=== PATIENT | female | born 1970 | race African-American/Black ===

== ENCOUNTER 2018-07-20 01:39 | Inpatient (IN) | payer MEDICARE, MEDICAID ==
[~2018-07-20] VITALS: Ht 162.6 cm; Wt 114.8 kg
[2018-07-20 01:45] VITALS: BP 114/83
[2018-07-20] MEDS ORDERED: Albuterol ud Inhalation HHN ONE (01:45)
--- NOTE | 2018-07-20 02:03 | Emergency Room Report ---
History of Present Illness General Chief Complaint: Chest Pain Source: Patient, Medical Record, EMS Present Illness HPI Patient is a 48-year-old female presented after increased chest discomfort. Patient had reportedly been recently released from [facility]. Patient recent the been noted to have increased pain to her chest.The patient reports being a smoker as well as having prior history of mental illness. Allergies: Coded Allergies: No Known Allergies (Unverified , 07/20/18) Patient History Past Medical History: see triage record Reviewed Nursing Documentation: PMH: Agreed; PSxH: Agreed Nursing Documentation-PMH Past Medical History: No History, Except For Hx Hypertension: Yes Hx COPD: Yes Hx Diabetes: Yes - DM2 Review of Systems All Other Systems: negative except mentioned in HPI Physical Exam Vital Signs Date Time Temp Pulse Resp B/P (MAP) Pulse Ox O2 Delivery O2 Flow Rate FiO2 07/20/18 01:33 97.8 64 18 118/81 92 Room Air 97.9 07/20/18 01:53 21 Sp02 EP Interpretation: reviewed, normal General Appearance: normal inspection, well appearing, no apparent distress, alert, GCS 15 Head: atraumatic ENT: normal ENT inspection, hearing grossly normal, normal voice Neck: normal inspection, full range of motion, supple, no bony tend Respiratory: normal inspection, lungs clear, normal breath sounds, no respiratory distress, no retraction, no wheezing Cardiovascular #1: regular rate, rhythm, no edema Gastrointestinal: normal inspection, normal bowel sounds, non tender, soft, no guarding, no hernia Genitourinary: no CVA tenderness Musculoskeletal: normal inspection, back normal, normal range of motion Neurologic: normal inspection, alert, responsive, speech normal Psychiatric: normal inspection, judgement/insight normal, mood/affect normal Skin: normal inspection, normal color, no rash Medical Decision Making Diagnostic Impression: Primary Impression: Chest pain ER Course Patient presented for chest pain. Differential diagnosis included but was not limited to acute coronary syndrome, pulmonary embolism, pneumonia, aortic dissection, shingles, pneumothorax, aortic dissection, esophageal rupture, pericarditis. Because of complexity of patient's case laboratory testing and imaging studies were ordered.Patient was noted to have EKG with normal sinus rhythm with a rate of [address] or T wave changes. Patient was given breathing treatment. The patient was noted to have some mild elevation of BNP. Dr. Malick Marie was contacted for inpatient management due to primary care physician. Labs Test 07/20/18 02:15 White Blood Count 8.0 K/UL (4.8-10.8) Red Blood Count 3.44 M/UL (4.20-5.40) Hemoglobin 9.7 G/DL (12.0-16.0) Hematocrit 29.8 % (37.0-47.0) Mean Corpuscular Volume 87 FL (80-99) Mean Corpuscular Hemoglobin 28.1 PG (27.0-31.0) Mean Corpuscular Hemoglobin Concent 32.4 G/DL (32.0-36.0) Red Cell Distribution Width 14.3 % (11.6-14.8) Platelet Count 307 K/UL (150-450) Mean Platelet Volume 6.9 FL (6.5-10.1) Neutrophils (%) (Auto) 45.1 % (45.0-75.0) Lymphocytes (%) (Auto) 45.5 % (20.0-45.0) Monocytes (%) (Auto) 5.1 % (1.0-10.0) Eosinophils (%) (Auto) 2.7 % (0.0-3.0) Basophils (%) (Auto) 1.6 % (0.0-2.0) D-Dimer 0.38 mg/L FEU (0.00-0.49) Sodium Level 143 MMOL/L (136-145) Potassium Level 4.3 MMOL/L (3.5-5.1) Chloride Level 106 MMOL/L (98-107) Carbon Dioxide Level 26 MMOL/L (21-32) Anion Gap 11 mmol/L (5-15) Blood Urea Nitrogen 25 mg/dL (7-18) Creatinine 2.0 MG/DL (0.55-1.30) Estimat Glomerular Filtration Rate 32.2 mL/min (>60) Glucose Level 143 MG/DL (74-106) Calcium Level 8.8 MG/DL (8.5-10.1) Total Bilirubin 0.2 MG/DL (0.2-1.0) Aspartate Amino Transf (AST/SGOT) 45 U/L (15-37) Alanine Aminotransferase (ALT/SGPT) 43 U/L (12-78) Alkaline Phosphatase 93 U/L (46-116) Total Creatine Kinase 98 U/L (26-308) Creatine Kinase MB < 0.5 NG/ML (0.0-3.6) Creatine Kinase MB Relative Index 0.5 Troponin I 0.000 ng/mL (0.000-0.056) Pro-B-Type Natriuretic Peptide 171 pg/mL (0-125) Total Protein 7.4 G/DL (6.4-8.2) Albumin 2.9 G/DL (3.4-5.0) Globulin 4.5 g/dL Albumin/Globulin Ratio 0.6 (1.0-2.7) Lipase 248 U/L (73-393) EKG Diagnostic Results Rate: normal Rhythm: NSR ST Segments: no acute changes Last Vital Signs Date Time Temp Pulse Resp B/P (MAP) Pulse Ox O2 Delivery O2 Flow Rate FiO2 07/20/18 01:53 89 26 Room Air 21 07/20/18 01:53 99 07/20/18 01:33 97.8 118/81 97.9 Status: unchanged Disposition: ADMITTED INPATIENT Condition: Stable Wang Xiao MD Jul 20, 2018 02:03
[2018-07-20 02:36] LABS: BASOPHILS % (AUTO) 1.6 % (0.0-2.0); EOSINOPHILS % (AUTO) 2.7 % (0.0-3.0); HEMATOCRIT 29.8 % (37.0-47.0); HEMOGLOBIN 9.7 G/DL (12.0-16.0); LYMPHOCYTES % (AUTO) 45.5 % (20.0-45.0); MEAN CORPUSCULAR VOLUME 87 FL (80-99); MONOCYTES % (AUTO) 5.1 % (1.0-10.0); NEUTROPHILS % (AUTO) 45.1 % (45.0-75.0); PLATELET COUNT 307 K/UL (150-450); RED BLOOD COUNT 3.44 M/UL (4.20-5.40); RED CELL DISTRIBUTION WIDTH 14.3 % (11.6-14.8)
[2018-07-20 02:43] LABS: ANION GAP 11 mmol/L (5-15); BLOOD UREA NITROGEN 25 mg/dL (7-18); CALCIUM 8.8 MG/DL (8.5-10.1); CARBON DIOXIDE 26 MMOL/L (21-32); CHLORIDE 106 MMOL/L (98-107); POTASSIUM 4.3 MMOL/L (3.5-5.1); SODIUM 143 MMOL/L (136-145)
[2018-07-20 02:57] LABS: ALANINE AMINOTRANSFERASE 43 U/L (12-78); ALBUMIN 2.9 G/DL (3.4-5.0); ALBUMIN/GLOBULIN RATIO 0.6 (1.0-2.7); ALKALINE PHOSPHATASE 93 U/L (46-116); ASPARTATE AMINO TRANSFERASE 45 U/L (15-37); BILIRUBIN,TOTAL 0.2 MG/DL (0.2-1.0); CKMB < 0.5 NG/ML (0.0-3.6); CREATINE KINASE 98 U/L (26-308)
[2018-07-20 05:00] VITALS: BP 107/70
[2018-07-20] MEDS ORDERED: KLONOPIN1 MG ORAL (05:51)
[2018-07-20] MEDS ORDERED: CLONIDINE HCL0.1 MG PO (05:51)
[2018-07-20] MEDS ORDERED: LORAZEPAM1 MG ORAL (05:51)
[2018-07-20] MEDS ORDERED: CALCIUM CARBON650 M3 GT (05:51)
[2018-07-20] MEDS ORDERED: DIVALPROEX SOD500 M2 PO (05:51)
[2018-07-20] MEDS ORDERED: DOCUSATE SODIU100 MG ORAL (05:51)
[2018-07-20] MEDS ORDERED: TYLENOL EXTRA500 MG ORAL ×2 (05:51)
[2018-07-20] MEDS ORDERED: TEMAZEPAM15 MG ORAL (05:51)
[2018-07-20] MEDS ORDERED: GABAPENTIN300 MG ORAL (05:51)
[2018-07-20] MEDS ORDERED: CLONIDINE0.1 MG PO (05:51)
[2018-07-20] MEDS ORDERED: TRAZODONE HCL100 MG ORAL (05:51)
[2018-07-20] MEDS ORDERED: NITROSTAT0.4 M1 SL (05:51)
[2018-07-20] MEDS ORDERED: CAL-CITRATE W/200 MG PO (05:51)
[2018-07-20] MEDS ORDERED: AMLODIPINE BESY10 MG ORAL (05:51)
[2018-07-20] MEDS ORDERED: METOPROLOL SUCC25 MG ORAL (05:51)
[2018-07-20] MEDS ORDERED: SEROQUEL400 MG ORAL (05:51)
[2018-07-20] MEDS ORDERED: Enalaprilat 2.5mg/2ml Inj IV PRN (07:45)
[2018-07-20] MEDS ORDERED: Ketorolac 30mg Inj IV PRN (07:45)
[2018-07-20] MEDS ORDERED: Albuterol/Ipratropium 3ml neb HHN PRN (07:45)
[2018-07-20] MEDS ORDERED: Nitroglycerin Subl 0.4mg tab SL PRN (07:45)
[2018-07-20] MEDS ORDERED: Miralax 17gm pkt ORAL PRN (07:45)
[2018-07-20] MEDS ORDERED: dilTIAZem HCl 25mg/5ml Inj IV PRN (07:45)
[2018-07-20 07:55] VITALS: BP 131/81
[2018-07-20] MEDS ORDERED: Calcium Carbonate 650mg Tab ORAL SCH (09:00)
[2018-07-20] MEDS ORDERED: Metoprolol Succinate XL 25mg tab ORAL SCH (09:00)
[2018-07-20] MEDS: Aspirin Baby 81mg ORAL SCH (09:21)
[2018-07-20] MEDS: Depakote ER 500mg tab ORAL SCH (09:21)
[2018-07-20] MEDS: Heparin 5000 units/ml inj SUBQ SCH ×2 (09:23→21:19)
[2018-07-20] MEDS: Morphine Sulfate 2mg/ml Inj IVP PRN ×3 (09:26→18:45)
--- NOTE | 2018-07-20 09:50 | Diagnostic Imaging Report ---
Indication: Altered mental status Technique: Contiguous 5 mm thick transaxial imaging of the head obtained in a Siemens Sensation [address] scanner. Soft tissue and bone windows generated. Automatic Exposure Control was utilized. Total Dose length Product (DLP): 1411.[address] Dose Index Volume (CTDIvol): 70.38 mGy Comparison: none Findings: There is moderate prominence of the ventricles, basal cisterns, and cerebral sulci consistent with atrophy. Moderate, nonspecific, white matter hypoattenuation is noted throughout the brain consistent with chronic small vessel disease. There is no midline shift, edema, acute hemorrhage, mass effect, or abnormal extra-axial fluid collections. Bones and extra osseous soft tissues are unremarkable. Impression: No acute intracranial bleed, mass effect or edema. Moderate atrophy of the brain. Evidence of chronic small vessel disease involving white matter tracts. [facility] has communicated the preliminary results to the Emergency Department. Their findings are largely concordant with this report. The CT scanner at [facility] is accredited by the [employer] and the scans are performed using dose optimization techniques as appropriate to a performed exam including Automatic Exposure control.
--- NOTE | 2018-07-20 10:02 | Consultation ---
History of Present Illness General Date patient seen: Jul 20, 2018 Chief Complaint: Chest Pain Present Illness HPI 48-year-old female with PMHx of Diabetes, COPD, chronic back pain, homeless, hypertension presented to ER with CC of increased chest discomfort. Patient had reportedly been recently released from [facility]. Patient recent the been noted to have increased pain to her chest. Pt is admitted to telemetry to work up ACS. Allergies: Coded Allergies: No Known Allergies (Unverified , 07/20/18) Medication History Scheduled Amlodipine Besylate* (Amlodipine Besylate*), 10 MG ORAL DAILY, (Reported) Calcium Carbonate (Calcium Carbonate), 500 MG PO DAILY, (Reported) Clonazepam* (Klonopin*), 1 MG ORAL BID, (Reported) Clonidine Hcl (Clonidine Hcl), 0.1 MG PO Q6HR, (Reported) Divalproex Sodium (Divalproex Sodium Er), 500 MG PO DAILY, (Reported) Docusate Sodium* (Docusate Sodium*), 100 MG ORAL TWICE A DAY, (Reported) Gabapentin* (Gabapentin*), 300 MG ORAL THREE TIMES A DAY, (Reported) Metoprolol Succinate* (Metoprolol Succinate*), 25 MG ORAL DAILY, (Reported) Quetiapine Fumarate (Seroquel), 400 MG ORAL QHS, (Reported) Temazepam (Temazepam*), 15 MG ORAL BEDTIME, (Reported) Trazodone Hcl* (Desyrel*), 100 MG ORAL BEDTIME, (Reported) Scheduled PRN Acetaminophen* (Tylenol Extra Strength*), 325 MG ORAL Q6H PRN for Mild Pain/ Temp > 100.5, (Reported) Acetaminophen* (Tylenol Extra Strength*), 650 MG ORAL Q6HR PRN for Prn Headache/ Temp > 101, (Reported) Clonidine HCl (Clonidine HCl), 0.1 MG PO Q6HR PRN for For High Blood Pressure, ( Reported) Lorazepam* (Lorazepam*), 1 MG ORAL Q6HR PRN for For Anxiety, (Reported) Nitroglycerin (Nitrostat), 0.4 MG SL Q5M X3 DOSES PRN for CHEST PAIN, (Reported) Temazepam (Temazepam*), 15 MG ORAL BEDTIME PRN for PRN, (Reported) Miscellaneous Medications Calcium Carbonate (Calcium Carbonate), 650 MG GT, (Reported) Patient History Healthcare decision maker Resuscitation status Full Code Advanced Directive on File No Past Medical/Surgical History Past Medical/Surgical History: (1) Diabetic nephropathy (2) Diabetes mellitus (3) COPD (chronic obstructive pulmonary disease) (4) Bipolar disorder Review of Systems All Other Systems: negative except mentioned in HPI Physical Exam General Appearance: WD/WN Lines, tubes and drains: peripheral HEENT: normocephalic, atraumatic Neck: non-tender, normal alignment Respiratory/Chest: chest wall non-tender, lungs clear Cardiovascular/Chest: normal peripheral pulses, normal rate Abdomen: normal bowel sounds, non tender Genitourinary/Rectal: normal genital exam Extremities: normal range of motion 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 Last 24 Hour Vital Signs Date Time Temp Pulse Resp B/P (MAP) Pulse Ox O2 Delivery O2 Flow Rate FiO2 07/20/18 09:22 87 131/81 07/20/18 09:21 87 131/81 07/20/18 07:55 96.6 87 18 131/81 (98) 98 96.6 07/20/18 05:37 Room Air 07/20/18 05:00 97.7 86 20 107/70 (82) 98 97.7 07/20/18 05:00 97.8 89 18 114/83 100 Room Air 2.0 21 97.8 07/20/18 02:04 86 16 100 Room Air 21 07/20/18 01:53 89 26 Room Air 21 07/20/18 01:53 89 26 99 Room Air 21 07/20/18 01:45 97.8 89 18 114/83 92 Room Air 2.0 97.8 07/20/18 01:40 91 18 Room Air 07/20/18 01:33 97.8 64 18 118/81 92 Room Air 97.9 Intake and Output 07/19/18 07/20/18 19:00 07:00 Output Total 500 ml Balance -500 ml Output Urine Total 500 ml # Voids 1 Laboratory Tests Test 07/20/18 02:15 White Blood Count 8.0 K/UL (4.8-10.8) Red Blood Count 3.44 M/UL (4.20-5.40) L Hemoglobin 9.7 G/DL (12.0-16.0) L Hematocrit 29.8 % (37.0-47.0) L Mean Corpuscular Volume 87 FL (80-99) Mean Corpuscular Hemoglobin 28.1 PG (27.0-31.0) Mean Corpuscular Hemoglobin Concent 32.4 G/DL (32.0-36.0) Red Cell Distribution Width 14.3 % (11.6-14.8) Platelet Count 307 K/UL (150-450) Mean Platelet Volume 6.9 FL (6.5-10.1) Neutrophils (%) (Auto) 45.1 % (45.0-75.0) Lymphocytes (%) (Auto) 45.5 % (20.0-45.0) H Monocytes (%) (Auto) 5.1 % (1.0-10.0) Eosinophils (%) (Auto) 2.7 % (0.0-3.0) Basophils (%) (Auto) 1.6 % (0.0-2.0) D-Dimer 0.38 mg/L FEU (0.00-0.49) Sodium Level 143 MMOL/L (136-145) Potassium Level 4.3 MMOL/L (3.5-5.1) Chloride Level 106 MMOL/L (98-107) Carbon Dioxide Level 26 MMOL/L (21-32) Anion Gap 11 mmol/L (5-15) Blood Urea Nitrogen 25 mg/dL (7-18) H Creatinine 2.0 MG/DL (0.55-1.30) H Estimat Glomerular Filtration Rate 32.2 mL/min (>60) Glucose Level 143 MG/DL (74-106) H Calcium Level 8.8 MG/DL (8.5-10.1) Total Bilirubin 0.2 MG/DL (0.2-1.0) Aspartate Amino Transf (AST/SGOT) 45 U/L (15-37) H Alanine Aminotransferase (ALT/SGPT) 43 U/L (12-78) Alkaline Phosphatase 93 U/L (46-116) Total Creatine Kinase 98 U/L (26-308) Creatine Kinase MB < 0.5 NG/ML (0.0-3.6) Creatine Kinase MB Relative Index 0.5 Troponin I 0.000 ng/mL (0.000-0.056) Pro-B-Type Natriuretic Peptide 171 pg/mL (0-125) H Total Protein 7.4 G/DL (6.4-8.2) Albumin 2.9 G/DL (3.4-5.0) L Globulin 4.5 g/dL Albumin/Globulin Ratio 0.6 (1.0-2.7) L Lipase 248 U/L (73-393) Height (Feet): 5 Height (Inches): 4.00 Weight (Pounds): 253 Medications Current Medications Medications (Trade) Dose Ordered Sig/Luciano Route PRN Reason Start Time Stop Time Status Last Admin Dose Admin Acetaminophen (Tylenol) 650 mg Q4H PRN ORAL FEVER 07/20/18 07:45 08/19/18 07:44 Albuterol/ Ipratropium (Albuterol/ Ipratropium) 3 ml Q4H PRN HHN Shortness of Breath 07/20/18 07:45 07/25/18 07:44 Amlodipine Besylate (Norvasc) 10 mg DAILY ORAL 07/20/18 09:00 08/19/18 08:59 07/20/18 09:22 Aspirin (ASA) 162 mg DAILY ORAL 07/20/18 09:00 08/19/18 08:59 07/20/18 09:21 Calcium Carbonate (Calcium Carbonate) 650 mg DAILY ORAL 07/20/18 09:00 08/19/18 08:59 Clonidine HCl (Catapres Tab) 0.1 mg Q6H PRN ORAL For High Blood Pressure > 160 07/20/18 07:45 08/19/18 07:44 Diltiazem HCl (Cardizem) 10 mg Q1H PRN IV heart rate more than 120 07/20/18 07:45 08/19/18 07:44 Divalproex Sodium (Depakote ER) 500 mg DAILY ORAL 07/20/18 09:00 08/19/18 08:59 07/20/18 09:21 Enalaprilat (Vasotec) 2.5 mg Q6H PRN IV sbp more than 160 07/20/18 07:45 08/19/18 07:44 Gabapentin (Neurontin) 300 mg THREE TIMES A DAY ORAL 07/20/18 09:00 08/19/18 08:59 07/20/18 09:21 Heparin Sodium (Porcine) (Heparin 5000 units/ml) 5,000 units EVERY 12 HOURS SUBQ 10/23/18 09:00 08/19/18 08:59 07/20/18 09:23 Ketorolac Tromethamine (Toradol 30mg) 30 mg Q6H PRN IV moderate pain ( 4-6) 07/20/18 07:45 07/25/18 07:44 Metoprolol Succinate (Toprol XL) 25 mg DAILY ORAL 07/20/18 09:00 08/19/18 08:59 07/20/18 09:21 Morphine Sulfate (Morphine Sulfate) 2 mg Q4H PRN IVP severe Pain (Pain Scale 7-10) 07/20/18 07:45 07/27/18 07:44 07/20/18 09:26 Nitroglycerin (Ntg) 0.4 mg Q5M PRN SL Prn Chest Pain 07/20/18 07:45 08/19/18 07:44 Ondansetron HCl (Zofran) 4 mg Q6H PRN IVP Nausea & Vomiting 07/20/18 07:45 08/19/18 07:44 Polyethylene Glycol (Miralax) 17 gm DAILYPRN PRN ORAL Constipation 07/20/18 07:45 08/19/18 07:44 Temazepam (Restoril) 15 mg HSPRN PRN ORAL Insomnia 07/20/18 07:45 07/27/18 07:44 Trazodone HCl (Desyrel) 100 mg BEDTIME ORAL 07/20/18 21:00 08/19/18 20:59 Assessment/Plan Problem List: (1) ACS (acute coronary syndrome) ICD Codes: I24.9 - Acute ischemic heart disease, unspecified SNOMED: 703014071 (2) Diabetic nephropathy ICD Codes: E11.21 - Type 2 diabetes mellitus with diabetic nephropathy SNOMED: 70902659, 691826965 (3) COPD (chronic obstructive pulmonary disease) ICD Codes: J44.9 - Chronic obstructive pulmonary disease, unspecified SNOMED: 51927301 (4) Bipolar disorder ICD Codes: F31.9 - Bipolar disorder, unspecified SNOMED: 41215452 (5) Diabetes mellitus ICD Codes: E11.9 - Type 2 diabetes mellitus without complications SNOMED: 69463570 (6) Homelessness ICD Codes: Z59.0 - Homelessness SNOMED: 78114738 Assessment/Plan serial ekg, troponin, echo sliding scale, diabetic diet psych evaluation dvt prophylaxis symptomatic treatment Shruti Gerber MD Jul 20, 2018 10:02
--- NOTE | 2018-07-20 10:56 | Diagnostic Imaging Report ---
Indication: Dyspnea Comparison: None A single view chest radiograph was obtained. Findings: Cardiomediastinal appearance is within normal limits for age. The lungs are clear. Pulmonary vascularity is appropriate. The diaphragmatic contour is smooth and costophrenic angles are sharp. No pleural effusions are identified. The bones are unremarkable. Impression: No acute findings
--- NOTE | 2018-07-20 10:57 | Diagnostic Imaging Report ---
Indication: left ankle pain Comparison: None Findings: 2 views of the left ankle were obtained. No acute fractures, malalignment, erosions or periostitis are identified. Soft tissue swelling is present especially in the lateral part of the ankle.. Impression: No acute findings
[2018-07-20] MEDS: NovoLOG Insulin Flexpen SUBQ SCH ×3 (11:52→21:19)
[2018-07-20 12:00] VITALS: BP 123/82
[2018-07-20 13:00] LABS: APPEARANCE,URINE CLEAR; BILIRUBIN, URINE NEGATIVE (NEGATIVE); COLOR,URINE PALE YELLOW; GLUCOSE, URINE (UA) NEGATIVE (NEGATIVE); KETONES,URINE NEGATIVE (NEGATIVE); LEUKOCYTE ESTERASE ,URINE NEGATIVE (NEGATIVE); NITRITE,URINE NEGATIVE (NEGATIVE); PH,URINE 6.5 (4.5-8.0); PROTEIN,URINE 2+ (NEGATIVE); UROBILINOGEN,URINE NORMAL MG/DL (0.0-1.0)
--- NOTE | 2018-07-20 13:28 | GI Initial Consult Note ---
History of Present Illness General Date patient seen: Jul 20, 2018 Time patient seen: 13:23 Reason for Hospitalization: Chest Pain Referring physician: JOSSY QUINTANA Reason for Consultation: ANEMIA Present Illness HPI Patient is a 48-year-old female presented after increased chest discomfort. Patient had reportedly been recently released from [facility]. Patient recent the been noted to have increased pain to her chest.The patient reports being a smoker as well as having prior history of mental illness. GI consulted for chest discomfort, possible GERD and anemia. Pt seen, awake A& Ox4 NAD with no active s/sx of N/V/D or constipation. Patient has generalized abdominal pain, history of lap band. She is unsure of her endoscopy / colonoscopy history. Labs reviewed; with anemia and renal insufficiency. Home Meds Reported Medications Acetaminophen* (TYLENOL EXTRA STRENGTH*) 500 Mg Tablet, 650 MG ORAL Q6HR PRN for Prn Headache/Temp > 101, #30 TAB 0 Refills 07/20/18 Acetaminophen* (TYLENOL EXTRA STRENGTH*) 500 Mg Tablet, 325 MG ORAL Q6H PRN for Mild Pain/Temp > 100.5, TAB 0 Refills 07/20/18 Temazepam (TEMAZEPAM*) 15 Mg Capsule, 15 MG ORAL BEDTIME PRN for PRN, #30 CAP 0 Refills 07/20/18 Temazepam (TEMAZEPAM*) 15 Mg Capsule, 15 MG ORAL BEDTIME, #30 CAP 0 Refills 07/20/18 Lorazepam* (LORAZEPAM*) 1 Mg Tablet, 1 MG ORAL Q6HR PRN for For Anxiety, TAB 07/20/18 Quetiapine Fumarate (SEROQUEL) 400 Mg Tablet, 400 MG ORAL QHS, #15 TAB 0 Refills 07/20/18 Divalproex Sodium (DIVALPROEX SODIUM ER) 500 Mg Tab.er.24h, 500 MG PO DAILY, TAB 07/20/18 Trazodone Hcl* (DESYREL*) 100 Mg Tablet, 100 MG ORAL BEDTIME, TAB 07/20/18 Clonidine HCl (Clonidine HCl) 0.1 Mg Tablet, 0.1 MG PO Q6HR PRN for For High Blood Pressure, TAB 07/20/18 Clonidine Hcl (CLONIDINE HCL) 0.1 Mg Tablet, 0.1 MG PO Q6HR, TAB 07/20/18 Nitroglycerin (NITROSTAT) 0.4 Mg Tab.subl, 0.4 MG SL Q5M X3 DOSES PRN for CHEST PAIN, #25 TAB 0 Refills 07/20/18 Docusate Sodium* (DOCUSATE SODIUM*) 100 Mg Capsule, 100 MG ORAL TWICE A DAY, CAP 07/20/18 Calcium Carbonate (Calcium Carbonate) 500 Mg Tablet, 500 MG PO DAILY, TAB 07/20/18 Calcium Carbonate (Calcium Carbonate) 260 Mg Tablet, 650 MG GT, TAB 07/20/18 Gabapentin* (GABAPENTIN*) 300 Mg Capsule, 300 MG ORAL THREE TIMES A DAY, CAP 0 Refills 07/20/18 Clonazepam* (KLONOPIN*) 1 Mg Tablet, 1 MG ORAL BID, #15 TAB 0 Refills 07/20/18 Metoprolol Succinate* (METOPROLOL SUCCINATE*) 25 Mg Tab.er.24h, 25 MG ORAL DAILY , TAB 07/20/18 Amlodipine Besylate* (AMLODIPINE BESYLATE*) 10 Mg Tablet, 10 MG ORAL DAILY, TAB 07/20/18 Med list reviewed/reconciled: Yes Allergies: Coded Allergies: No Known Allergies (Unverified , 07/20/18) Patient History Limited by: medical condition History Provided By: Patient, Medical Record PMH Narrative Past Medical History: see triage record Reviewed Nursing Documentation: PMH: Agreed; PSxH: Agreed Nursing Documentation-PMH Past Medical History: No History, Except For Hx Hypertension: Yes Hx COPD: Yes Hx Diabetes: Yes - DM2 Social History: Denies: smoking, alcohol use, drug use, other Review of Systems All Other Systems: negative except mentioned in HPI Physical Exam Vital Signs Date Time Temp Pulse Resp B/P (MAP) Pulse Ox O2 Delivery O2 Flow Rate FiO2 07/20/18 01:33 97.8 64 18 118/81 92 Room Air 97.9 07/20/18 01:45 2.0 07/20/18 01:53 21 Sp02 EP Interpretation: reviewed, normal Labs Laboratory Tests Test 07/20/18 02:15 07/20/18 12:30 White Blood Count 8.0 K/UL (4.8-10.8) Red Blood Count 3.44 M/UL (4.20-5.40) L Hemoglobin 9.7 G/DL (12.0-16.0) L Hematocrit 29.8 % (37.0-47.0) L Mean Corpuscular Volume 87 FL (80-99) Mean Corpuscular Hemoglobin 28.1 PG (27.0-31.0) Mean Corpuscular Hemoglobin Concent 32.4 G/DL (32.0-36.0) Red Cell Distribution Width 14.3 % (11.6-14.8) Platelet Count 307 K/UL (150-450) Mean Platelet Volume 6.9 FL (6.5-10.1) Neutrophils (%) (Auto) 45.1 % (45.0-75.0) Lymphocytes (%) (Auto) 45.5 % (20.0-45.0) H Monocytes (%) (Auto) 5.1 % (1.0-10.0) Eosinophils (%) (Auto) 2.7 % (0.0-3.0) Basophils (%) (Auto) 1.6 % (0.0-2.0) D-Dimer 0.38 mg/L FEU (0.00-0.49) Sodium Level 143 MMOL/L (136-145) Potassium Level 4.3 MMOL/L (3.5-5.1) Chloride Level 106 MMOL/L (98-107) Carbon Dioxide Level 26 MMOL/L (21-32) Anion Gap 11 mmol/L (5-15) Blood Urea Nitrogen 25 mg/dL (7-18) H Creatinine 2.0 MG/DL (0.55-1.30) H Estimat Glomerular Filtration Rate 32.2 mL/min (>60) Glucose Level 143 MG/DL (74-106) H Uric Acid 9.8 MG/DL (2.6-7.2) H Calcium Level 8.8 MG/DL (8.5-10.1) Total Bilirubin 0.2 MG/DL (0.2-1.0) Aspartate Amino Transf (AST/SGOT) 45 U/L (15-37) H Alanine Aminotransferase (ALT/SGPT) 43 U/L (12-78) Alkaline Phosphatase 93 U/L (46-116) Total Creatine Kinase 98 U/L (26-308) Creatine Kinase MB < 0.5 NG/ML (0.0-3.6) Creatine Kinase MB Relative Index 0.5 Troponin I 0.000 ng/mL (0.000-0.056) Pro-B-Type Natriuretic Peptide 171 pg/mL (0-125) H Total Protein 7.4 G/DL (6.4-8.2) Albumin 2.9 G/DL (3.4-5.0) L Globulin 4.5 g/dL Albumin/Globulin Ratio 0.6 (1.0-2.7) L Lipase 248 U/L (73-393) Urine Color Pale yellow Urine Appearance Clear Urine pH 6.5 (4.5-8.0) Urine Specific Buckner 1.005 (1.005-1.035) Urine Protein 2+ (NEGATIVE) H Urine Glucose (UA) Negative (NEGATIVE) Urine Ketones Negative (NEGATIVE) Urine Blood 1+ (NEGATIVE) H Urine Nitrite Negative (NEGATIVE) Urine Bilirubin Negative (NEGATIVE) Urine Urobilinogen Normal MG/DL (0.0-1.0) Urine Leukocyte Esterase Negative (NEGATIVE) Urine RBC 0-2 /HPF (0 - 2) Urine WBC 0-2 /HPF (0 - 2) Urine Squamous Epithelial Cells Few /LPF (NONE/OCC) Urine Bacteria Occasional /HPF (NONE) Urine Eosinophils None seen (NONE SEEN) Urine Random Sodium 26 mmol/L (20-110) Urine Potassium Timed 9 mmol/L (12-62) L General Appearance: well appearing, no apparent distress, alert Head: normocephalic EENT: PERRL/EOMI, normal ENT inspection Neck: supple Respiratory: normal breath sounds, no respiratory distress Cardiovascular: normal rate Gastrointestinal: normal inspection, non tender, soft, normal bowel sounds, non -distended Rectal: deferred Genitourinary: no CVA tenderness Musculoskeletal: normal inspection, back normal Neurologic: normal inspection, alert, oriented x3, responsive Psychiatric: normal inspection, judgement/insight normal, memory normal Skin: normal inspection, normal color, no rash, warm/dry, palpation normal, well hydrated Lymphatic: normal inspection, no adenopathy Current Medications Current Medications Medications (Trade) Dose Ordered Sig/Luciano Route PRN Reason Start Time Stop Time Status Last Admin Dose Admin Acetaminophen (Tylenol) 650 mg Q4H PRN ORAL FEVER 07/20/18 07:45 08/19/18 07:44 Albuterol/ Ipratropium (Albuterol/ Ipratropium) 3 ml Q4H PRN HHN Shortness of Breath 07/20/18 07:45 07/25/18 07:44 Amlodipine Besylate (Norvasc) 10 mg DAILY ORAL 07/20/18 09:00 08/19/18 08:59 07/20/18 09:22 Aspirin (ASA) 162 mg DAILY ORAL 07/20/18 09:00 08/19/18 08:59 07/20/18 09:21 Calcium Carbonate (Calcium Carbonate) 650 mg DAILY ORAL 07/20/18 09:00 08/19/18 08:59 07/20/18 11:26 Clonidine HCl (Catapres Tab) 0.1 mg Q6H PRN ORAL For High Blood Pressure > 160 07/20/18 07:45 08/19/18 07:44 Dextrose (Dextrose 50%) 25 ml Q30M PRN IV Hypoglycemia 07/20/18 10:30 08/19/18 10:29 Dextrose (Dextrose 50%) 50 ml Q30M PRN IV Hypoglycemia 07/20/18 10:30 08/19/18 10:29 Diltiazem HCl (Cardizem) 10 mg Q1H PRN IV heart rate more than 120 07/20/18 07:45 08/19/18 07:44 Divalproex Sodium (Depakote ER) 500 mg DAILY ORAL 07/20/18 09:00 08/19/18 08:59 07/20/18 09:21 Enalaprilat (Vasotec) 2.5 mg Q6H PRN IV sbp more than 160 07/20/18 07:45 08/19/18 07:44 Gabapentin (Neurontin) 300 mg THREE TIMES A DAY ORAL 07/20/18 09:00 08/19/18 08:59 07/20/18 09:21 Heparin Sodium (Porcine) (Heparin 5000 units/ml) 5,000 units EVERY 12 HOURS SUBQ 07/20/18 09:00 08/19/18 08:59 07/20/18 09:23 Insulin Aspart (NovoLOG) BEFORE MEALS AND HS SUBQ 07/20/18 11:30 08/19/18 11:29 07/20/18 11:52 Ketorolac Tromethamine (Toradol 30mg) 30 mg Q6H PRN IV moderate pain ( 4-6) 07/20/18 07:45 07/25/18 07:44 Metoprolol Succinate (Toprol XL) 25 mg DAILY ORAL 07/20/18 09:00 08/19/18 08:59 07/20/18 09:21 Morphine Sulfate (Morphine Sulfate) 2 mg Q4H PRN IVP severe Pain (Pain Scale 7-10) 07/20/18 07:45 07/27/18 07:44 07/20/18 09:26 Nitroglycerin (Ntg) 0.4 mg Q5M PRN SL Prn Chest Pain 07/20/18 07:45 08/19/18 07:44 Ondansetron HCl (Zofran) 4 mg Q6H PRN IVP Nausea & Vomiting 07/20/18 07:45 08/19/18 07:44 Polyethylene Glycol (Miralax) 17 gm DAILYPRN PRN ORAL Constipation 07/20/18 07:45 08/19/18 07:44 Temazepam (Restoril) 15 mg HSPRN PRN ORAL Insomnia 07/20/18 07:45 07/27/18 07:44 Trazodone HCl (Desyrel) 100 mg BEDTIME ORAL 07/20/18 21:00 08/19/18 20:59 GI: Plan Problems: (1) GERD (gastroesophageal reflux disease) (2) Hx of laparoscopic gastric banding (3) Anemia (4) Abdominal pain (5) Bipolar disorder (6) Diabetic nephropathy (7) Diabetes mellitus Plan will consider endoscopy pending cardiac work up to r/o GERD/gastritis fu cardiac recs anemia work up OB stool r/o GI bleed monitor H&H, prn transfusions bowel regime ppi fu labs Discussed with Dr. Winters. Thank you for this patient referral, we will follow. Rachael Shukla NP Jul 20, 2018 13:28
--- NOTE | 2018-07-20 15:03 | Consultation ---
Consult Note Consult Note asked to eval for high CR Patient is a 48-year-old female presented after increased chest discomfort. Patient had reportedly been recently released from [facility]. Patient recent the been noted to have increased pain to her chest.The patient reports being a smoker as well as having prior history of mental illness. No Known Allergies (Unverified , 07/20/18) Past Medical History: No History, Except For Hx Hypertension: Yes Hx COPD: Yes Hx Diabetes: Yes - DM2 . Assessment/Plan h/o CKD- presents with Cr 2 Was on Biggers in the past Has Proteinuria and HypoAlbuminemia Anemia HTN DM HyperUrecemia Obesity Stop NSAID ( Toradol) Parameters for BP meds Avoid Nephrotoxics Kidney MARIO ALBERTO Anemia rios monitor renal parameters 2D Echo Michael Cruz MD Jul 20, 2018 15:03
[2018-07-20 15:52] LABS: CHOLESTEROL 108 MG/DL (< 200); HDL CHOLESTEROL 40 MG/DL (40-60); TRIGLYCERIDES 184 MG/DL (30-150)
[2018-07-20 15:59] VITALS: BP 137/84
--- NOTE | 2018-07-20 16:00 | Cardiac Electrophysiology PN ---
Subjective Subjective [id number] Objective Last 24 Hour Vital Signs Date Time Temp Pulse Resp B/P (MAP) Pulse Ox O2 Delivery O2 Flow Rate FiO2 07/20/18 14:47 96.3 07/20/18 14:17 96.3 07/20/18 12:00 83 07/20/18 12:00 96.3 87 18 123/82 (96) 99 96.3 07/20/18 11:23 84 18 Room Air 21 07/20/18 09:22 87 131/81 07/20/18 09:21 87 131/81 07/20/18 09:00 Room Air 07/20/18 08:00 83 07/20/18 07:55 96.6 87 18 131/81 (98) 98 96.6 07/20/18 05:37 Room Air 07/20/18 05:00 97.7 86 20 107/70 (82) 98 97.7 07/20/18 05:00 97.8 89 18 114/83 100 Room Air 2.0 21 97.8 07/20/18 02:04 86 16 100 Room Air 21 07/20/18 01:53 89 26 Room Air 21 07/20/18 01:53 89 26 99 Room Air 21 07/20/18 01:45 97.8 89 18 114/83 92 Room Air 2.0 97.8 07/20/18 01:40 91 18 Room Air 07/20/18 01:33 97.8 64 18 118/81 92 Room Air 97.9 Intake and Output 07/19/18 07/20/18 19:00 07:00 Output Total 500 ml Balance -500 ml Output Urine Total 500 ml # Voids 1 Laboratory Tests Test 07/20/18 02:15 07/20/18 04:00 07/20/18 12:30 White Blood Count 8.0 K/UL (4.8-10.8) Red Blood Count 3.44 M/UL (4.20-5.40) L Hemoglobin 9.7 G/DL (12.0-16.0) L Hematocrit 29.8 % (37.0-47.0) L Mean Corpuscular Volume 87 FL (80-99) Mean Corpuscular Hemoglobin 28.1 PG (27.0-31.0) Mean Corpuscular Hemoglobin Concent 32.4 G/DL (32.0-36.0) Red Cell Distribution Width 14.3 % (11.6-14.8) Platelet Count 307 K/UL (150-450) Mean Platelet Volume 6.9 FL (6.5-10.1) Neutrophils (%) (Auto) 45.1 % (45.0-75.0) Lymphocytes (%) (Auto) 45.5 % (20.0-45.0) H Monocytes (%) (Auto) 5.1 % (1.0-10.0) Eosinophils (%) (Auto) 2.7 % (0.0-3.0) Basophils (%) (Auto) 1.6 % (0.0-2.0) D-Dimer 0.38 mg/L FEU (0.00-0.49) Sodium Level 143 MMOL/L (136-145) Potassium Level 4.3 MMOL/L (3.5-5.1) Chloride Level 106 MMOL/L (98-107) Carbon Dioxide Level 26 MMOL/L (21-32) Anion Gap 11 mmol/L (5-15) Blood Urea Nitrogen 25 mg/dL (7-18) H Creatinine 2.0 MG/DL (0.55-1.30) H Estimat Glomerular Filtration Rate 32.2 mL/min (>60) Glucose Level 143 MG/DL (74-106) H Uric Acid 9.8 MG/DL (2.6-7.2) H Calcium Level 8.8 MG/DL (8.5-10.1) Total Bilirubin 0.2 MG/DL (0.2-1.0) Aspartate Amino Transf (AST/SGOT) 45 U/L (15-37) H Alanine Aminotransferase (ALT/SGPT) 43 U/L (12-78) Alkaline Phosphatase 93 U/L (46-116) Total Creatine Kinase 98 U/L (26-308) Creatine Kinase MB < 0.5 NG/ML (0.0-3.6) Creatine Kinase MB Relative Index 0.5 Troponin I 0.000 ng/mL (0.000-0.056) Pro-B-Type Natriuretic Peptide 171 pg/mL (0-125) H Total Protein 7.4 G/DL (6.4-8.2) Albumin 2.9 G/DL (3.4-5.0) L Globulin 4.5 g/dL Albumin/Globulin Ratio 0.6 (1.0-2.7) L Lipase 248 U/L (73-393) Iron Level Pending Unsaturated Iron Binding Pending Ferritin Pending Triglycerides Level 184 MG/DL (30-150) H Cholesterol Level 108 MG/DL (< 200) LDL Cholesterol 48 mg/dL (<100) HDL Cholesterol 40 MG/DL (40-60) Cholesterol/HDL Ratio 2.7 (3.3-4.4) L Vitamin B12 Level Pending Folate Pending Urine Color Pale yellow Urine Appearance Clear Urine pH 6.5 (4.5-8.0) Urine Specific [place] 1.005 (1.005-1.035) Urine Protein 2+ (NEGATIVE) H Urine Glucose (UA) Negative (NEGATIVE) Urine Ketones Negative (NEGATIVE) Urine Blood 1+ (NEGATIVE) H Urine Nitrite Negative (NEGATIVE) Urine Bilirubin Negative (NEGATIVE) Urine Urobilinogen Normal MG/DL (0.0-1.0) Urine Leukocyte Esterase Negative (NEGATIVE) Urine RBC 0-2 /HPF (0 - 2) Urine WBC 0-2 /HPF (0 - 2) Urine Squamous Epithelial Cells Few /LPF (NONE/OCC) Urine Bacteria Occasional /HPF (NONE) Urine Eosinophils None seen (NONE SEEN) Urine Random Sodium 26 mmol/L (20-110) Urine Potassium Timed 9 mmol/L (12-62) L Raffaele Huber MD Jul 20, 2018 16:00
[2018-07-20] MEDS: Lexiscan 0.4mg/5ml syringe IV SCH (16:02)
[2018-07-20 16:30] LABS: FERRITIN 131 NG/ML (8-388)
[2018-07-20 17:01] LABS: % IRON SATURATION 13 % (15-50); IRON 39 ug/dL (50-175); TOTAL IRON BINDING CAPACITY 301 ug/dL (250-450)
[2018-07-20] MEDS: Docusate 100mg cap ORAL SCH (17:29)
--- NOTE | 2018-07-20 19:20 | Cardiology Report ---
APPROVED REPORT EXAM: Two-dimensional and M-mode echocardiogram with Doppler and color Doppler. INDICATION LV FUNCTION M-Mode DIMENSIONS IVSd1.1 (0.7-1.1cm)Left Atrium (MM)3.3 (1.6-4.0cm) LVDd5.2 (3.5-5.6cm)Aortic Root3.6 (2.0-3.7cm) PWd1.2 (0.7-1.1cm)Aortic Cusp Exc.1.6 (1.5-2.0cm) IVSs1.4 cm LVDs3.6 (2.5-4.0cm) PWs1.8 cm Normal left ventricular chamber size, systolic function and wall motion. Left ventricular ejection fraction estimated to be 55-60 %. Mild left ventricular hypertrophy by 2-D. No evidence of pericardial effusion . All other cardiac chamber sizes are within normal limits . Focal aortic valve sclerosis with normal cusp excursion. Thickened mitral valve leaflets with normal excursion. Mildly mitral annulus and aortic root calcification. Pulmonic valve not well visualized. Normal tricuspid valve structure. IVC at size 1.9 cm with physiological collapse . A color flow and spectral Doppler study was performed and revealed: No aortic insufficiency. Trace mitral regurgitation. Mitral diastolic velocities suggest reduced left ventricular relaxation c/w mild LV diastolic dysfunction (Grade I ). Mild tricuspid regurgitation. Tricuspid systolic velocities suggests peak right ventricular systolic pressure of 35 mmHg,consistent with mild pulmonary hypertension.
--- NOTE | 2018-07-20 19:37 | Cardiology Report ---
APPROVED REPORT EKG Measurement Heart [id number] Sinus tachycardia Right bundle branch block Abnormal ECG
[2018-07-20 20:00] VITALS: BP 117/74
--- NOTE | 2018-07-20 21:15 | History and Physical Report ---
DATE OF ADMISSION: 07/20/2018 TIME SEEN: At 1 p.m. CONSULTANTS: 1. Shruti Gerber M.D. 2. Raffaele Huber M.D. 3. Michael Cruz M.D. 4. Melo Winters M.D. 5. Avelino Sarah M.D. CHIEF COMPLAINT: Chest pain, shortness of breath, CHF, anemia, renal failure, bipolar. BRIEF HISTORY: This is a 48-year-old female from [facility], who presented with chest pain, substernal, both sharp and dull, intermittent, no radiation. The patient was slightly lightheaded, but no loss of consciousness, and slightly short of breath. The patient was sent to [place], diagnosed with the above, and admitted to telemetry for further care. Currently, slightly anxious in bed, slightly confused, no complaint. REVIEW OF SYSTEMS: Slight chest pain. Slight shortness of breath. No nausea, vomiting, or diarrhea. PAST MEDICAL HISTORY: Includes CHF, diabetes, anemia, renal failure, bipolar. PAST SURGICAL HISTORY: Bilateral tubal ligation, Lap-Band, and back surgery. ALLERGIES: Denies. MEDICATIONS: Include trazodone, insulin, amlodipine, divalproex, gabapentin, aspirin, heparin, clonidine, albuterol, nitroglycerin, ketorolac, morphine, temazepam, enalapril, diltiazem. SOCIAL HISTORY: Positive smoking. No alcohol. No intravenous drug abuse. FAMILY HISTORY: Noncontributory. PHYSICAL EXAMINATION: GENERAL: Calm in bed, oriented x3, in no acute distress. VITAL SIGNS: Show temperature 96, pulse 87, respirations 18, blood pressure 123/82. CARDIOVASCULAR: No murmur. LUNGS: Distant and clear. ABDOMEN: Soft. Bowel sounds positive. Nontender. Nondistended. EXTREMITIES: No cyanosis or edema. NEUROLOGIC: The patient moves all extremities, slightly weak. LABORATORY AND DIAGNOSTIC DATA: Labs at this time show hemoglobin 9.7, otherwise CBC is normal. BMP shows BUN and creatinine 24/2.0, glucose 143. Troponin 0.00. Albumin 2.9. D-dimer 0.38. Urinalysis, 1+ blood, 2+ protein, otherwise normal. ASSESSMENT: Chest pain, shortness of breath, CHF, diabetes, COPD, anemia, renal failure, and bipolar. PLAN: 1. Blood pressure and blood sugar control. 2. Troponin q.8 h. x3. 3. EKG in the morning. 4. O2 and pulmonary treatment as needed. 5. Pain control. 6. Dietary followup. 7. Resume home medications. 8. CBC and BMP in the morning. Malick Marie D.O. DR: Vance JOB#: [id number] CC:
[2018-07-20] MEDS: Metoprolol 25mg tab ORAL SCH (21:17)
[2018-07-20] MEDS: TraZODone 100mg tab ORAL SCH (21:17)
--- NOTE | 2018-07-20 23:15 | Consultation ---
DATE OF CONSULTATION: 07/20/2018 CARDIOLOGY CONSULTATION REFERRING PHYSICIAN: Malick Marie D.O. REASON FOR CONSULTATION: Congestive heart failure and hypertension. HISTORY OF PRESENT ILLNESS: The patient is a 48-year-old female with history of hypertension, diabetes, and COPD, has chronic back pain as well as homeless presented to the emergency room complaining of chest discomfort. The patient was recently discharged from [facility]. The patient was admitted to telemetry. Cardiology consultation was obtained for further evaluation and management. The patient denies any known prior myocardial infarction or known coronary artery disease. REVIEW OF SYSTEMS: Review of systems was negative other than what was mentioned in the history of present illness. PAST MEDICAL HISTORY: As mentioned above. FAMILY HISTORY: Noncontributory. MEDICATIONS: Norvasc 10 mg daily, Klonopin 1 mg b.i.d., metoprolol 25 mg daily, Seroquel, and temazepam. PHYSICAL EXAMINATION: VITAL SIGNS: Blood pressure of 122/82, pulse 87, respirations 18, and temperature 96.3. HEAD AND NECK: No JVD or carotid bruits. LUNGS: Clear. CARDIOVASCULAR: Regular S1 and S2 with no gallop or murmur. ABDOMEN: Soft. EXTREMITIES: 1+ pitting edema. LABORATORY DATA: Labs show white count of 8, hemoglobin 9.7, hematocrit of 29.8, and platelet count of 307,000. Sodium , potassium is 4.3, BUN of 25, creatinine , and glucose of 143. D-dimer is 0.38. CT of the head show no acute intracranial bleed, mass effect, or edema. ASSESSMENT AND PLAN: 1. Atypical chest pain. The patient's first troponin is negative to completely rule out myocardial infarction protocol. We will get an echocardiogram to evaluate for ejection fraction and wall motion abnormality. The preliminary report showed ejection fraction of 60% to 65%. 2. Hypertension, on Norvasc 10 mg daily, Lopressor 25 mg b.i.d., and clonidine. 3. Diabetes, on insulin. 4. Chronic obstructive pulmonary disease. 5. Chronic kidney disease, creatinine around 2. 6. Depression, on lithium in the past. Currently, on Neurontin. Thank you very much, Dr. Marie, for allowing me to participate in the care of this patient. Please do not hesitate to contact me for any questions regarding my evaluation. Raffaele Huber M.D. DR: ABIGAIL JOB#: [id number] CC:
[2018-07-21] VITALS: BP 102/67
--- NOTE | 2018-07-21 01:00 | Consultation ---
DATE OF CONSULTATION: 07/20/2018 HISTORY OF PRESENT ILLNESS: The patient is 48 years old. The patient came in to the hospital. She has extreme mood lability and confusion, that is why there was a daily psychiatric consultation, but she was recently at [facility] for diabetes, COPD, chronic back pain, and hypertension. She does have some mood lability and confusion, that is why daily psychiatric consultation requested, rule out schizoaffective, bipolar type. As far as her psychotropic medications on admission, Klonopin 1 mg twice a day, Depakote 500 mg daily, Neurontin 300 mg three times a day, trazodone 100 mg nightly, and Seroquel 400 mg nightly. The patient is very confused and disorganized. Her mood is labile. She has no logical plan for her own self-care. Feelings of helplessness, hopelessness, low energy, poor appetite, and loss of interest in activity. SUBSTANCE ABUSE HISTORY: The patient denies any known history of any drug and alcohol use at this time. FAMILY PSYCH HISTORY: Denies. PAIN ASSESSMENT: 12/05 pain. DEVELOPMENTAL PROBLEMS: Denies. SOCIAL HISTORY: She is homeless. She is financially supported by [employer] and Medicare. PSYCHIATRIC HISTORY: Schizoaffective, bipolar type. She has had multiple psychiatric admissions before. MENTAL STATUS EXAMINATION: The patient is a 48-year-old female. Appearance is disheveled. Attitude, irritable and agitated. Affect, guarded and restricted. Intellect poor. Mood, depressed and anxious. Motor activity, psychomotor agitation. Attention span is poor. Orientation x2. Speech is pressured. Thought process, disorganized and logical. Thought content, auditory hallucinations and paranoid delusions. Insight and judgment are poor. DIAGNOSIS: Schizoaffective, bipolar type. PLAN: Treat the patient with Depakote 500 mg daily, Neurontin 300 mg three times a day, and Seroquel 400 mg nightly. Provided with 20 minutes of cognitive behavior therapy. During her cognitive behavior therapy session, I am going to continue to help the patient identify automatic negative thoughts and help her convert those negative thoughts to more positive thinking to reduce depression, anxiety, and suicidality and encouraged her to interact appropriately with staff. Chart was reviewed and discussed with staff. The patient was seen and assessed in her room. She will continue to be followed by Psychiatry throughout the hospital course. Chart was reviewed and discussed with staff. Twenty minutes of cognitive behavior therapy was provided, identifying her automatic negative thoughts and help her to convert those negative thoughts to more positive thoughts to reduce depression and anxiety and suicidality. Chart was reviewed and discussed with staff. The patient is seen and assessed in the room. Avelino Sarah M.D. DR: SHYANNE JOB#: [id number] CC:
[2018-07-21 04:00] VITALS: BP 127/72
[2018-07-21] MEDS: Morphine Sulfate 2mg/ml Inj IVP PRN ×4 (06:07→21:19)
[2018-07-21] MEDS: NovoLOG Insulin Flexpen SUBQ SCH ×4 (06:09→20:45)
[2018-07-21 06:35] LABS: BASOPHILS % (AUTO) 0.8 % (0.0-2.0); EOSINOPHILS % (AUTO) 4.3 % (0.0-3.0); HEMATOCRIT 28.5 % (37.0-47.0); HEMOGLOBIN 9.2 G/DL (12.0-16.0); LYMPHOCYTES % (AUTO) 36.1 % (20.0-45.0); MEAN CORPUSCULAR VOLUME 88 FL (80-99); MONOCYTES % (AUTO) 10.8 % (1.0-10.0); PLATELET COUNT 291 K/UL (150-450); RED BLOOD COUNT 3.24 M/UL (4.20-5.40); RED CELL DISTRIBUTION WIDTH 14.3 % (11.6-14.8); WHITE BLOOD COUNT 6.6 K/UL (4.8-10.8)
[2018-07-21 06:48] LABS: INR 0.9 (0.9-1.1)
[2018-07-21 07:18] LABS: ALANINE AMINOTRANSFERASE 48 U/L (12-78); ALBUMIN 2.8 G/DL (3.4-5.0); ALBUMIN/GLOBULIN RATIO 0.6 (1.0-2.7); ALKALINE PHOSPHATASE 105 U/L (46-116); ANION GAP 13 mmol/L (5-15); ASPARTATE AMINO TRANSFERASE 41 U/L (15-37); BILIRUBIN,TOTAL 0.2 MG/DL (0.2-1.0); BLOOD UREA NITROGEN 27 mg/dL (7-18); CALCIUM 8.3 MG/DL (8.5-10.1); CARBON DIOXIDE 24 MMOL/L (21-32); CHLORIDE 107 MMOL/L (98-107); LACTATE DEHYDROGENASE 175 U/L (81-234); POTASSIUM 3.7 MMOL/L (3.5-5.1); SODIUM 144 MMOL/L (136-145)
[2018-07-21 08:00] VITALS: BP 114/90
--- NOTE | 2018-07-21 08:36 | Diagnostic Imaging Report ---
Indication: Reason For Exam: RENAL-A bilateral flank pain acute renal failure Technique: Grayscale and duplex images of the kidneys, retroperitoneum, and bladder were obtained. Comparison: none Findings: Right kidney measures 11.8 cm in length. Left kidney measures 10.3 cm in length. Both kidneys demonstrate slightly increased echogenicity. There is mild fullness of the left renal pelvis but no alexandra hydronephrosis on either side. Scanning of the bladder demonstrates presence of bilateral ureteral jets. Questionable calyceal calcifications are seen in the left renal sinus. Normal inferior vena cava. Bladder is normal, volume 184 mL at the time of scanning. Impression: Mild fullness the left renal collecting system without alexandra hydronephrosis, significance uncertain. Questionable left renal nonobstructive calyceal calcifications.
[2018-07-21] MEDS: Metoprolol 25mg tab ORAL SCH ×2 (09:00→20:35)
[2018-07-21] MEDS: Aspirin Baby 81mg ORAL SCH (09:57)
[2018-07-21] MEDS: Docusate 100mg cap ORAL SCH ×2 (09:57→17:06)
[2018-07-21] MEDS: Depakote ER 500mg tab ORAL SCH (09:58)
[2018-07-21] MEDS: Heparin 5000 units/ml inj SUBQ SCH ×2 (10:04→20:36)
--- NOTE | 2018-07-21 10:39 | GI Progress Note ---
Assessment/Plan Problems: (1) Homelessness ICD Codes: Z59.0 - Homelessness SNOMED: 25443330 (2) Hx of laparoscopic gastric banding ICD Codes: Z98.84 - Bariatric surgery status SNOMED: 732899663 (3) Bipolar disorder ICD Codes: F31.9 - Bipolar disorder, unspecified SNOMED: 99686535 (4) Diabetic nephropathy ICD Codes: E11.21 - Type 2 diabetes mellitus with diabetic nephropathy SNOMED: 97867136, 835137127 (5) GERD (gastroesophageal reflux disease) ICD Codes: K21.9 - Gastro-esophageal reflux disease without esophagitis SNOMED: 539436279 (6) Abdominal pain ICD Codes: R10.9 - Unspecified abdominal pain SNOMED: 69824254 (7) Anemia ICD Codes: D64.9 - Anemia, unspecified SNOMED: 301638831 Status: stable Status Narrative Seen with Dr. Winters. Assessment/Plan iron deficient stress test today will consider endoscopy pending cardiac work up to r/o GERD/gastritis fu cardiac recs OB stool r/o GI bleed monitor H&H, prn transfusions bowel regime ppi zofran prn DM management fu labs The patient was seen and examined at bedside and all new and available data was reviewed in the patients chart. I agree with the above findings, impression and plan. (Patient seen earlier today. Signature stamp does not reflect patient encounter time.). - Melo Winters MD Subjective Subjective c/o of ankle pain denies abdominal pain denies chest pain Objective Last 24 Hour Vital Signs Date Time Temp Pulse Resp B/P (MAP) Pulse Ox O2 Delivery O2 Flow Rate FiO2 07/21/18 09:56 97.3 07/21/18 09:00 90 114/90 07/21/18 07:40 96 17 Room Air 21 07/21/18 04:00 97.3 82 21 127/72 (90) 99 97.3 07/21/18 04:00 82 07/21/18 00:00 79 07/21/18 00:00 97.3 80 21 102/67 (79) 93 97.3 07/20/18 21:17 95 117/74 07/20/18 21:00 Room Air Room Air 07/20/18 20:10 95 18 Room Air 21 07/20/18 20:00 96 07/20/18 20:00 97.3 96 18 117/74 (88) 94 97.3 07/20/18 18:45 98.2 07/20/18 16:00 96 07/20/18 15:59 98.2 96 18 137/84 (101) 96 98.2 07/20/18 14:47 96.3 07/20/18 14:17 96.3 07/20/18 12:00 83 07/20/18 12:00 96.3 87 18 123/82 (96) 99 96.3 07/20/18 11:23 84 18 Room Air 21 Intake and Output 07/20/18 07/21/18 19:00 07:00 Intake Total 1420 ml Output Total 950 ml Balance 470 ml Intake Oral 1420 ml Output Urine Total 950 ml # Voids 2 Laboratory Tests Test 07/20/18 12:30 07/21/18 04:00 07/21/18 06:15 Urine Color Pale yellow Urine Appearance Clear Urine pH 6.5 (4.5-8.0) Urine Specific [place] 1.005 (1.005-1.035) Urine Protein 2+ (NEGATIVE) H Urine Glucose (UA) Negative (NEGATIVE) Urine Ketones Negative (NEGATIVE) Urine Blood 1+ (NEGATIVE) H Urine Nitrite Negative (NEGATIVE) Urine Bilirubin Negative (NEGATIVE) Urine Urobilinogen Normal MG/DL (0.0-1.0) Urine Leukocyte Esterase Negative (NEGATIVE) Urine RBC 0-2 /HPF (0 - 2) Urine WBC 0-2 /HPF (0 - 2) Urine Squamous Epithelial Cells Few /LPF (NONE/OCC) Urine Bacteria Occasional /HPF (NONE) Urine Eosinophils None seen (NONE SEEN) Urine Random Sodium 26 mmol/L (20-110) Urine Potassium Timed 9 mmol/L (12-62) L Free Thyroxine 1.25 NG/DL (0.76-1.46) White Blood Count 6.6 K/UL (4.8-10.8) Red Blood Count 3.24 M/UL (4.20-5.40) L Hemoglobin 9.2 G/DL (12.0-16.0) L Hematocrit 28.5 % (37.0-47.0) L Mean Corpuscular Volume 88 FL (80-99) Mean Corpuscular Hemoglobin 28.5 PG (27.0-31.0) Mean Corpuscular Hemoglobin Concent 32.3 G/DL (32.0-36.0) Red Cell Distribution Width 14.3 % (11.6-14.8) Platelet Count 291 K/UL (150-450) Mean Platelet Volume 6.5 FL (6.5-10.1) Neutrophils (%) (Auto) 48.0 % (45.0-75.0) Lymphocytes (%) (Auto) 36.1 % (20.0-45.0) Monocytes (%) (Auto) 10.8 % (1.0-10.0) H Eosinophils (%) (Auto) 4.3 % (0.0-3.0) H Basophils (%) (Auto) 0.8 % (0.0-2.0) Differential Total Cells Counted 100 Neutrophils % (Manual) 47 % (45-75) Lymphocytes % (Manual) 42 % (20-45) Monocytes % (Manual) 7 % (1-10) Eosinophils % (Manual) 3 % (0-3) Basophils % (Manual) 1 % (0-2) Band Neutrophils 0 % (0-8) Platelet Estimate Adequate Platelet Morphology Normal Hypochromasia 2+ Anisocytosis 1+ Erythrocyte Sedimentation Rate 48 MM/HR (0-20) H Reticulocyte Count 1.6 % (0.0-2.0) Prothrombin Time 9.6 SEC (9.30-11.50) Prothromb Time International Ratio 0.9 (0.9-1.1) Activated Partial Thromboplast Time 25 SEC (23-33) Sodium Level 144 MMOL/L (136-145) Potassium Level 3.7 MMOL/L (3.5-5.1) Chloride Level 107 MMOL/L (98-107) Carbon Dioxide Level 24 MMOL/L (21-32) Anion Gap 13 mmol/L (5-15) Blood Urea Nitrogen 27 mg/dL (7-18) H Creatinine 2.0 MG/DL (0.55-1.30) H Estimat Glomerular Filtration Rate 32.2 mL/min (>60) Glucose Level 152 MG/DL (74-106) H Hemoglobin A1c 7.6 % (4.3-6.0) H Calcium Level 8.3 MG/DL (8.5-10.1) L Phosphorus Level 5.0 MG/DL (2.5-4.9) H Magnesium Level 2.1 MG/DL (1.8-2.4) Total Bilirubin 0.2 MG/DL (0.2-1.0) Aspartate Amino Transf (AST/SGOT) 41 U/L (15-37) H Alanine Aminotransferase (ALT/SGPT) 48 U/L (12-78) Alkaline Phosphatase 105 U/L (46-116) Lactate Dehydrogenase 175 U/L (81-234) Troponin I 0.000 ng/mL (0.000-0.056) C-Reactive Protein, Quantitative 1.7 mg/dL (0.00-0.90) H Pro-B-Type Natriuretic Peptide 56 pg/mL (0-125) Total Protein 7.2 G/DL (6.4-8.2) Albumin 2.8 G/DL (3.4-5.0) L Globulin 4.4 g/dL Albumin/Globulin Ratio 0.6 (1.0-2.7) L Carcinoembryonic Antigen Pending Thyroid Stimulating Hormone (TSH) 2.812 uiU/mL (0.358-3.740) Height (Feet): 5 Height (Inches): 4.00 Weight (Pounds): 253 General Appearance: WD/WN, no apparent distress, alert Cardiovascular: normal rate Respiratory/Chest: normal breath sounds, no respiratory distress Abdominal Exam: normal bowel sounds, non tender, soft Extremities: normal range of motion, non-tender Rachael Shukla NP Jul 21, 2018 10:39
--- NOTE | 2018-07-21 11:09 | Nephrology Progress Note ---
Assessment/Plan Problem List: (1) Diabetic nephropathy (2) Bipolar disorder (3) Anemia (4) Obesity Assessment h/o CKD- presents with Cr 2 Was on Tira in the past Has Proteinuria and HypoAlbuminemia Anemia HTN DM and Nephropathy HyperUrecemia Obesity Plan Stop NSAID ( Toradol) Parameters for BP meds Avoid Nephrotoxics Kidney MARIO ALBERTO : Mild fullness the left renal collecting system without alexandra hydronephrosis, significance uncertain. Anemia rios monitor renal parameters 2D Echo Left ventricular ejection fraction estimated to be 55-60 %. Subjective ROS Limited/Unobtainable: No Constitutional: Reports: malaise Objective Objective Last 24 Hour Vital Signs Date Time Temp Pulse Resp B/P (MAP) Pulse Ox O2 Delivery O2 Flow Rate FiO2 07/21/18 10:26 97.3 07/21/18 09:56 97.3 07/21/18 09:00 90 114/90 07/21/18 07:40 96 17 Room Air 21 07/21/18 04:00 97.3 82 21 127/72 (90) 99 97.3 07/21/18 04:00 82 07/21/18 00:00 79 07/21/18 00:00 97.3 80 21 102/67 (79) 93 97.3 07/20/18 21:17 95 117/74 07/20/18 21:00 Room Air Room Air 07/20/18 20:10 95 18 Room Air 21 07/20/18 20:00 96 07/20/18 20:00 97.3 96 18 117/74 (88) 94 97.3 07/20/18 18:45 98.2 07/20/18 16:00 96 07/20/18 15:59 98.2 96 18 137/84 (101) 96 98.2 07/20/18 14:17 96.3 07/20/18 12:00 83 07/20/18 12:00 96.3 87 18 123/82 (96) 99 96.3 07/20/18 11:23 84 18 Room Air 21 Intake and Output 07/20/18 07/21/18 19:00 07:00 Intake Total 1420 ml Output Total 950 ml Balance 470 ml Intake Oral 1420 ml Output Urine Total 950 ml # Voids 2 Laboratory Tests 07/20/18 12:30: Urine Color Pale yellow, Urine Appearance Clear, Urine pH 6.5, Urine Specific [place] 1.005, Urine Protein 2+H, Urine Glucose (UA) Negative, Urine Ketones Negative, Urine Blood 1+H, Urine Nitrite Negative, Urine Bilirubin Negative, Urine Urobilinogen Normal, Urine Leukocyte Esterase Negative, Urine RBC 0-2, Urine WBC 0-2, Urine Squamous Epithelial Cells Few, Urine Bacteria Occasional, Urine Eosinophils None seen, Urine Random Sodium 26, Urine Potassium Timed 9L 07/21/18 04:00: Free Thyroxine 1.25 07/21/18 06:15: White Blood Count 6.6, Red Blood Count 3.24L, Hemoglobin 9.2L, Hematocrit 28.5L , Mean Corpuscular Volume 88, Mean Corpuscular Hemoglobin 28.5, Mean Corpuscular Hemoglobin Concent 32.3, Red Cell Distribution Width 14.3, Platelet Count 291, Mean Platelet Volume 6.5, Neutrophils (%) (Auto) 48.0, Lymphocytes (% ) (Auto) 36.1, Monocytes (%) (Auto) 10.8H, Eosinophils (%) (Auto) 4.3H, Basophils (%) (Auto) 0.8, Differential Total Cells Counted 100, Neutrophils % ( Manual) 47, Lymphocytes % (Manual) 42, Monocytes % (Manual) 7, Eosinophils % ( Manual) 3, Basophils % (Manual) 1, Band Neutrophils 0, Platelet Estimate Adequate, Platelet Morphology Normal, Hypochromasia 2+, Anisocytosis 1+, Erythrocyte Sedimentation Rate 48H, Reticulocyte Count 1.6, Prothrombin Time 9.6 , Prothromb Time International Ratio 0.9, Activated Partial Thromboplast Time 25 , Sodium Level 144, Potassium Level 3.7, Chloride Level 107, Carbon Dioxide Level 24, Anion Gap 13, Blood Urea Nitrogen 27H, Creatinine 2.0H, Estimat Glomerular Filtration Rate 32.2, Glucose Level 152H, Hemoglobin A1c 7.6H, Calcium Level 8.3L, Phosphorus Level 5.0H, Magnesium Level 2.1, Total Bilirubin 0.2, Aspartate Amino Transf (AST/SGOT) 41H, Alanine Aminotransferase (ALT/SGPT) 48, Alkaline Phosphatase 105, Lactate Dehydrogenase 175, Troponin I 0.000, C- Reactive Protein, Quantitative 1.7H, Pro-B-Type Natriuretic Peptide 56, Total Protein 7.2, Albumin 2.8L, Globulin 4.4, Albumin/Globulin Ratio 0.6L, Carcinoembryonic Antigen [Pending], Thyroid Stimulating Hormone (TSH) 2.812 Height (Feet): 5 Height (Inches): 4.00 Weight (Pounds): 253 General Appearance: no apparent distress Cardiovascular: tachycardia Respiratory/Chest: decreased breath sounds Abdomen: soft Michael Cruz MD Jul 21, 2018 11:09
--- NOTE | 2018-07-21 11:36 | Pulmonology Progress Note ---
Assessment/Plan Problems: (1) ACS (acute coronary syndrome) (2) Diabetic nephropathy (3) COPD (chronic obstructive pulmonary disease) (4) Bipolar disorder (5) Diabetes mellitus (6) Homelessness Assessment/Plan all noted stress test ordered echo reviewed, EF is 60% renal US reviewed, none obstructing calculi symptomatic treatment dc to residential if stress test is negative. Subjective ROS Limited/Unobtainable: No Constitutional: Reports: no symptoms HEENT: Repors: no symptoms Respiratory: Reports: no symptoms Cardiovascular: Reports: no symptoms Allergies: Coded Allergies: HALOPERIDOL (Verified Allergy, Unknown, 07/20/18) Objective Last 24 Hour Vital Signs Date Time Temp Pulse Resp B/P (MAP) Pulse Ox O2 Delivery O2 Flow Rate FiO2 07/21/18 10:26 97.3 07/21/18 09:56 97.3 07/21/18 09:00 90 114/90 07/21/18 09:00 Room Air Room Air 07/21/18 08:00 94 07/21/18 08:00 97.2 97 20 114/90 (98) 97 97.2 07/21/18 07:40 96 17 Room Air 21 07/21/18 04:00 97.3 82 21 127/72 (90) 99 97.3 07/21/18 04:00 82 07/21/18 00:00 79 07/21/18 00:00 97.3 80 21 102/67 (79) 93 97.3 07/20/18 21:17 95 117/74 07/20/18 21:00 Room Air Room Air 07/20/18 20:10 95 18 Room Air 21 07/20/18 20:00 96 07/20/18 20:00 97.3 96 18 117/74 (88) 94 97.3 07/20/18 18:45 98.2 07/20/18 16:00 96 07/20/18 15:59 98.2 96 18 137/84 (101) 96 98.2 07/20/18 14:17 96.3 07/20/18 12:00 83 07/20/18 12:00 96.3 87 18 123/82 (96) 99 96.3 Intake and Output 07/20/18 07/21/18 19:00 07:00 Intake Total 1420 ml Output Total 950 ml Balance 470 ml Intake Oral 1420 ml Output Urine Total 950 ml # Voids 2 General Appearance: WD/WN HEENT: normocephalic, atraumatic Respiratory/Chest: chest wall non-tender, lungs clear Breasts: no masses Cardiovascular: normal peripheral pulses, normal rate, no JVD Abdomen: normal bowel sounds, no scars Genitourinary: normal external genitalia Skin: no rash 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/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 normal Laboratory Tests 07/20/18 12:30: Urine Color Pale yellow, Urine Appearance Clear, Urine pH 6.5, Urine Specific [place] 1.005, Urine Protein 2+H, Urine Glucose (UA) Negative, Urine Ketones Negative, Urine Blood 1+H, Urine Nitrite Negative, Urine Bilirubin Negative, Urine Urobilinogen Normal, Urine Leukocyte Esterase Negative, Urine RBC 0-2, Urine WBC 0-2, Urine Squamous Epithelial Cells Few, Urine Bacteria Occasional, Urine Eosinophils None seen, Urine Random Sodium 26, Urine Potassium Timed 9L 07/21/18 04:00: Free Thyroxine 1.25 07/21/18 06:15: White Blood Count 6.6, Red Blood Count 3.24L, Hemoglobin 9.2L, Hematocrit 28.5L , Mean Corpuscular Volume 88, Mean Corpuscular Hemoglobin 28.5, Mean Corpuscular Hemoglobin Concent 32.3, Red Cell Distribution Width 14.3, Platelet Count 291, Mean Platelet Volume 6.5, Neutrophils (%) (Auto) 48.0, Lymphocytes (% ) (Auto) 36.1, Monocytes (%) (Auto) 10.8H, Eosinophils (%) (Auto) 4.3H, Basophils (%) (Auto) 0.8, Differential Total Cells Counted 100, Neutrophils % ( Manual) 47, Lymphocytes % (Manual) 42, Monocytes % (Manual) 7, Eosinophils % ( Manual) 3, Basophils % (Manual) 1, Band Neutrophils 0, Platelet Estimate Adequate, Platelet Morphology Normal, Hypochromasia 2+, Anisocytosis 1+, Erythrocyte Sedimentation Rate 48H, Reticulocyte Count 1.6, Prothrombin Time 9.6 , Prothromb Time International Ratio 0.9, Activated Partial Thromboplast Time 25 , Sodium Level 144, Potassium Level 3.7, Chloride Level 107, Carbon Dioxide Level 24, Anion Gap 13, Blood Urea Nitrogen 27H, Creatinine 2.0H, Estimat Glomerular Filtration Rate 32.2, Glucose Level 152H, Hemoglobin A1c 7.6H, Calcium Level 8.3L, Phosphorus Level 5.0H, Magnesium Level 2.1, Total Bilirubin 0.2, Aspartate Amino Transf (AST/SGOT) 41H, Alanine Aminotransferase (ALT/SGPT) 48, Alkaline Phosphatase 105, Lactate Dehydrogenase 175, Troponin I 0.000, C- Reactive Protein, Quantitative 1.7H, Pro-B-Type Natriuretic Peptide 56, Total Protein 7.2, Albumin 2.8L, Globulin 4.4, Albumin/Globulin Ratio 0.6L, Carcinoembryonic Antigen [Pending], Thyroid Stimulating Hormone (TSH) 2.812 Current Medications Medications (Trade) Dose Ordered Sig/Luciano Route PRN Reason Start Time Stop Time Status Last Admin Dose Admin Acetaminophen (Tylenol) 650 mg Q4H PRN ORAL FEVER 07/20/18 07:45 08/19/18 07:44 Albuterol/ Ipratropium (Albuterol/ Ipratropium) 3 ml Q4H PRN HHN Shortness of Breath 07/20/18 07:45 07/25/18 07:44 Allopurinol (Allopurinol) 300 mg DAILY ORAL 07/21/18 09:00 08/20/18 08:59 07/21/18 09:57 Amlodipine Besylate (Norvasc) 5 mg DAILY ORAL 07/22/18 09:00 08/19/18 08:59 Aspirin (ASA) 162 mg DAILY ORAL 07/20/18 09:00 08/19/18 08:59 07/21/18 09:57 Clonidine HCl (Catapres Tab) 0.1 mg Q4H PRN ORAL For High Blood Pressure > 160 07/20/18 15:15 08/19/18 07:44 Dextrose (Dextrose 50%) 25 ml Q30M PRN IV Hypoglycemia 07/20/18 10:30 08/19/18 10:29 Dextrose (Dextrose 50%) 50 ml Q30M PRN IV Hypoglycemia 07/20/18 10:30 08/19/18 10:29 Diltiazem HCl (Cardizem) 10 mg Q1H PRN IV heart rate more than 120 07/20/18 07:45 08/19/18 07:44 Divalproex Sodium (Depakote ER) 500 mg DAILY ORAL 07/20/18 09:00 08/19/18 08:59 07/21/18 09:58 Docusate Sodium (Colace) 100 mg TWICE A DAY ORAL 07/20/18 18:00 08/19/18 17:59 07/21/18 09:57 Gabapentin (Neurontin) 300 mg THREE TIMES A DAY ORAL 07/20/18 09:00 08/19/18 08:59 07/21/18 09:57 Heparin Sodium (Porcine) (Heparin 5000 units/ml) 5,000 units EVERY 12 HOURS SUBQ 07/20/18 09:00 08/19/18 08:59 07/21/18 10:04 Insulin Aspart (NovoLOG) BEFORE MEALS AND HS SUBQ 07/20/18 11:30 08/19/18 11:29 07/21/18 06:09 Iron Sucrose 100 mg/Sodium Chloride 60 ml @ 240 mls/hr ONCE ONCE IV 07/21/18 12:30 07/21/18 12:44 Metoprolol Tartrate (Lopressor) 25 mg Q12HR ORAL 07/20/18 21:00 08/19/18 20:59 07/20/18 21:17 Morphine Sulfate (Morphine Sulfate) 2 mg Q4H PRN IVP severe Pain (Pain Scale 7-10) 07/20/18 07:45 07/27/18 07:44 07/21/18 09:56 Nitroglycerin (Ntg) 0.4 mg Q5M PRN SL Prn Chest Pain 07/20/18 07:45 08/19/18 07:44 Ondansetron HCl (Zofran) 4 mg Q6H PRN IVP Nausea & Vomiting 07/20/18 07:45 08/19/18 07:44 07/21/18 09:57 Pantoprazole (Protonix) 40 mg DAILY ORAL 07/21/18 09:00 08/20/18 08:59 07/21/18 09:57 Polyethylene Glycol (Miralax) 17 gm DAILYPRN PRN ORAL Constipation 07/20/18 07:45 08/19/18 07:44 Quetiapine Fumarate (SEROquel) 300 mg QHS ORAL 07/20/18 21:00 08/19/18 20:59 07/20/18 21:17 Regadenoson (Lexiscan) 0.4 mg ONCE IV 07/20/18 16:02 07/22/18 23:59 Temazepam (Restoril) 15 mg HSPRN PRN ORAL Insomnia 07/20/18 07:45 07/27/18 07:44 Trazodone HCl (Desyrel) 100 mg BEDTIME ORAL 07/20/18 21:00 08/19/18 20:59 07/20/18 21:17 Shruti Gerber MD Jul 21, 2018 11:36
[2018-07-21 12:00] VITALS: BP 106/70
[2018-07-21] MEDS ORDERED: Iron Sucrose 100 MG in NS 55 ML IV ONE ×2 (12:30→21:00)
--- NOTE | 2018-07-21 13:45 | General Progress Note ---
Assessment/Plan Problem List: (1) Anemia ICD Codes: D64.9 - Anemia, unspecified SNOMED: 188275644 (2) Obesity ICD Codes: E66.9 - Obesity, unspecified SNOMED: 155453176, 832188662 (3) Chest pain ICD Codes: R07.9 - Chest pain, unspecified SNOMED: 82437239 (4) COPD (chronic obstructive pulmonary disease) ICD Codes: J44.9 - Chronic obstructive pulmonary disease, unspecified SNOMED: 30540312 (5) Diabetes mellitus ICD Codes: E11.9 - Type 2 diabetes mellitus without complications SNOMED: 38396363 (6) ACS (acute coronary syndrome) ICD Codes: I24.9 - Acute ischemic heart disease, unspecified SNOMED: 699192055 (7) Diabetic nephropathy ICD Codes: E11.21 - Type 2 diabetes mellitus with diabetic nephropathy SNOMED: 15006841, 903672041 (8) Bipolar disorder ICD Codes: F31.9 - Bipolar disorder, unspecified SNOMED: 36368374 Status: unchanged Assessment/Plan ot pt diet pain control bp bs control cbc bmp am Subjective Allergies: Coded Allergies: HALOPERIDOL (Verified Allergy, Unknown, 07/20/18) All Systems: reviewed and negative except above - sl anxious in bed no c Subjective sl anxious in bed no cp Objective Last 24 Hour Vital Signs Date Time Temp Pulse Resp B/P (MAP) Pulse Ox O2 Delivery O2 Flow Rate FiO2 07/21/18 12:00 98.2 89 20 106/70 (82) 98 98.2 07/21/18 10:26 97.3 07/21/18 09:56 97.3 07/21/18 09:00 90 114/90 07/21/18 09:00 Room Air Room Air 07/21/18 08:00 94 07/21/18 08:00 97.2 97 20 114/90 (98) 97 97.2 07/21/18 07:40 96 17 Room Air 21 07/21/18 04:00 97.3 82 21 127/72 (90) 99 97.3 07/21/18 04:00 82 07/21/18 00:00 79 07/21/18 00:00 97.3 80 21 102/67 (79) 93 97.3 07/20/18 21:17 95 117/74 07/20/18 21:00 Room Air Room Air 07/20/18 20:10 95 18 Room Air 21 07/20/18 20:00 96 07/20/18 20:00 97.3 96 18 117/74 (88) 94 97.3 07/20/18 18:45 98.2 07/20/18 16:00 96 07/20/18 15:59 98.2 96 18 137/84 (101) 96 98.2 07/20/18 14:17 96.3 Intake and Output 07/20/18 07/21/18 19:00 07:00 Intake Total 1420 ml Output Total 950 ml Balance 470 ml Intake Oral 1420 ml Output Urine Total 950 ml # Voids 2 Laboratory Tests 07/21/18 04:00: Free Thyroxine 1.25 07/21/18 06:15: White Blood Count 6.6, Red Blood Count 3.24L, Hemoglobin 9.2L, Hematocrit 28.5L , Mean Corpuscular Volume 88, Mean Corpuscular Hemoglobin 28.5, Mean Corpuscular Hemoglobin Concent 32.3, Red Cell Distribution Width 14.3, Platelet Count 291, Mean Platelet Volume 6.5, Neutrophils (%) (Auto) 48.0, Lymphocytes (% ) (Auto) 36.1, Monocytes (%) (Auto) 10.8H, Eosinophils (%) (Auto) 4.3H, Basophils (%) (Auto) 0.8, Differential Total Cells Counted 100, Neutrophils % ( Manual) 47, Lymphocytes % (Manual) 42, Monocytes % (Manual) 7, Eosinophils % ( Manual) 3, Basophils % (Manual) 1, Band Neutrophils 0, Platelet Estimate Adequate, Platelet Morphology Normal, Hypochromasia 2+, Anisocytosis 1+, Erythrocyte Sedimentation Rate 48H, Reticulocyte Count 1.6, Prothrombin Time 9.6 , Prothromb Time International Ratio 0.9, Activated Partial Thromboplast Time 25 , Sodium Level 144, Potassium Level 3.7, Chloride Level 107, Carbon Dioxide Level 24, Anion Gap 13, Blood Urea Nitrogen 27H, Creatinine 2.0H, Estimat Glomerular Filtration Rate 32.2, Glucose Level 152H, Hemoglobin A1c 7.6H, Calcium Level 8.3L, Phosphorus Level 5.0H, Magnesium Level 2.1, Total Bilirubin 0.2, Aspartate Amino Transf (AST/SGOT) 41H, Alanine Aminotransferase (ALT/SGPT) 48, Alkaline Phosphatase 105, Lactate Dehydrogenase 175, Troponin I 0.000, C- Reactive Protein, Quantitative 1.7H, Pro-B-Type Natriuretic Peptide 56, Total Protein 7.2, Albumin 2.8L, Globulin 4.4, Albumin/Globulin Ratio 0.6L, Carcinoembryonic Antigen [Pending], Thyroid Stimulating Hormone (TSH) 2.812 Height (Feet): 5 Height (Inches): 4.00 Weight (Pounds): 253 General Appearance: lethargic EENT: normal ENT inspection Neck: normal alignment Cardiovascular: normal peripheral pulses, normal rate, regular rhythm Respiratory/Chest: chest wall non-tender, lungs clear, normal breath sounds Abdomen: normal bowel sounds, non tender, soft Extremities: normal inspection Edema: 1+ Arm (L), 1+ Arm (R), 1+ Leg (L), 1+ Leg (R), 1+ Pedal (L), 1+ Pedal ( R), 1+ Generalized Edema: trace edema Neurologic: responsive, motor weakness Skin: normal pigmentation, warm/dry Malick Marie DO Jul 21, 2018 13:45
[2018-07-21 16:00] VITALS: BP 141/79
[2018-07-21] MEDS: Lexiscan 0.4mg/5ml syringe IV SCH (16:02)
--- NOTE | 2018-07-21 16:17 | Cardiac Electrophysiology PN ---
Assessment/Plan Assessment/Plan 1. Atypical chest pain. Ruled out myocardial infarction. Echo ejection fraction of 60% to 65%.Stress testresults pending 2. Hypertension, on Norvasc 10 mg daily, Lopressor 25 mg b.i.d., and clonidine. 3. Diabetes, on insulin. 4. Chronic obstructive pulmonary disease. 5. Chronic kidney disease, creatinine around 2. 6. Depression, on lithium in the past. Currently, on Neurontin. Subjective Subjective Had nuclear stress test today. Results pending. Objective Last 24 Hour Vital Signs Date Time Temp Pulse Resp B/P (MAP) Pulse Ox O2 Delivery O2 Flow Rate FiO2 07/21/18 12:00 89 07/21/18 12:00 98.2 89 20 106/70 (82) 98 98.2 07/21/18 10:26 97.3 07/21/18 09:56 97.3 07/21/18 09:00 90 114/90 07/21/18 09:00 Room Air Room Air 07/21/18 08:00 94 07/21/18 08:00 97.2 97 20 114/90 (98) 97 97.2 07/21/18 07:40 96 17 Room Air 21 07/21/18 04:00 97.3 82 21 127/72 (90) 99 97.3 07/21/18 04:00 82 07/21/18 00:00 79 07/21/18 00:00 97.3 80 21 102/67 (79) 93 97.3 07/20/18 21:17 95 117/74 07/20/18 21:00 Room Air Room Air 07/20/18 20:10 95 18 Room Air 21 07/20/18 20:00 96 07/20/18 20:00 97.3 96 18 117/74 (88) 94 97.3 07/20/18 18:45 98.2 Intake and Output 07/20/18 07/21/18 19:00 07:00 Intake Total 1420 ml Output Total 950 ml Balance 470 ml Intake Oral 1420 ml Output Urine Total 950 ml # Voids 2 Laboratory Tests Test 07/21/18 04:00 07/21/18 06:15 Free Thyroxine 1.25 NG/DL (0.76-1.46) White Blood Count 6.6 K/UL (4.8-10.8) Red Blood Count 3.24 M/UL (4.20-5.40) L Hemoglobin 9.2 G/DL (12.0-16.0) L Hematocrit 28.5 % (37.0-47.0) L Mean Corpuscular Volume 88 FL (80-99) Mean Corpuscular Hemoglobin 28.5 PG (27.0-31.0) Mean Corpuscular Hemoglobin Concent 32.3 G/DL (32.0-36.0) Red Cell Distribution Width 14.3 % (11.6-14.8) Platelet Count 291 K/UL (150-450) Mean Platelet Volume 6.5 FL (6.5-10.1) Neutrophils (%) (Auto) 48.0 % (45.0-75.0) Lymphocytes (%) (Auto) 36.1 % (20.0-45.0) Monocytes (%) (Auto) 10.8 % (1.0-10.0) H Eosinophils (%) (Auto) 4.3 % (0.0-3.0) H Basophils (%) (Auto) 0.8 % (0.0-2.0) Differential Total Cells Counted 100 Neutrophils % (Manual) 47 % (45-75) Lymphocytes % (Manual) 42 % (20-45) Monocytes % (Manual) 7 % (1-10) Eosinophils % (Manual) 3 % (0-3) Basophils % (Manual) 1 % (0-2) Band Neutrophils 0 % (0-8) Platelet Estimate Adequate Platelet Morphology Normal Hypochromasia 2+ Anisocytosis 1+ Erythrocyte Sedimentation Rate 48 MM/HR (0-20) H Reticulocyte Count 1.6 % (0.0-2.0) Prothrombin Time 9.6 SEC (9.30-11.50) Prothromb Time International Ratio 0.9 (0.9-1.1) Activated Partial Thromboplast Time 25 SEC (23-33) Sodium Level 144 MMOL/L (136-145) Potassium Level 3.7 MMOL/L (3.5-5.1) Chloride Level 107 MMOL/L (98-107) Carbon Dioxide Level 24 MMOL/L (21-32) Anion Gap 13 mmol/L (5-15) Blood Urea Nitrogen 27 mg/dL (7-18) H Creatinine 2.0 MG/DL (0.55-1.30) H Estimat Glomerular Filtration Rate 32.2 mL/min (>60) Glucose Level 152 MG/DL (74-106) H Hemoglobin A1c 7.6 % (4.3-6.0) H Calcium Level 8.3 MG/DL (8.5-10.1) L Phosphorus Level 5.0 MG/DL (2.5-4.9) H Magnesium Level 2.1 MG/DL (1.8-2.4) Total Bilirubin 0.2 MG/DL (0.2-1.0) Aspartate Amino Transf (AST/SGOT) 41 U/L (15-37) H Alanine Aminotransferase (ALT/SGPT) 48 U/L (12-78) Alkaline Phosphatase 105 U/L (46-116) Lactate Dehydrogenase 175 U/L (81-234) Troponin I 0.000 ng/mL (0.000-0.056) C-Reactive Protein, Quantitative 1.7 mg/dL (0.00-0.90) H Pro-B-Type Natriuretic Peptide 56 pg/mL (0-125) Total Protein 7.2 G/DL (6.4-8.2) Albumin 2.8 G/DL (3.4-5.0) L Globulin 4.4 g/dL Albumin/Globulin Ratio 0.6 (1.0-2.7) L Carcinoembryonic Antigen Pending Thyroid Stimulating Hormone (TSH) 2.812 uiU/mL (0.358-3.740) Objective HEAD AND NECK: No JVD or carotid bruits. LUNGS: Clear. CARDIOVASCULAR: Regular S1 and S2 with no gallop or murmur. ABDOMEN: Soft. EXTREMITIES: 1+ pitting edema. Raffaele Huber MD Jul 21, 2018 16:17
--- NOTE | 2018-07-21 16:35 | Diagnostic Imaging Report ---
Indications: Chest pain Technique: Single day single isotope protocol utilized. Initially, resting images obtained using IV administration 10 millicuries 99M technetium Myoview. Subsequently, patient underwent lexiscan stress testing. See cardiology report for details. During Lexiscan infusion, IV administration 32.5 mCi 99 M technetium Myoview. SPECT and planar images obtained. SPECT images gated to 8 phases of the cardiac cycle were also obtained, and reformatted into cine images for evaluation of ejection fraction. Comparison: none Findings: Presence or absence of symptoms during infusion is not described in the cardiology report. Per cardiology report, resting EKG demonstrates normal sinus rhythm with low voltage QRS. No significant ST-T wave changes noted during infusion. Imaging demonstrates equivocal slight decreased activity in the apex extending into the anteroseptal and inferolateral hudson, which appears similar on the post stress images. No reversible perfusion defects are demonstrated. Normal cardiac chamber size. Calculated post stress ejection fraction 80% Impression: Nonischemic clinical response to pharmacologic stress, per cardiology report Nonischemic electrocardiographic response to pharmacologic stress, per cardiology report Anteroseptal hudson. Suspect artifactual due to soft tissue attenuation but small infarct not completely excludable Calculated post stress ejection fraction greater than 70%
--- NOTE | 2018-07-21 18:15 | Progress Note ---
DATE: 07/21/2018 NOTE: "VERY POOR AUDIO QUALITY" SUBJECTIVE: The patient is a 48-year-old female patient with chest pain. She continues to have some mood lability, confusion, and disorganized thought process. She is still very hyperverbal, confused, disorganized, grandiose with delusional thoughts. That is why, her attending has requested daily psychiatric consultation because of her racing thoughts, pressured speech, mood lability. MENTAL STATUS EXAMINATION: This is a 48-year-old female. Appearance is disheveled. Attitude, irritable and agitated. Affect, guarded and restricted. Intellect poor. Mood, depressed and anxious. Motor activity, psychomotor agitation. Attention span is poor. Orientation x2. Speech is pressured. Thought process is disorganized and illogical. Thought content, auditory hallucinations and paranoid delusions. Insight and judgement is poor. DIAGNOSIS: Schizoaffective, bipolar type. PLAN: Treat her with Depakote 500 mg at bedtime, Seroquel 300 mg at bedtime, Neurontin 300 mg three times a day. Provided her with 20 minutes of cognitive behavioral therapy to help her identify automatic negative thoughts and help her to convert her automatic negative thoughts to more positive thinking to reduce depression, anxiety, and mood lability. Twenty minutes of cognitive behavioral therapy provided . Chart was reviewed. Discussed with staff. Seen and assessed in her room. Avelino Sarah M.D. DR: Katya JOB#: [id number] CC:
[2018-07-21 20:00] VITALS: BP 120/87
[2018-07-21] MEDS: TraZODone 100mg tab ORAL SCH (20:34)
[2018-07-22] VITALS: BP 120/86
[2018-07-22 03:51] VITALS: BP 120/87
[2018-07-22] MEDS: NovoLOG Insulin Flexpen SUBQ SCH ×4 (06:30→20:37)
[2018-07-22 08:00] VITALS: BP 132/82
[2018-07-22 08:28] LABS: BASOPHILS % (AUTO) 0.8 % (0.0-2.0); EOSINOPHILS % (AUTO) 3.2 % (0.0-3.0); HEMATOCRIT 29.3 % (37.0-47.0); HEMOGLOBIN 9.4 G/DL (12.0-16.0); LYMPHOCYTES % (AUTO) 35.1 % (20.0-45.0); MEAN CORPUSCULAR VOLUME 88 FL (80-99); MONOCYTES % (AUTO) 9.1 % (1.0-10.0); NEUTROPHILS % (AUTO) 51.9 % (45.0-75.0); PLATELET COUNT 302 K/UL (150-450); RED BLOOD COUNT 3.33 M/UL (4.20-5.40); RED CELL DISTRIBUTION WIDTH 14.1 % (11.6-14.8); WHITE BLOOD COUNT 7.7 K/UL (4.8-10.8)
[2018-07-22] MEDS: Aspirin Baby 81mg ORAL SCH (08:37)
[2018-07-22] MEDS: Docusate 100mg cap ORAL SCH ×2 (08:37→17:54)
[2018-07-22] MEDS: Depakote ER 500mg tab ORAL SCH (08:37)
[2018-07-22] MEDS: Morphine Sulfate 2mg/ml Inj IVP PRN ×3 (08:38→20:25)
[2018-07-22] MEDS: Metoprolol 25mg tab ORAL SCH ×2 (08:39→20:34)
[2018-07-22] MEDS: Heparin 5000 units/ml inj SUBQ SCH ×2 (08:40→20:37)
[2018-07-22 08:41] LABS: ANION GAP 10 mmol/L (5-15); BLOOD UREA NITROGEN 28 mg/dL (7-18); CALCIUM 8.7 MG/DL (8.5-10.1); CARBON DIOXIDE 28 MMOL/L (21-32); CHLORIDE 107 MMOL/L (98-107); CREATININE 2.1 MG/DL (0.55-1.30); POTASSIUM 4.3 MMOL/L (3.5-5.1); SODIUM 144 MMOL/L (136-145)
--- NOTE | 2018-07-22 10:59 | GI Progress Note ---
Assessment/Plan Problems: (1) Homelessness ICD Codes: Z59.0 - Homelessness SNOMED: 61490390 (2) Hx of laparoscopic gastric banding ICD Codes: Z98.84 - Bariatric surgery status SNOMED: 587295972 (3) Bipolar disorder ICD Codes: F31.9 - Bipolar disorder, unspecified SNOMED: 93874519 (4) Diabetic nephropathy ICD Codes: E11.21 - Type 2 diabetes mellitus with diabetic nephropathy SNOMED: 93394345, 835816301 (5) GERD (gastroesophageal reflux disease) ICD Codes: K21.9 - Gastro-esophageal reflux disease without esophagitis SNOMED: 559880821 (6) Abdominal pain ICD Codes: R10.9 - Unspecified abdominal pain SNOMED: 78158855 (7) Anemia ICD Codes: D64.9 - Anemia, unspecified SNOMED: 133447612 Status: stable Status Narrative Discussed with Dr. Winters. Assessment/Plan iron deficient stress test today >> EF 70% denies abdominal/chest pain today outpatient GI procedures adv diet OB stool r/o GI bleed monitor H&H, prn transfusions bowel regime ppi zofran prn DM management fu labs The patient was seen and examined at bedside and all new and available data was reviewed in the patients chart. I agree with the above findings, impression and plan. (Patient seen earlier today. Signature stamp does not reflect patient encounter time.). - Melo Winters MD Subjective Subjective c/o of ankle pain denies abdominal pain denies chest pain Objective Last 24 Hour Vital Signs Date Time Temp Pulse Resp B/P (MAP) Pulse Ox O2 Delivery O2 Flow Rate FiO2 07/22/18 09:08 98.2 07/22/18 09:00 Room Air Room Air 07/22/18 08:39 99 132/82 07/22/18 08:38 99 132/82 07/22/18 08:00 97.5 99 19 132/82 (99) 99 07/22/18 08:00 104 07/22/18 04:00 97 07/22/18 03:51 98.2 100 20 120/87 (98) 100 07/22/18 00:00 90 07/22/18 00:00 97.0 90 20 120/86 (97) 100 07/21/18 21:00 Room Air Room Air 07/21/18 20:35 99 120/87 07/21/18 20:00 98.6 100 22 120/87 (98) 92 07/21/18 20:00 102 07/21/18 19:58 94 18 Room Air 21 07/21/18 16:00 98.3 100 20 141/79 (99) 99 07/21/18 16:00 96 07/21/18 12:00 89 07/21/18 12:00 98.2 89 20 106/70 (82) 98 98.2 Intake and Output 07/21/18 07/22/18 19:00 07:00 Intake Total 700 ml 420 ml Balance 700 ml 420 ml Intake Oral 700 ml 360 ml IV Total 60 ml # Voids 2 3 Laboratory Tests Test 07/22/18 07:15 White Blood Count 7.7 K/UL (4.8-10.8) Red Blood Count 3.33 M/UL (4.20-5.40) L Hemoglobin 9.4 G/DL (12.0-16.0) L Hematocrit 29.3 % (37.0-47.0) L Mean Corpuscular Volume 88 FL (80-99) Mean Corpuscular Hemoglobin 28.4 PG (27.0-31.0) Mean Corpuscular Hemoglobin Concent 32.3 G/DL (32.0-36.0) Red Cell Distribution Width 14.1 % (11.6-14.8) Platelet Count 302 K/UL (150-450) Mean Platelet Volume 6.6 FL (6.5-10.1) Neutrophils (%) (Auto) 51.9 % (45.0-75.0) Lymphocytes (%) (Auto) 35.1 % (20.0-45.0) Monocytes (%) (Auto) 9.1 % (1.0-10.0) Eosinophils (%) (Auto) 3.2 % (0.0-3.0) H Basophils (%) (Auto) 0.8 % (0.0-2.0) Sodium Level 144 MMOL/L (136-145) Potassium Level 4.3 MMOL/L (3.5-5.1) Chloride Level 107 MMOL/L (98-107) Carbon Dioxide Level 28 MMOL/L (21-32) Anion Gap 10 mmol/L (5-15) Blood Urea Nitrogen 28 mg/dL (7-18) H Creatinine 2.1 MG/DL (0.55-1.30) H Estimat Glomerular Filtration Rate 30.5 mL/min (>60) Glucose Level 165 MG/DL (74-106) H Calcium Level 8.7 MG/DL (8.5-10.1) Troponin I 0.000 ng/mL (0.000-0.056) Height (Feet): 5 Height (Inches): 4.00 Weight (Pounds): 253 General Appearance: WD/WN, no apparent distress, alert, overweight, morbidly obese Cardiovascular: normal rate Respiratory/Chest: normal breath sounds, no respiratory distress Abdominal Exam: normal bowel sounds, non tender, soft Extremities: non-tender Rachael Shukla NP Jul 22, 2018 10:59
[2018-07-22 12:00] VITALS: BP 118/77
--- NOTE | 2018-07-22 12:00 | Pulmonology Progress Note ---
Assessment/Plan Problems: (1) ACS (acute coronary syndrome) (2) Diabetic nephropathy (3) COPD (chronic obstructive pulmonary disease) (4) Bipolar disorder (5) Diabetes mellitus (6) Homelessness Assessment/Plan no new complains all noted stress test ordered echo reviewed, EF is 60% renal US reviewed, none obstructing calculi symptomatic treatment dc planning Subjective ROS Limited/Unobtainable: No Constitutional: Reports: no symptoms HEENT: Repors: no symptoms Allergies: Coded Allergies: HALOPERIDOL (Verified Allergy, Unknown, 07/20/18) Objective Last 24 Hour Vital Signs Date Time Temp Pulse Resp B/P (MAP) Pulse Ox O2 Delivery O2 Flow Rate FiO2 07/22/18 09:08 98.2 07/22/18 09:00 Room Air Room Air 07/22/18 08:39 99 132/82 07/22/18 08:38 99 132/82 07/22/18 08:00 97.5 99 19 132/82 (99) 99 07/22/18 08:00 104 07/22/18 04:00 97 07/22/18 03:51 98.2 100 20 120/87 (98) 100 07/22/18 00:00 90 07/22/18 00:00 97.0 90 20 120/86 (97) 100 07/21/18 21:00 Room Air Room Air 07/21/18 20:35 99 120/87 07/21/18 20:00 98.6 100 22 120/87 (98) 92 07/21/18 20:00 102 07/21/18 19:58 94 18 Room Air 21 07/21/18 16:00 98.3 100 20 141/79 (99) 99 07/21/18 16:00 96 07/21/18 12:00 89 07/21/18 12:00 98.2 89 20 106/70 (82) 98 98.2 Intake and Output 07/21/18 07/22/18 19:00 07:00 Intake Total 700 ml 420 ml Balance 700 ml 420 ml Intake Oral 700 ml 360 ml IV Total 60 ml # Voids 2 3 General Appearance: WD/WN HEENT: normocephalic, atraumatic Respiratory/Chest: chest wall non-tender, lungs clear Breasts: no masses Cardiovascular: normal peripheral pulses Abdomen: normal bowel sounds, soft, non tender Genitourinary: normal external genitalia Extremities: no clubbing Skin: no lesions 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 Laboratory Tests 07/22/18 07:15: White Blood Count 7.7, Red Blood Count 3.33L, Hemoglobin 9.4L, Hematocrit 29.3L , Mean Corpuscular Volume 88, Mean Corpuscular Hemoglobin 28.4, Mean Corpuscular Hemoglobin Concent 32.3, Red Cell Distribution Width 14.1, Platelet Count 302, Mean Platelet Volume 6.6, Neutrophils (%) (Auto) 51.9, Lymphocytes (% ) (Auto) 35.1, Monocytes (%) (Auto) 9.1, Eosinophils (%) (Auto) 3.2H, Basophils (%) (Auto) 0.8, Sodium Level 144, Potassium Level 4.3, Chloride Level 107, Carbon Dioxide Level 28, Anion Gap 10, Blood Urea Nitrogen 28H, Creatinine 2.1H , Estimat Glomerular Filtration Rate 30.5, Glucose Level 165H, Calcium Level 8.7 , Troponin I 0.000 Current Medications Medications (Trade) Dose Ordered Sig/Luciano Route PRN Reason Start Time Stop Time Status Last Admin Dose Admin Acetaminophen (Tylenol) 650 mg Q4H PRN ORAL FEVER 07/20/18 07:45 08/19/18 07:44 Albuterol/ Ipratropium (Albuterol/ Ipratropium) 3 ml Q4H PRN HHN Shortness of Breath 07/20/18 07:45 07/25/18 07:44 Allopurinol (Allopurinol) 300 mg DAILY ORAL 07/21/18 09:00 08/20/18 08:59 07/22/18 08:37 Amlodipine Besylate (Norvasc) 5 mg DAILY ORAL 07/22/18 09:00 08/19/18 08:59 07/22/18 08:38 Aspirin (ASA) 162 mg DAILY ORAL 07/20/18 09:00 08/19/18 08:59 07/22/18 08:37 Clonidine HCl (Catapres Tab) 0.1 mg Q4H PRN ORAL For High Blood Pressure > 160 07/20/18 15:15 08/19/18 07:44 Dextrose (Dextrose 50%) 25 ml Q30M PRN IV Hypoglycemia 07/20/18 10:30 08/19/18 10:29 Dextrose (Dextrose 50%) 50 ml Q30M PRN IV Hypoglycemia 07/20/18 10:30 08/19/18 10:29 Diltiazem HCl (Cardizem) 10 mg Q1H PRN IV heart rate more than 120 07/20/18 07:45 08/19/18 07:44 Divalproex Sodium (Depakote ER) 500 mg DAILY ORAL 07/20/18 09:00 08/19/18 08:59 07/22/18 08:37 Docusate Sodium (Colace) 100 mg TWICE A DAY ORAL 07/20/18 18:00 08/19/18 17:59 07/22/18 08:37 Gabapentin (Neurontin) 300 mg THREE TIMES A DAY ORAL 07/20/18 09:00 08/19/18 08:59 07/22/18 08:37 Heparin Sodium (Porcine) (Heparin 5000 units/ml) 5,000 units EVERY 12 HOURS SUBQ 07/20/18 09:00 08/19/18 08:59 07/22/18 08:40 Insulin Aspart (NovoLOG) BEFORE MEALS AND HS SUBQ 07/20/18 11:30 08/19/18 11:29 07/22/18 11:37 Metoprolol Tartrate (Lopressor) 25 mg Q12HR ORAL 07/20/18 21:00 08/19/18 20:59 07/22/18 08:39 Morphine Sulfate (Morphine Sulfate) 2 mg Q4H PRN IVP severe Pain (Pain Scale 7-10) 07/20/18 07:45 07/27/18 07:44 07/22/18 08:38 Nitroglycerin (Ntg) 0.4 mg Q5M PRN SL Prn Chest Pain 07/20/18 07:45 08/19/18 07:44 Ondansetron HCl (Zofran) 4 mg Q6H PRN IVP Nausea & Vomiting 07/20/18 07:45 08/19/18 07:44 07/22/18 08:37 Pantoprazole (Protonix) 40 mg DAILY ORAL 07/21/18 09:00 08/20/18 08:59 07/22/18 08:37 Polyethylene Glycol (Miralax) 17 gm DAILYPRN PRN ORAL Constipation 07/20/18 07:45 08/19/18 07:44 Quetiapine Fumarate (SEROquel) 300 mg QHS ORAL 07/20/18 21:00 08/19/18 20:59 07/21/18 20:34 Temazepam (Restoril) 15 mg HSPRN PRN ORAL Insomnia 07/20/18 07:45 07/27/18 07:44 Trazodone HCl (Desyrel) 100 mg BEDTIME ORAL 07/20/18 21:00 08/19/18 20:59 07/21/18 20:34 Shruti Gerber MD Jul 22, 2018 12:00
--- NOTE | 2018-07-22 12:25 | Nephrology Progress Note ---
Assessment/Plan Problem List: (1) Diabetic nephropathy (2) Bipolar disorder (3) Anemia (4) Obesity Assessment h/o CKD- presents with Cr 2 Was on [place] in the past Has Proteinuria and HypoAlbuminemia Anemia HTN DM and Nephropathy HyperUrecemia Obesity Plan Stop NSAID ( Toradol) Parameters for BP meds Avoid Nephrotoxics Kidney MARIO ALBERTO : Mild fullness the left renal collecting system without alexandra hydronephrosis, significance uncertain. Anemia rios monitor renal parameters 2D Echo Left ventricular ejection fraction estimated to be 55-60 %. Subjective ROS Limited/Unobtainable: No Objective Objective Last 24 Hour Vital Signs Date Time Temp Pulse Resp B/P (MAP) Pulse Ox O2 Delivery O2 Flow Rate FiO2 07/22/18 09:08 98.2 07/22/18 09:00 Room Air Room Air 07/22/18 08:39 99 132/82 07/22/18 08:38 99 132/82 07/22/18 08:00 97.5 99 19 132/82 (99) 99 07/22/18 08:00 104 07/22/18 04:00 97 07/22/18 03:51 98.2 100 20 120/87 (98) 100 07/22/18 00:00 90 07/22/18 00:00 97.0 90 20 120/86 (97) 100 07/21/18 21:00 Room Air Room Air 07/21/18 20:35 99 120/87 07/21/18 20:00 98.6 100 22 120/87 (98) 92 07/21/18 20:00 102 07/21/18 19:58 94 18 Room Air 21 07/21/18 16:00 98.3 100 20 141/79 (99) 99 07/21/18 16:00 96 Intake and Output 07/21/18 07/22/18 19:00 07:00 Intake Total 700 ml 420 ml Balance 700 ml 420 ml Intake Oral 700 ml 360 ml IV Total 60 ml # Voids 2 3 Laboratory Tests 07/22/18 07:15: White Blood Count 7.7, Red Blood Count 3.33L, Hemoglobin 9.4L, Hematocrit 29.3L , Mean Corpuscular Volume 88, Mean Corpuscular Hemoglobin 28.4, Mean Corpuscular Hemoglobin Concent 32.3, Red Cell Distribution Width 14.1, Platelet Count 302, Mean Platelet Volume 6.6, Neutrophils (%) (Auto) 51.9, Lymphocytes (% ) (Auto) 35.1, Monocytes (%) (Auto) 9.1, Eosinophils (%) (Auto) 3.2H, Basophils (%) (Auto) 0.8, Sodium Level 144, Potassium Level 4.3, Chloride Level 107, Carbon Dioxide Level 28, Anion Gap 10, Blood Urea Nitrogen 28H, Creatinine 2.1H , Estimat Glomerular Filtration Rate 30.5, Glucose Level 165H, Calcium Level 8.7 , Troponin I 0.000 Height (Feet): 5 Height (Inches): 4.00 Weight (Pounds): 253 General Appearance: no apparent distress Cardiovascular: normal rate Respiratory/Chest: lungs clear Abdomen: soft Michael Cruz MD Jul 22, 2018 12:25
--- NOTE | 2018-07-22 13:07 | General Progress Note ---
Assessment/Plan Problem List: (1) Anemia ICD Codes: D64.9 - Anemia, unspecified SNOMED: 448100975 (2) Obesity ICD Codes: E66.9 - Obesity, unspecified SNOMED: 525709896, 464741832 (3) Chest pain ICD Codes: R07.9 - Chest pain, unspecified SNOMED: 92998494 (4) COPD (chronic obstructive pulmonary disease) ICD Codes: J44.9 - Chronic obstructive pulmonary disease, unspecified SNOMED: 66530455 (5) Diabetes mellitus ICD Codes: E11.9 - Type 2 diabetes mellitus without complications SNOMED: 20609745 (6) ACS (acute coronary syndrome) ICD Codes: I24.9 - Acute ischemic heart disease, unspecified SNOMED: 011767099 (7) Diabetic nephropathy ICD Codes: E11.21 - Type 2 diabetes mellitus with diabetic nephropathy SNOMED: 98254112, 750767440 (8) Bipolar disorder ICD Codes: F31.9 - Bipolar disorder, unspecified SNOMED: 84977705 Status: unchanged Assessment/Plan ot pt diet pain control bp bs control cbc bmp am dc plan if clear Subjective Constitutional: Reports: weakness Allergies: Coded Allergies: HALOPERIDOL (Verified Allergy, Unknown, 07/20/18) All Systems: reviewed and negative except above Subjective sl anxious in bed no cp Objective Last 24 Hour Vital Signs Date Time Temp Pulse Resp B/P (MAP) Pulse Ox O2 Delivery O2 Flow Rate FiO2 07/22/18 09:08 98.2 07/22/18 09:00 Room Air Room Air 07/22/18 08:39 99 132/82 07/22/18 08:38 99 132/82 07/22/18 08:00 97.5 99 19 132/82 (99) 99 07/22/18 08:00 104 07/22/18 04:00 97 07/22/18 03:51 98.2 100 20 120/87 (98) 100 07/22/18 00:00 90 07/22/18 00:00 97.0 90 20 120/86 (97) 100 07/21/18 21:00 Room Air Room Air 07/21/18 20:35 99 120/87 07/21/18 20:00 98.6 100 22 120/87 (98) 92 07/21/18 20:00 102 07/21/18 19:58 94 18 Room Air 21 07/21/18 16:00 98.3 100 20 141/79 (99) 99 07/21/18 16:00 96 Intake and Output 07/21/18 07/22/18 19:00 07:00 Intake Total 700 ml 420 ml Balance 700 ml 420 ml Intake Oral 700 ml 360 ml IV Total 60 ml # Voids 2 3 Laboratory Tests 07/22/18 07:15: White Blood Count 7.7, Red Blood Count 3.33L, Hemoglobin 9.4L, Hematocrit 29.3L , Mean Corpuscular Volume 88, Mean Corpuscular Hemoglobin 28.4, Mean Corpuscular Hemoglobin Concent 32.3, Red Cell Distribution Width 14.1, Platelet Count 302, Mean Platelet Volume 6.6, Neutrophils (%) (Auto) 51.9, Lymphocytes (% ) (Auto) 35.1, Monocytes (%) (Auto) 9.1, Eosinophils (%) (Auto) 3.2H, Basophils (%) (Auto) 0.8, Sodium Level 144, Potassium Level 4.3, Chloride Level 107, Carbon Dioxide Level 28, Anion Gap 10, Blood Urea Nitrogen 28H, Creatinine 2.1H , Estimat Glomerular Filtration Rate 30.5, Glucose Level 165H, Calcium Level 8.7 , Troponin I 0.000 Height (Feet): 5 Height (Inches): 4.00 Weight (Pounds): 253 General Appearance: alert EENT: normal ENT inspection Neck: normal alignment Cardiovascular: normal peripheral pulses, normal rate, regular rhythm Respiratory/Chest: chest wall non-tender, lungs clear, normal breath sounds Abdomen: normal bowel sounds, non tender, soft Extremities: normal inspection Edema: 1+ Arm (L), 1+ Arm (R), 1+ Leg (L), 1+ Leg (R), 1+ Pedal (L), 1+ Pedal ( R), 1+ Generalized Edema: trace edema Neurologic: responsive, motor weakness Skin: normal pigmentation, warm/dry Malick Marie DO Jul 22, 2018 13:06
--- NOTE | 2018-07-22 13:35 | Consultation ---
Consult Note Assessment/Plan A/ 1) Left ankle pain - h/o trauma 4 mths ago 2) DM 3) Obesity P/ 1) X-rays reviewed no significant findings. Will order MRI of ankle to better evaluate source of pain 2) Strict glycemic control 3) Will follow Thank you Patrick Titus DPM Jul 22, 2018 13:35
--- NOTE | 2018-07-22 15:26 | Cardiac Electrophysiology PN ---
Assessment/Plan Assessment/Plan 1. Atypical chest pain. Ruled out myocardial infarction. Echo ejection fraction of 60% to 65%.Stress test no ischemia 2. Hypertension, on Norvasc 10 mg daily, Lopressor 25 mg b.i.d., and clonidine. 3. Diabetes, on insulin. 4. Chronic obstructive pulmonary disease. 5. Chronic kidney disease, creatinine around 2. 6. Depression, on lithium in the past. Currently, on Neurontin. SHAISTA RN Subjective Subjective Nuclear stress test yesterday showed no ischemia. Objective Last 24 Hour Vital Signs Date Time Temp Pulse Resp B/P (MAP) Pulse Ox O2 Delivery O2 Flow Rate FiO2 07/22/18 09:39 94 20 Room Air 21 07/22/18 09:08 98.2 07/22/18 09:00 Room Air Room Air 07/22/18 08:39 99 132/82 07/22/18 08:38 99 132/82 07/22/18 08:00 97.5 99 19 132/82 (99) 99 07/22/18 08:00 104 07/22/18 04:00 97 07/22/18 03:51 98.2 100 20 120/87 (98) 100 07/22/18 00:00 90 07/22/18 00:00 97.0 90 20 120/86 (97) 100 07/21/18 21:00 Room Air Room Air 07/21/18 20:35 99 120/87 07/21/18 20:00 98.6 100 22 120/87 (98) 92 07/21/18 20:00 102 07/21/18 19:58 94 18 Room Air 21 07/21/18 16:00 98.3 100 20 141/79 (99) 99 07/21/18 16:00 96 Intake and Output 07/21/18 07/22/18 19:00 07:00 Intake Total 700 ml 420 ml Balance 700 ml 420 ml Intake Oral 700 ml 360 ml IV Total 60 ml # Voids 2 3 Laboratory Tests Test 07/22/18 07:15 White Blood Count 7.7 K/UL (4.8-10.8) Red Blood Count 3.33 M/UL (4.20-5.40) L Hemoglobin 9.4 G/DL (12.0-16.0) L Hematocrit 29.3 % (37.0-47.0) L Mean Corpuscular Volume 88 FL (80-99) Mean Corpuscular Hemoglobin 28.4 PG (27.0-31.0) Mean Corpuscular Hemoglobin Concent 32.3 G/DL (32.0-36.0) Red Cell Distribution Width 14.1 % (11.6-14.8) Platelet Count 302 K/UL (150-450) Mean Platelet Volume 6.6 FL (6.5-10.1) Neutrophils (%) (Auto) 51.9 % (45.0-75.0) Lymphocytes (%) (Auto) 35.1 % (20.0-45.0) Monocytes (%) (Auto) 9.1 % (1.0-10.0) Eosinophils (%) (Auto) 3.2 % (0.0-3.0) H Basophils (%) (Auto) 0.8 % (0.0-2.0) Sodium Level 144 MMOL/L (136-145) Potassium Level 4.3 MMOL/L (3.5-5.1) Chloride Level 107 MMOL/L (98-107) Carbon Dioxide Level 28 MMOL/L (21-32) Anion Gap 10 mmol/L (5-15) Blood Urea Nitrogen 28 mg/dL (7-18) H Creatinine 2.1 MG/DL (0.55-1.30) H Estimat Glomerular Filtration Rate 30.5 mL/min (>60) Glucose Level 165 MG/DL (74-106) H Calcium Level 8.7 MG/DL (8.5-10.1) Troponin I 0.000 ng/mL (0.000-0.056) Objective HEAD AND NECK: No JVD or carotid bruits. LUNGS: Clear. CARDIOVASCULAR: Regular S1 and S2 with no gallop or murmur. ABDOMEN: Soft. EXTREMITIES: 1+ pitting edema. Raffaele Huber MD Jul 22, 2018 15:26
[2018-07-22 16:00] VITALS: BP 110/69
--- NOTE | 2018-07-22 17:15 | Progress Note ---
DATE: 07/22/2018 SUBJECTIVE: The patient is a 48-year-old female patient with chest pain. This patient came into the hospital. She has a history of chest pain, but she still has some anxiety, depression, and mood lability worsened by stress of her medical illness. That is why her attending physician has requested daily psychiatric consultation for this patient. MENTAL STATUS EXAMINATION: This is a 48-year-old female. Appearance is disheveled. Attitude, irritable and agitated. Affect, guarded and restricted. Intellect poor. Mood, depressed and anxious. Motor activity, psychomotor agitation. Attention span is poor. Orientation x2. Speech is pressured. Thought process, disorganized and logical. Thought content, auditory hallucinations and paranoid delusions. Insight and judgment is poor. DIAGNOSIS: Schizoaffective, bipolar type. PLAN: She is on Seroquel 300 mg at bedtime and trazodone 100 mg at bedtime and also I am going to continue her on Depakote 500 mg daily and Neurontin 300 mg three times a day. Provided her with 20 minutes of cognitive behavioral therapy to help this patient identify automatic negative thoughts and help her to convert those automatic negative thoughts to more positive thoughts to reduce depression and anxiety and suicidality. Chart reviewed. Discussed with staff. Seen and assessed in the room. Avelino Sarah M.D. DR: RAFAEL JOB#: [id number] CC:
[2018-07-22] MEDS ORDERED: Albuterol/Ipratropium 3ml neb HHN PRN (18:48)
[2018-07-22] MEDS ORDERED: Miralax 17gm pkt ORAL PRN (18:48)
[2018-07-22] MEDS ORDERED: Nitroglycerin Subl 0.4mg tab SL PRN (18:50)
--- NOTE | 2018-07-22 19:00 | Consultation ---
DATE OF CONSULTATION: 07/21/2018 PSYCHOTHERAPY CONSULTATION PROGRESS NOTE CONSULTING PHYSICIAN: Martin Ross PsyD. TREATING ATTENDING PHYSICIAN: Malick Marie D.O. HISTORY OF PRESENT ILLNESS: The patient is a 48-year-old female patient from [place] who has been brought into the hospital for chest pain. The patient has long-term history of psychosis including schizoaffective disorder. The patient has been anxious, slightly confused, irritable. For these reasons, she was offered psychotherapeutic services. This clinician assessed this patient. The patient has thought processes. She states that she wants to live in where her fiance lives. The patient states that because she is not able to see her fiance. The patient is very perfect on her relationship, which has begun about a month ago. The patient . She has poor attention and concentration. She is not suicidal or homicidal. . PAST MEDICAL HISTORY: Includes history of diabetes, anemia . ALLERGIES: The patient has no known drug allergies. SUBSTANCE ABUSE HISTORY: There is no indication of alcohol use or illicit substance use. The patient does smoke cigarettes. PSYCHIATRIC HISTORY: The patient has history of schizoaffective disorder and has been treated with psychotropic medications in the past. SOCIAL HISTORY: The patient is a 48-year-old female patient. [facility]. MENTAL STATUS EXAMINATION: The patient is alert and oriented to person and place. . Thought process is disorganized. Thought content, confused. This patient has poor attention and concentration. Poor insight, judgment, and impulse control. DIAGNOSIS: Schizoaffective disorder, bipolar type. coping skills. Continue with . Reviewed the patient's chart. Discussed . Martin Ross PsyD. DR: Nicole JOB#: [id number] CC:
--- NOTE | 2018-07-22 19:30 | Consultation ---
DATE OF CONSULTATION: 07/22/2018 CONSULTING PHYSICIAN: Patrick Orr D.P.M. REFERRING PHYSICIAN: Malick Marie D.O. REASON FOR CONSULTATION: Chronic left ankle pain. HISTORY OF PRESENT ILLNESS: The patient is a 48-year-old female who was admitted to [facility] on July 20, 2018 for chest pain. The patient states that she ran into a wall approximately 4 to 5 months ago and developed chronic pain in the left ankle that is unresolved. She also has left knee pain associated with it. She states that she has difficulty walking on the and contributes to significant amount of pain especially at night when she is sleeping. Denies any rest pain or claudication symptoms. PAST MEDICAL HISTORY: Significant for congestive heart failure, diabetes mellitus, anemia, renal failure, and bipolar. PAST SURGICAL HISTORY: Includes bilateral tubal ligation, lap band, and back surgery. ALLERGIES: SHE IS ALLERGIC TO HALDOL. SOCIAL HISTORY: The patient resides in a [place] [facility] facility. FAMILY HISTORY: Noncontributory. REVIEW OF SYSTEMS: Unremarkable 10-point system. PHYSICAL EXAMINATION: VITAL SIGNS: Temperature is 98.2, pulse 99, blood pressure 132/82, saturating 99% on room air. GENERAL: Body habitus, the patient is morbidly obese. EXTREMITIES: Lower extremity physical examination, vascular weakly palpable pedal pulses noted bilaterally. Feet are equally warm. There is pitting edema noted on the left ankle. No edema noted on the right. DERMATOLOGICAL: There is no open sores or lesions noted. No wounds are noted. No signs of bacterial or fungal infection noted. Digital interspaces are clear in bilateral feet. Nails are well trimmed. NEUROLOGICAL: Protective threshold is diminished. Musculoskeletal pain noted upon range of motion of left ankle. Diffuse pain encompassing the medial and lateral ankle. The patient has 4/5 muscle strength noted anterior and lateral and posterior muscle groups of bilateral lower extremities. The patient has negative anterior drawer on the left. LABORATORY DATA: White blood cell count is 7.7, hemoglobin and hematocrit 9.4 and 29.3, and platelet count is 302. ESR is 48. Hemoglobin A1c is 7.6. Glucose is 155. Creatinine is 2.1, BUN 28, potassium 4.3. C-reactive protein on this admission is 1.7 and albumin 2.8. IMAGING: Left ankle x-rays performed on July 20, 2008 showed no acute findings. ASSESSMENT: 1. Left ankle pain. 2. History of trauma four months ago. 3. Diabetes mellitus. 4. Obesity. PLAN: 1. X-rays reviewed. No significant findings. We will order MRI of the left ankle to better evaluate source of pain. 2. Strict glycemic control. We will follow. Thank you for the courtesy of this consultation, Dr. Marie. Patrick Orr D.P.M. DR: Nery JOB#: [id number] CC:
[2018-07-22] MEDS ORDERED: dilTIAZem HCl 25mg/5ml Inj IV PRN (19:45)
[2018-07-22 20:00] VITALS: BP 122/80
[2018-07-22] MEDS ORDERED: TraZODone 100mg tab ORAL SCH (21:00)
[2018-07-23] MEDS: Morphine Sulfate 2mg/ml Inj IVP PRN ×3 (01:07→10:52)
[2018-07-23 04:00] VITALS: BP 104/59
[2018-07-23] MEDS: NovoLOG Insulin Flexpen SUBQ SCH ×3 (05:40→16:32)
[2018-07-23 06:26] LABS: EOSINOPHILS % (AUTO) 3.3 % (0.0-3.0); HEMATOCRIT 27.5 % (37.0-47.0); HEMOGLOBIN 9.1 G/DL (12.0-16.0); LYMPHOCYTES % (AUTO) 35.9 % (20.0-45.0); MEAN CORPUSCULAR VOLUME 88 FL (80-99); MONOCYTES % (AUTO) 10.4 % (1.0-10.0); NEUTROPHILS % (AUTO) 49.5 % (45.0-75.0); PLATELET COUNT 292 K/UL (150-450); RED BLOOD COUNT 3.11 M/UL (4.20-5.40); RED CELL DISTRIBUTION WIDTH 13.9 % (11.6-14.8); WHITE BLOOD COUNT 7.1 K/UL (4.8-10.8)
[2018-07-23 06:56] LABS: ANION GAP 6 mmol/L (5-15); BLOOD UREA NITROGEN 30 mg/dL (7-18); CALCIUM 8.9 MG/DL (8.5-10.1); CARBON DIOXIDE 30 MMOL/L (21-32); CHLORIDE 106 MMOL/L (98-107); CREATININE 2.1 MG/DL (0.55-1.30); POTASSIUM 4.7 MMOL/L (3.5-5.1); SODIUM 142 MMOL/L (136-145)
[2018-07-23 08:00] VITALS: BP 115/80
[2018-07-23] MEDS: Metoprolol 25mg tab ORAL SCH (08:54)
[2018-07-23] MEDS: Heparin 5000 units/ml inj SUBQ SCH (08:55)
[2018-07-23] MEDS ORDERED: Docusate 100mg cap ORAL SCH (09:00)
[2018-07-23] MEDS ORDERED: Aspirin Baby 81mg ORAL SCH (09:00)
[2018-07-23] MEDS ORDERED: Depakote ER 500mg tab ORAL SCH (09:00)
[2018-07-23 10:30] LABS: ALANINE AMINOTRANSFERASE 60 U/L (12-78); ALBUMIN 2.9 G/DL (3.4-5.0); ALKALINE PHOSPHATASE 105 U/L (46-116); ASPARTATE AMINO TRANSFERASE 66 U/L (15-37); BILIRUBIN,DIRECT < 0.1 MG/DL (0.0-0.3); BILIRUBIN,TOTAL 0.3 MG/DL (0.2-1.0)
--- NOTE | 2018-07-23 10:49 | Nephrology Progress Note ---
Assessment/Plan Problem List: (1) Diabetic nephropathy (2) Bipolar disorder (3) Anemia (4) Obesity Assessment h/o CKD- presents with Cr 2 now 2.1 Was on [place] in the past Has Proteinuria and HypoAlbuminemia Anemia HTN DM and Nephropathy HyperUrecemia Obesity Plan Stop NSAID ( Toradol) Parameters for BP meds, adjust bp meds Avoid Nephrotoxics Kidney MARIO ALBERTO : Mild fullness the left renal collecting system without alexandra hydronephrosis, significance uncertain. Anemia rios monitor renal parameters 2D Echo Left ventricular ejection fraction estimated to be 55-60 %. Subjective ROS Limited/Unobtainable: No Constitutional: Reports: malaise Objective Objective Last 24 Hour Vital Signs Date Time Temp Pulse Resp B/P (MAP) Pulse Ox O2 Delivery O2 Flow Rate FiO2 07/23/18 08:56 81 115/80 07/23/18 08:54 81 115/80 07/23/18 08:11 81 20 Room Air 21 07/23/18 08:00 98.5 95 20 115/80 (92) 94 07/23/18 04:00 99.0 104 20 104/59 (74) 97 07/22/18 21:00 Room Air Room Air 07/22/18 20:55 98.2 07/22/18 20:34 88 122/80 07/22/18 20:00 97.0 20 122/80 (94) 98 07/22/18 19:20 92 18 Room Air 21 07/22/18 16:22 98.2 07/22/18 16:00 97.8 90 20 110/69 (83) 98 07/22/18 16:00 90 07/22/18 12:00 97.6 86 19 118/77 (91) 98 07/22/18 12:00 89 Intake and Output 07/22/18 07/23/18 18:59 06:59 Intake Total 1160 ml 630 ml Output Total 850 ml Balance 1160 ml -220 ml Intake Oral 1160 ml 630 ml Output Urine Total 850 ml # Voids 6 2 Laboratory Tests 07/23/18 05:40: Uric Acid 7.6H, Phosphorus Level 5.0H, Magnesium Level 2.4, Total Bilirubin 0.3 , Direct Bilirubin < 0.1, Aspartate Amino Transf (AST/SGOT) 66H, Alanine Aminotransferase (ALT/SGPT) 60, Alkaline Phosphatase 105, Total Protein 6.9, Albumin 2.9L 07/23/18 05:45: White Blood Count 7.1, Red Blood Count 3.11L, Hemoglobin 9.1L, Hematocrit 27.5L , Mean Corpuscular Volume 88, Mean Corpuscular Hemoglobin 29.2, Mean Corpuscular Hemoglobin Concent 33.1, Red Cell Distribution Width 13.9, Platelet Count 292, Mean Platelet Volume 6.7, Neutrophils (%) (Auto) 49.5, Lymphocytes (% ) (Auto) 35.9, Monocytes (%) (Auto) 10.4H, Eosinophils (%) (Auto) 3.3H, Basophils (%) (Auto) 1.0, Sodium Level 142, Potassium Level 4.7, Chloride Level 106, Carbon Dioxide Level 30, Anion Gap 6, Blood Urea Nitrogen 30H, Creatinine 2.1H, Estimat Glomerular Filtration Rate 30.5, Glucose Level 127H, Calcium Level 8.9 Height (Feet): 5 Height (Inches): 4.00 Weight (Pounds): 253 General Appearance: no apparent distress Objective no change Michael Cruz MD Jul 23, 2018 10:49
--- NOTE | 2018-07-23 11:31 | GI Progress Note ---
Assessment/Plan Problems: (1) Homelessness ICD Codes: Z59.0 - Homelessness SNOMED: 51267949 (2) Hx of laparoscopic gastric banding ICD Codes: Z98.84 - Bariatric surgery status SNOMED: 612348846 (3) Bipolar disorder ICD Codes: F31.9 - Bipolar disorder, unspecified SNOMED: 60662728 (4) Diabetic nephropathy ICD Codes: E11.21 - Type 2 diabetes mellitus with diabetic nephropathy SNOMED: 92999342, 547852953 (5) GERD (gastroesophageal reflux disease) ICD Codes: K21.9 - Gastro-esophageal reflux disease without esophagitis SNOMED: 652408398 (6) Abdominal pain ICD Codes: R10.9 - Unspecified abdominal pain SNOMED: 68582406 (7) Anemia ICD Codes: D64.9 - Anemia, unspecified SNOMED: 724398285 Status: stable Status Narrative Discussed with Dr. Winters. Assessment/Plan iron deficient stress test today >> EF 70% denies abdominal/chest pain today okay for DC per GI standpoint outpatient GI procedures adv diet OB stool r/o GI bleed monitor H&H, prn transfusions bowel regime ppi zofran prn DM management fu labs The patient was seen and examined at bedside and all new and available data was reviewed in the patients chart. I agree with the above findings, impression and plan. (Patient seen earlier today. Signature stamp does not reflect patient encounter time.). - Melo Winters MD Subjective Subjective c/o of ankle pain denies abdominal pain denies chest pain ready for discharge Objective Last 24 Hour Vital Signs Date Time Temp Pulse Resp B/P (MAP) Pulse Ox O2 Delivery O2 Flow Rate FiO2 07/23/18 08:56 81 115/80 07/23/18 08:54 81 115/80 07/23/18 08:11 81 20 Room Air 21 07/23/18 08:00 98.5 95 20 115/80 (92) 94 07/23/18 04:00 99.0 104 20 104/59 (74) 97 07/22/18 21:00 Room Air Room Air 07/22/18 20:55 98.2 07/22/18 20:34 88 122/80 07/22/18 20:00 97.0 20 122/80 (94) 98 10/25/18 19:20 92 18 Room Air 21 10/25/18 16:22 98.2 07/22/18 16:00 97.8 90 20 110/69 (83) 98 07/22/18 16:00 90 07/22/18 12:00 97.6 86 19 118/77 (91) 98 07/22/18 12:00 89 Intake and Output 07/22/18 07/23/18 18:59 06:59 Intake Total 1160 ml 630 ml Output Total 850 ml Balance 1160 ml -220 ml Intake Oral 1160 ml 630 ml Output Urine Total 850 ml # Voids 6 2 Laboratory Tests Test 07/23/18 05:40 07/23/18 05:45 Uric Acid 7.6 MG/DL (2.6-7.2) H Phosphorus Level 5.0 MG/DL (2.5-4.9) H Magnesium Level 2.4 MG/DL (1.8-2.4) Total Bilirubin 0.3 MG/DL (0.2-1.0) Direct Bilirubin < 0.1 MG/DL (0.0-0.3) Aspartate Amino Transf (AST/SGOT) 66 U/L (15-37) H Alanine Aminotransferase (ALT/SGPT) 60 U/L (12-78) Alkaline Phosphatase 105 U/L (46-116) Total Protein 6.9 G/DL (6.4-8.2) Albumin 2.9 G/DL (3.4-5.0) L White Blood Count 7.1 K/UL (4.8-10.8) Red Blood Count 3.11 M/UL (4.20-5.40) L Hemoglobin 9.1 G/DL (12.0-16.0) L Hematocrit 27.5 % (37.0-47.0) L Mean Corpuscular Volume 88 FL (80-99) Mean Corpuscular Hemoglobin 29.2 PG (27.0-31.0) Mean Corpuscular Hemoglobin Concent 33.1 G/DL (32.0-36.0) Red Cell Distribution Width 13.9 % (11.6-14.8) Platelet Count 292 K/UL (150-450) Mean Platelet Volume 6.7 FL (6.5-10.1) Neutrophils (%) (Auto) 49.5 % (45.0-75.0) Lymphocytes (%) (Auto) 35.9 % (20.0-45.0) Monocytes (%) (Auto) 10.4 % (1.0-10.0) H Eosinophils (%) (Auto) 3.3 % (0.0-3.0) H Basophils (%) (Auto) 1.0 % (0.0-2.0) Sodium Level 142 MMOL/L (136-145) Potassium Level 4.7 MMOL/L (3.5-5.1) Chloride Level 106 MMOL/L (98-107) Carbon Dioxide Level 30 MMOL/L (21-32) Anion Gap 6 mmol/L (5-15) Blood Urea Nitrogen 30 mg/dL (7-18) H Creatinine 2.1 MG/DL (0.55-1.30) H Estimat Glomerular Filtration Rate 30.5 mL/min (>60) Glucose Level 127 MG/DL (74-106) H Calcium Level 8.9 MG/DL (8.5-10.1) Height (Feet): 5 Height (Inches): 4.00 Weight (Pounds): 253 General Appearance: WD/WN, no apparent distress, alert Cardiovascular: normal rate Respiratory/Chest: normal breath sounds, no respiratory distress Abdominal Exam: normal bowel sounds, non tender, soft Extremities: normal range of motion, non-tender Rachael Shukla NP Jul 23, 2018 11:31
--- NOTE | 2018-07-23 11:42 | General Progress Note ---
Assessment/Plan Problem List: (1) Anemia ICD Codes: D64.9 - Anemia, unspecified SNOMED: 448647279 (2) Obesity ICD Codes: E66.9 - Obesity, unspecified SNOMED: 739924288, 310831901 (3) Chest pain ICD Codes: R07.9 - Chest pain, unspecified SNOMED: 17792937 (4) COPD (chronic obstructive pulmonary disease) ICD Codes: J44.9 - Chronic obstructive pulmonary disease, unspecified SNOMED: 73303666 (5) Diabetes mellitus ICD Codes: E11.9 - Type 2 diabetes mellitus without complications SNOMED: 78699773 (6) ACS (acute coronary syndrome) ICD Codes: I24.9 - Acute ischemic heart disease, unspecified SNOMED: 172978257 (7) Diabetic nephropathy ICD Codes: E11.21 - Type 2 diabetes mellitus with diabetic nephropathy SNOMED: 87440929, 426855122 (8) Bipolar disorder ICD Codes: F31.9 - Bipolar disorder, unspecified SNOMED: 72694372 Status: stable, progressing Assessment/Plan ot pt diet pain control bp bs control cbc bmp am dc to snf if clear Subjective Constitutional: Reports: weakness Allergies: Coded Allergies: HALOPERIDOL (Verified Allergy, Unknown, 07/20/18) Subjective sl anxious in bed no cp Objective Last 24 Hour Vital Signs Date Time Temp Pulse Resp B/P (MAP) Pulse Ox O2 Delivery O2 Flow Rate FiO2 07/23/18 08:56 81 115/80 07/23/18 08:54 81 115/80 07/23/18 08:11 81 20 Room Air 21 07/23/18 08:00 98.5 95 20 115/80 (92) 94 07/23/18 04:00 99.0 104 20 104/59 (74) 97 07/22/18 21:00 Room Air Room Air 07/22/18 20:55 98.2 07/22/18 20:34 88 122/80 07/22/18 20:00 97.0 20 122/80 (94) 98 07/22/18 19:20 92 18 Room Air 21 07/22/18 16:22 98.2 07/22/18 16:00 97.8 90 20 110/69 (83) 98 07/22/18 16:00 90 07/22/18 12:00 97.6 86 19 118/77 (91) 98 10/25/18 12:00 89 Intake and Output 07/22/18 07/23/18 18:59 06:59 Intake Total 1160 ml 630 ml Output Total 850 ml Balance 1160 ml -220 ml Intake Oral 1160 ml 630 ml Output Urine Total 850 ml # Voids 6 2 Laboratory Tests 07/23/18 05:40: Uric Acid 7.6H, Phosphorus Level 5.0H, Magnesium Level 2.4, Total Bilirubin 0.3 , Direct Bilirubin < 0.1, Aspartate Amino Transf (AST/SGOT) 66H, Alanine Aminotransferase (ALT/SGPT) 60, Alkaline Phosphatase 105, Total Protein 6.9, Albumin 2.9L 07/23/18 05:45: White Blood Count 7.1, Red Blood Count 3.11L, Hemoglobin 9.1L, Hematocrit 27.5L , Mean Corpuscular Volume 88, Mean Corpuscular Hemoglobin 29.2, Mean Corpuscular Hemoglobin Concent 33.1, Red Cell Distribution Width 13.9, Platelet Count 292, Mean Platelet Volume 6.7, Neutrophils (%) (Auto) 49.5, Lymphocytes (% ) (Auto) 35.9, Monocytes (%) (Auto) 10.4H, Eosinophils (%) (Auto) 3.3H, Basophils (%) (Auto) 1.0, Sodium Level 142, Potassium Level 4.7, Chloride Level 106, Carbon Dioxide Level 30, Anion Gap 6, Blood Urea Nitrogen 30H, Creatinine 2.1H, Estimat Glomerular Filtration Rate 30.5, Glucose Level 127H, Calcium Level 8.9 Height (Feet): 5 Height (Inches): 4.00 Weight (Pounds): 253 General Appearance: lethargic EENT: normal ENT inspection Neck: normal alignment Cardiovascular: normal peripheral pulses, normal rate, regular rhythm Respiratory/Chest: chest wall non-tender, lungs clear, normal breath sounds Abdomen: normal bowel sounds, non tender, soft Extremities: normal inspection Edema: 1+ Arm (L), 1+ Arm (R), 1+ Leg (L), 1+ Leg (R), 1+ Pedal (L), 1+ Pedal ( R), 1+ Generalized Edema: trace edema Neurologic: responsive, motor weakness Skin: normal pigmentation, warm/dry Malick Marie DO Jul 23, 2018 11:42
[2018-07-23 12:00] VITALS: BP 131/81
--- NOTE | 2018-07-23 14:48 | Pulmonology Progress Note ---
Assessment/Plan Problems: (1) ACS (acute coronary syndrome) (2) Diabetic nephropathy (3) COPD (chronic obstructive pulmonary disease) (4) Bipolar disorder (5) Diabetes mellitus (6) Homelessness Assessment/Plan doing better no new complains all noted stress test ordered echo reviewed, EF is 60% renal US reviewed, none obstructing calculi symptomatic treatment dc planning Subjective ROS Limited/Unobtainable: No Constitutional: Reports: no symptoms HEENT: Repors: no symptoms Respiratory: Reports: no symptoms Allergies: Coded Allergies: HALOPERIDOL (Verified Allergy, Unknown, 07/20/18) Objective Last 24 Hour Vital Signs Date Time Temp Pulse Resp B/P (MAP) Pulse Ox O2 Delivery O2 Flow Rate FiO2 07/23/18 12:00 98.5 84 20 131/81 (98) 96 07/23/18 11:22 98.5 07/23/18 09:00 Room Air Room Air 07/23/18 08:56 81 115/80 07/23/18 08:54 81 115/80 07/23/18 08:11 81 20 Room Air 21 07/23/18 08:00 98.5 95 20 115/80 (92) 94 07/23/18 04:00 99.0 104 20 104/59 (74) 97 07/22/18 21:00 Room Air Room Air 07/22/18 20:34 88 122/80 07/22/18 20:00 97.0 20 122/80 (94) 98 07/22/18 19:20 92 18 Room Air 21 07/22/18 16:22 98.2 07/22/18 16:00 97.8 90 20 110/69 (83) 98 07/22/18 16:00 90 Intake and Output 07/22/18 07/23/18 18:59 06:59 Intake Total 1160 ml 630 ml Output Total 850 ml Balance 1160 ml -220 ml Intake Oral 1160 ml 630 ml Output Urine Total 850 ml # Voids 6 2 General Appearance: WD/WN, no acute distress HEENT: normocephalic Respiratory/Chest: chest wall non-tender, lungs clear Breasts: no masses Cardiovascular: normal peripheral pulses Abdomen: normal bowel sounds, soft, non tender Extremities: no cyanosis Neurologic/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: 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 II-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 grossly normal Lymphatic: no neck adenopathy Laboratory Tests 07/23/18 05:40: Uric Acid 7.6H, Phosphorus Level 5.0H, Magnesium Level 2.4, Total Bilirubin 0.3 , Direct Bilirubin < 0.1, Aspartate Amino Transf (AST/SGOT) 66H, Alanine Aminotransferase (ALT/SGPT) 60, Alkaline Phosphatase 105, Total Protein 6.9, Albumin 2.9L 07/23/18 05:45: White Blood Count 7.1, Red Blood Count 3.11L, Hemoglobin 9.1L, Hematocrit 27.5L , Mean Corpuscular Volume 88, Mean Corpuscular Hemoglobin 29.2, Mean Corpuscular Hemoglobin Concent 33.1, Red Cell Distribution Width 13.9, Platelet Count 292, Mean Platelet Volume 6.7, Neutrophils (%) (Auto) 49.5, Lymphocytes (% ) (Auto) 35.9, Monocytes (%) (Auto) 10.4H, Eosinophils (%) (Auto) 3.3H, Basophils (%) (Auto) 1.0, Sodium Level 142, Potassium Level 4.7, Chloride Level 106, Carbon Dioxide Level 30, Anion Gap 6, Blood Urea Nitrogen 30H, Creatinine 2.1H, Estimat Glomerular Filtration Rate 30.5, Glucose Level 127H, Calcium Level 8.9 Current Medications Medications (Trade) Dose Ordered Sig/Luciano Route PRN Reason Start Time Stop Time Status Last Admin Dose Admin Acetaminophen (Tylenol) 650 mg Q4H PRN ORAL FEVER 07/22/18 18:46 08/19/18 18:45 Albuterol/ Ipratropium (Albuterol/ Ipratropium) 3 ml Q4H PRN HHN Shortness of Breath 07/22/18 18:48 07/25/18 18:47 Allopurinol (Allopurinol) 300 mg DAILY ORAL 07/23/18 09:00 08/20/18 08:59 07/23/18 08:53 Amlodipine Besylate (Norvasc) 2.5 mg DAILY ORAL 07/24/18 09:00 08/19/18 08:59 Aspirin (ASA) 162 mg DAILY ORAL 07/23/18 09:00 08/19/18 08:59 07/23/18 08:53 Clonidine HCl (Catapres Tab) 0.1 mg Q4H PRN ORAL For High Blood Pressure > 160 07/22/18 19:15 08/19/18 07:44 Dextrose (Dextrose 50%) 25 ml Q30M PRN IV Hypoglycemia 07/22/18 19:00 08/19/18 10:29 Dextrose (Dextrose 50%) 50 ml Q30M PRN IV Hypoglycemia 07/22/18 19:00 08/19/18 10:29 Divalproex Sodium (Depakote ER) 500 mg DAILY ORAL 07/23/18 09:00 08/19/18 08:59 07/23/18 08:53 Docusate Sodium (Colace) 100 mg TWICE A DAY ORAL 07/23/18 09:00 08/19/18 17:59 07/23/18 08:54 Gabapentin (Neurontin) 300 mg THREE TIMES A DAY ORAL 07/23/18 09:00 08/19/18 08:59 07/23/18 13:03 Heparin Sodium (Porcine) (Heparin 5000 units/ml) 5,000 units EVERY 12 HOURS SUBQ 07/22/18 21:00 08/19/18 08:59 07/23/18 08:55 Insulin Aspart (NovoLOG) BEFORE MEALS AND HS SUBQ 07/22/18 21:00 08/19/18 11:29 07/23/18 12:26 Metoprolol Tartrate (Lopressor) 25 mg Q12HR ORAL 07/22/18 21:00 08/19/18 20:59 07/23/18 08:54 Morphine Sulfate (Morphine Sulfate) 2 mg Q4H PRN IVP severe Pain (Pain Scale 7-10) 07/22/18 18:48 07/27/18 18:47 07/23/18 10:52 Nitroglycerin (Ntg) 0.4 mg Q5M PRN SL Prn Chest Pain 07/22/18 18:50 08/19/18 07:44 Ondansetron HCl (Zofran) 4 mg Q6H PRN IVP Nausea & Vomiting 07/22/18 18:48 08/19/18 18:47 Pantoprazole (Protonix) 40 mg DAILY ORAL 07/23/18 09:00 08/20/18 08:59 07/23/18 08:53 Polyethylene Glycol (Miralax) 17 gm DAILYPRN PRN ORAL Constipation 07/22/18 18:48 08/21/18 18:47 Quetiapine Fumarate (SEROquel) 300 mg QHS ORAL 07/22/18 21:00 08/19/18 20:59 07/22/18 20:34 Temazepam (Restoril) 15 mg HSPRN PRN ORAL Insomnia 07/22/18 18:49 07/29/18 18:48 Trazodone HCl (Desyrel) 100 mg BEDTIME ORAL 07/22/18 21:00 08/19/18 20:59 07/22/18 20:34 Shruti Gerber MD Jul 23, 2018 14:48
[2018-07-23 16:00] VITALS: BP 129/82
--- NOTE | 2018-07-23 17:34 | Cardiac Electrophysiology PN ---
Assessment/Plan Assessment/Plan 1. Atypical chest pain. Ruled out myocardial infarction. Echo ejection fraction of 60% to 65%.Stress test no ischemia 2. Hypertension, on Norvasc 10 mg daily, Lopressor 25 mg b.i.d., and clonidine. 3. Diabetes, on insulin. 4. Chronic obstructive pulmonary disease. 5. Chronic kidney disease, creatinine around 2. 6. Depression, on lithium in the past. Currently, on Neurontin. SHAISTA RN OK to DC Subjective Subjective Comfortable in NAD. Awaiting DC Objective Last 24 Hour Vital Signs Date Time Temp Pulse Resp B/P (MAP) Pulse Ox O2 Delivery O2 Flow Rate FiO2 07/23/18 16:00 99.4 90 20 129/82 (98) 95 07/23/18 12:00 98.5 84 20 131/81 (98) 96 07/23/18 11:22 98.5 07/23/18 09:00 Room Air Room Air 07/23/18 08:56 81 115/80 07/23/18 08:54 81 115/80 07/23/18 08:11 81 20 Room Air 21 07/23/18 08:00 98.5 95 20 115/80 (92) 94 07/23/18 04:00 99.0 104 20 104/59 (74) 97 07/22/18 21:00 Room Air Room Air 07/22/18 20:34 88 122/80 07/22/18 20:00 97.0 20 122/80 (94) 98 07/22/18 19:20 92 18 Room Air 21 Intake and Output 07/22/18 07/23/18 19:00 07:00 Intake Total 1160 ml 630 ml Output Total 850 ml Balance 1160 ml -220 ml Intake Oral 1160 ml 630 ml Output Urine Total 850 ml # Voids 6 2 Laboratory Tests Test 07/23/18 05:40 07/23/18 05:45 Uric Acid 7.6 MG/DL (2.6-7.2) H Phosphorus Level 5.0 MG/DL (2.5-4.9) H Magnesium Level 2.4 MG/DL (1.8-2.4) Total Bilirubin 0.3 MG/DL (0.2-1.0) Direct Bilirubin < 0.1 MG/DL (0.0-0.3) Aspartate Amino Transf (AST/SGOT) 66 U/L (15-37) H Alanine Aminotransferase (ALT/SGPT) 60 U/L (12-78) Alkaline Phosphatase 105 U/L (46-116) Total Protein 6.9 G/DL (6.4-8.2) Albumin 2.9 G/DL (3.4-5.0) L White Blood Count 7.1 K/UL (4.8-10.8) Red Blood Count 3.11 M/UL (4.20-5.40) L Hemoglobin 9.1 G/DL (12.0-16.0) L Hematocrit 27.5 % (37.0-47.0) L Mean Corpuscular Volume 88 FL (80-99) Mean Corpuscular Hemoglobin 29.2 PG (27.0-31.0) Mean Corpuscular Hemoglobin Concent 33.1 G/DL (32.0-36.0) Red Cell Distribution Width 13.9 % (11.6-14.8) Platelet Count 292 K/UL (150-450) Mean Platelet Volume 6.7 FL (6.5-10.1) Neutrophils (%) (Auto) 49.5 % (45.0-75.0) Lymphocytes (%) (Auto) 35.9 % (20.0-45.0) Monocytes (%) (Auto) 10.4 % (1.0-10.0) H Eosinophils (%) (Auto) 3.3 % (0.0-3.0) H Basophils (%) (Auto) 1.0 % (0.0-2.0) Sodium Level 142 MMOL/L (136-145) Potassium Level 4.7 MMOL/L (3.5-5.1) Chloride Level 106 MMOL/L (98-107) Carbon Dioxide Level 30 MMOL/L (21-32) Anion Gap 6 mmol/L (5-15) Blood Urea Nitrogen 30 mg/dL (7-18) H Creatinine 2.1 MG/DL (0.55-1.30) H Estimat Glomerular Filtration Rate 30.5 mL/min (>60) Glucose Level 127 MG/DL (74-106) H Calcium Level 8.9 MG/DL (8.5-10.1) Objective HEAD AND NECK: No JVD or carotid bruits. LUNGS: Clear. CARDIOVASCULAR: Regular S1 and S2 with no gallop or murmur. ABDOMEN: Soft. EXTREMITIES: 1+ pitting edema. Raffaele Huber MD Jul 23, 2018 17:34
--- NOTE | 2018-07-23 20:45 | Progress Note ---
DATE: 07/23/2018 SUBJECTIVE: The patient is a 48-year-old female patient seen in room 310. The patient came in with chest pain, but she also has a diagnoses of schizoaffective, bipolar type, a lot of mood lability, agitation, irritability, paranoia, and racing thoughts. That is why her attending continues to request daily psychiatric consultation for this patient because her medical illness is causing increased worsening of her mood lability. MENTAL STATUS EXAMINATION: A 48-year-old female. Appearance is disheveled. Attitude, irritable and agitated. Affect, guarded and restricted. Intellect poor. Mood, depressed and anxious. Motor activity, psychomotor agitation. Attention span is poor. Orientation x2. Speech is pressured. Thought process, disorganized and illogical. Thought content, slight paranoid delusions. Insight and judgment is poor. DIAGNOSIS: Schizoaffective, bipolar type. PLAN: Treat the patient with Neurontin 300 mg three times a day, Depakote 500 mg daily, Seroquel 300 at bedtime, and trazodone 100 mg at bedtime. A 20 minutes of cognitive behavior therapy was provided to help this patient identify automatic negative thoughts and help her to convert those negative thoughts to more positive thoughts to reduce depression, anxiety, and suicidality. Chart is reviewed and discussed with staff. The patient was seen and assessed in the room. Avelino Sarah M.D. DR: RAFAEL JOB#: [id number] CC:
--- NOTE | 2018-07-24 03:01 | Progress Note ---
DATE: 07/22/2018 NOTE: POOR AUDIO PSYCHOTHERAPY CONSULTATION PROGRESS NOTE TREATING ATTENDING PHYSICIAN: Malick Marie D.O. SUBJECTIVE: The patient is a 48-year-old female patient who has passive paranoia, agitation, and irritability. The patient has frustration tolerance, mood lability, and however, she denies any suicidal or homicidal thoughts of ideation at this time. The patient . Medical decision . Encouraging the patient to participate in treatment milieu . Psychotherapy service is provided. Martin Ross PsyD. DR: MICHI JOB#: [id number] CC:
--- NOTE | 2018-07-25 13:00 | Discharge Summary ---
Discharge Summary Discharge Summary _ DATE OF ADMISSION: 07/20/2018 DATE OF DISCHARGE: 07/23/2018 REASON FOR ADMISSION: 48 years old homeless female with past medical history of hypertension, COPD, active smoker, diabetes, chronic kidney disease, anemia, schizoaffective disorder, presented to emergency department with chest discomfort. Patient was also complaining of left ankle pain. Upon evaluation vital signs were stable ; pulse oximetry was 92% on room air . Laboratory workup revealed no leukocytosis, hemoglobin 9.7 hematocrit 29.8. D-dimer 0.38. BUN 27, creatinine 2.0. Glucose 152. Troponin negative. EKG revealed normal sinus rhythm, l no acute ischemic changes . Chest x-ray revealed no acute cardiopulmonary pathology. CT of the head revealed no acute intracranial bleeding, mass effect or edema. Moderate atrophy of the brain with evidence of chronic small vessel disease involving white matter tracts noted. Left ankle x-ray revealed no acute findings. Patient admitted with diagnoses of chest pain, rule out acute coronary syndrome. CONSULTANTS: conduit reamer operator Dr. Huber pulmonary Dr. Gerber GI specialist Dr. Winters shake packer Dr. Cruz laboratory equipment installer Dr. Westbrook psychiatrist Dr. Sarah [facility] COURSE: Patient admitted to monitored floor. Cardiology closely followed. Serial troponin were negative. EKG revealed no acute ischemic changes. Patient was ruled out for acute myocardial infarction. Echocardiogram revealed preserved ejection fraction of 60-65% , no wall motion abnormality. Nuclear stress test revealed no evidence of ischemia. Blood pressure was managed with beta trevor and calcium channel trevor , and remained stable. Antiplatelet therapy with aspirin continued. Supplemental oxygen titrated as needed to keep pulse oximetry above 92%. Freight Agent closely followed. Pulmonary toilet was on board and provided as needed. DVT prophylaxis provided. Substance Abuse Prevention Coordinator closely followed. Renal parameters electrolytes were closely monitored. Electrolytes corrected as needed. Nephrotoxins were avoided. Renal ultrasound revealed no alexandra hydronephrosis. Blood sugar was managed with sliding scale of insulin. Hemoglobin A1c 7.6. Patient will need further optimization off anti-glycemic regimen as outpatient Hemoglobin and hematocrit were closely monitored with goal to keep hemoglobin above 7. Bowel regimen instituted. GI specialist followed. Patient was on PPI. Symptomatic treatment provided. Antiemetics were on board as needed. Outpatient GI procedure was recommended. Bulb Planter seen the patient for chronic left ankle pain. Patient reported trauma to the area about 4 months ago. X-ray of left ankle revealed no significant findings. Bulb Planter recommended close observation, pain management, and strict glycemic control. Pain management was addressed , and pain was controlled. Psychiatrist closely followed and optimized psychiatric medication regimen. Patient was working with physical and occupational therapists. Fall precautions maintained. Patient clinically improved . Per conduit reamer operator, all workup was negative, and chest pain was atypical. Chest discomfort was possibly due to psychiatric issues/schizoaffective disorder bipolar type. Placement was found in the assisted facility, and patient subsequently was discharged for continuation of care. FINAL DIAGNOSES: Atypical chest pain Hypertension COPD Diabetes mellitus with diabetic nephropathy Chronic kidney disease Anemia Obesity Schizoaffective bipolar disorder GERD Chronic left ankle pain History of trauma 2 to the left ankle Homelessness DISCHARGE MEDICATIONS: See Medication Reconciliation list. DISCHARGE INSTRUCTIONS: Patient was discharged to the assisted facility. Follow up with medical doctor at the facility. I have been assigned to dictate discharge summary for this account. I was not involved in the patient's management. Carmen Roper NP Jul 25, 2018 13:00
== END 2018-07-23 17:40 | DRG 313 ==
LOC: EDBD 01:39 → EMR 02:10 → 2E 03:11 → EDBEDREQ 04:28 → 2E 08:29 → 3E 07-22 18:31
DX: R07.89 Other chest pain (principal); I13.0 Hypertensive heart and chronic kidney disease with heart failure and stage 1 through stage 4 chronic kidney disease, or unspecified chronic kidney disease; Z68.41 Body mass index [BMI] 40.0-44.9, adult; F25.0 Schizoaffective disorder, bipolar type; D64.9 Anemia, unspecified; J44.9 Chronic obstructive pulmonary disease, unspecified; E11.22 Type 2 diabetes mellitus with diabetic chronic kidney disease; N18.9 Chronic kidney disease, unspecified; I50.9 Heart failure, unspecified; Z79.4 Long term (current) use of insulin; Z59.0 Homelessness; F17.200 Nicotine dependence, unspecified, uncomplicated; K21.9 Gastro-esophageal reflux disease without esophagitis; G89.29 Other chronic pain; M25.572 Pain in left ankle and joints of left foot; Z98.84 Bariatric surgery status; Z88.8 Allergy status to other drugs, medicaments and biological substances; E66.01 Morbid (severe) obesity due to excess calories
CPT/HCPCS: 36415; 70450; 71045; 76770; 78452; 80048; 80053; 80061; 80076; 81001; 82378; 82550; 82553; 82607; 82728; 82746; 82962; 83036; 83540; 83550; 83615; 83690; 83735; 83880; 84100; 84133; 84300; 84439; 84443; 84484; 84550; 85007; 85025; 85044; 85060; 85379; 85610; 85651; 85730; 86140; 86850; 86900; 86901; 89050; 93005; 93017; 93306; 94640; 94664; 97803; 99285; J1815; J2405; J2785

== ENCOUNTER 2018-09-16 14:30 | Inpatient (IN) | payer MEDICARE, MEDICAID ==
[~2018-09-16] VITALS: Ht 162.6 cm; Wt 108.9 kg
[2018-09-16 14:30] VITALS: BP 144/96
[~2018-09-16 14:30] MED LIST: AMLODIPINE BESY10 MG ORAL; CAL-CITRATE W/200 MG PO; CALCIUM CARBON650 M3 GT; CLONIDINE HCL0.1 MG PO; CLONIDINE0.1 MG PO; DIVALPROEX SOD500 M2 PO; DOCUSATE SODIU100 MG ORAL; GABAPENTIN300 MG ORAL; KLONOPIN1 MG ORAL; LORAZEPAM1 MG ORAL; METOPROLOL SUCC25 MG ORAL; NITROSTAT0.4 M1 SL; SEROQUEL400 MG ORAL; TEMAZEPAM15 MG ORAL; TRAZODONE HCL100 MG ORAL; TYLENOL EXTRA500 MG ORAL
--- NOTE | 2018-09-16 14:49 | Emergency Room Report ---
History of Present Illness General Chief Complaint: Chest Pain Source: Patient, EMS Present Illness HPI Patient is a 48-year-old female presented after increased chest discomfort. Patient had gradual onset of symptoms. Patient reports having increased Patient reports having increased cough as well as a subjective fever. She denies any vomiting. She reports having some increased leg swelling. She denies taking diuretics.Pain was sharp in nature she reports having some increased nonproductive cough. She reports prior history of chronic kidney disease. History is limited by patient's poor historian Allergies: Coded Allergies: NO KNOWN ALLERGIES (Verified Allergy, Unknown, 09/17/18) Patient History Past Medical History: see triage record Reviewed Nursing Documentation: PMH: Agreed; PSxH: Agreed Nursing Documentation-PMH Past Medical History: No History, Except For Hx Cardiac Problems: Yes - anemia Hx Hypertension: Yes Hx COPD: Yes Hx Diabetes: Yes Hx Cancer: Yes Hx Gastrointestinal Problems: Yes Hx Dialysis: No - chronic kidney disease History Of Psychiatric Problem: Yes Hx Neurological Problems: No Review of Systems All Other Systems: negative except mentioned in HPI Physical Exam Vital Signs Date Time Temp Pulse Resp B/P (MAP) Pulse Ox O2 Delivery O2 Flow Rate FiO2 09/16/18 14:24 100.4 95 20 144/96 99 Room Air Sp02 EP Interpretation: reviewed, normal General Appearance: normal inspection, well appearing, no apparent distress, alert, GCS 15, obese Head: atraumatic ENT: normal ENT inspection, hearing grossly normal, normal voice Neck: normal inspection, full range of motion, supple, no bony tend Respiratory: normal inspection, no respiratory distress, no retraction, wheezing Cardiovascular #1: regular rate, rhythm, no edema Gastrointestinal: normal inspection, normal bowel sounds, non tender, soft, no guarding, no hernia Genitourinary: no CVA tenderness Musculoskeletal: normal inspection, back normal, normal range of motion Neurologic: normal inspection, alert, responsive, speech normal Psychiatric: normal inspection, judgement/insight normal, mood/affect normal Skin: normal inspection, normal color, no rash Medical Decision Making Diagnostic Impression: Primary Impression: COPD (chronic obstructive pulmonary disease) Additional Impressions: Hx of laparoscopic gastric banding Diabetes mellitus ER Course Patient presented for chest pain. Differential diagnosis included but was not limited to acute coronary syndrome, pulmonary embolism, pneumonia, aortic dissection, shingles, pneumothorax, aortic dissection, esophageal rupture, pericarditis. Because of complexity of patient's case laboratory testing and imaging studies were ordered.Patient reports having prior history of laparoscopic banding surgery. She reports having fever as well as chest discomfort. Patient's exam is consistent with infectious etiology. Patient's laboratory testing was notable for abnormal liver function tests. Patient was noted to have initially negative troponin. Abdominal ultrasound was ordered. Chest x-ray 1 view read by radiology showed no evidence of acute infiltrate or pneumonia . Dr. Malick Marie was contacted for inpatient management for further evaluation of chest pain. Labs Test 09/16/18 15:05 09/17/18 05:05 D-Dimer 0.19 mg/L FEU (0.00-0.49) Sodium Level 142 MMOL/L (136-145) Potassium Level 4.1 MMOL/L (3.5-5.1) Chloride Level 105 MMOL/L (98-107) Carbon Dioxide Level 24 MMOL/L (21-32) Anion Gap 13 mmol/L (5-15) Blood Urea Nitrogen 28 mg/dL (7-18) Creatinine 1.8 MG/DL (0.55-1.30) Estimat Glomerular Filtration Rate 36.5 mL/min (>60) Glucose Level 140 MG/DL (74-106) Calcium Level 9.1 MG/DL (8.5-10.1) Total Bilirubin 0.4 MG/DL (0.2-1.0) Aspartate Amino Transf (AST/SGOT) 127 U/L (15-37) Alanine Aminotransferase (ALT/SGPT) 197 U/L (12-78) Alkaline Phosphatase 137 U/L (46-116) Total Creatine Kinase 92 U/L (26-308) Creatine Kinase MB < 0.5 NG/ML (0.0-3.6) Creatine Kinase MB Relative Index 0.5 Pro-B-Type Natriuretic Peptide 102 pg/mL (0-125) Total Protein 8.2 G/DL (6.4-8.2) Albumin 3.4 G/DL (3.4-5.0) Globulin 4.8 g/dL Albumin/Globulin Ratio 0.7 (1.0-2.7) Lipase 380 U/L (73-393) Urine Opiates Screen Negative (NEGATIVE) Urine Barbiturates Screen Negative (NEGATIVE) Valproic Acid (Depakene) Level 33 MCG/ML (50-100) Phencyclidine (PCP) Screen Negative (NEGATIVE) Urine Amphetamines Screen Negative (NEGATIVE) Urine Benzodiazepines Screen Negative (NEGATIVE) Urine Cocaine Screen Negative (NEGATIVE) Urine Marijuana (THC) Screen Negative (NEGATIVE) White Blood Count 6.9 K/UL (4.8-10.8) Red Blood Count 4.26 M/UL (4.20-5.40) Hemoglobin 11.6 G/DL (12.0-16.0) Hematocrit 36.4 % (37.0-47.0) Mean Corpuscular Volume 85 FL (80-99) Mean Corpuscular Hemoglobin 27.3 PG (27.0-31.0) Mean Corpuscular Hemoglobin Concent 32.0 G/DL (32.0-36.0) Red Cell Distribution Width 15.4 % (11.6-14.8) Platelet Count 191 K/UL (150-450) Mean Platelet Volume 8.0 FL (6.5-10.1) Neutrophils (%) (Auto) 44.9 % (45.0-75.0) Lymphocytes (%) (Auto) 42.9 % (20.0-45.0) Monocytes (%) (Auto) 8.5 % (1.0-10.0) Eosinophils (%) (Auto) 2.5 % (0.0-3.0) Basophils (%) (Auto) 1.2 % (0.0-2.0) Prothrombin Time 9.9 SEC (9.30-11.50) Prothromb Time International Ratio 0.9 (0.9-1.1) Activated Partial Thromboplast Time 25 SEC (23-33) Troponin I 0.000 ng/mL (0.000-0.056) C-Reactive Protein, Quantitative 0.6 mg/dL (0.00-0.90) Triglycerides Level 128 MG/DL (30-150) Cholesterol Level 128 MG/DL (< 200) LDL Cholesterol 62 mg/dL (<100) HDL Cholesterol 55 MG/DL (40-60) Cholesterol/HDL Ratio 2.3 (3.3-4.4) Thyroid Stimulating Hormone (TSH) 1.414 uiU/mL (0.358-3.740) EKG Diagnostic Results Rate: normal - 92 Rhythm: NSR ST Segments: no acute changes Last Vital Signs Date Time Temp Pulse Resp B/P (MAP) Pulse Ox O2 Delivery O2 Flow Rate FiO2 09/16/18 14:24 100.4 95 20 144/96 99 Room Air Status: unchanged Disposition: ADMITTED INPATIENT Condition: Serious Wang Xiao MD Sep 16, 2018 14:49
[2018-09-16] MEDS ORDERED: Albuterol/Ipratropium 3ml neb HHN ONE (15:00)
[2018-09-16] MEDS ORDERED: BENZTROPINE ME0.5 MG PO (15:33)
[2018-09-16] MEDS ORDERED: BUSPAR10 MG ORAL (15:33)
[2018-09-16] MEDS ORDERED: CYCLOBENZAPRINE10 MG ORAL (15:33)
[2018-09-16] MEDS ORDERED: ASPIRIN81 MG ORAL (15:33)
[2018-09-16 15:41] LABS: BASOPHILS % (AUTO) 1.1 % (0.0-2.0); EOSINOPHILS % (AUTO) 2.2 % (0.0-3.0); HEMATOCRIT 37.9 % (37.0-47.0); HEMOGLOBIN 12.4 G/DL (12.0-16.0); LYMPHOCYTES % (AUTO) 38.4 % (20.0-45.0); MEAN CORPUSCULAR VOLUME 86 FL (80-99); MONOCYTES % (AUTO) 8.4 % (1.0-10.0); NEUTROPHILS % (AUTO) 49.9 % (45.0-75.0); PLATELET COUNT 209 K/UL (150-450); RED BLOOD COUNT 4.42 M/UL (4.20-5.40); RED CELL DISTRIBUTION WIDTH 15.3 % (11.6-14.8); WHITE BLOOD COUNT 7.1 K/UL (4.8-10.8)
[2018-09-16] MEDS ORDERED: HALOPERIDOL1 MG ORAL (15:44)
[2018-09-16] MEDS ORDERED: VENTOLIN HFA18 GM INH (15:44)
[2018-09-16] MEDS ORDERED: FERROUS SULFAT325 MG ORAL (15:44)
[2018-09-16] MEDS ORDERED: METFORMIN HCL500 M1 ORAL (15:44)
[2018-09-16 15:46] LABS: ANION GAP 13 mmol/L (5-15); BLOOD UREA NITROGEN 28 mg/dL (7-18); CALCIUM 9.1 MG/DL (8.5-10.1); CARBON DIOXIDE 24 MMOL/L (21-32); CHLORIDE 105 MMOL/L (98-107); CREATININE 1.8 MG/DL (0.55-1.30); POTASSIUM 4.1 MMOL/L (3.5-5.1); SODIUM 142 MMOL/L (136-145)
--- NOTE | 2018-09-16 15:57 | Diagnostic Imaging Report ---
Indication: Shortness of breath Technique: XRAY Chest 1v Comparison: 07/20/2018 Findings: Heart size and mediastinal contours are within normal for AP technique and stable compared to the prior exam. There is no focal consolidation, pneumothorax or pleural effusion. Osseous structures demonstrate no acute abnormality. Likely prior gastric banding. Correlate with surgical history. Impression: No radiographic evidence of acute cardiopulmonary disease.
[2018-09-16 15:59] LABS: ALANINE AMINOTRANSFERASE 197 U/L (12-78); ALBUMIN 3.4 G/DL (3.4-5.0); ALBUMIN/GLOBULIN RATIO 0.7 (1.0-2.7); ALKALINE PHOSPHATASE 137 U/L (46-116); ASPARTATE AMINO TRANSFERASE 127 U/L (15-37); BILIRUBIN,TOTAL 0.4 MG/DL (0.2-1.0); CKMB < 0.5 NG/ML (0.0-3.6); CREATINE KINASE 92 U/L (26-308)
[2018-09-16 16:30] VITALS: BP 144/96
[2018-09-16 18:45] VITALS: BP 137/87
[2018-09-16 21:00] VITALS: BP 144/57
[2018-09-16] MEDS ORDERED: Nitroglycerin Subl 0.4mg tab SL PRN (22:15)
[2018-09-16] MEDS ORDERED: dilTIAZem HCl 25mg/5ml Inj IV PRN (22:15)
[2018-09-16] MEDS ORDERED: Miralax 17gm pkt ORAL PRN (22:15)
[2018-09-16] MEDS ORDERED: Enalaprilat 2.5mg/2ml Inj IV PRN (22:15)
[2018-09-16] MEDS: Heparin 5000 units/ml inj SUBQ SCH (22:30)
[2018-09-17] VITALS: BP 141/81
[2018-09-17 04:00] VITALS: BP 144/88
[2018-09-17] MEDS: NovoLOG Insulin Flexpen SUBQ SCH ×4 (05:26→21:15)
[2018-09-17] MEDS: Heparin 5000 units/ml inj SUBQ SCH ×3 (05:52→21:16)
[2018-09-17 06:31] LABS: BASOPHILS % (AUTO) 1.2 % (0.0-2.0); EOSINOPHILS % (AUTO) 2.5 % (0.0-3.0); HEMATOCRIT 36.4 % (37.0-47.0); HEMOGLOBIN 11.6 G/DL (12.0-16.0); LYMPHOCYTES % (AUTO) 42.9 % (20.0-45.0); MEAN CORPUSCULAR VOLUME 85 FL (80-99); MONOCYTES % (AUTO) 8.5 % (1.0-10.0); NEUTROPHILS % (AUTO) 44.9 % (45.0-75.0); PLATELET COUNT 191 K/UL (150-450); RED BLOOD COUNT 4.26 M/UL (4.20-5.40); RED CELL DISTRIBUTION WIDTH 15.4 % (11.6-14.8); WHITE BLOOD COUNT 6.9 K/UL (4.8-10.8)
[2018-09-17 07:04] LABS: INR 0.9 (0.9-1.1)
[2018-09-17 07:24] LABS: CHOLESTEROL 128 MG/DL (< 200); HDL CHOLESTEROL 55 MG/DL (40-60); TRIGLYCERIDES 128 MG/DL (30-150)
[2018-09-17 08:00] VITALS: BP 147/76
--- NOTE | 2018-09-17 08:26 | Cardiac Electrophysiology PN ---
Subjective Subjective [id number] Objective Last 24 Hour Vital Signs Date Time Temp Pulse Resp B/P (MAP) Pulse Ox O2 Delivery O2 Flow Rate FiO2 09/17/18 04:00 76 09/17/18 04:00 97.5 79 19 144/88 (106) 95 09/17/18 00:00 81 09/17/18 00:00 97.9 78 19 141/81 (101) 96 09/16/18 21:00 97.3 69 17 144/57 (86) 98 09/16/18 21:00 Room Air 09/16/18 20:00 84 09/16/18 19:27 Room Air 09/16/18 18:45 98.1 87 18 137/87 (104) 98 09/16/18 18:36 98.5 95 18 147/94 100 Room Air 09/16/18 16:30 98.4 90 16 144/96 100 Room Air 21 09/16/18 15:14 80 16 100 Room Air 21 09/16/18 15:03 90 16 Room Air 21 09/16/18 15:03 90 16 100 Room Air 21 09/16/18 14:30 95 20 Room Air 09/16/18 14:30 100.4 90 20 144/96 99 Room Air 09/16/18 14:24 100.4 95 20 144/96 99 Room Air Intake and Output 09/16/18 09/17/18 19:00 07:00 Intake Total 240 ml Balance 240 ml Intake Oral 240 ml # Voids 2 3 Laboratory Tests Test 09/16/18 15:05 09/17/18 05:05 White Blood Count 7.1 K/UL (4.8-10.8) 6.9 K/UL (4.8-10.8) Red Blood Count 4.42 M/UL (4.20-5.40) 4.26 M/UL (4.20-5.40) Hemoglobin 12.4 G/DL (12.0-16.0) 11.6 G/DL (12.0-16.0) L Hematocrit 37.9 % (37.0-47.0) 36.4 % (37.0-47.0) L Mean Corpuscular Volume 86 FL (80-99) 85 FL (80-99) Mean Corpuscular Hemoglobin 28.1 PG (27.0-31.0) 27.3 PG (27.0-31.0) Mean Corpuscular Hemoglobin Concent 32.7 G/DL (32.0-36.0) 32.0 G/DL (32.0-36.0) Red Cell Distribution Width 15.3 % (11.6-14.8) H 15.4 % (11.6-14.8) H Platelet Count 209 K/UL (150-450) 191 K/UL (150-450) Mean Platelet Volume 8.1 FL (6.5-10.1) 8.0 FL (6.5-10.1) Neutrophils (%) (Auto) 49.9 % (45.0-75.0) 44.9 % (45.0-75.0) L Lymphocytes (%) (Auto) 38.4 % (20.0-45.0) 42.9 % (20.0-45.0) Monocytes (%) (Auto) 8.4 % (1.0-10.0) 8.5 % (1.0-10.0) Eosinophils (%) (Auto) 2.2 % (0.0-3.0) 2.5 % (0.0-3.0) Basophils (%) (Auto) 1.1 % (0.0-2.0) 1.2 % (0.0-2.0) D-Dimer 0.19 mg/L FEU (0.00-0.49) Sodium Level 142 MMOL/L (136-145) Potassium Level 4.1 MMOL/L (3.5-5.1) Chloride Level 105 MMOL/L (98-107) Carbon Dioxide Level 24 MMOL/L (21-32) Anion Gap 13 mmol/L (5-15) Blood Urea Nitrogen 28 mg/dL (7-18) H Creatinine 1.8 MG/DL (0.55-1.30) H Estimat Glomerular Filtration Rate 36.5 mL/min (>60) Glucose Level 140 MG/DL (74-106) H Calcium Level 9.1 MG/DL (8.5-10.1) Total Bilirubin 0.4 MG/DL (0.2-1.0) Aspartate Amino Transf (AST/SGOT) 127 U/L (15-37) H Alanine Aminotransferase (ALT/SGPT) 197 U/L (12-78) H Alkaline Phosphatase 137 U/L (46-116) H Total Creatine Kinase 92 U/L (26-308) Creatine Kinase MB < 0.5 NG/ML (0.0-3.6) Creatine Kinase MB Relative Index 0.5 Troponin I 0.000 ng/mL (0.000-0.056) 0.000 ng/mL (0.000-0.056) Pro-B-Type Natriuretic Peptide 102 pg/mL (0-125) Total Protein 8.2 G/DL (6.4-8.2) Albumin 3.4 G/DL (3.4-5.0) Globulin 4.8 g/dL Albumin/Globulin Ratio 0.7 (1.0-2.7) L Lipase 380 U/L (73-393) Urine Opiates Screen Negative (NEGATIVE) Urine Barbiturates Screen Negative (NEGATIVE) Valproic Acid (Depakene) Level 33 MCG/ML (50-100) L Phencyclidine (PCP) Screen Negative (NEGATIVE) Urine Amphetamines Screen Negative (NEGATIVE) Urine Benzodiazepines Screen Negative (NEGATIVE) Urine Cocaine Screen Negative (NEGATIVE) Urine Marijuana (THC) Screen Negative (NEGATIVE) Prothrombin Time 9.9 SEC (9.30-11.50) Prothromb Time International Ratio 0.9 (0.9-1.1) Activated Partial Thromboplast Time 25 SEC (23-33) C-Reactive Protein, Quantitative 0.6 mg/dL (0.00-0.90) Triglycerides Level 128 MG/DL (30-150) Cholesterol Level 128 MG/DL (< 200) LDL Cholesterol 62 mg/dL (<100) HDL Cholesterol 55 MG/DL (40-60) Cholesterol/HDL Ratio 2.3 (3.3-4.4) L Thyroid Stimulating Hormone (TSH) 1.414 uiU/mL (0.358-3.740) Microbiology Date/Time Source Procedure Growth Status 09/16/18 16:37 Nasal Nares Influenza Types A,B Antigen ([facility]) - Final Complete Raffaele Huber MD Sep 17, 2018 08:26
[2018-09-17] MEDS ORDERED: Lexiscan 0.4mg/5ml syringe IV PRN (08:30)
[2018-09-17] MEDS ORDERED: Aspirin Baby 81mg ORAL SCH ×2 (09:00)
--- NOTE | 2018-09-17 09:34 | Diagnostic Imaging Report ---
Indication: Abnormal liver function tests and abnormal renal function tests Technique: Greene-scale and duplex images of the upper abdomen were obtained. Duplex interrogation of the pancreatic and hepatic vessels Comparison: Reference made to renal ultrasound dated 07/20/2018 Findings: Gallbladder it is nondistended. No stones, wall thickening, nor pericholecystic fluid Sonographic Mora's sign is negative. Common bile duct measures 3 mm in diameter. No intrahepatic biliary ductal dilatation. Liver demonstrates normal echogenicity, no focal abnormality. Portal vein and hepatic veins are patent. It demonstrates a prominent Savage's lobe. Pancreas is unremarkable. Spleen is unremarkable. Left kidney measures 11.8 cm in length. Right kidney measures 12.1 cm length. Right kidney demonstrates normal echogenicity. Left kidney demonstrates increased echogenicity. There is no hydronephrosis. Left kidney demonstrates a punctate echogenic focus and a small cyst. Non-aneurysmal abdominal aorta . Impression: Negative for gallstones or dilated ducts Echogenic left kidney, consistent with medical renal disease. Negative for hydronephrosis Possible nonobstructive left renal calcification. Incidental finding small left renal cyst
[2018-09-17] MEDS: Depakote ER 500mg tab ORAL SCH (10:13)
[2018-09-17] MEDS: Aspirin Baby 81mg ORAL SCH (10:15)
[2018-09-17] MEDS: BusPIRone 10mg Tab ORAL SCH ×3 (10:20→17:15)
--- NOTE | 2018-09-17 11:00 | Consultation ---
DATE OF CONSULTATION: 09/17/2018 CARDIOLOGY CONSULTATION CONSULTING PHYSICIAN: Raffaele Huber M.D. REFERRING PHYSICIAN: Malick Marie D.O. REASON FOR CONSULTATION: Chest pain. HISTORY OF PRESENT ILLNESS: The patient is a 48-year-old lady with history of hypertension, COPD, and diabetes, psychiatric problem, was brought from [facility] for chest discomfort. The patient reports that she was sent because her urine was cloudy and notes blood in her stool. However, at the time of my evaluation, the patient denies any chest pain or palpitation or shortness of breath. The patient has history of chronic kidney disease. REVIEW OF SYSTEMS: Negative other than what was mentioned in the history of present illness. PAST MEDICAL HISTORY: As mentioned above. FAMILY HISTORY: Noncontributory. SOCIAL HISTORY: She lives in al[place]. Does not smoke or drink alcohol. PHYSICAL EXAMINATION: VITAL SIGNS: Blood pressure is 144/88, pulse 79, respirations 19, and temperature 97.5. HEAD AND NECK: Showed no JVD. LUNGS: Clear. CARDIOVASCULAR: Showed regular S1 and S2 with no gallop or murmur. ABDOMEN: Soft and nontender. EXTREMITIES: No pitting edema. LABORATORY AND DIAGNOSTIC DATA: Her EKG shows sinus rhythm with no acute ST-T wave abnormalities. Labs show white count of 6.9, hemoglobin 11.6, hematocrit 36.4, and platelet count of 191. Sodium 142, potassium 4.1, BUN of 28, creatinine 1.8, and glucose of . Troponin negative x2. INR is 0.9. is 0.19. Urine toxicology screen is negative. ASSESSMENT AND PLAN: 1. Chest pain. The patient was ruled out for myocardial infarction. EKG is nonischemic. We will schedule the patient for echocardiogram and nuclear stress test for further evaluation. 2. Hypertension. Amlodipine 10 mg daily. The patient is on p.r.n. clonidine. 3. History of diabetes. 4. History of psychosis. 5. Questionable blood in the stool. Evaluation by GI. Thank you very much for allowing me to participate in the care of this patient. Please do not hesitate to contact me for any questions regarding my evaluation. Raffaele Huber M.D. DR: RUSLAN JOB#: [id number] CC:
[2018-09-17 12:00] VITALS: BP 122/70
--- NOTE | 2018-09-17 14:24 | GI Initial Consult Note ---
History of Present Illness General Date patient seen: Sep 17, 2018 Time patient seen: 14:19 Reason for Hospitalization: Chest Pain Referring physician: JOSSY QUINTANA Reason for Consultation: CHEST PAIN Present Illness HPI Patient is a 48-year-old female presented after increased chest discomfort. Patient had gradual onset of symptoms. Patient reports having increased Patient reports having increased cough as well as a subjective fever. She denies any vomiting. She reports having some increased leg swelling. She denies taking diuretics.Pain was sharp in nature she reports having some increased nonproductive cough. She reports prior history of chronic kidney disease. History is limited by patient's poor historian GI consulted for GERD and anemia. Patient was seen, awake alert and oriented x4. No apparent distress. No active signs of nausea vomiting or diarrhea. At this time the patient denies any abdominal pain. Denies any diarrhea or constipation. She states that she has trouble swallowing food and that she feels like it gets "stuck" within her throat. The patient states she has a history of a LAP-BAND placed approximately 16 years ago. She states she has no history of endoscopic or colonoscopy. Labs reviewed show mild normocytic anemia , transaminitis with elevated alkaline phosphatase and a negative urine toxicity. Home Meds Reported Medications Albuterol Sulfate (VENTOLIN HFA) 18 Gm Hfa.aer.ad, 1 PUFF INH EVERY 6 HOURS, # 18 GM 0 Refills 09/16/18 Metformin Hcl* (METFORMIN HCL*) 500 Mg Tablet, 500 MG ORAL TWICE A DAY, TAB 09/16/18 Haloperidol* (HALDOL*) 1 Mg Tablet, 5 MG ORAL EVERY 6 HOURS, #20 TAB 0 Refills 09/16/18 Ferrous Sulfate* (FERROUS SULFATE*) 325 Mg Tablet, 625 MG ORAL DAILY, #30 TAB 0 Refills 09/16/18 Cyclobenzaprine Hcl* (FLEXERIL*) 10 Mg Tablet, 10 MG ORAL THREE TIMES A DAY, TAB 09/16/18 Benztropine Mesylate* (COGENTIN*) 0.5 Mg Tablet, 1 MG PO, TAB 09/16/18 Buspirone Hcl* (BUSPAR*) 10 Mg Tablet, 5 MG ORAL THREE TIMES A DAY, #15 TAB 0 Refills 09/16/18 Aspirin* (ASPIRIN*) 81 Mg Tab.chew, 81 MG ORAL DAILY, TAB 09/16/18 Acetaminophen* (TYLENOL EXTRA STRENGTH*) 500 Mg Tablet, 650 MG ORAL Q6HR PRN for Prn Headache/Temp > 101, #30 TAB 0 Refills 07/20/18 Acetaminophen* (TYLENOL EXTRA STRENGTH*) 500 Mg Tablet, 325 MG ORAL Q6H PRN for Mild Pain/Temp > 100.5, TAB 0 Refills 07/20/18 Temazepam (TEMAZEPAM*) 15 Mg Capsule, 15 MG ORAL BEDTIME PRN for PRN, #30 CAP 0 Refills 07/20/18 Temazepam (TEMAZEPAM*) 15 Mg Capsule, 15 MG ORAL BEDTIME, #30 CAP 0 Refills 07/20/18 Lorazepam* (LORAZEPAM*) 1 Mg Tablet, 1 MG ORAL Q6HR PRN for For Anxiety, TAB 07/20/18 Quetiapine Fumarate (SEROQUEL) 400 Mg Tablet, 400 MG ORAL QHS, #15 TAB 0 Refills 07/20/18 Divalproex Sodium (DIVALPROEX SODIUM ER) 500 Mg Tab.er.24h, 500 MG PO DAILY, TAB 07/20/18 Trazodone Hcl* (DESYREL*) 100 Mg Tablet, 100 MG ORAL BEDTIME, TAB 07/20/18 Clonidine HCl (Clonidine HCl) 0.1 Mg Tablet, 0.1 MG PO Q6HR PRN for For High Blood Pressure, TAB 07/20/18 Clonidine Hcl (CLONIDINE HCL) 0.1 Mg Tablet, 0.1 MG PO Q6HR, TAB 07/20/18 Nitroglycerin (NITROSTAT) 0.4 Mg Tab.subl, 0.4 MG SL Q5M X3 DOSES PRN for CHEST PAIN, #25 TAB 0 Refills 07/20/18 Docusate Sodium* (DOCUSATE SODIUM*) 100 Mg Capsule, 100 MG ORAL TWICE A DAY, CAP 07/20/18 Calcium Carbonate (Calcium Carbonate) 500 Mg Tablet, 500 MG PO DAILY, TAB 07/20/18 Gabapentin* (GABAPENTIN*) 300 Mg Capsule, 300 MG ORAL THREE TIMES A DAY, CAP 0 Refills 07/20/18 Clonazepam* (KLONOPIN*) 1 Mg Tablet, 1 MG ORAL BID, #15 TAB 0 Refills 07/20/18 Metoprolol Succinate* (METOPROLOL SUCCINATE*) 25 Mg Tab.er.24h, 25 MG ORAL DAILY , TAB 07/20/18 Amlodipine Besylate* (AMLODIPINE BESYLATE*) 10 Mg Tablet, 10 MG ORAL DAILY, TAB 07/20/18 Med list reviewed/reconciled: Yes Allergies: Coded Allergies: NO KNOWN ALLERGIES (Verified Allergy, Unknown, 09/17/18) Patient History History Provided By: Patient, Medical Record H Narrative Past Medical History: No History, Except For Hx Cardiac Problems: Yes - anemia Hx Hypertension: Yes Hx COPD: Yes Hx Diabetes: Yes Hx Cancer: Yes Hx Gastrointestinal Problems: Yes Hx Dialysis: No - chronic kidney disease History Of Psychiatric Problem: Yes Hx Neurological Problems: No Social History: Denies: smoking, alcohol use, drug use, other Review of Systems All Other Systems: negative except mentioned in HPI Physical Exam Vital Signs Date Time Temp Pulse Resp B/P (MAP) Pulse Ox O2 Delivery O2 Flow Rate FiO2 09/16/18 14:24 100.4 95 20 144/96 99 Room Air 09/16/18 15:03 21 Sp02 EP Interpretation: reviewed, normal Labs Laboratory Tests Test 09/16/18 15:05 09/17/18 05:05 White Blood Count 7.1 K/UL (4.8-10.8) 6.9 K/UL (4.8-10.8) Red Blood Count 4.42 M/UL (4.20-5.40) 4.26 M/UL (4.20-5.40) Hemoglobin 12.4 G/DL (12.0-16.0) 11.6 G/DL (12.0-16.0) L Hematocrit 37.9 % (37.0-47.0) 36.4 % (37.0-47.0) L Mean Corpuscular Volume 86 FL (80-99) 85 FL (80-99) Mean Corpuscular Hemoglobin 28.1 PG (27.0-31.0) 27.3 PG (27.0-31.0) Mean Corpuscular Hemoglobin Concent 32.7 G/DL (32.0-36.0) 32.0 G/DL (32.0-36.0) Red Cell Distribution Width 15.3 % (11.6-14.8) H 15.4 % (11.6-14.8) H Platelet Count 209 K/UL (150-450) 191 K/UL (150-450) Mean Platelet Volume 8.1 FL (6.5-10.1) 8.0 FL (6.5-10.1) Neutrophils (%) (Auto) 49.9 % (45.0-75.0) 44.9 % (45.0-75.0) L Lymphocytes (%) (Auto) 38.4 % (20.0-45.0) 42.9 % (20.0-45.0) Monocytes (%) (Auto) 8.4 % (1.0-10.0) 8.5 % (1.0-10.0) Eosinophils (%) (Auto) 2.2 % (0.0-3.0) 2.5 % (0.0-3.0) Basophils (%) (Auto) 1.1 % (0.0-2.0) 1.2 % (0.0-2.0) D-Dimer 0.19 mg/L FEU (0.00-0.49) Sodium Level 142 MMOL/L (136-145) Potassium Level 4.1 MMOL/L (3.5-5.1) Chloride Level 105 MMOL/L (98-107) Carbon Dioxide Level 24 MMOL/L (21-32) Anion Gap 13 mmol/L (5-15) Blood Urea Nitrogen 28 mg/dL (7-18) H Creatinine 1.8 MG/DL (0.55-1.30) H Estimat Glomerular Filtration Rate 36.5 mL/min (>60) Glucose Level 140 MG/DL (74-106) H Calcium Level 9.1 MG/DL (8.5-10.1) Total Bilirubin 0.4 MG/DL (0.2-1.0) Aspartate Amino Transf (AST/SGOT) 127 U/L (15-37) H Alanine Aminotransferase (ALT/SGPT) 197 U/L (12-78) H Alkaline Phosphatase 137 U/L (46-116) H Total Creatine Kinase 92 U/L (26-308) Creatine Kinase MB < 0.5 NG/ML (0.0-3.6) Creatine Kinase MB Relative Index 0.5 Troponin I 0.000 ng/mL (0.000-0.056) 0.000 ng/mL (0.000-0.056) Pro-B-Type Natriuretic Peptide 102 pg/mL (0-125) Total Protein 8.2 G/DL (6.4-8.2) Albumin 3.4 G/DL (3.4-5.0) Globulin 4.8 g/dL Albumin/Globulin Ratio 0.7 (1.0-2.7) L Lipase 380 U/L (73-393) Urine Opiates Screen Negative (NEGATIVE) Urine Barbiturates Screen Negative (NEGATIVE) Valproic Acid (Depakene) Level 33 MCG/ML (50-100) L Phencyclidine (PCP) Screen Negative (NEGATIVE) Urine Amphetamines Screen Negative (NEGATIVE) Urine Benzodiazepines Screen Negative (NEGATIVE) Urine Cocaine Screen Negative (NEGATIVE) Urine Marijuana (THC) Screen Negative (NEGATIVE) Prothrombin Time 9.9 SEC (9.30-11.50) Prothromb Time International Ratio 0.9 (0.9-1.1) Activated Partial Thromboplast Time 25 SEC (23-33) C-Reactive Protein, Quantitative 0.6 mg/dL (0.00-0.90) Triglycerides Level 128 MG/DL (30-150) Cholesterol Level 128 MG/DL (< 200) LDL Cholesterol 62 mg/dL (<100) HDL Cholesterol 55 MG/DL (40-60) Cholesterol/HDL Ratio 2.3 (3.3-4.4) L Thyroid Stimulating Hormone (TSH) 1.414 uiU/mL (0.358-3.740) General Appearance: well appearing, no apparent distress, alert Head: normocephalic EENT: PERRL/EOMI, normal ENT inspection Neck: supple Respiratory: normal breath sounds, no respiratory distress Cardiovascular: normal rate Gastrointestinal: normal inspection, non tender, soft, normal bowel sounds, non -distended Rectal: deferred Genitourinary: no CVA tenderness Musculoskeletal: normal inspection, back normal Neurologic: normal inspection, alert, oriented x3, responsive Psychiatric: normal inspection, judgement/insight normal, memory normal Skin: normal inspection, normal color, no rash, warm/dry, palpation normal, well hydrated Lymphatic: normal inspection, no adenopathy Current Medications Current Medications Medications (Trade) Dose Ordered Sig/Luciano Route PRN Reason Start Time Stop Time Status Last Admin Dose Admin Acetaminophen (Tylenol) 650 mg Q4H PRN ORAL FEVER 09/16/18 22:15 10/16/18 22:14 Albuterol/ Ipratropium (Albuterol/ Ipratropium) 3 ml Q4H PRN HHN Shortness of Breath 09/16/18 22:15 09/21/18 22:14 Amlodipine Besylate (Norvasc) 10 mg DAILY ORAL 09/17/18 09:00 10/17/18 08:59 09/17/18 10:14 Aspirin (ASA) 81 mg DAILY ORAL 09/17/18 09:00 10/17/18 08:59 09/17/18 10:15 Buspirone HCl (Buspar) 5 mg THREE TIMES A DAY ORAL 09/17/18 09:00 10/17/18 08:59 09/17/18 13:55 Clonazepam (KlonoPIN) 1 mg BID ORAL 09/17/18 09:00 09/24/18 08:59 09/17/18 10:20 Clonidine HCl (Catapres Tab) 0.1 mg Q6HR PRN ORAL For High Blood Pressure 09/16/18 22:15 10/16/18 22:14 Dextrose (Dextrose 50%) 25 ml Q30M PRN IV Hypoglycemia 09/16/18 22:15 10/16/18 22:14 Diltiazem HCl (Cardizem) 10 mg Q1H PRN IV heart rate more than 120, 09/16/18 22:15 10/16/18 22:14 Divalproex Sodium (Depakote ER) 500 mg DAILY ORAL 09/17/18 09:00 10/17/18 08:59 09/17/18 10:13 Enalaprilat (Vasotec) 2.5 mg EVERY 6 HOURS PRN IV sbp more than 160 09/16/18 22:15 10/16/18 22:14 Gabapentin (Neurontin) 300 mg THREE TIMES A DAY ORAL 09/17/18 09:00 10/17/18 08:59 09/17/18 13:55 Heparin Sodium (Porcine) (Heparin 5000 units/ml) 5,000 units EVERY 8 HOURS SUBQ 09/16/18 22:30 10/16/18 22:29 09/17/18 13:55 Insulin Aspart (NovoLOG) BEFORE MEALS AND HS SUBQ 09/17/18 06:30 10/17/18 06:29 09/17/18 05:26 Morphine Sulfate (Morphine Sulfate) 2 mg Q4H PRN IVP severe Pain (Pain Scale 7-10) 09/16/18 22:15 09/23/18 22:14 Nitroglycerin (Ntg) 0.4 mg Q5M PRN SL Prn Chest Pain 09/16/18 22:15 10/16/18 22:14 Ondansetron HCl (Zofran) 4 mg Q6H PRN IVP Nausea & Vomiting 09/16/18 22:15 10/16/18 22:14 Pantoprazole (Protonix) 40 mg DAILY ORAL 09/17/18 09:00 10/17/18 08:59 09/17/18 10:15 Polyethylene Glycol (Miralax) 17 gm DAILYPRN PRN ORAL Constipation 09/16/18 22:15 10/16/18 22:14 Temazepam (Restoril) 15 mg HSPRN PRN ORAL Insomnia 09/16/18 22:15 09/23/18 22:14 Trazodone HCl (Desyrel) 100 mg BEDTIME ORAL 09/17/18 21:00 10/17/18 20:59 GI: Plan Problems: (1) Abdominal pain (2) Anemia (3) GERD (gastroesophageal reflux disease) (4) Hx of laparoscopic gastric banding (5) LFTs abnormal Plan Negative troponin levels Ultrasound reviewed negative for gallstones or dilated ducts Medical management for GERD Advance diet anemia work up OB stool r/o GI bleed monitor H&H, prn transfusions bowel regime ppi fu labs, hepatitis panel trend LFTs Outpatient surgical consult for lap band removal Discussed with Dr. Winters. Thank you for this patient referral, we will follow. The patient was seen and examined at bedside and all new and available data was reviewed in the patients chart. I agree with the above findings, impression and plan. (Patient seen earlier today. Signature stamp does not reflect patient encounter time.). - MD Gayla Layne,[facility] [employer] DES[employer] Sep 17, 2018 14:24
--- NOTE | 2018-09-17 14:41 | History & Physical ---
History and Physical History & Physicial History and Physical Pulmonary Consultation Note Chief Complaint: Chest Pain HPI Patient is a 48-year-old female presented after increased chest discomfort. Patient had gradual onset of symptoms. Patient reports having increased Patient reports having increased cough as well as a subjective fever. She denies any vomiting. She reports having some increased leg swelling. She denies taking diuretics.Pain was sharp in nature she reports having some increased nonproductive cough. She reports prior history of chronic kidney disease. History is limited by patient's poor historian Allergies: Coded Allergies: NO KNOWN ALLERGIES (Verified Allergy, Unknown, 09/17/18) Past Medical History: DM, HTN, CKD, COPD, previous laparoscopic gastric banding Reviewed Nursing Documentation: PMH: Agreed; PSxH: Agreed Hx Cardiac Problems: Yes - anemia Hx Hypertension: Yes Hx COPD: Yes Hx Diabetes: Yes Hx Cancer: Yes Hx Gastrointestinal Problems: Yes Hx Dialysis: No - chronic kidney disease History Of Psychiatric Problem: Yes Hx Neurological Problems: No Review of Systems All Other Systems: negative except mentioned in HPI Physical Exam Vital Signs Noted Date Time Temp Pulse Resp B/P (MAP) Pulse Ox O2 Delivery O2 Flow Rate FiO2 09/16/18 14:24 100.4 95 20 144/96 99 Room Air Sp02 EP Interpretation: reviewed, normal General Appearance: normal inspection, well appearing, no apparent distress, alert, GCS 15, obese Head: atraumatic ENT: normal ENT inspection, hearing grossly normal, normal voice Neck: normal inspection, full range of motion, supple, no bony tend Respiratory: normal inspection, no respiratory distress, no retraction, wheezing Cardiovascular #1: regular rate, rhythm, no edema Gastrointestinal: normal inspection, normal bowel sounds, non tender, soft, no guarding, no hernia Genitourinary: no CVA tenderness Musculoskeletal: normal inspection, back normal, normal range of motion Neurologic: normal inspection, alert, responsive, speech normal Psychiatric: normal inspection, judgement/insight normal, mood/affect normal Skin: normal inspection, normal color, no rash Impression: Primary Impression: Chest Pain COPD (chronic obstructive pulmonary disease) Hx of laparoscopic gastric banding Diabetes mellitus Plan 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 Dr. Malick Marie was contacted for inpatient management for further evaluation of chest pain. Labs Test 09/16/18 15:05 09/17/18 05:05 D-Dimer 0.19 mg/L FEU (0.00-0.49) Sodium Level 142 MMOL/L (136-145) Potassium Level 4.1 MMOL/L (3.5-5.1) Chloride Level 105 MMOL/L (98-107) Carbon Dioxide Level 24 MMOL/L (21-32) Anion Gap 13 mmol/L (5-15) Blood Urea Nitrogen 28 mg/dL (7-18) Creatinine 1.8 MG/DL (0.55-1.30) Estimat Glomerular Filtration Rate 36.5 mL/min (>60) Glucose Level 140 MG/DL (74-106) Calcium Level 9.1 MG/DL (8.5-10.1) Total Bilirubin 0.4 MG/DL (0.2-1.0) Aspartate Amino Transf (AST/SGOT) 127 U/L (15-37) Alanine Aminotransferase (ALT/SGPT) 197 U/L (12-78) Alkaline Phosphatase 137 U/L (46-116) Total Creatine Kinase 92 U/L (26-308) Creatine Kinase MB < 0.5 NG/ML (0.0-3.6) Creatine Kinase MB Relative Index 0.5 Pro-B-Type Natriuretic Peptide 102 pg/mL (0-125) Total Protein 8.2 G/DL (6.4-8.2) Albumin 3.4 G/DL (3.4-5.0) Globulin 4.8 g/dL Albumin/Globulin Ratio 0.7 (1.0-2.7) Lipase 380 U/L (73-393) Urine Opiates Screen Negative (NEGATIVE) Urine Barbiturates Screen Negative (NEGATIVE) Valproic Acid (Depakene) Level 33 MCG/ML (50-100) Phencyclidine (PCP) Screen Negative (NEGATIVE) Urine Amphetamines Screen Negative (NEGATIVE) Urine Benzodiazepines Screen Negative (NEGATIVE) Urine Cocaine Screen Negative (NEGATIVE) Urine Marijuana (THC) Screen Negative (NEGATIVE) White Blood Count 6.9 K/UL (4.8-10.8) Red Blood Count 4.26 M/UL (4.20-5.40) Hemoglobin 11.6 G/DL (12.0-16.0) Hematocrit 36.4 % (37.0-47.0) Mean Corpuscular Volume 85 FL (80-99) Mean Corpuscular Hemoglobin 27.3 PG (27.0-31.0) Mean Corpuscular Hemoglobin Concent 32.0 G/DL (32.0-36.0) Red Cell Distribution Width 15.4 % (11.6-14.8) Platelet Count 191 K/UL (150-450) Mean Platelet Volume 8.0 FL (6.5-10.1) Neutrophils (%) (Auto) 44.9 % (45.0-75.0) Lymphocytes (%) (Auto) 42.9 % (20.0-45.0) Monocytes (%) (Auto) 8.5 % (1.0-10.0) Eosinophils (%) (Auto) 2.5 % (0.0-3.0) Basophils (%) (Auto) 1.2 % (0.0-2.0) Prothrombin Time 9.9 SEC (9.30-11.50) Prothromb Time International Ratio 0.9 (0.9-1.1) Activated Partial Thromboplast Time 25 SEC (23-33) Troponin I 0.000 ng/mL (0.000-0.056) C-Reactive Protein, Quantitative 0.6 mg/dL (0.00-0.90) Triglycerides Level 128 MG/DL (30-150) Cholesterol Level 128 MG/DL (< 200) LDL Cholesterol 62 mg/dL (<100) HDL Cholesterol 55 MG/DL (40-60) Cholesterol/HDL Ratio 2.3 (3.3-4.4) Thyroid Stimulating Hormone (TSH) 1.414 uiU/mL (0.358-3.740) EKG Diagnostic Results Rate: normal - 92 Rhythm: NSR ST Segments: no acute changes Pelon Sabillon MD Sep 17, 2018 14:41
[2018-09-17 16:00] VITALS: BP 118/72
[2018-09-17] MEDS: Docusate 100mg cap ORAL SCH (17:15)
--- NOTE | 2018-09-17 18:45 | History and Physical Report ---
DATE OF ADMISSION: 09/16/2018 TIME SEEN: On 09/17/2018 at 2 p.m. CONSULTANTS: 1. 2. Melo Winters M.D. 3. Raffaele Huber M.D. 4. Avelino Michel M.D. CHIEF COMPLAINT: Chest pain, shortness of breath. BRIEF HISTORY: This is a 48-year-old female, who lives at [facility] and presents to [place] [facility] last night with increased chest pain and shortness of breath. Chest pain was sharp, substernal, slight radiation to the left arm. No loss of consciousness. No dizziness. No nausea or vomiting. The patient was diagnosed with the above and admitted to telemetry for further care. Currently, feeling a little bit better, no chest pain any more, slight shortness of breath. REVIEW OF SYSTEMS: Slight chest pain. Slight shortness of breath. No nausea, vomiting, or diarrhea. PAST MEDICAL HISTORY: Includes bipolar, obesity, hypertension, diabetes, renal failure. PAST SURGICAL HISTORY: Back, bilateral tubal ligation, and Lap-Band. ALLERGIES: Denies. MEDICATIONS: Include trazodone, amlodipine, buspirone, Klonopin, gabapentin, pantoprazole, aspirin, heparin, clonidine, albuterol. SOCIAL HISTORY: Positive smoke. Positive alcohol. Positive marijuana and methamphetamine use. PHYSICAL EXAMINATION: GENERAL: Calm in bed, oriented x2, in no acute distress. VITAL SIGNS: Temperature is 98 degrees, pulse 88, respirations 18, blood pressure 147/76. CARDIOVASCULAR: No murmur. LUNGS: Distant and clear. ABDOMEN: Bowel sounds positive. Nontender, nondistended. EXTREMITIES: No cyanosis, clubbing, or edema. NEUROLOGIC: The patient moves all extremities, slightly weak. LABORATORY AND DIAGNOSTIC DATA: Laboratories at this time show hemoglobin 11.6, otherwise CBC is normal. BMP shows BUN and creatinine 20/1.8, otherwise normal. AST 127, ALT 197, alkaline phosphatase 137. Troponin 0.00. INR is 0.9, PTT 25. Urine-tox is negative. ASSESSMENT: Chest pain, shortness of breath, diabetes, hypertension, renal failure, COPD, bipolar. PLAN: 1. Troponin q.8 hours x3. 2. EKG in the morning. 3. Blood pressure, blood sugar, and pain control. 4. Dietary followup. 5. Dr. Cruz, Nephrology to follow . 6. CBC and BMP in the morning. Malick Marie D.O. DR: Vance JOB#: [id number] CC:
[2018-09-17] MEDS ORDERED: LORazepam Inj 2mg/ml 1ml IV PRN (20:15)
[2018-09-17] MEDS: TraZODone 100mg tab ORAL SCH (21:12)
[2018-09-18] VITALS: BP 117/71
[2018-09-18 04:00] VITALS: BP 134/68
[2018-09-18] MEDS: Albuterol/Ipratropium 3ml neb HHN PRN ×2 (04:43→09:04)
[2018-09-18] MEDS: Heparin 5000 units/ml inj SUBQ SCH ×3 (05:32→21:57)
[2018-09-18] MEDS: Morphine Sulfate 2mg/ml Inj IVP PRN ×3 (05:38→20:37)
[2018-09-18] MEDS: NovoLOG Insulin Flexpen SUBQ SCH ×4 (05:45→21:55)
[2018-09-18 08:00] VITALS: BP 108/96
[2018-09-18 08:08] LABS: BASOPHILS % (AUTO) 1.1 % (0.0-2.0); EOSINOPHILS % (AUTO) 2.9 % (0.0-3.0); HEMATOCRIT 33.9 % (37.0-47.0); HEMOGLOBIN 10.8 G/DL (12.0-16.0); LYMPHOCYTES % (AUTO) 44.3 % (20.0-45.0); MEAN CORPUSCULAR VOLUME 86 FL (80-99); MONOCYTES % (AUTO) 7.9 % (1.0-10.0); NEUTROPHILS % (AUTO) 43.8 % (45.0-75.0); PLATELET COUNT 180 K/UL (150-450); RED BLOOD COUNT 3.94 M/UL (4.20-5.40)
[2018-09-18 08:24] LABS: ANION GAP 8 mmol/L (5-15); BLOOD UREA NITROGEN 33 mg/dL (7-18); CALCIUM 8.7 MG/DL (8.5-10.1); CARBON DIOXIDE 27 MMOL/L (21-32); CHLORIDE 105 MMOL/L (98-107); CREATININE 2.1 MG/DL (0.55-1.30); SODIUM 140 MMOL/L (136-145)
[2018-09-18 08:33] LABS: ALANINE AMINOTRANSFERASE 171 U/L (12-78); ALBUMIN 3.1 G/DL (3.4-5.0); ALKALINE PHOSPHATASE 108 U/L (46-116); ASPARTATE AMINO TRANSFERASE 95 U/L (15-37); BILIRUBIN,DIRECT 0.1 MG/DL (0.0-0.3); BILIRUBIN,TOTAL 0.2 MG/DL (0.2-1.0)
--- NOTE | 2018-09-18 08:37 | General Progress Note ---
Assessment/Plan Problem List: (1) HTN (hypertension) ICD Codes: I10 - Essential (primary) hypertension SNOMED: 81118667 (2) Chest pain ICD Codes: R07.9 - Chest pain, unspecified SNOMED: 84139748 (3) ACS (acute coronary syndrome) ICD Codes: I24.9 - Acute ischemic heart disease, unspecified SNOMED: 665759356 (4) Diabetes mellitus ICD Codes: E11.9 - Type 2 diabetes mellitus without complications SNOMED: 10375127 (5) Bipolar disorder ICD Codes: F31.9 - Bipolar disorder, unspecified SNOMED: 08808011 Status: unchanged Assessment/Plan o2 pulm tx pain control psyc tx cbc bmp am dc plan snf Subjective Constitutional: Reports: weakness Allergies: Coded Allergies: NO KNOWN ALLERGIES (Verified Allergy, Unknown, 09/17/18) All Systems: reviewed and negative except above Subjective calm in room Objective Last 24 Hour Vital Signs Date Time Temp Pulse Resp B/P (MAP) Pulse Ox O2 Delivery O2 Flow Rate FiO2 09/18/18 04:52 78 18 99 Room Air 21 09/18/18 04:43 79 18 98 Room Air 21 09/18/18 04:00 98.0 83 20 134/68 (90) 99 09/18/18 04:00 77 09/18/18 00:00 83 09/18/18 00:00 97.0 79 20 117/71 (86) 95 09/17/18 21:00 Room Air 09/17/18 20:23 80 20 Room Air 21 09/17/18 20:00 83 09/17/18 18:33 98.3 09/17/18 16:00 85 09/17/18 16:00 98.0 79 20 118/72 (87) 98 09/17/18 12:00 81 09/17/18 12:00 98.3 86 20 122/70 (87) 94 09/17/18 10:14 88 147/76 09/17/18 09:12 92 18 Room Air 21 09/17/18 09:12 97 Room Air 21 09/17/18 09:00 Room Air Intake and Output 09/17/18 09/18/18 18:59 06:59 # Voids 8 3 Laboratory Tests 09/17/18 21:40: Troponin I 0.000 09/18/18 07:15: Troponin I [Pending], White Blood Count 6.0, Red Blood Count 3.94L, Hemoglobin 10.8L, Hematocrit 33.9L, Mean Corpuscular Volume 86, Mean Corpuscular Hemoglobin 27.4, Mean Corpuscular Hemoglobin Concent 31.8L, Red Cell Distribution Width 15.0H, Platelet Count 180, Mean Platelet Volume 8.0, Neutrophils (%) (Auto) 43.8L, Lymphocytes (%) (Auto) 44.3, Monocytes (%) (Auto) 7.9, Eosinophils (%) (Auto) 2.9, Basophils (%) (Auto) 1.1, Sodium Level 140, Potassium Level 4.0, Chloride Level 105, Carbon Dioxide Level 27, Anion Gap 8, Blood Urea Nitrogen 33H, Creatinine 2.1H, Estimat Glomerular Filtration Rate 30.5, Glucose Level 126H, Calcium Level 8.7, Total Bilirubin [Pending], Direct Bilirubin [Pending], Aspartate Amino Transf (AST/SGOT) [Pending], Alanine Aminotransferase (ALT/SGPT) [Pending], Alkaline Phosphatase [Pending], Total Protein [Pending], Albumin [Pending], Hepatitis A IgM Antibody [Pending], Hepatitis B Surface Antigen [Pending], Hepatitis B Core IgM Antibody [Pending], Hepatitis C Antibody [Pending] Height (Feet): 5 Height (Inches): 4.00 Weight (Pounds): 240 General Appearance: lethargic EENT: normal ENT inspection Neck: normal alignment Cardiovascular: normal peripheral pulses, normal rate, regular rhythm Respiratory/Chest: chest wall non-tender, lungs clear, normal breath sounds Abdomen: normal bowel sounds, non tender, soft Extremities: normal inspection Edema: no edema noted Arm (L), no edema noted Arm (R), no edema noted Leg (L), no edema noted Leg (R), no edema noted Pedal (L), no edema noted Pedal (R), no edema noted Generalized Neurologic: responsive, motor weakness Skin: normal pigmentation, warm/dry Malick Marie DO Sep 18, 2018 08:37
[2018-09-18] MEDS: Docusate 100mg cap ORAL SCH ×3 (09:03→17:26)
--- NOTE | 2018-09-18 09:03 | General Progress Note ---
Assessment/Plan Problem List: (1) Obesity ICD Codes: E66.9 - Obesity, unspecified SNOMED: 682777506, 268514468 (2) Anemia ICD Codes: D64.9 - Anemia, unspecified SNOMED: 916971850 (3) GERD (gastroesophageal reflux disease) ICD Codes: K21.9 - Gastro-esophageal reflux disease without esophagitis SNOMED: 573461671 (4) Abdominal pain ICD Codes: R10.9 - Unspecified abdominal pain SNOMED: 22004729 (5) LFTs abnormal ICD Codes: R94.5 - Abnormal results of liver function studies SNOMED: 161685964 (6) HTN (hypertension) ICD Codes: I10 - Essential (primary) hypertension SNOMED: 37354036 (7) COPD (chronic obstructive pulmonary disease) ICD Codes: J44.9 - Chronic obstructive pulmonary disease, unspecified SNOMED: 90284008 (8) Bipolar disorder ICD Codes: F31.9 - Bipolar disorder, unspecified SNOMED: 88683259 (9) Hx of laparoscopic gastric banding ICD Codes: Z98.84 - Bariatric surgery status SNOMED: 243292597 (10) Homelessness ICD Codes: Z59.0 - Homelessness SNOMED: 98837023 Assessment/Plan Negative troponin levels Ultrasound reviewed negative for gallstones or dilated ducts Medical management for GERD anemia work up OB stool r/o GI bleed monitor H&H, prn transfusions bowel regime ppi fu labs, hepatitis panel trend LFTs Outpatient surgical consult for lap band removal Subjective ROS Limited/Unobtainable: Yes Allergies: Coded Allergies: NO KNOWN ALLERGIES (Verified Allergy, Unknown, 09/17/18) Objective Last 24 Hour Vital Signs Date Time Temp Pulse Resp B/P (MAP) Pulse Ox O2 Delivery O2 Flow Rate FiO2 09/18/18 04:52 78 18 99 Room Air 21 09/18/18 04:43 79 18 98 Room Air 21 09/18/18 04:00 98.0 83 20 134/68 (90) 99 09/18/18 04:00 77 09/18/18 00:00 83 09/18/18 00:00 97.0 79 20 117/71 (86) 95 09/17/18 21:00 Room Air 09/17/18 20:23 80 20 Room Air 21 09/17/18 20:00 83 12/21/18 18:33 98.3 09/17/18 16:00 85 09/17/18 16:00 98.0 79 20 118/72 (87) 98 09/17/18 12:00 81 09/17/18 12:00 98.3 86 20 122/70 (87) 94 09/17/18 10:14 88 147/76 09/17/18 09:12 92 18 Room Air 21 09/17/18 09:12 97 Room Air 21 Intake and Output 09/17/18 09/18/18 18:59 06:59 # Voids 8 3 Laboratory Tests 09/17/18 21:40: Troponin I 0.000 09/18/18 07:15: Troponin I [Pending], White Blood Count 6.0, Red Blood Count 3.94L, Hemoglobin 10.8L, Hematocrit 33.9L, Mean Corpuscular Volume 86, Mean Corpuscular Hemoglobin 27.4, Mean Corpuscular Hemoglobin Concent 31.8L, Red Cell Distribution Width 15.0H, Platelet Count 180, Mean Platelet Volume 8.0, Neutrophils (%) (Auto) 43.8L, Lymphocytes (%) (Auto) 44.3, Monocytes (%) (Auto) 7.9, Eosinophils (%) (Auto) 2.9, Basophils (%) (Auto) 1.1, Sodium Level 140, Potassium Level 4.0, Chloride Level 105, Carbon Dioxide Level 27, Anion Gap 8, Blood Urea Nitrogen 33H, Creatinine 2.1H, Estimat Glomerular Filtration Rate 30.5, Glucose Level 126H, Calcium Level 8.7, Total Bilirubin 0.2, Direct Bilirubin 0.1, Aspartate Amino Transf (AST/SGOT) 95H, Alanine Aminotransferase ( ALT/SGPT) 171H, Alkaline Phosphatase 108, Total Protein 6.8, Albumin 3.1L, Hepatitis A IgM Antibody [Pending], Hepatitis B Surface Antigen [Pending], Hepatitis B Core IgM Antibody [Pending], Hepatitis C Antibody [Pending] Height (Feet): 5 Height (Inches): 4.00 Weight (Pounds): 240 General Appearance: alert EENT: normal ENT inspection Neck: supple Cardiovascular: normal rate Respiratory/Chest: lungs clear Abdomen: normal bowel sounds, non tender, soft Extremities: non-tender Melo Winters MD Sep 18, 2018 09:03
[2018-09-18] MEDS: Depakote ER 500mg tab ORAL SCH ×2 (09:04→21:57)
[2018-09-18] MEDS: Aspirin Baby 81mg ORAL SCH (09:04)
[2018-09-18] MEDS: BusPIRone 10mg Tab ORAL SCH ×3 (09:05→17:26)
--- NOTE | 2018-09-18 11:59 | Cardiology Progress Note ---
Assessment/Plan Status: stable Assessment/Plan ASSESSMENT AND PLAN: 1. Chest pain. The patient was ruled out for myocardial infarction. EKG is nonischemic. We will schedule the patient for echocardiogram and nuclear stress test for further evaluation.--- ECHOCARDIOGRAM Normal LV function 2. Hypertension. Amlodipine 10 mg daily. The patient is on p.r.n. clonidine. 3. History of diabetes. 4. History of psychosis. 5. Questionable blood in the stool. Evaluation by GI. Subjective Cardiovascular: Reports: no symptoms Respiratory: Reports: no symptoms Gastrointestinal/Abdominal: Reports: no symptoms Genitourinary: Reports: no symptoms Subjective COVERAGE FOR [place] no acute events, LVEF normal. NO complaints, vitals stable Objective Last 24 Hour Vital Signs Date Time Temp Pulse Resp B/P (MAP) Pulse Ox O2 Delivery O2 Flow Rate FiO2 09/18/18 09:12 84 16 98 Room Air 21 09/18/18 09:06 98 108/96 09/18/18 09:04 84 16 Room Air 09/18/18 09:04 86 16 97 Room Air 21 09/18/18 08:00 98.2 98 20 108/96 (100) 99 09/18/18 04:52 78 18 99 Room Air 21 09/18/18 04:43 79 18 98 Room Air 21 09/18/18 04:00 98.0 83 20 134/68 (90) 99 09/18/18 04:00 77 09/18/18 00:00 83 09/18/18 00:00 97.0 79 20 117/71 (86) 95 09/17/18 21:00 Room Air 09/17/18 20:23 80 20 Room Air 21 09/17/18 20:00 83 09/17/18 18:33 98.3 09/17/18 16:00 85 09/17/18 16:00 98.0 79 20 118/72 (87) 98 09/17/18 12:00 81 09/17/18 12:00 98.3 86 20 122/70 (87) 94 Intake and Output 09/17/18 09/18/18 19:00 07:00 # Voids 8 3 Laboratory Tests Test 09/17/18 21:40 09/18/18 07:15 Troponin I 0.000 ng/mL (0.000-0.056) 0.000 ng/mL (0.000-0.056) White Blood Count 6.0 K/UL (4.8-10.8) Red Blood Count 3.94 M/UL (4.20-5.40) L Hemoglobin 10.8 G/DL (12.0-16.0) L Hematocrit 33.9 % (37.0-47.0) L Mean Corpuscular Volume 86 FL (80-99) Mean Corpuscular Hemoglobin 27.4 PG (27.0-31.0) Mean Corpuscular Hemoglobin Concent 31.8 G/DL (32.0-36.0) L Red Cell Distribution Width 15.0 % (11.6-14.8) H Platelet Count 180 K/UL (150-450) Mean Platelet Volume 8.0 FL (6.5-10.1) Neutrophils (%) (Auto) 43.8 % (45.0-75.0) L Lymphocytes (%) (Auto) 44.3 % (20.0-45.0) Monocytes (%) (Auto) 7.9 % (1.0-10.0) Eosinophils (%) (Auto) 2.9 % (0.0-3.0) Basophils (%) (Auto) 1.1 % (0.0-2.0) Sodium Level 140 MMOL/L (136-145) Potassium Level 4.0 MMOL/L (3.5-5.1) Chloride Level 105 MMOL/L (98-107) Carbon Dioxide Level 27 MMOL/L (21-32) Anion Gap 8 mmol/L (5-15) Blood Urea Nitrogen 33 mg/dL (7-18) H Creatinine 2.1 MG/DL (0.55-1.30) H Estimat Glomerular Filtration Rate 30.5 mL/min (>60) Glucose Level 126 MG/DL (74-106) H Calcium Level 8.7 MG/DL (8.5-10.1) Total Bilirubin 0.2 MG/DL (0.2-1.0) Direct Bilirubin 0.1 MG/DL (0.0-0.3) Aspartate Amino Transf (AST/SGOT) 95 U/L (15-37) H Alanine Aminotransferase (ALT/SGPT) 171 U/L (12-78) H Alkaline Phosphatase 108 U/L (46-116) Total Protein 6.8 G/DL (6.4-8.2) Albumin 3.1 G/DL (3.4-5.0) L Hepatitis A IgM Antibody Pending Hepatitis B Surface Antigen Pending Hepatitis B Core IgM Antibody Pending Hepatitis C Antibody Pending Microbiology Date/Time Source Procedure Growth Status 09/16/18 16:31 Blood Blood Culture - Preliminary Gram Positive Cocci Resulted 09/16/18 16:15 Blood Blood Culture - Preliminary NO GROWTH AFTER 24 HOURS Resulted 09/16/18 18:08 Nasal Nares MRSA Culture - Final NO METHICILLIN RESISTANT STAPH AUREUS... Complete 09/16/18 16:37 Nasal Nares Influenza Types A,B Antigen (RICKY) - Final Complete 09/16/18 18:08 Rectum VRE Culture - Final NO VANCOMYCIN RESISTANT ENTEROCOCCUS ... Complete Pelon Smalls MD Sep 18, 2018 11:58
[2018-09-18 12:00] VITALS: BP 123/95
--- NOTE | 2018-09-18 12:38 | Cardiology Report ---
APPROVED REPORT EXAM: Two-dimensional and M-mode echocardiogram with Doppler and color Doppler. INDICATION LV function M-Mode DIMENSIONS IVSd1.0 (0.7-1.1cm)Left Atrium (MM)3.7 (1.6-4.0cm) LVDd4.8 (3.5-5.6cm)Aortic Root3.5 (2.0-3.7cm) PWd0.9 (0.7-1.1cm)Aortic Cusp Exc.1.8 (1.5-2.0cm) LVDs3.1 (2.5-4.0cm) PWs1.2 cm Normal left ventricular chamber size, systolic function and wall motion. Left ventricular ejection fraction estimated to be 60-65 %. No evidence of left ventricular hypertrophy. Anterior Echo-free space, may be due to pericardial fat or effusion. Left atrial size at upper limits of normal. Right cardiac chamber sizes are within normal limits. Focal aortic valve sclerosis with adequate cusp excursion. Thickened mitral valve leaflets with normal excursion. Mitral annulus and aortic root calcification. Pulmonic valve not well visualized. Normal tricuspid valve structure. IVC at normal size with physiologic collapse. A color flow and spectral Doppler study was performed and revealed: Trace mitral regurgitation. Mitral diastolic velocities suggest reduced left ventricular relaxation c/w mild LV diastolic dysfunction (Grade I). Trace tricuspid regurgitation. Tricuspid systolic velocities suggests peak right ventricular systolic pressure of 20 mmHg.
--- NOTE | 2018-09-18 12:40 | Consultation ---
Consult Note Consult Note asked to eval by Dr Greenfield for coverage - Patient consulted for high Cr Patient is a 48-year-old female presented after increased chest discomfort. Patient had gradual onset of symptoms. Patient reports having increased Patient reports having increased cough as well as a subjective fever. She denies any vomiting. She reports having some increased leg swelling. She denies taking diuretics.Pain was sharp in nature she reports having some increased nonproductive cough. She reports prior history of chronic kidney disease. History is limited by patient's poor historian NO KNOWN ALLERGIES (Verified Allergy, Unknown, 09/17/18) Past Medical History: No History, Except For Hx Cardiac Problems: Yes - anemia Hx Hypertension: Yes Hx COPD: Yes Hx Diabetes: Yes Hx Cancer: Yes Hx Gastrointestinal Problems: Yes Hx Dialysis: No - chronic kidney disease History Of Psychiatric Problem: Yes Hx Neurological Problems: No Assessment/Plan Renal failure- Likely Diabetic Nephropathy- COPD (chronic obstructive pulmonary disease) Hx of laparoscopic gastric banding DM Anemia ? chronic disease UA Keep BP and BS in check Urine studies Avoid Nephrotoxics Anemia rios Albumin bolus Michael Cruz MD Sep 18, 2018 12:40
[2018-09-18 16:00] VITALS: BP 141/95
[2018-09-18] MEDS: Solu-MEDROL 40mg Inj IVP SCH ×2 (17:16→22:06)
[2018-09-18] MEDS ORDERED: Docusate 100mg cap ORAL SCH (18:00)
[2018-09-18] MEDS: Albuterol ud Inhalation HHN SCH ×2 (19:23→23:17)
[2018-09-18 20:00] VITALS: BP 125/64
[2018-09-18] MEDS ORDERED: Miralax 17gm pkt ORAL SCH (21:00)
[2018-09-18] MEDS: TraZODone 100mg tab ORAL SCH (21:57)
[2018-09-19] VITALS: BP 122/74
--- NOTE | 2018-09-19 00:30 | Consultation ---
DATE OF CONSULTATION: 09/18/2018 INITIAL PSYCHIATRIC CONSULTATION CONSULTING PHYSICIAN: Avelino Sarah M.D. REFERRING PHYSICIAN: Malick Marie D.O. HISTORY OF PRESENT ILLNESS: This is a 48-year-old female patient. She came into the hospital with chest pain, but she has high level of anxiety as well. She has previous diagnosis of bipolar disorder, rule out schizoaffective, bipolar type, but she has been extremely mood labile. Even if she came in with chest pain, she tried to leave the hospital. Seems to be very irritable. She is disorganized and mood labile, trying to leave the hospital against medical advice and seems to have poor insight into her admission into the hospital and she has been trying to leave AMA, but still has no plan for self-care, which I tried to explain to her. Typically, she comes to the hospital and tries to leave against medical advice. She seems to not have any insight into her mood lability. She has hypomanic episodes. She gets very agitated and tries to leave. Does not care what the medical recommendations are and that seems to be the same case at this time. She is very impulsive. She is unpredictable and mood labile, but she has been off of some of her psychotropic medications as well. She was slightly agitated and anxious on interview today. Medical history, diabetes, hypertension, renal failure. She is also endorsing high level of anxiety at this time. ALLERGIES: No known drug allergies. MEDICAL HISTORY: She has history of hypertension. She also has history of chest pain, diabetes, and COPD. PSYCHOTROPIC MEDICATIONS ON ADMISSION: This patient is on trazodone 100 mg nightly, Ativan 1 mg every 6 hours, Klonopin 1 mg twice a day, BuSpar at a dose of 5 mg three times a day, and I am going to change her Depakote to 500 mg twice a day, but this patient has extreme mood lability and confusion. SUBSTANCE ABUSE HISTORY: Denies. PAIN ASSESSMENT: 0/10. DEVELOPMENTAL PROBLEMS: Denies. FAMILY PSYCHIATRIC HISTORY: Denies. SOCIAL HISTORY: The patient [place] in [place]. Financially supported by [facility] and Medicare. PSYCHIATRIC HISTORY: Bipolar 2, rule out schizoaffective, bipolar type. STRENGTHS: The patient is motivated to get better and has a place to live. WEAKNESSES: Impulsive, unpredictable, no support system. MENTAL STATUS EXAMINATION: This is a 48-year-old female. Appearance disheveled. Attitude, irritable and agitated. Affect labile. Intellect poor because she does not know current events and does not know the last four presidents. Mood, depressed and anxious. Motor activity, psychomotor agitation. Attention span is poor because she cannot do serial 7's or spell world backward. Orientation x2, person and place, not time or situation. Speech is rapid, pressured, nonsensical. Thought process is disorganized. Thought content, paranoid delusions. She has paranoid delusional thoughts. Denies suicidal or homicidal thoughts, but perception is poor because she has perception of delusions. Abstract reasoning is poor because she has concrete thinking. Does not understand proverbs. Denies any current homicidal thoughts. She has intermittent suicidal ideations, but is able to contract for safety while in the hospital. Insight is poor because she does not recognize her mental disorder. Judgment is poor because she does not recognize the consequences of her actions. DIAGNOSES: Schizoaffective, bipolar type. Medical diagnoses include chest pain, COPD, and diabetes. Psychosocial stressors, financial. PLAN: My plan for this patient is I am going to continue to treat her with a medication regimen consisting of Depakote at 500 mg twice a day and I am going to give this patient Risperdal 1 mg twice a day to help reduce agitation and stabilize her mood. Provided with 20 minutes of cognitive behavioral therapy to help her identify automatic negative thoughts and help her to convert those negative thoughts to more positive thoughts to reduce depression, anxiety, and suicidality. In the hospital, cognitive behavioral therapy, another thing it is going to do is help her with a more adaptive behavioral pattern. Seen and assessed at bedside. Chart reviewed. Discussed with the staff. Seen and assessed in her room. I would like to thank Dr. Malick Marie for this interesting consultation. Avelino Sarah M.D. DR: AGATHA JOB#: [id number] CC:
[2018-09-19] MEDS: Morphine Sulfate 2mg/ml Inj IVP PRN ×5 (00:41→22:57)
[2018-09-19 01:03] LABS: APPEARANCE,URINE CLEAR; BILIRUBIN, URINE NEGATIVE (NEGATIVE); COLOR,URINE PALE YELLOW; GLUCOSE, URINE (UA) NEGATIVE (NEGATIVE); KETONES,URINE NEGATIVE (NEGATIVE); LEUKOCYTE ESTERASE ,URINE NEGATIVE (NEGATIVE); NITRITE,URINE NEGATIVE (NEGATIVE); PH,URINE 6 (4.5-8.0); PROTEIN,URINE 3+ (NEGATIVE); UROBILINOGEN,URINE NORMAL MG/DL (0.0-1.0)
[2018-09-19] MEDS: Albuterol ud Inhalation HHN SCH ×6 (03:30→23:40)
[2018-09-19 04:00] VITALS: BP 112/70
[2018-09-19 05:54] LABS: BASOPHILS % (AUTO) 0.3 % (0.0-2.0); EOSINOPHILS % (AUTO) 0.1 % (0.0-3.0); HEMATOCRIT 32.8 % (37.0-47.0); HEMOGLOBIN 10.6 G/DL (12.0-16.0); LYMPHOCYTES % (AUTO) 17.1 % (20.0-45.0); MEAN CORPUSCULAR VOLUME 86 FL (80-99); MONOCYTES % (AUTO) 2.5 % (1.0-10.0); NEUTROPHILS % (AUTO) 79.9 % (45.0-75.0); PLATELET COUNT 168 K/UL (150-450); RED BLOOD COUNT 3.83 M/UL (4.20-5.40); RED CELL DISTRIBUTION WIDTH 15.5 % (11.6-14.8); WHITE BLOOD COUNT 6.6 K/UL (4.8-10.8)
[2018-09-19 06:30] LABS: CREATINE KINASE 81 U/L (26-308); PHOSPHORUS 3.2 MG/DL (2.5-4.9)
[2018-09-19] MEDS: Solu-MEDROL 40mg Inj IVP SCH ×4 (06:40→22:56)
[2018-09-19] MEDS: Heparin 5000 units/ml inj SUBQ SCH ×4 (06:42→22:58)
[2018-09-19] MEDS: NovoLOG Insulin Flexpen SUBQ SCH ×4 (06:42→20:30)
[2018-09-19 08:00] VITALS: BP 118/86
--- NOTE | 2018-09-19 08:14 | General Progress Note ---
Assessment/Plan Problem List: (1) HTN (hypertension) ICD Codes: I10 - Essential (primary) hypertension SNOMED: 60926270 (2) Chest pain ICD Codes: R07.9 - Chest pain, unspecified SNOMED: 31565719 (3) ACS (acute coronary syndrome) ICD Codes: I24.9 - Acute ischemic heart disease, unspecified SNOMED: 016889278 (4) Diabetes mellitus ICD Codes: E11.9 - Type 2 diabetes mellitus without complications SNOMED: 78163338 (5) Bipolar disorder ICD Codes: F31.9 - Bipolar disorder, unspecified SNOMED: 60449358 Status: stable, progressing Assessment/Plan o2 pulm tx pain control psyc tx cbc bmp am dc plan snf Subjective Constitutional: Reports: weakness Allergies: Coded Allergies: NO KNOWN ALLERGIES (Verified Allergy, Unknown, 09/17/18) All Systems: reviewed and negative except above Subjective calm in room Objective Last 24 Hour Vital Signs Date Time Temp Pulse Resp B/P (MAP) Pulse Ox O2 Delivery O2 Flow Rate FiO2 09/19/18 07:37 Room Air 09/19/18 07:37 21 09/19/18 07:37 Room Air 21 09/19/18 07:37 101 18 Room Air 21 09/19/18 04:00 98.0 106 20 112/70 (84) 95 09/19/18 04:00 106 09/19/18 03:41 106 20 98 Room Air 21 09/19/18 03:32 21 09/19/18 03:31 98 20 97 Room Air 21 09/19/18 00:00 98.0 110 20 122/74 (90) 95 09/19/18 00:00 113 09/18/18 23:28 105 20 98 Room Air 21 09/18/18 23:17 95 18 97 Room Air 21 09/18/18 23:17 21 09/18/18 21:00 Room Air 09/18/18 20:00 90 09/18/18 20:00 98.2 89 20 125/64 (84) 95 09/18/18 19:38 102 20 95 Room Air 21 09/18/18 19:32 21 09/18/18 19:31 90 18 Room Air 21 09/18/18 19:28 90 18 96 Room Air 21 09/18/18 16:00 97.8 99 20 141/95 (110) 95 09/18/18 16:00 93 09/18/18 12:00 90 09/18/18 12:00 98.9 89 20 123/95 (104) 95 09/18/18 09:12 84 16 98 Room Air 21 09/18/18 09:06 98 108/96 09/18/18 09:04 84 16 Room Air 21 09/18/18 09:04 86 16 97 Room Air 09/18/18 09:00 Room Air 09/18/18 08:15 94 Intake and Output 09/18/18 09/19/18 18:59 06:59 Intake Total 1580 ml Balance 1580 ml Intake Oral 1580 ml # Voids 8 2 Laboratory Tests 09/18/18 23:00: Urine Color Pale yellow, Urine Appearance Clear, Urine pH 6, Urine Specific [place] 1.010, Urine Protein 3+H, Urine Glucose (UA) Negative, Urine Ketones Negative, Urine Blood Negative, Urine Nitrite Negative, Urine Bilirubin Negative , Urine Urobilinogen Normal, Urine Leukocyte Esterase Negative, Urine RBC 0-2, Urine WBC 0-2, Urine Squamous Epithelial Cells Occasional, Urine Bacteria Occasional, Urine Random Sodium 09/19/18 05:00: White Blood Count 6.6, Red Blood Count 3.83L, Hemoglobin 10.6L, Hematocrit 32.8L , Mean Corpuscular Volume 86, Mean Corpuscular Hemoglobin 27.7, Mean Corpuscular Hemoglobin Concent 32.3, Red Cell Distribution Width 15.5H, Platelet Count 168, Mean Platelet Volume 7.8, Neutrophils (%) (Auto) 79.9H, Lymphocytes (%) (Auto) 17.1L, Monocytes (%) (Auto) 2.5, Eosinophils (%) (Auto) 0.1, Basophils (%) (Auto) 0.3, Sodium Level [Pending], Potassium Level [Pending] , Chloride Level [Pending], Carbon Dioxide Level [Pending], Blood Urea Nitrogen [Pending], Creatinine [Pending], Estimat Glomerular Filtration Rate [Pending], Glucose Level [Pending], Hemoglobin A1c 7.2H, Uric Acid 11.2H, Calcium Level [ Pending], Phosphorus Level 3.2, Magnesium Level 2.2, Iron Level [Pending], Unsaturated Iron Binding [Pending], Ferritin [Pending], Total Bilirubin [Pending ], Aspartate Amino Transf (AST/SGOT) [Pending], Alanine Aminotransferase (ALT/ SGPT) [Pending], Alkaline Phosphatase [Pending], Total Creatine Kinase 81, C- Reactive Protein, Quantitative < 0.4, Pro-B-Type Natriuretic Peptide 1037H, Total Protein [Pending], Albumin [Pending], Globulin [Pending], Vitamin B12 Level [Pending], Folate [Pending] Height (Feet): 5 Height (Inches): 4.00 Weight (Pounds): 240 General Appearance: alert EENT: normal ENT inspection Neck: normal alignment Cardiovascular: normal peripheral pulses, normal rate, regular rhythm Respiratory/Chest: chest wall non-tender, lungs clear, normal breath sounds Abdomen: normal bowel sounds, non tender, soft Extremities: normal inspection Edema: no edema noted Arm (L), no edema noted Arm (R), no edema noted Leg (L), no edema noted Leg (R), no edema noted Pedal (L), no edema noted Pedal (R), no edema noted Generalized Neurologic: responsive, motor weakness Skin: normal pigmentation, warm/dry Malick Marie DO Sep 19, 2018 08:13
--- NOTE | 2018-09-19 08:34 | Pulmonology Progress Note ---
Assessment/Plan Assessment/Plan Pulmonary Progress Note Patient seen 09/18/2018 Chief Complaint: Chest Pain HPI Patient is a 48-year-old female presented after increased chest discomfort. Patient had gradual onset of symptoms. Patient reports having increased Patient reports having increased cough as well as a subjective fever. She denies any vomiting. She reports having some increased leg swelling. She denies taking diuretics.Pain was sharp in nature she reports having some increased nonproductive cough. She reports prior history of chronic kidney disease. History is limited by patient's poor historian Allergies: Coded Allergies: NO KNOWN ALLERGIES (Verified Allergy, Unknown, 09/17/18) Past Medical History: DM, HTN, CKD, COPD, previous laparoscopic gastric banding Reviewed Nursing Documentation: PMH: Agreed; PSxH: Agreed Hx Cardiac Problems: Yes - anemia Hx Hypertension: Yes Hx COPD: Yes Hx Diabetes: Yes Hx Cancer: Yes Hx Gastrointestinal Problems: Yes Hx Dialysis: No - chronic kidney disease History Of Psychiatric Problem: Yes Hx Neurological Problems: No Review of Systems All Other Systems: negative except mentioned in HPI Physical Exam Vital Signs Noted Sp02 EP Interpretation: reviewed, normal General Appearance: normal inspection, well appearing, no apparent distress, alert, GCS 15, obese Head: atraumatic ENT: normal ENT inspection, hearing grossly normal, normal voice Neck: normal inspection, full range of motion, supple, no bony tend Respiratory: normal inspection, no respiratory distress, no retraction, wheezing Cardiovascular #1: regular rate, rhythm, no edema Gastrointestinal: normal inspection, normal bowel sounds, non tender, soft, no guarding, no hernia Genitourinary: no CVA tenderness Musculoskeletal: normal inspection, back normal, normal range of motion Neurologic: normal inspection, alert, responsive, speech normal Psychiatric: normal inspection, judgement/insight normal, mood/affect normal Skin: normal inspection, normal color, no rash Impression: Primary Impression: Chest Pain COPD (chronic obstructive pulmonary disease) Hx of laparoscopic gastric banding Diabetes mellitus Plan Serial labs HHN WIRE CHARGER medications 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 Dr. Malick Marie was contacted for inpatient management for further evaluation of chest pain. Labs Test 09/16/18 15:05 09/17/18 05:05 D-Dimer 0.19 mg/L FEU (0.00-0.49) Sodium Level 142 MMOL/L (136-145) Potassium Level 4.1 MMOL/L (3.5-5.1) Chloride Level 105 MMOL/L (98-107) Carbon Dioxide Level 24 MMOL/L (21-32) Anion Gap 13 mmol/L (5-15) Blood Urea Nitrogen 28 mg/dL (7-18) Creatinine 1.8 MG/DL (0.55-1.30) Estimat Glomerular Filtration Rate 36.5 mL/min (>60) Glucose Level 140 MG/DL (74-106) Calcium Level 9.1 MG/DL (8.5-10.1) Total Bilirubin 0.4 MG/DL (0.2-1.0) Aspartate Amino Transf (AST/SGOT) 127 U/L (15-37) Alanine Aminotransferase (ALT/SGPT) 197 U/L (12-78) Alkaline Phosphatase 137 U/L (46-116) Total Creatine Kinase 92 U/L (26-308) Creatine Kinase MB < 0.5 NG/ML (0.0-3.6) Creatine Kinase MB Relative Index 0.5 Pro-B-Type Natriuretic Peptide 102 pg/mL (0-125) Total Protein 8.2 G/DL (6.4-8.2) Albumin 3.4 G/DL (3.4-5.0) Globulin 4.8 g/dL Albumin/Globulin Ratio 0.7 (1.0-2.7) Lipase 380 U/L (73-393) Urine Opiates Screen Negative (NEGATIVE) Urine Barbiturates Screen Negative (NEGATIVE) Valproic Acid (Depakene) Level 33 MCG/ML (50-100) Phencyclidine (PCP) Screen Negative (NEGATIVE) Urine Amphetamines Screen Negative (NEGATIVE) Urine Benzodiazepines Screen Negative (NEGATIVE) Urine Cocaine Screen Negative (NEGATIVE) Urine Marijuana (THC) Screen Negative (NEGATIVE) White Blood Count 6.9 K/UL (4.8-10.8) Red Blood Count 4.26 M/UL (4.20-5.40) Hemoglobin 11.6 G/DL (12.0-16.0) Hematocrit 36.4 % (37.0-47.0) Mean Corpuscular Volume 85 FL (80-99) Mean Corpuscular Hemoglobin 27.3 PG (27.0-31.0) Mean Corpuscular Hemoglobin Concent 32.0 G/DL (32.0-36.0) Red Cell Distribution Width 15.4 % (11.6-14.8) Platelet Count 191 K/UL (150-450) Mean Platelet Volume 8.0 FL (6.5-10.1) Neutrophils (%) (Auto) 44.9 % (45.0-75.0) Lymphocytes (%) (Auto) 42.9 % (20.0-45.0) Monocytes (%) (Auto) 8.5 % (1.0-10.0) Eosinophils (%) (Auto) 2.5 % (0.0-3.0) Basophils (%) (Auto) 1.2 % (0.0-2.0) Prothrombin Time 9.9 SEC (9.30-11.50) Prothromb Time International Ratio 0.9 (0.9-1.1) Activated Partial Thromboplast Time 25 SEC (23-33) Troponin I 0.000 ng/mL (0.000-0.056) C-Reactive Protein, Quantitative 0.6 mg/dL (0.00-0.90) Triglycerides Level 128 MG/DL (30-150) Cholesterol Level 128 MG/DL (< 200) LDL Cholesterol 62 mg/dL (<100) HDL Cholesterol 55 MG/DL (40-60) Cholesterol/HDL Ratio 2.3 (3.3-4.4) Thyroid Stimulating Hormone (TSH) 1.414 uiU/mL (0.358-3.740) EKG Diagnostic Results Rate: normal - 92 Rhythm: NSR ST Segments: no acute changes Subjective ROS Limited/Unobtainable: No Allergies: Coded Allergies: NO KNOWN ALLERGIES (Verified Allergy, Unknown, 09/17/18) Objective Last 24 Hour Vital Signs Date Time Temp Pulse Resp B/P (MAP) Pulse Ox O2 Delivery O2 Flow Rate FiO2 09/19/18 07:37 Room Air 09/19/18 07:37 21 09/19/18 07:37 Room Air 21 09/19/18 07:37 101 18 Room Air 21 09/19/18 04:00 98.0 106 20 112/70 (84) 95 09/19/18 04:00 106 09/19/18 03:41 106 20 98 Room Air 21 09/19/18 03:32 21 09/19/18 03:31 98 20 97 Room Air 21 09/19/18 00:00 98.0 110 20 122/74 (90) 95 09/19/18 00:00 113 09/18/18 23:28 105 20 98 Room Air 21 09/18/18 23:17 95 18 97 Room Air 21 09/18/18 23:17 21 09/18/18 21:00 Room Air 09/18/18 20:00 90 09/18/18 20:00 98.2 89 20 125/64 (84) 95 09/18/18 19:38 102 20 95 Room Air 21 09/18/18 19:32 21 09/18/18 19:31 90 18 Room Air 21 09/18/18 19:28 90 18 96 Room Air 21 09/18/18 16:00 97.8 99 20 141/95 (110) 95 09/18/18 16:00 93 09/18/18 12:00 90 09/18/18 12:00 98.9 89 20 123/95 (104) 95 09/18/18 09:12 84 16 98 Room Air 21 09/18/18 09:06 98 108/96 09/18/18 09:04 84 16 Room Air 21 09/18/18 09:04 86 16 97 Room Air 21 09/18/18 09:00 Room Air Intake and Output 09/18/18 09/19/18 18:59 06:59 Intake Total 1580 ml Balance 1580 ml Intake Oral 1580 ml # Voids 8 2 Microbiology Date/Time Source Procedure Growth Status 09/16/18 16:31 Blood Blood Culture - Preliminary Staphylococcus Sp Coag Neg Resulted 09/16/18 16:15 Blood Blood Culture - Preliminary NO GROWTH AFTER 48 HOURS Resulted 09/16/18 18:08 Nasal Nares MRSA Culture - Final NO METHICILLIN RESISTANT STAPH AUREUS... Complete 09/16/18 16:37 Nasal Nares Influenza Types A,B Antigen (RICKY) - Final Complete 09/16/18 18:08 Rectum VRE Culture - Final NO VANCOMYCIN RESISTANT ENTEROCOCCUS ... Complete Laboratory Tests 09/18/18 23:00: Urine Color Pale yellow, Urine Appearance Clear, Urine pH 6, Urine Specific [place] 1.010, Urine Protein 3+H, Urine Glucose (UA) Negative, Urine Ketones Negative, Urine Blood Negative, Urine Nitrite Negative, Urine Bilirubin Negative , Urine Urobilinogen Normal, Urine Leukocyte Esterase Negative, Urine RBC 0-2, Urine WBC 0-2, Urine Squamous Epithelial Cells Occasional, Urine Bacteria Occasional, Urine Random Sodium 22 09/19/18 05:00: White Blood Count 6.6, Red Blood Count 3.83L, Hemoglobin 10.6L, Hematocrit 32.8L , Mean Corpuscular Volume 86, Mean Corpuscular Hemoglobin 27.7, Mean Corpuscular Hemoglobin Concent 32.3, Red Cell Distribution Width 15.5H, Platelet Count 168, Mean Platelet Volume 7.8, Neutrophils (%) (Auto) 79.9H, Lymphocytes (%) (Auto) 17.1L, Monocytes (%) (Auto) 2.5, Eosinophils (%) (Auto) 0.1, Basophils (%) (Auto) 0.3, Sodium Level [Pending], Potassium Level [Pending] , Chloride Level [Pending], Carbon Dioxide Level [Pending], Blood Urea Nitrogen [Pending], Creatinine [Pending], Estimat Glomerular Filtration Rate [Pending], Glucose Level [Pending], Hemoglobin A1c 7.2H, Uric Acid 11.2H, Calcium Level [ Pending], Phosphorus Level 3.2, Magnesium Level 2.2, Iron Level [Pending], Unsaturated Iron Binding [Pending], Ferritin [Pending], Total Bilirubin [Pending ], Aspartate Amino Transf (AST/SGOT) [Pending], Alanine Aminotransferase (ALT/ SGPT) [Pending], Alkaline Phosphatase [Pending], Total Creatine Kinase 81, C- Reactive Protein, Quantitative < 0.4, Pro-B-Type Natriuretic Peptide 1037H, Total Protein [Pending], Albumin [Pending], Globulin [Pending], Vitamin B12 Level [Pending], Folate [Pending] Current Medications Medications (Trade) Dose Ordered Sig/Luciano Route PRN Reason Start Time Stop Time Status Last Admin Dose Admin Acetaminophen (Tylenol) 650 mg Q4H PRN ORAL FEVER 09/16/18 22:15 10/16/18 22:14 09/17/18 18:03 Albuterol Sulfate (Proventil) 2.5 mg Q4HRT HHN 09/18/18 19:00 09/23/18 18:59 09/19/18 03:30 Albuterol/ Ipratropium (Albuterol/ Ipratropium) 3 ml Q4H PRN HHN Shortness of Breath 09/16/18 22:15 09/21/18 22:14 09/18/18 09:04 Amlodipine Besylate (Norvasc) 2.5 mg DAILY ORAL 09/19/18 09:00 10/17/18 08:59 Aspirin (ASA) 81 mg DAILY ORAL 09/17/18 09:00 10/17/18 08:59 09/18/18 09:04 Buspirone HCl (Buspar) 5 mg THREE TIMES A DAY ORAL 09/17/18 09:00 10/17/18 08:59 09/18/18 17:26 Clonazepam (KlonoPIN) 1 mg BID ORAL 09/17/18 09:00 09/24/18 08:59 09/18/18 17:26 Clonidine HCl (Catapres Tab) 0.1 mg Q6H PRN ORAL for BP 160 syst and higher 09/18/18 12:45 10/18/18 12:44 Dextrose (Dextrose 50%) 25 ml Q30M PRN IV Hypoglycemia 09/16/18 22:15 10/16/18 22:14 Divalproex Sodium (Depakote ER) 500 mg Q12HR ORAL 09/18/18 21:00 10/18/18 20:59 09/18/18 21:57 Docusate Sodium (Colace) 100 mg TID ORAL 09/18/18 13:00 10/18/18 17:59 09/18/18 17:26 Doxycycline Monohydrate (Vibramycin) 100 mg Q12HR ORAL 09/18/18 18:00 09/25/18 17:59 09/18/18 17:27 Gabapentin (Neurontin) 300 mg THREE TIMES A DAY ORAL 09/17/18 09:00 10/17/18 08:59 09/18/18 17:27 Heparin Sodium (Porcine) (Heparin 5000 units/ml) 5,000 units EVERY 8 HOURS SUBQ 09/16/18 22:30 10/16/18 22:29 09/19/18 06:42 Insulin Aspart (NovoLOG) BEFORE MEALS AND HS SUBQ 09/17/18 06:30 10/17/18 06:29 09/19/18 06:42 Lorazepam (Ativan 2mg/ml 1ml) 1 mg Q6H PRN IV For Anxiety 09/17/18 20:15 09/24/18 20:14 09/17/18 21:12 Methylprednisolone Sodium Succinate (Solu-MEDROL) 40 mg EVERY 8 HOURS IVP 09/18/18 16:15 10/18/18 16:14 09/19/18 06:40 Morphine Sulfate (Morphine Sulfate) 2 mg Q4H PRN IVP severe Pain (Pain Scale 7-10) 09/16/18 22:15 09/23/18 22:14 09/19/18 05:14 Nitroglycerin (Ntg) 0.4 mg Q5M PRN SL Prn Chest Pain 09/16/18 22:15 10/16/18 22:14 Ondansetron HCl (Zofran) 4 mg Q6H PRN IVP Nausea & Vomiting 09/16/18 22:15 10/16/18 22:14 Pantoprazole (Protonix) 40 mg DAILY ORAL 09/17/18 09:00 10/17/18 08:59 09/18/18 09:03 Polyethylene Glycol (Miralax) 17 gm BEDTIME ORAL 09/18/18 21:00 10/18/18 20:59 09/18/18 21:57 Polyethylene Glycol (Miralax) 17 gm DAILYPRN PRN ORAL Constipation 09/16/18 22:15 10/16/18 22:14 Risperidone (RisperDAL) 1 mg BID ORAL 09/18/18 18:00 10/18/18 17:59 09/18/18 17:27 Temazepam (Restoril) 15 mg HSPRN PRN ORAL Insomnia 09/16/18 22:15 09/23/18 22:14 Trazodone HCl (Desyrel) 100 mg BEDTIME ORAL 09/17/18 21:00 10/17/18 20:59 09/18/18 21:57 Pelon Sabillon MD Sep 19, 2018 08:34
--- NOTE | 2018-09-19 08:45 | General Progress Note ---
Assessment/Plan Problem List: (1) Obesity ICD Codes: E66.9 - Obesity, unspecified SNOMED: 922131608, 262686908 (2) Anemia ICD Codes: D64.9 - Anemia, unspecified SNOMED: 323993132 (3) GERD (gastroesophageal reflux disease) ICD Codes: K21.9 - Gastro-esophageal reflux disease without esophagitis SNOMED: 313790187 (4) Abdominal pain ICD Codes: R10.9 - Unspecified abdominal pain SNOMED: 74086837 (5) LFTs abnormal ICD Codes: R94.5 - Abnormal results of liver function studies SNOMED: 574501073 (6) HTN (hypertension) ICD Codes: I10 - Essential (primary) hypertension SNOMED: 76459613 (7) COPD (chronic obstructive pulmonary disease) ICD Codes: J44.9 - Chronic obstructive pulmonary disease, unspecified SNOMED: 36132655 (8) Bipolar disorder ICD Codes: F31.9 - Bipolar disorder, unspecified SNOMED: 13630013 (9) Hx of laparoscopic gastric banding ICD Codes: Z98.84 - Bariatric surgery status SNOMED: 140904491 (10) Homelessness ICD Codes: Z59.0 - Homelessness SNOMED: 21773107 Assessment/Plan Negative troponin levels Ultrasound reviewed negative for gallstones or dilated ducts Medical management for GERD anemia work up OB stool r/o GI bleed monitor H&H, prn transfusions bowel regime ppi fu labs, hepatitis panel trend LFTs Outpatient surgical consult for lap band removal Subjective ROS Limited/Unobtainable: Yes Allergies: Coded Allergies: NO KNOWN ALLERGIES (Verified Allergy, Unknown, 09/17/18) Subjective multiple complains Objective Last 24 Hour Vital Signs Date Time Temp Pulse Resp B/P (MAP) Pulse Ox O2 Delivery O2 Flow Rate FiO2 09/19/18 07:37 Room Air 09/19/18 07:37 21 09/19/18 07:37 Room Air 21 09/19/18 07:37 101 18 Room Air 09/19/18 04:00 98.0 106 20 112/70 (84) 95 09/19/18 04:00 106 09/19/18 03:41 106 20 98 Room Air 21 09/19/18 03:32 21 09/19/18 03:31 98 20 97 Room Air 21 09/19/18 00:00 98.0 110 20 122/74 (90) 95 09/19/18 00:00 113 09/18/18 23:28 105 20 98 Room Air 21 09/18/18 23:17 95 18 97 Room Air 21 09/18/18 23:17 21 09/18/18 21:00 Room Air 09/18/18 20:00 90 09/18/18 20:00 98.2 89 20 125/64 (84) 95 09/18/18 19:38 102 20 95 Room Air 21 09/18/18 19:32 21 09/18/18 19:31 90 18 Room Air 21 09/18/18 19:28 90 18 96 Room Air 21 09/18/18 16:00 97.8 99 20 141/95 (110) 95 09/18/18 16:00 93 09/18/18 12:00 90 09/18/18 12:00 98.9 89 20 123/95 (104) 95 09/18/18 09:12 84 16 98 Room Air 09/18/18 09:06 98 108/96 09/18/18 09:04 84 16 Room Air 09/18/18 09:04 86 16 97 Room Air 09/18/18 09:00 Room Air Intake and Output 09/18/18 09/19/18 18:59 06:59 Intake Total 1580 ml Balance 1580 ml Intake Oral 1580 ml # Voids 8 2 Laboratory Tests 09/18/18 23:00: Urine Color Pale yellow, Urine Appearance Clear, Urine pH 6, Urine Specific [place] 1.010, Urine Protein 3+H, Urine Glucose (UA) Negative, Urine Ketones Negative, Urine Blood Negative, Urine Nitrite Negative, Urine Bilirubin Negative , Urine Urobilinogen Normal, Urine Leukocyte Esterase Negative, Urine RBC 0-2, Urine WBC 0-2, Urine Squamous Epithelial Cells Occasional, Urine Bacteria Occasional, Urine Random Sodium 22 09/19/18 05:00: White Blood Count 6.6, Red Blood Count 3.83L, Hemoglobin 10.6L, Hematocrit 32.8L , Mean Corpuscular Volume 86, Mean Corpuscular Hemoglobin 27.7, Mean Corpuscular Hemoglobin Concent 32.3, Red Cell Distribution Width 15.5H, Platelet Count 168, Mean Platelet Volume 7.8, Neutrophils (%) (Auto) 79.9H, Lymphocytes (%) (Auto) 17.1L, Monocytes (%) (Auto) 2.5, Eosinophils (%) (Auto) 0.1, Basophils (%) (Auto) 0.3, Sodium Level [Pending], Potassium Level [Pending] , Chloride Level [Pending], Carbon Dioxide Level [Pending], Blood Urea Nitrogen [Pending], Creatinine [Pending], Estimat Glomerular Filtration Rate [Pending], Glucose Level [Pending], Hemoglobin A1c 7.2H, Uric Acid 11.2H, Calcium Level [ Pending], Phosphorus Level 3.2, Magnesium Level 2.2, Iron Level [Pending], Unsaturated Iron Binding [Pending], Ferritin [Pending], Total Bilirubin [Pending ], Aspartate Amino Transf (AST/SGOT) [Pending], Alanine Aminotransferase (ALT/ SGPT) [Pending], Alkaline Phosphatase [Pending], Total Creatine Kinase 81, C- Reactive Protein, Quantitative < 0.4, Pro-B-Type Natriuretic Peptide 1037H, Total Protein [Pending], Albumin [Pending], Globulin [Pending], Vitamin B12 Level [Pending], Folate [Pending] Height (Feet): 5 Height (Inches): 4.00 Weight (Pounds): 240 General Appearance: alert EENT: normal ENT inspection Neck: supple Cardiovascular: normal rate Respiratory/Chest: decreased breath sounds Abdomen: normal bowel sounds, non tender, soft Extremities: non-tender Melo Winters MD Sep 19, 2018 08:44
[2018-09-19] MEDS: Aspirin Baby 81mg ORAL SCH (08:48)
[2018-09-19] MEDS: Docusate 100mg cap ORAL SCH ×3 (08:48→17:31)
[2018-09-19] MEDS: Depakote ER 500mg tab ORAL SCH ×2 (08:49→20:25)
[2018-09-19] MEDS: BusPIRone 10mg Tab ORAL SCH ×3 (08:50→17:57)
[2018-09-19 08:57] LABS: % IRON SATURATION 20 % (15-50); IRON 69 ug/dL (50-175); TOTAL IRON BINDING CAPACITY 347 ug/dL (250-450)
[2018-09-19 09:22] LABS: ALANINE AMINOTRANSFERASE 159 U/L (12-78); ALBUMIN 3.6 G/DL (3.4-5.0); ALKALINE PHOSPHATASE 111 U/L (46-116); ANION GAP 15 mmol/L (5-15); ASPARTATE AMINO TRANSFERASE 66 U/L (15-37); BILIRUBIN,TOTAL 0.3 MG/DL (0.2-1.0); BLOOD UREA NITROGEN 41 mg/dL (7-18); CALCIUM 8.7 MG/DL (8.5-10.1); CARBON DIOXIDE 21 MMOL/L (21-32); CHLORIDE 103 MMOL/L (98-107); CREATININE 2.5 MG/DL (0.55-1.30); FERRITIN 163 NG/ML (8-388); POTASSIUM 4.5 MMOL/L (3.5-5.1); SODIUM 139 MMOL/L (136-145)
[2018-09-19 12:00] VITALS: BP 114/80
--- NOTE | 2018-09-19 13:41 | Nephrology Progress Note ---
Assessment/Plan Problem List: (1) Diabetic nephropathy (2) Obesity (3) COPD (chronic obstructive pulmonary disease) (4) Bipolar disorder (5) Anemia Assessment Renal failure- Likely Diabetic Nephropathy- COPD (chronic obstructive pulmonary disease) Hx of laparoscopic gastric banding DM Anemia ? chronic disease Plan taper steroids as possible- add allopurinol- change Doxy if possible UA 3 + proteinuria Keep BP and BS in check Urine studies Avoid Nephrotoxics Anemia rios Albumin bolus Subjective ROS Limited/Unobtainable: No Constitutional: Reports: malaise, weakness Objective Objective Last 24 Hour Vital Signs Date Time Temp Pulse Resp B/P (MAP) Pulse Ox O2 Delivery O2 Flow Rate FiO2 09/19/18 11:37 Nasal Cannula 09/19/18 11:37 21 09/19/18 11:37 Room Air 09/19/18 09:00 Room Air 09/19/18 08:49 107 118/86 09/19/18 08:00 97.2 107 18 118/86 (97) 97 09/19/18 07:37 Room Air 09/19/18 07:37 21 09/19/18 07:37 Room Air 21 09/19/18 07:37 101 18 Room Air 21 09/19/18 04:00 98.0 106 20 112/70 (84) 95 09/19/18 04:00 106 09/19/18 03:41 106 20 98 Room Air 21 09/19/18 03:32 21 09/19/18 03:31 98 20 97 Room Air 21 09/19/18 00:00 98.0 110 20 122/74 (90) 95 09/19/18 00:00 113 09/18/18 23:28 105 20 98 Room Air 21 09/18/18 23:17 95 18 97 Room Air 21 09/18/18 23:17 21 09/18/18 21:00 Room Air 09/18/18 20:00 90 09/18/18 20:00 98.2 89 20 125/64 (84) 95 09/18/18 19:38 102 20 95 Room Air 21 18 19:32 21 09/18/18 19:31 90 18 Room Air 21 09/18/18 19:28 90 18 96 Room Air 21 09/18/18 16:00 97.8 99 20 141/95 (110) 95 09/18/18 16:00 93 Intake and Output 12/22/18 12/23/18 18:59 06:59 Intake Total 1580 ml Balance 1580 ml Intake Oral 1580 ml # Voids 8 2 Laboratory Tests 09/18/18 23:00: Urine Color Pale yellow, Urine Appearance Clear, Urine pH 6, Urine Specific [place] 1.010, Urine Protein 3+H, Urine Glucose (UA) Negative, Urine Ketones Negative, Urine Blood Negative, Urine Nitrite Negative, Urine Bilirubin Negative , Urine Urobilinogen Normal, Urine Leukocyte Esterase Negative, Urine RBC 0-2, Urine WBC 0-2, Urine Squamous Epithelial Cells Occasional, Urine Bacteria Occasional, Urine Random Sodium 22 09/19/18 05:00: White Blood Count 6.6, Red Blood Count 3.83L, Hemoglobin 10.6L, Hematocrit 32.8L , Mean Corpuscular Volume 86, Mean Corpuscular Hemoglobin 27.7, Mean Corpuscular Hemoglobin Concent 32.3, Red Cell Distribution Width 15.5H, Platelet Count 168, Mean Platelet Volume 7.8, Neutrophils (%) (Auto) 79.9H, Lymphocytes (%) (Auto) 17.1L, Monocytes (%) (Auto) 2.5, Eosinophils (%) (Auto) 0.1, Basophils (%) (Auto) 0.3, Sodium Level 139, Potassium Level 4.5, Chloride Level 103, Carbon Dioxide Level 21, Anion Gap 15, Blood Urea Nitrogen 41H, Creatinine 2.5H, Estimat Glomerular Filtration Rate 25.0, Glucose Level 324#H, Hemoglobin A1c 7.2H, Uric Acid 11.2H, Calcium Level 8.7, Phosphorus Level 3.2, Magnesium Level 2.2, Iron Level 69, Total Iron Binding Capacity 347, Percent Iron Saturation 20, Unsaturated Iron Binding 278, Ferritin 163, Total Bilirubin 0.3, Aspartate Amino Transf (AST/SGOT) 66H, Alanine Aminotransferase (ALT/SGPT) 159H, Alkaline Phosphatase 111, Total Creatine Kinase 81, C-Reactive Protein, Quantitative < 0.4, Pro-B-Type Natriuretic Peptide 1037H, Total Protein 7.2, Albumin 3.6, Globulin 3.6, Albumin/Globulin Ratio 1.0, Vitamin B12 Level 593, Folate 13.5 09/19/18 10:00: Stool Occult Blood Negative Height (Feet): 5 Height (Inches): 4.00 Weight (Pounds): 240 General Appearance: no apparent distress Cardiovascular: tachycardia Respiratory/Chest: decreased breath sounds Michael Cruz MD Sep 19, 2018 13:41
[2018-09-19] MEDS ORDERED: LORazepam Inj 2mg/ml 1ml IV PRN (14:15)
[2018-09-19] MEDS ORDERED: Albuterol/Ipratropium 3ml neb HHN PRN (14:15)
--- NOTE | 2018-09-19 14:17 | Cardiology Report ---
APPROVED REPORT EKG Measurement Heart [id number] Normal sinus rhythm Normal ECG
[2018-09-19 16:00] VITALS: BP 131/77
--- NOTE | 2018-09-19 18:15 | Progress Note ---
DATE: 09/19/2018 SUBJECTIVE: She is a 48-year-old female patient admitted due to chest pain. She continues to have some mood lability, confusion, disorganized thought process, racing thoughts. She got no logical process, disorganized, confused, and intermittent suicidal ideation with no plan, that is why her attending has requested daily psychiatric consultation. MENTAL STATUS EXAMINATION: This is a 48-year-old female patient. Appearance is disheveled. Attitude, irritable and agitated. Affect, guarded and restricted. Intellect poor. Mood depressed and anxious. Motor activity, psychomotor agitation. Attention span is poor. Orientation x2. Speech is pressured. Thought process, disorganized and logical. Thought content, auditory hallucinations, paranoid delusions. Insight and judgment is poor. DIAGNOSIS: Schizoaffective, bipolar 2. PLAN: Depakote 500 mg twice a day, BuSpar 5 mg two times a day, trazodone 100 mg nightly, Klonopin 1 mg twice a day. Provided with 20 minutes of cognitive behavior therapy more positive thinking to reduce depression, anxiety, and suicidality. Chart reviewed and discussed with staff. The patient was seen and assessed at bedside. Avelino Sarah M.D. DR: Angelika JOB#: [id number] CC:
--- NOTE | 2018-09-19 18:36 | Cardiology Progress Note ---
Assessment/Plan Status: stable Assessment/Plan ASSESSMENT AND PLAN: 1. Chest pain. The patient was ruled out for myocardial infarction. EKG is nonischemic. We will schedule the patient for echocardiogram and nuclear stress test for further evaluation.--- ECHOCARDIOGRAM Normal LV function 2. Hypertension. Amlodipine 10 mg daily. The patient is on p.r.n. clonidine. 3. History of diabetes. 4. History of psychosis. 5. Questionable blood in the stool. Evaluation by GI. Subjective Cardiovascular: Reports: no symptoms Respiratory: Reports: no symptoms Gastrointestinal/Abdominal: Reports: no symptoms Genitourinary: Reports: no symptoms Subjective C[employer] no acute events, LVEF normal. NO complaints, vitals stable Objective Last 24 Hour Vital Signs Date Time Temp Pulse Resp B/P (MAP) Pulse Ox O2 Delivery O2 Flow Rate FiO2 09/19/18 16:59 97.4 09/19/18 16:00 97.2 79 20 131/77 (95) 97 09/19/18 15:08 Room Air 09/19/18 15:08 Room Air 09/19/18 15:08 21 09/19/18 12:00 88 09/19/18 12:00 97.4 105 19 114/80 (91) 96 09/19/18 11:37 Room Air 09/19/18 11:37 21 09/19/18 11:37 Room Air 09/19/18 09:00 Room Air 09/19/18 08:49 107 118/86 09/19/18 08:00 113 09/19/18 08:00 97.2 107 18 118/86 (97) 97 09/19/18 07:37 Room Air 09/19/18 07:37 21 09/19/18 07:37 Room Air 21 09/19/18 07:37 101 18 Room Air 21 09/19/18 04:00 98.0 106 20 112/70 (84) 95 09/19/18 04:00 106 09/19/18 03:41 106 20 98 Room Air 21 09/19/18 03:32 21 09/19/18 03:31 98 20 97 Room Air 21 09/19/18 00:00 98.0 110 20 122/74 (90) 95 09/19/18 00:00 113 09/18/18 23:28 105 20 98 Room Air 21 09/18/18 23:17 95 18 97 Room Air 21 09/18/18 23:17 21 09/18/18 21:00 Room Air 09/18/18 20:00 90 09/18/18 20:00 98.2 89 20 125/64 (84) 95 09/18/18 19:38 102 20 95 Room Air 21 09/18/18 19:32 21 09/18/18 19:31 90 18 Room Air 21 09/18/18 19:28 90 18 96 Room Air 21 General Appearance: no apparent distress, alert EENT: PERRL/EOMI, normal ENT inspection, TMs normal, pharynx normal Neck: non-tender, normal alignment, supple, normal inspection, no JVD Rhythm: NSR Cardiovascular: normal peripheral pulses, normal rate, regular rhythm Respiratory/Chest: chest wall non-tender, lungs clear, normal breath sounds Abdomen: normal bowel sounds, non tender, soft, no organomegaly 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, no motor/sensory deficits Intake and Output 09/18/18 09/19/18 19:00 07:00 Intake Total 1580 ml Balance 1580 ml Intake Oral 1580 ml # Voids 8 2 Laboratory Tests Test 09/18/18 23:00 09/19/18 05:00 09/19/18 10:00 Urine Color Pale yellow Urine Appearance Clear Urine pH 6 (4.5-8.0) Urine Specific [place] 1.010 (1.005-1.035) Urine Protein 3+ (NEGATIVE) H Urine Glucose (UA) Negative (NEGATIVE) Urine Ketones Negative (NEGATIVE) Urine Blood Negative (NEGATIVE) Urine Nitrite Negative (NEGATIVE) Urine Bilirubin Negative (NEGATIVE) Urine Urobilinogen Normal MG/DL (0.0-1.0) Urine Leukocyte Esterase Negative (NEGATIVE) Urine RBC 0-2 /HPF (0 - 2) Urine WBC 0-2 /HPF (0 - 2) Urine Squamous Epithelial Cells Occasional /LPF Urine Bacteria Occasional /HPF (NONE) Urine Random Sodium 22 mmol/L (20-110) White Blood Count 6.6 K/UL (4.8-10.8) Red Blood Count 3.83 M/UL (4.20-5.40) L Hemoglobin 10.6 G/DL (12.0-16.0) L Hematocrit 32.8 % (37.0-47.0) L Mean Corpuscular Volume 86 FL (80-99) Mean Corpuscular Hemoglobin 27.7 PG (27.0-31.0) Mean Corpuscular Hemoglobin Concent 32.3 G/DL (32.0-36.0) Red Cell Distribution Width 15.5 % (11.6-14.8) H Platelet Count 168 K/UL (150-450) Mean Platelet Volume 7.8 FL (6.5-10.1) Neutrophils (%) (Auto) 79.9 % (45.0-75.0) H Lymphocytes (%) (Auto) 17.1 % (20.0-45.0) L Monocytes (%) (Auto) 2.5 % (1.0-10.0) Eosinophils (%) (Auto) 0.1 % (0.0-3.0) Basophils (%) (Auto) 0.3 % (0.0-2.0) Sodium Level 139 MMOL/L (136-145) Potassium Level 4.5 MMOL/L (3.5-5.1) Chloride Level 103 MMOL/L (98-107) Carbon Dioxide Level 21 MMOL/L (21-32) Anion Gap 15 mmol/L (5-15) Blood Urea Nitrogen 41 mg/dL (7-18) H Creatinine 2.5 MG/DL (0.55-1.30) H Estimat Glomerular Filtration Rate 25.0 mL/min (>60) Glucose Level 324 MG/DL (74-106) #H Hemoglobin A1c 7.2 % (4.3-6.0) H Uric Acid 11.2 MG/DL (2.6-7.2) H Calcium Level 8.7 MG/DL (8.5-10.1) Phosphorus Level 3.2 MG/DL (2.5-4.9) Magnesium Level 2.2 MG/DL (1.8-2.4) Iron Level 69 ug/dL (50-175) Total Iron Binding Capacity 347 ug/dL (250-450) Percent Iron Saturation 20 % (15-50) Unsaturated Iron Binding 278 ug/dL (112-346) Ferritin 163 NG/ML (8-388) Total Bilirubin 0.3 MG/DL (0.2-1.0) Aspartate Amino Transf (AST/SGOT) 66 U/L (15-37) H Alanine Aminotransferase (ALT/SGPT) 159 U/L (12-78) H Alkaline Phosphatase 111 U/L (46-116) Total Creatine Kinase 81 U/L (26-308) C-Reactive Protein, Quantitative 0.6 mg/dL (0.00-0.90) Pro-B-Type Natriuretic Peptide 1037 pg/mL (0-125) H Total Protein 7.2 G/DL (6.4-8.2) Albumin 3.6 G/DL (3.4-5.0) Globulin 3.6 g/dL Albumin/Globulin Ratio 1.0 (1.0-2.7) Vitamin B12 Level 593 PG/ML (193-986) Folate 13.5 NG/ML (8.6-58.9) Stool Occult Blood Negative (NEGATIVE) Pelon Smalls MD Sep 19, 2018 18:36
--- NOTE | 2018-09-19 19:24 | Pulmonology Progress Note ---
Assessment/Plan Assessment/Plan Pulmonary Progress Note Chief Complaint: Chest Pain HPI Patient is a 48-year-old female presented after increased chest discomfort. Patient had gradual onset of symptoms. Patient reports having increased Patient reports having increased cough as well as a subjective fever. She denies any vomiting. She reports having some increased leg swelling. She denies taking diuretics.Pain was sharp in nature she reports having some increased nonproductive cough. She reports prior history of chronic kidney disease. History is limited by patient's poor historian Allergies: Coded Allergies: NO KNOWN ALLERGIES (Verified Allergy, Unknown, 09/17/18) Past Medical History: DM, HTN, CKD, COPD, previous laparoscopic gastric banding Reviewed Nursing Documentation: PMH: Agreed; PSxH: Agreed Hx Cardiac Problems: Yes - anemia Hx Hypertension: Yes Hx COPD: Yes Hx Diabetes: Yes Hx Cancer: Yes Hx Gastrointestinal Problems: Yes Hx Dialysis: No - chronic kidney disease History Of Psychiatric Problem: Yes Hx Neurological Problems: No Review of Systems All Other Systems: negative except mentioned in HPI Physical Exam Vital Signs Noted Sp02 EP Interpretation: reviewed, normal General Appearance: normal inspection, well appearing, no apparent distress, alert, GCS 15, obese Head: atraumatic ENT: normal ENT inspection, hearing grossly normal, normal voice Neck: normal inspection, full range of motion, supple, no bony tend Respiratory: normal inspection, no respiratory distress, no retraction, wheezing Cardiovascular #1: regular rate, rhythm, no edema Gastrointestinal: normal inspection, normal bowel sounds, non tender, soft, no guarding, no hernia Genitourinary: no CVA tenderness Musculoskeletal: normal inspection, back normal, normal range of motion Neurologic: normal inspection, alert, responsive, speech normal Psychiatric: normal inspection, judgement/insight normal, mood/affect normal Skin: normal inspection, normal color, no rash Impression: Primary Impression: Chest Pain COPD (chronic obstructive pulmonary disease) Hx of laparoscopic gastric banding Diabetes mellitus Plan 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 Dr. Malick Marie was contacted for inpatient management for further evaluation of chest pain. Labs Test 09/16/18 15:05 09/17/18 05:05 D-Dimer 0.19 mg/L FEU (0.00-0.49) Sodium Level 142 MMOL/L (136-145) Potassium Level 4.1 MMOL/L (3.5-5.1) Chloride Level 105 MMOL/L (98-107) Carbon Dioxide Level 24 MMOL/L (21-32) Anion Gap 13 mmol/L (5-15) Blood Urea Nitrogen 28 mg/dL (7-18) Creatinine 1.8 MG/DL (0.55-1.30) Estimat Glomerular Filtration Rate 36.5 mL/min (>60) Glucose Level 140 MG/DL (74-106) Calcium Level 9.1 MG/DL (8.5-10.1) Total Bilirubin 0.4 MG/DL (0.2-1.0) Aspartate Amino Transf (AST/SGOT) 127 U/L (15-37) Alanine Aminotransferase (ALT/SGPT) 197 U/L (12-78) Alkaline Phosphatase 137 U/L (46-116) Total Creatine Kinase 92 U/L (26-308) Creatine Kinase MB < 0.5 NG/ML (0.0-3.6) Creatine Kinase MB Relative Index 0.5 Pro-B-Type Natriuretic Peptide 102 pg/mL (0-125) Total Protein 8.2 G/DL (6.4-8.2) Albumin 3.4 G/DL (3.4-5.0) Globulin 4.8 g/dL Albumin/Globulin Ratio 0.7 (1.0-2.7) Lipase 380 U/L (73-393) Urine Opiates Screen Negative (NEGATIVE) Urine Barbiturates Screen Negative (NEGATIVE) Valproic Acid (Depakene) Level 33 MCG/ML (50-100) Phencyclidine (PCP) Screen Negative (NEGATIVE) Urine Amphetamines Screen Negative (NEGATIVE) Urine Benzodiazepines Screen Negative (NEGATIVE) Urine Cocaine Screen Negative (NEGATIVE) Urine Marijuana (THC) Screen Negative (NEGATIVE) White Blood Count 6.9 K/UL (4.8-10.8) Red Blood Count 4.26 M/UL (4.20-5.40) Hemoglobin 11.6 G/DL (12.0-16.0) Hematocrit 36.4 % (37.0-47.0) Mean Corpuscular Volume 85 FL (80-99) Mean Corpuscular Hemoglobin 27.3 PG (27.0-31.0) Mean Corpuscular Hemoglobin Concent 32.0 G/DL (32.0-36.0) Red Cell Distribution Width 15.4 % (11.6-14.8) Platelet Count 191 K/UL (150-450) Mean Platelet Volume 8.0 FL (6.5-10.1) Neutrophils (%) (Auto) 44.9 % (45.0-75.0) Lymphocytes (%) (Auto) 42.9 % (20.0-45.0) Monocytes (%) (Auto) 8.5 % (1.0-10.0) Eosinophils (%) (Auto) 2.5 % (0.0-3.0) Basophils (%) (Auto) 1.2 % (0.0-2.0) Prothrombin Time 9.9 SEC (9.30-11.50) Prothromb Time International Ratio 0.9 (0.9-1.1) Activated Partial Thromboplast Time 25 SEC (23-33) Troponin I 0.000 ng/mL (0.000-0.056) C-Reactive Protein, Quantitative 0.6 mg/dL (0.00-0.90) Triglycerides Level 128 MG/DL (30-150) Cholesterol Level 128 MG/DL (< 200) LDL Cholesterol 62 mg/dL (<100) HDL Cholesterol 55 MG/DL (40-60) Cholesterol/HDL Ratio 2.3 (3.3-4.4) Thyroid Stimulating Hormone (TSH) 1.414 uiU/mL (0.358-3.740) EKG Diagnostic Results Rate: normal - 92 Rhythm: NSR ST Segments: no acute changes Subjective ROS Limited/Unobtainable: No Allergies: Coded Allergies: NO KNOWN ALLERGIES (Verified Allergy, Unknown, 09/17/18) Objective Last 24 Hour Vital Signs Date Time Temp Pulse Resp B/P (MAP) Pulse Ox O2 Delivery O2 Flow Rate FiO2 09/19/18 16:59 97.4 09/19/18 16:00 97.2 79 20 131/77 (95) 97 09/19/18 15:08 Room Air 09/19/18 15:08 Room Air 09/19/18 15:08 21 09/19/18 12:00 88 09/19/18 12:00 97.4 105 19 114/80 (91) 96 09/19/18 11:37 Room Air 09/19/18 11:37 21 09/19/18 11:37 Room Air 09/19/18 09:00 Room Air 09/19/18 08:49 107 118/86 09/19/18 08:00 113 09/19/18 08:00 97.2 107 18 118/86 (97) 97 09/19/18 07:37 Room Air 09/19/18 07:37 21 09/19/18 07:37 Room Air 21 09/19/18 07:37 101 18 Room Air 21 09/19/18 04:00 98.0 106 20 112/70 (84) 95 09/19/18 04:00 106 09/19/18 03:41 106 20 98 Room Air 21 09/19/18 03:32 21 09/19/18 03:31 98 20 97 Room Air 21 09/19/18 00:00 98.0 110 20 122/74 (90) 95 09/19/18 00:00 113 09/18/18 23:28 105 20 98 Room Air 21 09/18/18 23:17 95 18 97 Room Air 21 09/18/18 23:17 21 09/18/18 21:00 Room Air 09/18/18 20:00 90 09/18/18 20:00 98.2 89 20 125/64 (84) 95 09/18/18 19:38 102 20 95 Room Air 21 09/18/18 19:32 21 09/18/18 19:31 90 18 Room Air 21 09/18/18 19:28 90 18 96 Room Air 21 Intake and Output 09/18/18 09/19/18 19:00 07:00 Intake Total 1580 ml Balance 1580 ml Intake Oral 1580 ml # Voids 8 2 Laboratory Tests 09/18/18 23:00: Urine Color Pale yellow, Urine Appearance Clear, Urine pH 6, Urine Specific [place] 1.010, Urine Protein 3+H, Urine Glucose (UA) Negative, Urine Ketones Negative, Urine Blood Negative, Urine Nitrite Negative, Urine Bilirubin Negative , Urine Urobilinogen Normal, Urine Leukocyte Esterase Negative, Urine RBC 0-2, Urine WBC 0-2, Urine Squamous Epithelial Cells Occasional, Urine Bacteria Occasional, Urine Random Sodium 22 09/19/18 05:00: White Blood Count 6.6, Red Blood Count 3.83L, Hemoglobin 10.6L, Hematocrit 32.8L , Mean Corpuscular Volume 86, Mean Corpuscular Hemoglobin 27.7, Mean Corpuscular Hemoglobin Concent 32.3, Red Cell Distribution Width 15.5H, Platelet Count 168, Mean Platelet Volume 7.8, Neutrophils (%) (Auto) 79.9H, Lymphocytes (%) (Auto) 17.1L, Monocytes (%) (Auto) 2.5, Eosinophils (%) (Auto) 0.1, Basophils (%) (Auto) 0.3, Sodium Level 139, Potassium Level 4.5, Chloride Level 103, Carbon Dioxide Level 21, Anion Gap 15, Blood Urea Nitrogen 41H, Creatinine 2.5H, Estimat Glomerular Filtration Rate 25.0, Glucose Level 324#H, Hemoglobin A1c 7.2H, Uric Acid 11.2H, Calcium Level 8.7, Phosphorus Level 3.2, Magnesium Level 2.2, Iron Level 69, Total Iron Binding Capacity 347, Percent Iron Saturation 20, Unsaturated Iron Binding 278, Ferritin 163, Total Bilirubin 0.3, Aspartate Amino Transf (AST/SGOT) 66H, Alanine Aminotransferase (ALT/SGPT) 159H, Alkaline Phosphatase 111, Total Creatine Kinase 81, C-Reactive Protein, Quantitative 0.6, Pro-B-Type Natriuretic Peptide 1037H, Total Protein 7.2, Albumin 3.6, Globulin 3.6, Albumin/Globulin Ratio 1.0, Vitamin B12 Level 593, Folate 13.5 09/19/18 10:00: Stool Occult Blood Negative Current Medications Medications (Trade) Dose Ordered Sig/Luciano Route PRN Reason Start Time Stop Time Status Last Admin Dose Admin Acetaminophen (Tylenol) 650 mg Q4H PRN ORAL FEVER 09/19/18 14:15 10/16/18 22:14 Albuterol Sulfate (Proventil) 2.5 mg Q4HRT HHN 09/19/18 15:00 09/23/18 18:59 Albuterol/ Ipratropium (Albuterol/ Ipratropium) 3 ml Q4H PRN HHN Shortness of Breath 09/19/18 14:15 09/21/18 22:14 Allopurinol (Allopurinol) 300 mg DAILY ORAL 09/20/18 09:00 10/20/18 08:59 Aspirin (ASA) 81 mg DAILY ORAL 09/20/18 09:00 10/17/18 08:59 Buspirone HCl (Buspar) 5 mg THREE TIMES A DAY ORAL 09/19/18 18:00 10/17/18 08:59 09/19/18 17:57 Clonazepam (KlonoPIN) 1 mg BID ORAL 09/19/18 18:00 09/24/18 08:59 09/19/18 17:31 Clonidine HCl (Catapres Tab) 0.1 mg Q6H PRN ORAL for BP 160 syst and higher 09/19/18 18:45 10/18/18 12:44 Dextrose (Dextrose 50%) 25 ml Q30M PRN IV Hypoglycemia 09/19/18 14:15 10/16/18 22:14 Divalproex Sodium (Depakote ER) 500 mg Q12HR ORAL 09/19/18 21:00 10/18/18 20:59 Docusate Sodium (Colace) 100 mg TID ORAL 09/19/18 18:00 10/18/18 17:59 09/19/18 17:31 Doxycycline Monohydrate (Vibramycin) 100 mg Q12HR ORAL 09/19/18 21:00 09/25/18 17:59 Gabapentin (Neurontin) 300 mg THREE TIMES A DAY ORAL 09/19/18 18:00 10/17/18 08:59 09/19/18 17:31 Heparin Sodium (Porcine) (Heparin 5000 units/ml) 5,000 units EVERY 8 HOURS SUBQ 09/19/18 14:00 10/16/18 22:29 Insulin Aspart (NovoLOG) BEFORE MEALS AND HS SUBQ 09/19/18 16:30 10/17/18 06:29 09/19/18 16:40 Lorazepam (Ativan 2mg/ml 1ml) 1 mg Q6H PRN IV For Anxiety 09/19/18 14:15 09/24/18 20:14 Methylprednisolone Sodium Succinate (Solu-MEDROL) 40 mg EVERY 8 HOURS IVP 09/19/18 14:00 10/18/18 16:14 Morphine Sulfate (Morphine Sulfate) 2 mg Q4H PRN IVP severe Pain (Pain Scale 7-10) 09/19/18 14:15 09/23/18 22:14 09/19/18 16:27 Nitroglycerin (Ntg) 0.4 mg Q5M PRN SL Prn Chest Pain 09/19/18 14:00 10/16/18 22:14 Ondansetron HCl (Zofran) 4 mg Q6H PRN IVP Nausea & Vomiting 09/19/18 16:15 10/16/18 22:14 Pantoprazole (Protonix) 40 mg DAILY ORAL 09/20/18 09:00 10/17/18 08:59 Polyethylene Glycol (Miralax) 17 gm BEDTIME ORAL 09/19/18 21:00 10/18/18 20:59 Polyethylene Glycol (Miralax) 17 gm DAILYPRN PRN ORAL Constipation 09/19/18 22:15 10/16/18 22:14 Risperidone (RisperDAL) 1 mg BID ORAL 09/19/18 18:00 10/18/18 17:59 09/19/18 17:30 Temazepam (Restoril) 15 mg HSPRN PRN ORAL Insomnia 09/19/18 22:15 09/23/18 22:14 Trazodone HCl (Desyrel) 100 mg BEDTIME ORAL 09/19/18 21:00 10/17/18 20:59 Pelon Sabillon MD Sep 19, 2018 19:24
[2018-09-19 20:00] VITALS: BP 134/79
[2018-09-19] MEDS: TraZODone 100mg tab ORAL SCH (20:26)
[2018-09-19] MEDS: Miralax 17gm pkt ORAL SCH (20:26)
[2018-09-19] MEDS ORDERED: Miralax 17gm pkt ORAL PRN (22:15)
[2018-09-20] VITALS: BP 155/64
[2018-09-20] MEDS: Nitroglycerin Subl 0.4mg tab SL PRN ×3 (02:18→02:34)
[2018-09-20] MEDS: Albuterol ud Inhalation HHN SCH ×6 (02:30→23:18)
[2018-09-20] MEDS: Morphine Sulfate 2mg/ml Inj IVP PRN ×5 (02:47→23:35)
[2018-09-20 04:00] VITALS: BP 152/95
[2018-09-20 05:23] LABS: BASOPHILS % (AUTO) 0.4 % (0.0-2.0); EOSINOPHILS % (AUTO) 0.2 % (0.0-3.0); HEMATOCRIT 31.1 % (37.0-47.0); HEMOGLOBIN 10.2 G/DL (12.0-16.0); LYMPHOCYTES % (AUTO) 16.3 % (20.0-45.0); MEAN CORPUSCULAR VOLUME 85 FL (80-99); MONOCYTES % (AUTO) 3.5 % (1.0-10.0); NEUTROPHILS % (AUTO) 79.7 % (45.0-75.0); PLATELET COUNT 167 K/UL (150-450); RED BLOOD COUNT 3.64 M/UL (4.20-5.40); RED CELL DISTRIBUTION WIDTH 15.3 % (11.6-14.8); WHITE BLOOD COUNT 9.5 K/UL (4.8-10.8)
[2018-09-20 05:41] LABS: PHOSPHORUS 3.6 MG/DL (2.5-4.9)
[2018-09-20] MEDS: Solu-MEDROL 40mg Inj IVP SCH ×3 (06:37→15:12)
[2018-09-20] MEDS: Heparin 5000 units/ml inj SUBQ SCH ×3 (06:39→21:40)
[2018-09-20] MEDS: NovoLOG Insulin Flexpen SUBQ SCH ×4 (06:40→21:31)
[2018-09-20 06:48] LABS: ALANINE AMINOTRANSFERASE 138 U/L (12-78); ALBUMIN 3.4 G/DL (3.4-5.0); ALBUMIN/GLOBULIN RATIO 0.8 (1.0-2.7); ALKALINE PHOSPHATASE 117 U/L (46-116); ANION GAP 10 mmol/L (5-15); ASPARTATE AMINO TRANSFERASE 62 U/L (15-37); BILIRUBIN,TOTAL 0.2 MG/DL (0.2-1.0); BLOOD UREA NITROGEN 44 mg/dL (7-18); CALCIUM 8.7 MG/DL (8.5-10.1); CARBON DIOXIDE 22 MMOL/L (21-32); CHLORIDE 105 MMOL/L (98-107); POTASSIUM 4.7 MMOL/L (3.5-5.1); SODIUM 137 MMOL/L (136-145)
[2018-09-20 08:00] VITALS: BP 152/97
--- NOTE | 2018-09-20 08:22 | General Progress Note ---
Assessment/Plan Problem List: (1) HTN (hypertension) ICD Codes: I10 - Essential (primary) hypertension SNOMED: 46357105 (2) Chest pain ICD Codes: R07.9 - Chest pain, unspecified SNOMED: 20609721 (3) ACS (acute coronary syndrome) ICD Codes: I24.9 - Acute ischemic heart disease, unspecified SNOMED: 252894518 (4) Diabetes mellitus ICD Codes: E11.9 - Type 2 diabetes mellitus without complications SNOMED: 60454805 (5) Bipolar disorder ICD Codes: F31.9 - Bipolar disorder, unspecified SNOMED: 05491465 Status: stable, progressing Assessment/Plan o2 pulm tx pain control psyc tx cbc bmp am dc to snf if clear Subjective Constitutional: Reports: weakness Allergies: Coded Allergies: NO KNOWN ALLERGIES (Verified Allergy, Unknown, 09/17/18) All Systems: reviewed and negative except above Subjective calm in room Objective Last 24 Hour Vital Signs Date Time Temp Pulse Resp B/P (MAP) Pulse Ox O2 Delivery O2 Flow Rate FiO2 09/20/18 08:00 Room Air 09/20/18 08:00 88 20 Room Air 21 09/20/18 08:00 21 09/20/18 08:00 97.8 102 20 152/97 (115) 95 09/20/18 08:00 Room Air 21 09/20/18 04:00 99.2 104 18 152/95 (114) 94 09/20/18 02:36 103 20 99 Room Air 21 09/20/18 02:34 124/74 09/20/18 02:27 21 09/20/18 02:27 100 22 98 Room Air 21 09/20/18 02:27 140/89 09/20/18 02:18 141/89 09/20/18 00:00 97.6 81 18 155/64 (94) 94 09/19/18 23:45 87 18 98 Room Air 21 09/19/18 23:37 21 09/19/18 23:37 84 20 97 Room Air 21 09/19/18 21:00 Room Air 09/19/18 20:00 97.2 79 18 134/79 (97) 97 09/19/18 19:35 86 20 Room Air 21 09/19/18 19:35 Room Air 21 09/19/18 19:35 86 20 98 Room Air 21 09/19/18 19:35 21 09/19/18 16:59 97.4 09/19/18 16:00 97.2 79 20 131/77 (95) 97 09/19/18 15:08 Room Air 09/19/18 15:08 Room Air 09/19/18 15:08 21 09/19/18 12:00 88 09/19/18 12:00 97.4 105 19 114/80 (91) 96 09/19/18 11:37 Room Air 09/19/18 11:37 21 09/19/18 11:37 Room Air 09/19/18 09:00 Room Air 09/19/18 08:49 107 118/86 Intake and Output 09/19/18 09/20/18 19:00 07:00 Intake Total 740 ml 900 ml Balance 740 ml 900 ml Intake Oral 740 ml 900 ml # Voids 7 5 Laboratory Tests 09/19/18 10:00: Stool Occult Blood Negative 09/20/18 05:15: White Blood Count 9.5, Red Blood Count 3.64L, Hemoglobin 10.2L, Hematocrit 31.1L , Mean Corpuscular Volume 85, Mean Corpuscular Hemoglobin 28.0, Mean Corpuscular Hemoglobin Concent 32.8, Red Cell Distribution Width 15.3H, Platelet Count 167, Mean Platelet Volume 7.7, Neutrophils (%) (Auto) 79.7H, Lymphocytes (%) (Auto) 16.3L, Monocytes (%) (Auto) 3.5, Eosinophils (%) (Auto) 0.2, Basophils (%) (Auto) 0.4, D-Dimer < 0.19, Sodium Level 137, Potassium Level 4.7, Chloride Level 105, Carbon Dioxide Level 22, Anion Gap 10, Blood Urea Nitrogen 44H, Creatinine 2.0H, Estimat Glomerular Filtration Rate 32.2, Glucose Level 298H, Uric Acid 8.7H, Calcium Level 8.7, Phosphorus Level 3.6, Magnesium Level 2.0, Total Bilirubin 0.2, Aspartate Amino Transf (AST/SGOT) 62H , Alanine Aminotransferase (ALT/SGPT) 138H, Alkaline Phosphatase 117H, Troponin I 0.000, Pro-B-Type Natriuretic Peptide 679H, Total Protein 7.6, Albumin 3.4, Globulin 4.2, Albumin/Globulin Ratio 0.8L Height (Feet): 5 Height (Inches): 4.00 Weight (Pounds): 240 General Appearance: alert EENT: normal ENT inspection Neck: normal alignment Cardiovascular: normal peripheral pulses, normal rate, regular rhythm Respiratory/Chest: chest wall non-tender, lungs clear, normal breath sounds Abdomen: normal bowel sounds, non tender, soft Extremities: normal inspection Edema: no edema noted Arm (L), no edema noted Arm (R), no edema noted Leg (L), no edema noted Leg (R), no edema noted Pedal (L), no edema noted Pedal (R), no edema noted Generalized Neurologic: responsive, motor weakness Skin: normal pigmentation, warm/dry Malick Marie DO Sep 20, 2018 08:22
[2018-09-20] MEDS: Depakote ER 500mg tab ORAL SCH ×2 (09:09→21:00)
[2018-09-20] MEDS: BusPIRone 10mg Tab ORAL SCH ×3 (09:09→17:15)
[2018-09-20] MEDS: Aspirin Baby 81mg ORAL SCH (09:09)
[2018-09-20] MEDS: Docusate 100mg cap ORAL SCH ×3 (09:09→17:15)
--- NOTE | 2018-09-20 10:15 | General Progress Note ---
Assessment/Plan Problem List: (1) Obesity ICD Codes: E66.9 - Obesity, unspecified SNOMED: 118393110, 399513496 (2) Anemia ICD Codes: D64.9 - Anemia, unspecified SNOMED: 079022760 (3) GERD (gastroesophageal reflux disease) ICD Codes: K21.9 - Gastro-esophageal reflux disease without esophagitis SNOMED: 355562569 (4) Abdominal pain ICD Codes: R10.9 - Unspecified abdominal pain SNOMED: 52445301 (5) LFTs abnormal ICD Codes: R94.5 - Abnormal results of liver function studies SNOMED: 429455072 (6) HTN (hypertension) ICD Codes: I10 - Essential (primary) hypertension SNOMED: 39373828 (7) COPD (chronic obstructive pulmonary disease) ICD Codes: J44.9 - Chronic obstructive pulmonary disease, unspecified SNOMED: 33981254 (8) Bipolar disorder ICD Codes: F31.9 - Bipolar disorder, unspecified SNOMED: 33337150 (9) Hx of laparoscopic gastric banding ICD Codes: Z98.84 - Bariatric surgery status SNOMED: 795451637 (10) Homelessness ICD Codes: Z59.0 - Homelessness SNOMED: 61032331 (11) Hepatitis C ICD Codes: B19.20 - Unspecified viral hepatitis C without hepatic coma SNOMED: 62627134 Assessment/Plan Negative troponin levels Ultrasound reviewed negative for gallstones or dilated ducts Medical management for GERD anemia work up OB stool r/o GI bleed>>.negative monitor H&H, prn transfusions bowel regime ppi fu labs, hepatitis panel>>positive for hep C trend LFTs Outpatient surgical consult for lap band removal out patient fu for hep c management and treatment Subjective ROS Limited/Unobtainable: Yes Allergies: Coded Allergies: NO KNOWN ALLERGIES (Verified Allergy, Unknown, 09/17/18) Subjective multiple complains Objective Last 24 Hour Vital Signs Date Time Temp Pulse Resp B/P (MAP) Pulse Ox O2 Delivery O2 Flow Rate FiO2 09/20/18 09:30 Room Air 09/20/18 08:00 Room Air 09/20/18 08:00 88 20 Room Air 21 09/20/18 08:00 21 09/20/18 08:00 97.8 102 20 152/97 (115) 95 09/20/18 08:00 Room Air 21 09/20/18 07:11 97.8 09/20/18 07:07 97.8 09/20/18 04:00 99.2 104 18 152/95 (114) 94 09/20/18 02:36 103 20 99 Room Air 21 09/20/18 02:34 124/74 09/20/18 02:27 21 09/20/18 02:27 100 22 98 Room Air 21 09/20/18 02:27 140/89 09/20/18 02:18 141/89 09/20/18 00:00 97.6 81 18 155/64 (94) 94 09/19/18 23:45 87 18 98 Room Air 21 09/19/18 23:37 21 09/19/18 23:37 84 20 97 Room Air 21 09/19/18 21:00 Room Air 09/19/18 20:00 97.2 79 18 134/79 (97) 97 09/19/18 19:35 86 20 Room Air 21 09/19/18 19:35 Room Air 21 09/19/18 19:35 86 20 98 Room Air 21 09/19/18 19:35 21 09/19/18 16:00 97.2 79 20 131/77 (95) 97 09/19/18 15:08 Room Air 09/19/18 15:08 Room Air 09/19/18 15:08 21 09/19/18 12:00 88 09/19/18 12:00 97.4 105 19 114/80 (91) 96 09/19/18 11:37 Room Air 09/19/18 11:37 21 09/19/18 11:37 Room Air Intake and Output 09/19/18 09/20/18 18:59 06:59 Intake Total 740 ml 900 ml Balance 740 ml 900 ml Intake Oral 740 ml 900 ml # Voids 7 5 Laboratory Tests 09/20/18 05:15: White Blood Count 9.5, Red Blood Count 3.64L, Hemoglobin 10.2L, Hematocrit 31.1L , Mean Corpuscular Volume 85, Mean Corpuscular Hemoglobin 28.0, Mean Corpuscular Hemoglobin Concent 32.8, Red Cell Distribution Width 15.3H, Platelet Count 167, Mean Platelet Volume 7.7, Neutrophils (%) (Auto) 79.7H, Lymphocytes (%) (Auto) 16.3L, Monocytes (%) (Auto) 3.5, Eosinophils (%) (Auto) 0.2, Basophils (%) (Auto) 0.4, D-Dimer < 0.19, Sodium Level 137, Potassium Level 4.7, Chloride Level 105, Carbon Dioxide Level 22, Anion Gap 10, Blood Urea Nitrogen 44H, Creatinine 2.0H, Estimat Glomerular Filtration Rate 32.2, Glucose Level 298H, Uric Acid 8.7H, Calcium Level 8.7, Phosphorus Level 3.6, Magnesium Level 2.0, Total Bilirubin 0.2, Aspartate Amino Transf (AST/SGOT) 62H , Alanine Aminotransferase (ALT/SGPT) 138H, Alkaline Phosphatase 117H, Troponin I 0.000, Pro-B-Type Natriuretic Peptide 679H, Total Protein 7.6, Albumin 3.4, Globulin 4.2, Albumin/Globulin Ratio 0.8L Height (Feet): 5 Height (Inches): 4.00 Weight (Pounds): 240 General Appearance: alert EENT: normal ENT inspection Neck: supple Cardiovascular: normal rate Respiratory/Chest: lungs clear Abdomen: normal bowel sounds, non tender, soft Extremities: non-tender Melo Winters MD Sep 20, 2018 10:15
[2018-09-20 12:00] VITALS: BP 154/94
--- NOTE | 2018-09-20 13:38 | Nephrology Progress Note ---
Assessment/Plan Problem List: (1) Diabetic nephropathy (2) Obesity (3) COPD (chronic obstructive pulmonary disease) (4) Bipolar disorder (5) Anemia Assessment Renal failure- Likely Diabetic Nephropathy- COPD (chronic obstructive pulmonary disease) Hx of laparoscopic gastric banding DM Anemia ? chronic disease Plan taper steroids as possible- add allopurinol- change Doxy if possible UA 3 + proteinuria Keep BP and BS in check Urine studies Avoid Nephrotoxics Anemia rios Albumin bolus Subjective ROS Limited/Unobtainable: No Constitutional: Reports: malaise Objective Objective Last 24 Hour Vital Signs Date Time Temp Pulse Resp B/P (MAP) Pulse Ox O2 Delivery O2 Flow Rate FiO2 09/20/18 12:00 98.6 112 20 154/94 (114) 95 09/20/18 11:16 97.8 09/20/18 10:52 87 18 98 Room Air 21 09/20/18 10:42 21 09/20/18 10:42 86 20 97 Room Air 21 09/20/18 09:30 Room Air 09/20/18 08:00 Room Air 09/20/18 08:00 88 20 Room Air 21 09/20/18 08:00 21 09/20/18 08:00 97.8 102 20 152/97 (115) 95 09/20/18 08:00 Room Air 21 09/20/18 07:07 97.8 09/20/18 04:00 99.2 104 18 152/95 (114) 94 09/20/18 02:36 103 20 99 Room Air 21 09/20/18 02:34 124/74 09/20/18 02:27 21 09/20/18 02:27 100 22 98 Room Air 21 09/20/18 02:27 140/89 09/20/18 02:18 141/89 09/20/18 00:00 97.6 81 18 155/64 (94) 94 09/19/18 23:45 87 18 98 Room Air 21 09/19/18 23:37 21 09/19/18 23:37 84 20 97 Room Air 21 09/19/18 21:00 Room Air 09/19/18 20:00 97.2 79 18 134/79 (97) 97 09/19/18 19:35 86 20 Room Air 21 09/19/18 19:35 Room Air 21 09/19/18 19:35 86 20 98 Room Air 21 09/19/18 19:35 21 09/19/18 16:00 97.2 79 20 131/77 (95) 97 09/19/18 15:08 Room Air 09/19/18 15:08 Room Air 09/19/18 15:08 21 Intake and Output 09/19/18 09/20/18 18:59 06:59 Intake Total 740 ml 900 ml Balance 740 ml 900 ml Intake Oral 740 ml 900 ml # Voids 7 5 Laboratory Tests 09/20/18 05:15: White Blood Count 9.5, Red Blood Count 3.64L, Hemoglobin 10.2L, Hematocrit 31.1L , Mean Corpuscular Volume 85, Mean Corpuscular Hemoglobin 28.0, Mean Corpuscular Hemoglobin Concent 32.8, Red Cell Distribution Width 15.3H, Platelet Count 167, Mean Platelet Volume 7.7, Neutrophils (%) (Auto) 79.7H, Lymphocytes (%) (Auto) 16.3L, Monocytes (%) (Auto) 3.5, Eosinophils (%) (Auto) 0.2, Basophils (%) (Auto) 0.4, D-Dimer < 0.19, Sodium Level 137, Potassium Level 4.7, Chloride Level 105, Carbon Dioxide Level 22, Anion Gap 10, Blood Urea Nitrogen 44H, Creatinine 2.0H, Estimat Glomerular Filtration Rate 32.2, Glucose Level 298H, Uric Acid 8.7H, Calcium Level 8.7, Phosphorus Level 3.6, Magnesium Level 2.0, Total Bilirubin 0.2, Aspartate Amino Transf (AST/SGOT) 62H , Alanine Aminotransferase (ALT/SGPT) 138H, Alkaline Phosphatase 117H, Troponin I 0.000, Pro-B-Type Natriuretic Peptide 679H, Total Protein 7.6, Albumin 3.4, Globulin 4.2, Albumin/Globulin Ratio 0.8L, Hepatitis C Antibody [Pending], Hepatitis C RNA (PCR) IUs/ml [Pending], Hepatitis C RNA (PCR) log IUs/ml [ Pending] Height (Feet): 5 Height (Inches): 4.00 Weight (Pounds): 240 General Appearance: no apparent distress Objective no change Michael Cruz MD Sep 20, 2018 13:38
--- NOTE | 2018-09-20 14:08 | Cardiology Report ---
APPROVED REPORT EKG Measurement Heart [id number] Normal sinus rhythm Cannot rule out Anterior infarct, age undetermined Abnormal ECG
--- NOTE | 2018-09-20 15:47 | Cardiology Progress Note ---
Assessment/Plan Status: stable, progressing Assessment/Plan ASSESSMENT AND PLAN: 1. Chest pain. The patient was ruled out for myocardial infarction. EKG is nonischemic. We will schedule the patient for echocardiogram and nuclear stress test for further evaluation.--- ECHOCARDIOGRAM Normal LV function Outpatient stress test 2. Hypertension. Amlodipine 10 mg daily. The patient is on p.r.n. clonidine. 3. History of diabetes. 4. History of psychosis. 5. Questionable blood in the stool. Evaluation by GI. 6. Tachycardia d dimer negative 7. Dispo planning Subjective Cardiovascular: Reports: no symptoms Respiratory: Reports: no symptoms Gastrointestinal/Abdominal: Reports: no symptoms Genitourinary: Reports: no symptoms Subjective COVERAGE FOR [employer] no acute events, LVEF normal. NO complaints, vitals stable EKG shows sinus tachycardia, d dimer negative. Objective Last 24 Hour Vital Signs Date Time Temp Pulse Resp B/P (MAP) Pulse Ox O2 Delivery O2 Flow Rate FiO2 09/20/18 15:05 Room Air 09/20/18 15:05 Room Air 09/20/18 15:05 21 09/20/18 12:00 98.6 112 20 154/94 (114) 95 09/20/18 11:16 97.8 09/20/18 10:52 87 18 98 Room Air 21 09/20/18 10:42 21 09/20/18 10:42 86 20 97 Room Air 09/20/18 09:30 Room Air 09/20/18 08:00 Room Air 09/20/18 08:00 88 20 Room Air 09/20/18 08:00 21 09/20/18 08:00 97.8 102 20 152/97 (115) 95 09/20/18 08:00 Room Air 21 09/20/18 07:07 97.8 09/20/18 04:00 99.2 104 18 152/95 (114) 94 09/20/18 02:36 103 20 99 Room Air 09/20/18 02:34 124/74 09/20/18 02:27 21 09/20/18 02:27 100 22 98 Room Air 09/20/18 02:27 140/89 09/20/18 02:18 141/89 09/20/18 00:00 97.6 81 18 155/64 (94) 94 09/19/18 23:45 87 18 98 Room Air 21 09/19/18 23:37 21 09/19/18 23:37 84 20 97 Room Air 21 09/19/18 21:00 Room Air 09/19/18 20:00 97.2 79 18 134/79 (97) 97 09/19/18 19:35 86 20 Room Air 21 09/19/18 19:35 Room Air 21 09/19/18 19:35 86 20 98 Room Air 21 09/19/18 19:35 21 09/19/18 16:00 97.2 79 20 131/77 (95) 97 General Appearance: no apparent distress, alert EENT: PERRL/EOMI, TMs normal Neck: non-tender, supple, no JVD Rhythm: ST Cardiovascular: normal peripheral pulses, normal rate, regular rhythm Respiratory/Chest: chest wall non-tender, lungs clear Abdomen: normal bowel sounds, non tender, soft, no mass Extremities: normal range of motion, non-tender 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 Intake and Output 09/19/18 09/20/18 18:59 06:59 Intake Total 740 ml 900 ml Balance 740 ml 900 ml Intake Oral 740 ml 900 ml # Voids 7 5 Laboratory Tests Test 09/20/18 05:15 White Blood Count 9.5 K/UL (4.8-10.8) Red Blood Count 3.64 M/UL (4.20-5.40) L Hemoglobin 10.2 G/DL (12.0-16.0) L Hematocrit 31.1 % (37.0-47.0) L Mean Corpuscular Volume 85 FL (80-99) Mean Corpuscular Hemoglobin 28.0 PG (27.0-31.0) Mean Corpuscular Hemoglobin Concent 32.8 G/DL (32.0-36.0) Red Cell Distribution Width 15.3 % (11.6-14.8) H Platelet Count 167 K/UL (150-450) Mean Platelet Volume 7.7 FL (6.5-10.1) Neutrophils (%) (Auto) 79.7 % (45.0-75.0) H Lymphocytes (%) (Auto) 16.3 % (20.0-45.0) L Monocytes (%) (Auto) 3.5 % (1.0-10.0) Eosinophils (%) (Auto) 0.2 % (0.0-3.0) Basophils (%) (Auto) 0.4 % (0.0-2.0) D-Dimer < 0.19 mg/L FEU Sodium Level 137 MMOL/L (136-145) Potassium Level 4.7 MMOL/L (3.5-5.1) Chloride Level 105 MMOL/L (98-107) Carbon Dioxide Level 22 MMOL/L (21-32) Anion Gap 10 mmol/L (5-15) Blood Urea Nitrogen 44 mg/dL (7-18) H Creatinine 2.0 MG/DL (0.55-1.30) H Estimat Glomerular Filtration Rate 32.2 mL/min (>60) Glucose Level 298 MG/DL (74-106) H Uric Acid 8.7 MG/DL (2.6-7.2) H Calcium Level 8.7 MG/DL (8.5-10.1) Phosphorus Level 3.6 MG/DL (2.5-4.9) Magnesium Level 2.0 MG/DL (1.8-2.4) Total Bilirubin 0.2 MG/DL (0.2-1.0) Aspartate Amino Transf (AST/SGOT) 62 U/L (15-37) H Alanine Aminotransferase (ALT/SGPT) 138 U/L (12-78) H Alkaline Phosphatase 117 U/L (46-116) H Troponin I 0.000 ng/mL (0.000-0.056) Pro-B-Type Natriuretic Peptide 679 pg/mL (0-125) H Total Protein 7.6 G/DL (6.4-8.2) Albumin 3.4 G/DL (3.4-5.0) Globulin 4.2 g/dL Albumin/Globulin Ratio 0.8 (1.0-2.7) L Hepatitis C Antibody Pending Hepatitis C RNA (PCR) IUs/ml Pending Hepatitis C RNA (PCR) log IUs/ml Pending Pelon Smalls MD Sep 20, 2018 15:47
--- NOTE | 2018-09-20 15:56 | Pulmonology Progress Note ---
Assessment/Plan Assessment/Plan Pulmonary Progress Note Chief Complaint: Chest Pain HPI Patient is a 48-year-old female presented after increased chest discomfort. Patient had gradual onset of symptoms. Patient reports having increased Patient reports having increased cough as well as a subjective fever. She denies any vomiting. She reports having some increased leg swelling. She denies taking diuretics.Pain was sharp in nature she reports having some increased nonproductive cough. She reports prior history of chronic kidney disease. History is limited by patient's poor historian, Improved shortness of breath Allergies: Coded Allergies: NO KNOWN ALLERGIES (Verified Allergy, Unknown, 09/17/18) Past Medical History: DM, HTN, CKD, COPD, previous laparoscopic gastric banding Reviewed Nursing Documentation: PMH: Agreed; PSxH: Agreed Hx Cardiac Problems: Yes - anemia Hx Hypertension: Yes Hx COPD: Yes Hx Diabetes: Yes Hx Cancer: Yes Hx Gastrointestinal Problems: Yes Hx Dialysis: No - chronic kidney disease History Of Psychiatric Problem: Yes Hx Neurological Problems: No Review of Systems All Other Systems: negative except mentioned in HPI Physical Exam Vital Signs Noted Sp02 EP Interpretation: reviewed, normal General Appearance: normal inspection, well appearing, no apparent distress, alert, GCS 15, obese Head: atraumatic ENT: normal ENT inspection, hearing grossly normal, normal voice Neck: normal inspection, full range of motion, supple, no bony tend Respiratory: normal inspection, no respiratory distress, no retraction, wheezing Cardiovascular #1: regular rate, rhythm, no edema Gastrointestinal: normal inspection, normal bowel sounds, non tender, soft, no guarding, no hernia Genitourinary: no CVA tenderness Musculoskeletal: normal inspection, back normal, normal range of motion Neurologic: normal inspection, alert, responsive, speech normal Psychiatric: normal inspection, judgement/insight normal, mood/affect normal Skin: normal inspection, normal color, no rash Impression: Primary Impression: Chest Pain COPD (chronic obstructive pulmonary disease) Hx of laparoscopic gastric banding Diabetes mellitus Plan Serial labs 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 Dr. Malick Marie was contacted for inpatient management for further evaluation of chest pain. Labs Test 09/16/18 15:05 09/17/18 05:05 D-Dimer 0.19 mg/L FEU (0.00-0.49) Sodium Level 142 MMOL/L (136-145) Potassium Level 4.1 MMOL/L (3.5-5.1) Chloride Level 105 MMOL/L (98-107) Carbon Dioxide Level 24 MMOL/L (21-32) Anion Gap 13 mmol/L (5-15) Blood Urea Nitrogen 28 mg/dL (7-18) Creatinine 1.8 MG/DL (0.55-1.30) Estimat Glomerular Filtration Rate 36.5 mL/min (>60) Glucose Level 140 MG/DL (74-106) Calcium Level 9.1 MG/DL (8.5-10.1) Total Bilirubin 0.4 MG/DL (0.2-1.0) Aspartate Amino Transf (AST/SGOT) 127 U/L (15-37) Alanine Aminotransferase (ALT/SGPT) 197 U/L (12-78) Alkaline Phosphatase 137 U/L (46-116) Total Creatine Kinase 92 U/L (26-308) Creatine Kinase MB < 0.5 NG/ML (0.0-3.6) Creatine Kinase MB Relative Index 0.5 Pro-B-Type Natriuretic Peptide 102 pg/mL (0-125) Total Protein 8.2 G/DL (6.4-8.2) Albumin 3.4 G/DL (3.4-5.0) Globulin 4.8 g/dL Albumin/Globulin Ratio 0.7 (1.0-2.7) Lipase 380 U/L (73-393) Urine Opiates Screen Negative (NEGATIVE) Urine Barbiturates Screen Negative (NEGATIVE) Valproic Acid (Depakene) Level 33 MCG/ML (50-100) Phencyclidine (PCP) Screen Negative (NEGATIVE) Urine Amphetamines Screen Negative (NEGATIVE) Urine Benzodiazepines Screen Negative (NEGATIVE) Urine Cocaine Screen Negative (NEGATIVE) Urine Marijuana (THC) Screen Negative (NEGATIVE) White Blood Count 6.9 K/UL (4.8-10.8) Red Blood Count 4.26 M/UL (4.20-5.40) Hemoglobin 11.6 G/DL (12.0-16.0) Hematocrit 36.4 % (37.0-47.0) Mean Corpuscular Volume 85 FL (80-99) Mean Corpuscular Hemoglobin 27.3 PG (27.0-31.0) Mean Corpuscular Hemoglobin Concent 32.0 G/DL (32.0-36.0) Red Cell Distribution Width 15.4 % (11.6-14.8) Platelet Count 191 K/UL (150-450) Mean Platelet Volume 8.0 FL (6.5-10.1) Neutrophils (%) (Auto) 44.9 % (45.0-75.0) Lymphocytes (%) (Auto) 42.9 % (20.0-45.0) Monocytes (%) (Auto) 8.5 % (1.0-10.0) Eosinophils (%) (Auto) 2.5 % (0.0-3.0) Basophils (%) (Auto) 1.2 % (0.0-2.0) Prothrombin Time 9.9 SEC (9.30-11.50) Prothromb Time International Ratio 0.9 (0.9-1.1) Activated Partial Thromboplast Time 25 SEC (23-33) Troponin I 0.000 ng/mL (0.000-0.056) C-Reactive Protein, Quantitative 0.6 mg/dL (0.00-0.90) Triglycerides Level 128 MG/DL (30-150) Cholesterol Level 128 MG/DL (< 200) LDL Cholesterol 62 mg/dL (<100) HDL Cholesterol 55 MG/DL (40-60) Cholesterol/HDL Ratio 2.3 (3.3-4.4) Thyroid Stimulating Hormone (TSH) 1.414 uiU/mL (0.358-3.740) EKG Diagnostic Results Rate: normal - 92 Rhythm: NSR ST Segments: no acute changes Subjective ROS Limited/Unobtainable: No Allergies: Coded Allergies: NO KNOWN ALLERGIES (Verified Allergy, Unknown, 09/17/18) Objective Last 24 Hour Vital Signs Date Time Temp Pulse Resp B/P (MAP) Pulse Ox O2 Delivery O2 Flow Rate FiO2 09/20/18 15:05 Room Air 09/20/18 15:05 Room Air 21 09/20/18 15:05 21 09/20/18 12:00 98.6 112 20 154/94 (114) 95 09/20/18 11:16 97.8 09/20/18 10:52 87 18 98 Room Air 21 09/20/18 10:42 21 09/20/18 10:42 86 20 97 Room Air 21 09/20/18 09:30 Room Air 09/20/18 08:00 Room Air 09/20/18 08:00 88 20 Room Air 21 09/20/18 08:00 21 09/20/18 08:00 97.8 102 20 152/97 (115) 95 09/20/18 08:00 Room Air 21 09/20/18 07:07 97.8 09/20/18 04:00 99.2 104 18 152/95 (114) 94 09/20/18 02:36 103 20 99 Room Air 21 09/20/18 02:34 124/74 09/20/18 02:27 21 09/20/18 02:27 100 22 98 Room Air 21 09/20/18 02:27 140/89 09/20/18 02:18 141/89 09/20/18 00:00 97.6 81 18 155/64 (94) 94 09/19/18 23:45 87 18 98 Room Air 21 09/19/18 23:37 21 09/19/18 23:37 84 20 97 Room Air 21 09/19/18 21:00 Room Air 09/19/18 20:00 97.2 79 18 134/79 (97) 97 09/19/18 19:35 86 20 Room Air 21 09/19/18 19:35 Room Air 21 09/19/18 19:35 86 20 98 Room Air 21 09/19/18 19:35 21 09/19/18 16:00 97.2 79 20 131/77 (95) 97 Intake and Output 09/19/18 09/20/18 18:59 06:59 Intake Total 740 ml 900 ml Balance 740 ml 900 ml Intake Oral 740 ml 900 ml # Voids 7 5 Laboratory Tests 09/20/18 05:15: White Blood Count 9.5, Red Blood Count 3.64L, Hemoglobin 10.2L, Hematocrit 31.1L , Mean Corpuscular Volume 85, Mean Corpuscular Hemoglobin 28.0, Mean Corpuscular Hemoglobin Concent 32.8, Red Cell Distribution Width 15.3H, Platelet Count 167, Mean Platelet Volume 7.7, Neutrophils (%) (Auto) 79.7H, Lymphocytes (%) (Auto) 16.3L, Monocytes (%) (Auto) 3.5, Eosinophils (%) (Auto) 0.2, Basophils (%) (Auto) 0.4, D-Dimer < 0.19, Sodium Level 137, Potassium Level 4.7, Chloride Level 105, Carbon Dioxide Level 22, Anion Gap 10, Blood Urea Nitrogen 44H, Creatinine 2.0H, Estimat Glomerular Filtration Rate 32.2, Glucose Level 298H, Uric Acid 8.7H, Calcium Level 8.7, Phosphorus Level 3.6, Magnesium Level 2.0, Total Bilirubin 0.2, Aspartate Amino Transf (AST/SGOT) 62H , Alanine Aminotransferase (ALT/SGPT) 138H, Alkaline Phosphatase 117H, Troponin I 0.000, Pro-B-Type Natriuretic Peptide 679H, Total Protein 7.6, Albumin 3.4, Globulin 4.2, Albumin/Globulin Ratio 0.8L, Hepatitis C Antibody [Pending], Hepatitis C RNA (PCR) IUs/ml [Pending], Hepatitis C RNA (PCR) log IUs/ml [ Pending] Current Medications Medications (Trade) Dose Ordered Sig/Luciano Route PRN Reason Start Time Stop Time Status Last Admin Dose Admin Acetaminophen (Tylenol) 650 mg Q4H PRN ORAL FEVER 09/19/18 14:15 10/16/18 22:14 09/20/18 06:37 Albuterol Sulfate (Proventil) 2.5 mg Q4HRT HHN 09/19/18 15:00 09/23/18 18:59 09/20/18 10:42 Albuterol/ Ipratropium (Albuterol/ Ipratropium) 3 ml Q4H PRN HHN Shortness of Breath 09/19/18 14:15 09/21/18 22:14 Allopurinol (Allopurinol) 300 mg DAILY ORAL 09/20/18 09:00 10/20/18 08:59 09/20/18 09:10 Aspirin (ASA) 81 mg DAILY ORAL 09/20/18 09:00 10/17/18 08:59 09/20/18 09:09 Buspirone HCl (Buspar) 5 mg THREE TIMES A DAY ORAL 09/19/18 18:00 10/17/18 08:59 09/20/18 12:50 Clonazepam (KlonoPIN) 1 mg BID ORAL 09/19/18 18:00 09/24/18 08:59 09/20/18 09:08 Clonidine HCl (Catapres Tab) 0.1 mg Q6H PRN ORAL for BP 160 syst and higher 09/19/18 18:45 10/18/18 12:44 Dextrose (Dextrose 50%) 25 ml Q30M PRN IV Hypoglycemia 09/19/18 14:15 10/16/18 22:14 Divalproex Sodium (Depakote ER) 500 mg Q12HR ORAL 09/19/18 21:00 10/18/18 20:59 09/20/18 09:09 Docusate Sodium (Colace) 100 mg TID ORAL 09/19/18 18:00 10/18/18 17:59 09/20/18 12:49 Doxycycline Monohydrate (Vibramycin) 100 mg Q12HR ORAL 09/19/18 21:00 09/25/18 17:59 09/20/18 09:10 Gabapentin (Neurontin) 300 mg EVERY 12 HOURS ORAL 09/20/18 21:00 10/19/18 17:59 Heparin Sodium (Porcine) (Heparin 5000 units/ml) 5,000 units EVERY 8 HOURS SUBQ 09/19/18 14:00 10/16/18 22:29 09/20/18 14:26 Insulin Aspart (NovoLOG) BEFORE MEALS AND HS SUBQ 09/19/18 16:30 10/17/18 06:29 09/20/18 11:31 Lorazepam (Ativan 2mg/ml 1ml) 1 mg Q6H PRN IV For Anxiety 09/19/18 14:15 09/24/18 20:14 Methylprednisolone Sodium Succinate (Solu-MEDROL) 40 mg EVERY 8 HOURS IVP 09/19/18 14:00 10/18/18 16:14 09/20/18 15:12 Morphine Sulfate (Morphine Sulfate) 2 mg Q4H PRN IVP severe Pain (Pain Scale 7-10) 09/19/18 14:15 09/23/18 22:14 09/20/18 15:17 Nitroglycerin (Ntg) 0.4 mg Q5M PRN SL Prn Chest Pain 09/19/18 14:00 10/16/18 22:14 09/20/18 02:34 Ondansetron HCl (Zofran) 4 mg Q6H PRN IVP Nausea & Vomiting 09/19/18 16:15 10/16/18 22:14 Pantoprazole (Protonix) 40 mg DAILY ORAL 09/20/18 09:00 10/17/18 08:59 09/20/18 09:09 Polyethylene Glycol (Miralax) 17 gm BEDTIME ORAL 09/19/18 21:00 10/18/18 20:59 09/19/18 20:26 Polyethylene Glycol (Miralax) 17 gm DAILYPRN PRN ORAL Constipation 09/19/18 22:15 10/16/18 22:14 Risperidone (RisperDAL) 1 mg BID ORAL 09/19/18 18:00 10/18/18 17:59 09/20/18 09:10 Temazepam (Restoril) 15 mg HSPRN PRN ORAL Insomnia 09/19/18 22:15 09/23/18 22:14 Trazodone HCl (Desyrel) 100 mg BEDTIME ORAL 09/19/18 21:00 10/17/18 20:59 09/19/18 20:26 Pelon Sabillon MD Sep 20, 2018 15:56
[2018-09-20 16:00] VITALS: BP 105/73
--- NOTE | 2018-09-20 16:00 | Progress Note ---
DATE: 09/20/2018 CONSULTING PHYSICIAN: Avelino Sarah M.D. HISTORY OF PRESENT ILLNESS: This is a 48-year-old female patient. She has a history of chest pain. She has got a lot of mood lability, agitation, irritability, and decline in cognition below baseline. She got manic episodes. That is why her attending has requested daily psychiatric consultation. MENTAL STATUS EXAMINATION: This is a 48-year-old female. Appearance is disheveled. Attitude, irritable and agitated. Affect, guarded and restricted. Intellect poor. Mood, depressed and anxious. Motor activity, psychomotor agitation. Attention span is poor. Orientation x2. Speech is pressured. Thought process, disorganized and illogical. Judgment and insight poor. DIAGNOSIS: Rule out schizoaffective, bipolar type. PLAN: Treat with BuSpar 5 three times a day, Klonopin 1 twice a day, Depakote 500 twice a day, Risperdal 1 mg twice a day, and trazodone 100 nightly. Provided with 20 minutes of cognitive therapy to help identify automatic negative thoughts and help her to convert negative thoughts to more positive thoughts to reduce depression, anxiety, suicidality and help her to have more adaptive behavior patterns. Twenty minutes of cognitive behavioral therapy was provided. Chart was reviewed and discussed with staff. Avelino Sarah M.D. DR: KIM JOB#: [id number] CC:
[2018-09-20 19:28] LABS: CREATININE 2.5 MG/DL (0.55-1.30)
[2018-09-20 20:00] VITALS: BP 156/101
[2018-09-20] MEDS: Miralax 17gm pkt ORAL SCH (21:00)
[2018-09-20] MEDS: TraZODone 100mg tab ORAL SCH (21:00)
[2018-09-20] MEDS: Hydrocortisone 100mg Inj IV SCH (21:22)
[2018-09-21] VITALS (8 sets, daily range): BP systolic 118–147; BP diastolic 63–95
[2018-09-21] MEDS: Albuterol ud Inhalation HHN SCH ×6 (03:09→23:55)
[2018-09-21] MEDS: Morphine Sulfate 2mg/ml Inj IVP PRN ×4 (03:49→21:03)
[2018-09-21] MEDS: Nitroglycerin Subl 0.4mg tab SL PRN ×2 (05:26→05:34)
--- NOTE | 2018-09-21 05:30 | Progress Note ---
DATE: 09/21/2018 SUBJECTIVE: A 48-year-old patient with chest pain. She is confused, disorganized, and mood labile. Still has racing thoughts, pressured speech, and mood lability. DIAGNOSIS: Bipolar II. PLAN: Continue on Depakote 500 twice a day to stabilize her mood and Seroquel as well. Provided with 20 minutes of cognitive behavioral therapy to help identify automatic negative thoughts and help her to convert negative thoughts to more positive thoughts to reduce depression, anxiety, and suicidality. The patient was seen and assessed at bedside. Chart was reviewed. Discussed with staff. Avelino Sarah M.D. DR: KIM JOB#: [id number] CC:
[2018-09-21] MEDS: NovoLOG Insulin Flexpen SUBQ SCH ×4 (06:04→21:14)
[2018-09-21] MEDS: Heparin 5000 units/ml inj SUBQ SCH ×3 (06:06→21:13)
[2018-09-21 07:16] LABS: BASOPHILS % (AUTO) 0.3 % (0.0-2.0); EOSINOPHILS % (AUTO) 0.1 % (0.0-3.0); HEMATOCRIT 31.3 % (37.0-47.0); HEMOGLOBIN 9.9 G/DL (12.0-16.0); LYMPHOCYTES % (AUTO) 18.3 % (20.0-45.0); MEAN CORPUSCULAR VOLUME 88 FL (80-99); MONOCYTES % (AUTO) 8.4 % (1.0-10.0); NEUTROPHILS % (AUTO) 72.9 % (45.0-75.0); PLATELET COUNT 169 K/UL (150-450); RED BLOOD COUNT 3.54 M/UL (4.20-5.40); RED CELL DISTRIBUTION WIDTH 16.8 % (11.6-14.8); WHITE BLOOD COUNT 11.3 K/UL (4.8-10.8)
[2018-09-21 07:27] LABS: ANION GAP 10 mmol/L (5-15); BLOOD UREA NITROGEN 52 mg/dL (7-18); CALCIUM 8.7 MG/DL (8.5-10.1); CARBON DIOXIDE 24 MMOL/L (21-32); CHLORIDE 105 MMOL/L (98-107); CREATININE 2.2 MG/DL (0.55-1.30); POTASSIUM 4.3 MMOL/L (3.5-5.1); SODIUM 139 MMOL/L (136-145)
[2018-09-21] MEDS: Docusate 100mg cap ORAL SCH ×3 (09:23→17:08)
[2018-09-21] MEDS: Hydrocortisone 100mg Inj IV SCH (09:24)
[2018-09-21] MEDS: Depakote ER 500mg tab ORAL SCH ×3 (09:25→21:06)
[2018-09-21] MEDS: BusPIRone 10mg Tab ORAL SCH ×3 (09:25→17:07)
[2018-09-21] MEDS: Aspirin Baby 81mg ORAL SCH (09:25)
--- NOTE | 2018-09-21 10:39 | General Progress Note ---
Assessment/Plan Problem List: (1) Obesity ICD Codes: E66.9 - Obesity, unspecified SNOMED: 273908374, 164249223 (2) Anemia ICD Codes: D64.9 - Anemia, unspecified SNOMED: 254652266 (3) GERD (gastroesophageal reflux disease) ICD Codes: K21.9 - Gastro-esophageal reflux disease without esophagitis SNOMED: 526504981 (4) Abdominal pain ICD Codes: R10.9 - Unspecified abdominal pain SNOMED: 14038336 (5) LFTs abnormal ICD Codes: R94.5 - Abnormal results of liver function studies SNOMED: 122934661 (6) HTN (hypertension) ICD Codes: I10 - Essential (primary) hypertension SNOMED: 24180097 (7) COPD (chronic obstructive pulmonary disease) ICD Codes: J44.9 - Chronic obstructive pulmonary disease, unspecified SNOMED: 33285237 (8) Bipolar disorder ICD Codes: F31.9 - Bipolar disorder, unspecified SNOMED: 93235464 (9) Hx of laparoscopic gastric banding ICD Codes: Z98.84 - Bariatric surgery status SNOMED: 463521810 (10) Homelessness ICD Codes: Z59.0 - Homelessness SNOMED: 28982321 (11) Hepatitis C ICD Codes: B19.20 - Unspecified viral hepatitis C without hepatic coma SNOMED: 78734846 Assessment/Plan Negative troponin levels Ultrasound reviewed negative for gallstones or dilated ducts Medical management for GERD anemia work up OB stool r/o GI bleed>>.negative monitor H&H, prn transfusions bowel regime ppi fu labs, hepatitis panel>>positive for hep C trend LFTs Outpatient surgical consult for lap band removal out patient fu for hep c management and treatment Subjective ROS Limited/Unobtainable: Yes Allergies: Coded Allergies: NO KNOWN ALLERGIES (Verified Allergy, Unknown, 09/17/18) Subjective multiple complains Objective Last 24 Hour Vital Signs Date Time Temp Pulse Resp B/P (MAP) Pulse Ox O2 Delivery O2 Flow Rate FiO2 09/21/18 09:00 Room Air 09/21/18 08:00 98.8 110 19 134/81 (98) 99 09/21/18 07:28 81 20 Room Air 21 09/21/18 06:10 21 09/21/18 06:09 94 18 100 Room Air 21 09/21/18 05:55 93 18 98 Room Air 21 12/25/18 05:34 118/68 09/21/18 05:31 99 18 118/68 (85) 99 09/21/18 05:26 104 18 145/82 (103) 96 09/21/18 05:26 145/82 09/21/18 04:00 98.5 79 19 138/63 (88) 98 09/21/18 03:18 93 18 99 Room Air 21 09/21/18 03:18 21 09/21/18 03:09 91 20 98 Room Air 21 09/21/18 00:00 98.0 97 20 140/73 (95) 100 09/20/18 23:30 21 09/20/18 23:30 89 18 100 Room Air 21 09/20/18 23:19 85 20 97 Room Air 21 09/20/18 21:00 Room Air 09/20/18 20:00 96.3 101 20 156/101 (119) 96 09/20/18 19:50 21 09/20/18 19:50 84 18 99 Room Air 21 09/20/18 19:39 82 20 Room Air 21 09/20/18 19:39 82 20 96 Room Air 21 09/20/18 16:00 98.4 84 20 105/73 (84) 95 09/20/18 15:47 98.6 09/20/18 15:05 Room Air 09/20/18 15:05 Room Air 21 09/20/18 15:05 21 09/20/18 12:00 98.6 112 20 154/94 (114) 95 09/20/18 10:52 87 18 98 Room Air 21 09/20/18 10:42 21 09/20/18 10:42 86 20 97 Room Air 21 Intake and Output 09/20/18 09/21/18 19:00 07:00 Intake Total 1200 ml 480 ml Balance 1200 ml 480 ml Intake Oral 1200 ml 480 ml # Voids 3 3 Laboratory Tests 09/21/18 04:55: White Blood Count 11.3H, Red Blood Count 3.54L, Hemoglobin 9.9L, Hematocrit 31.3L, Mean Corpuscular Volume 88, Mean Corpuscular Hemoglobin 28.1, Mean Corpuscular Hemoglobin Concent 31.7L, Red Cell Distribution Width 16.8H, Platelet Count 169, Mean Platelet Volume 7.5, Neutrophils (%) (Auto) 72.9, Lymphocytes (%) (Auto) 18.3L, Monocytes (%) (Auto) 8.4, Eosinophils (%) (Auto) 0.1, Basophils (%) (Auto) 0.3, Sodium Level 139, Potassium Level 4.3, Chloride Level 105, Carbon Dioxide Level 24, Anion Gap 10, Blood Urea Nitrogen 52H, Creatinine 2.2H, Estimat Glomerular Filtration Rate 28.8, Glucose Level 312H, Calcium Level 8.7 Height (Feet): 5 Height (Inches): 4.00 Weight (Pounds): 240 General Appearance: alert EENT: normal ENT inspection Neck: supple Cardiovascular: normal rate Respiratory/Chest: decreased breath sounds Abdomen: normal bowel sounds, non tender, soft Extremities: non-tender Melo Winters MD Sep 21, 2018 10:39
--- NOTE | 2018-09-21 13:37 | Nephrology Progress Note ---
Assessment/Plan Problem List: (1) Diabetic nephropathy (2) Obesity (3) COPD (chronic obstructive pulmonary disease) (4) Bipolar disorder (5) Anemia Assessment Renal failure- Likely Diabetic Nephropathy- COPD (chronic obstructive pulmonary disease) Hx of laparoscopic gastric banding DM Anemia ? chronic disease Plan taper steroids as possible- add allopurinol- add starlix add coreg change Doxy if possible UA 3 + proteinuria Keep BP and BS in check Urine studies Avoid Nephrotoxics Anemia rios Albumin bolus Subjective ROS Limited/Unobtainable: No Constitutional: Reports: malaise Objective Objective Last 24 Hour Vital Signs Date Time Temp Pulse Resp B/P (MAP) Pulse Ox O2 Delivery O2 Flow Rate FiO2 09/21/18 12:00 97.7 102 19 147/95 (112) 98 09/21/18 11:17 85 16 100 Room Air 21 09/21/18 11:10 78 18 97 Room Air 21 09/21/18 11:10 36 09/21/18 09:00 Room Air 09/21/18 08:00 98.8 110 19 134/81 (98) 99 09/21/18 07:28 81 20 Room Air 21 09/21/18 06:10 21 09/21/18 06:09 94 18 100 Room Air 21 09/21/18 05:55 93 18 98 Room Air 21 09/21/18 05:34 118/68 09/21/18 05:31 99 18 118/68 (85) 99 09/21/18 05:26 104 18 145/82 (103) 96 09/21/18 05:26 145/82 09/21/18 04:00 98.5 79 19 138/63 (88) 98 09/21/18 03:18 93 18 99 Room Air 21 09/21/18 03:18 21 09/21/18 03:09 91 20 98 Room Air 21 09/21/18 00:00 98.0 97 20 140/73 (95) 100 09/20/18 23:30 21 09/20/18 23:30 89 18 100 Room Air 21 09/20/18 23:19 85 20 97 Room Air 21 09/20/18 21:00 Room Air 09/20/18 20:00 96.3 101 20 156/101 (119) 96 09/20/18 19:50 21 09/20/18 19:50 84 18 99 Room Air 21 09/20/18 19:39 82 20 Room Air 21 09/20/18 19:39 82 20 96 Room Air 21 09/20/18 16:00 98.4 84 20 105/73 (84) 95 09/20/18 15:47 98.6 09/20/18 15:05 Room Air 09/20/18 15:05 Room Air 21 09/20/18 15:05 21 Intake and Output 09/20/18 09/21/18 19:00 07:00 Intake Total 1200 ml 480 ml Balance 1200 ml 480 ml Intake Oral 1200 ml 480 ml # Voids 3 3 Laboratory Tests 09/21/18 04:55: White Blood Count 11.3H, Red Blood Count 3.54L, Hemoglobin 9.9L, Hematocrit 31.3L, Mean Corpuscular Volume 88, Mean Corpuscular Hemoglobin 28.1, Mean Corpuscular Hemoglobin Concent 31.7L, Red Cell Distribution Width 16.8H, Platelet Count 169, Mean Platelet Volume 7.5, Neutrophils (%) (Auto) 72.9, Lymphocytes (%) (Auto) 18.3L, Monocytes (%) (Auto) 8.4, Eosinophils (%) (Auto) 0.1, Basophils (%) (Auto) 0.3, Sodium Level 139, Potassium Level 4.3, Chloride Level 105, Carbon Dioxide Level 24, Anion Gap 10, Blood Urea Nitrogen 52H, Creatinine 2.2H, Estimat Glomerular Filtration Rate 28.8, Glucose Level 312H, Calcium Level 8.7 Height (Feet): 5 Height (Inches): 4.00 Weight (Pounds): 240 General Appearance: no apparent distress Cardiovascular: tachycardia Respiratory/Chest: decreased breath sounds Abdomen: soft Objective no change Michael Cruz MD Sep 21, 2018 13:37
--- NOTE | 2018-09-21 15:33 | General Progress Note ---
Assessment/Plan Assessment/Plan (1) HTN (hypertension) ICD Codes: I10 - Essential (primary) hypertension SNOMED: 12671102 (2) Chest pain ICD Codes: R07.9 - Chest pain, unspecified SNOMED: 17707410 (3) ACS (acute coronary syndrome) ICD Codes: I24.9 - Acute ischemic heart disease, unspecified SNOMED: 753496224 (4) Diabetes mellitus ICD Codes: E11.9 - Type 2 diabetes mellitus without complications SNOMED: 84288940 (5) Bipolar disorder ICD Codes: F31.9 - Bipolar disorder, unspecified SNOMED: 74717682 Status: stable, progressing Subjective Constitutional: Denies: no symptoms, chills, diaphoresis, fever, malaise, weakness, other HEENT: Denies: no symptoms, eye pain, blurred vision, tearing, double vision, ear pain, ear discharge, nose pain, nose congestion, throat pain, throat swelling, mouth pain, mouth swelling, other Cardiovascular: Denies: no symptoms, chest pain, edema, irregular heart rate, lightheadedness, palpitations, syncope, other Respiratory: Denies: no symptoms, cough, orthopnea, shortness of breath, SOB with excertion, SOB at rest, sputum, stridor, wheezing, other Gastrointestinal/Abdominal: Denies: no symptoms, abdomen distended, abdominal pain, black stools, tarry stools, blood in stool, constipated, diarrhea, difficulty swallowing, nausea, poor appetite, poor fluid intake, rectal bleeding , vomiting, other Genitourinary: Denies: no symptoms, burning, discharge, frequency, flank pain, hematuria, incontinence, pain, urgency, other Neurologic/Psychiatric: Denies: no symptoms, anxiety, depressed, emotional problems, headache, numbness, paresthesia, pre-existing deficit, seizure, tingling, tremors, weakness, other Endocrine: Denies: no symptoms, excessive sweating, flushing, intolerance to cold, intolerance to heat, increased hunger, increased thirst, increased urine, unexplained weight gain, unexplained weight loss, other Hematologic/Lymphatic: Denies: no symptoms, anemia, easy bleeding, easy bruising, other Allergies: Coded Allergies: NO KNOWN ALLERGIES (Verified Allergy, Unknown, 09/17/18) Subjective 09/21: calm in room, eating breakfast, labs reviewed, seen by consultants, dc planning Objective Last 24 Hour Vital Signs Date Time Temp Pulse Resp B/P (MAP) Pulse Ox O2 Delivery O2 Flow Rate FiO2 09/21/18 13:53 102 147/95 09/21/18 12:00 97.7 102 19 147/95 (112) 98 09/21/18 11:17 85 16 100 Room Air 21 09/21/18 11:10 78 18 97 Room Air 21 09/21/18 11:10 36 09/21/18 09:00 Room Air 09/21/18 08:00 98.8 110 19 134/81 (98) 99 09/21/18 07:28 81 20 Room Air 21 09/21/18 06:10 21 09/21/18 06:09 94 18 100 Room Air 21 09/21/18 05:55 93 18 98 Room Air 21 09/21/18 05:34 118/68 09/21/18 05:31 99 18 118/68 (85) 99 09/21/18 05:26 104 18 145/82 (103) 96 09/21/18 05:26 145/82 09/21/18 04:00 98.5 79 19 138/63 (88) 98 09/21/18 03:18 93 18 99 Room Air 21 09/21/18 03:18 21 09/21/18 03:09 91 20 98 Room Air 21 09/21/18 00:00 98.0 97 20 140/73 (95) 100 09/20/18 23:30 21 09/20/18 23:30 89 18 100 Room Air 21 09/20/18 23:19 85 20 97 Room Air 21 09/20/18 21:00 Room Air 09/20/18 20:00 96.3 101 20 156/101 (119) 96 09/20/18 19:50 21 09/20/18 19:50 84 18 99 Room Air 21 09/20/18 19:39 82 20 Room Air 21 09/20/18 19:39 82 20 96 Room Air 21 09/20/18 16:00 98.4 84 20 105/73 (84) 95 09/20/18 15:47 98.6 Intake and Output 09/20/18 09/21/18 18:59 06:59 Intake Total 1200 ml 480 ml Balance 1200 ml 480 ml Intake Oral 1200 ml 480 ml # Voids 3 3 Laboratory Tests 09/21/18 04:55: White Blood Count 11.3H, Red Blood Count 3.54L, Hemoglobin 9.9L, Hematocrit 31.3L, Mean Corpuscular Volume 88, Mean Corpuscular Hemoglobin 28.1, Mean Corpuscular Hemoglobin Concent 31.7L, Red Cell Distribution Width 16.8H, Platelet Count 169, Mean Platelet Volume 7.5, Neutrophils (%) (Auto) 72.9, Lymphocytes (%) (Auto) 18.3L, Monocytes (%) (Auto) 8.4, Eosinophils (%) (Auto) 0.1, Basophils (%) (Auto) 0.3, Sodium Level 139, Potassium Level 4.3, Chloride Level 105, Carbon Dioxide Level 24, Anion Gap 10, Blood Urea Nitrogen 52H, Creatinine 2.2H, Estimat Glomerular Filtration Rate 28.8, Glucose Level 312H, Calcium Level 8.7 09/21/18 05:00: C-Reactive Protein, Quantitative < 0.4 Height (Feet): 5 Height (Inches): 4.00 Weight (Pounds): 240 EENT: pharynx normal Neck: normal alignment Cardiovascular: regular rhythm Respiratory/Chest: normal breath sounds Abdomen: no mass Pelvis: no masses Edema: mild edema Neurologic: alert Skin: warm/dry Keanu Anton MD Sep 21, 2018 15:33
--- NOTE | 2018-09-21 15:36 | Pulmonology Progress Note ---
Assessment/Plan Assessment/Plan Pulmonary Progress Note Chief Complaint: Chest Pain HPI Patient is a 48-year-old female presented after increased chest discomfort. Patient had gradual onset of symptoms. Patient reports having increased Patient reports having increased cough as well as a subjective fever. She denies any vomiting. She reports having some increased leg swelling. She denies taking diuretics.Pain was sharp in nature she reports having some increased nonproductive cough. She reports prior history of chronic kidney disease. History is limited by patient's poor historian, Improved shortness of breath Allergies: Coded Allergies: NO KNOWN ALLERGIES (Verified Allergy, Unknown, 09/17/18) Past Medical History: DM, HTN, CKD, COPD, previous laparoscopic gastric banding Reviewed Nursing Documentation: PMH: Agreed; PSxH: Agreed Hx Cardiac Problems: Yes - anemia Hx Hypertension: Yes Hx COPD: Yes Hx Diabetes: Yes Hx Cancer: Yes Hx Gastrointestinal Problems: Yes Hx Dialysis: No - chronic kidney disease History Of Psychiatric Problem: Yes Hx Neurological Problems: No Review of Systems All Other Systems: negative except mentioned in HPI Physical Exam Vital Signs Noted Sp02 EP Interpretation: reviewed, normal General Appearance: normal inspection, well appearing, no apparent distress, alert, GCS 15, obese Head: atraumatic ENT: normal ENT inspection, hearing grossly normal, normal voice Neck: normal inspection, full range of motion, supple, no bony tend Respiratory: normal inspection, no respiratory distress, no retraction, wheezing Cardiovascular #1: regular rate, rhythm, no edema Gastrointestinal: normal inspection, normal bowel sounds, non tender, soft, no guarding, no hernia Genitourinary: no CVA tenderness Musculoskeletal: normal inspection, back normal, normal range of motion Neurologic: normal inspection, alert, responsive, speech normal Psychiatric: normal inspection, judgement/insight normal, mood/affect normal Skin: normal inspection, normal color, no rash Impression: Primary Impression: Chest Pain COPD (chronic obstructive pulmonary disease) Hx of laparoscopic gastric banding Diabetes mellitus Plan Serial labs [facility] [employer] medications 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 Dr. Malick Marie was contacted for inpatient management for further evaluation of chest pain. Labs Test 09/16/18 15:05 09/17/18 05:05 D-Dimer 0.19 mg/L FEU (0.00-0.49) Sodium Level 142 MMOL/L (136-145) Potassium Level 4.1 MMOL/L (3.5-5.1) Chloride Level 105 MMOL/L (98-107) Carbon Dioxide Level 24 MMOL/L (21-32) Anion Gap 13 mmol/L (5-15) Blood Urea Nitrogen 28 mg/dL (7-18) Creatinine 1.8 MG/DL (0.55-1.30) Estimat Glomerular Filtration Rate 36.5 mL/min (>60) Glucose Level 140 MG/DL (74-106) Calcium Level 9.1 MG/DL (8.5-10.1) Total Bilirubin 0.4 MG/DL (0.2-1.0) Aspartate Amino Transf (AST/SGOT) 127 U/L (15-37) Alanine Aminotransferase (ALT/SGPT) 197 U/L (12-78) Alkaline Phosphatase 137 U/L (46-116) Total Creatine Kinase 92 U/L (26-308) Creatine Kinase MB < 0.5 NG/ML (0.0-3.6) Creatine Kinase MB Relative Index 0.5 Pro-B-Type Natriuretic Peptide 102 pg/mL (0-125) Total Protein 8.2 G/DL (6.4-8.2) Albumin 3.4 G/DL (3.4-5.0) Globulin 4.8 g/dL Albumin/Globulin Ratio 0.7 (1.0-2.7) Lipase 380 U/L (73-393) Urine Opiates Screen Negative (NEGATIVE) Urine Barbiturates Screen Negative (NEGATIVE) Valproic Acid (Depakene) Level 33 MCG/ML (50-100) Phencyclidine (PCP) Screen Negative (NEGATIVE) Urine Amphetamines Screen Negative (NEGATIVE) Urine Benzodiazepines Screen Negative (NEGATIVE) Urine Cocaine Screen Negative (NEGATIVE) Urine Marijuana (THC) Screen Negative (NEGATIVE) White Blood Count 6.9 K/UL (4.8-10.8) Red Blood Count 4.26 M/UL (4.20-5.40) Hemoglobin 11.6 G/DL (12.0-16.0) Hematocrit 36.4 % (37.0-47.0) Mean Corpuscular Volume 85 FL (80-99) Mean Corpuscular Hemoglobin 27.3 PG (27.0-31.0) Mean Corpuscular Hemoglobin Concent 32.0 G/DL (32.0-36.0) Red Cell Distribution Width 15.4 % (11.6-14.8) Platelet Count 191 K/UL (150-450) Mean Platelet Volume 8.0 FL (6.5-10.1) Neutrophils (%) (Auto) 44.9 % (45.0-75.0) Lymphocytes (%) (Auto) 42.9 % (20.0-45.0) Monocytes (%) (Auto) 8.5 % (1.0-10.0) Eosinophils (%) (Auto) 2.5 % (0.0-3.0) Basophils (%) (Auto) 1.2 % (0.0-2.0) Prothrombin Time 9.9 SEC (9.30-11.50) Prothromb Time International Ratio 0.9 (0.9-1.1) Activated Partial Thromboplast Time 25 SEC (23-33) Troponin I 0.000 ng/mL (0.000-0.056) C-Reactive Protein, Quantitative 0.6 mg/dL (0.00-0.90) Triglycerides Level 128 MG/DL (30-150) Cholesterol Level 128 MG/DL (< 200) LDL Cholesterol 62 mg/dL (<100) HDL Cholesterol 55 MG/DL (40-60) Cholesterol/HDL Ratio 2.3 (3.3-4.4) Thyroid Stimulating Hormone (TSH) 1.414 uiU/mL (0.358-3.740) EKG Diagnostic Results Rate: normal - 92 Rhythm: NSR ST Segments: no acute changes Subjective ROS Limited/Unobtainable: No Allergies: Coded Allergies: NO KNOWN ALLERGIES (Verified Allergy, Unknown, 09/17/18) Objective Last 24 Hour Vital Signs Date Time Temp Pulse Resp B/P (MAP) Pulse Ox O2 Delivery O2 Flow Rate FiO2 09/21/18 13:53 102 147/95 09/21/18 12:00 97.7 102 19 147/95 (112) 98 09/21/18 11:17 85 16 100 Room Air 21 09/21/18 11:10 78 18 97 Room Air 21 09/21/18 11:10 36 09/21/18 09:00 Room Air 09/21/18 08:00 98.8 110 19 134/81 (98) 99 09/21/18 07:28 81 20 Room Air 21 09/21/18 06:10 21 09/21/18 06:09 94 18 100 Room Air 21 09/21/18 05:55 93 18 98 Room Air 21 09/21/18 05:34 118/68 09/21/18 05:31 99 18 118/68 (85) 99 09/21/18 05:26 104 18 145/82 (103) 96 09/21/18 05:26 145/82 09/21/18 04:00 98.5 79 19 138/63 (88) 98 09/21/18 03:18 93 18 99 Room Air 21 09/21/18 03:18 21 09/21/18 03:09 91 20 98 Room Air 21 09/21/18 00:00 98.0 97 20 140/73 (95) 100 09/20/18 23:30 21 09/20/18 23:30 89 18 100 Room Air 21 09/20/18 23:19 85 20 97 Room Air 21 09/20/18 21:00 Room Air 09/20/18 20:00 96.3 101 20 156/101 (119) 96 09/20/18 19:50 21 09/20/18 19:50 84 18 99 Room Air 21 09/20/18 19:39 82 20 Room Air 21 09/20/18 19:39 82 20 96 Room Air 21 09/20/18 16:00 98.4 84 20 105/73 (84) 95 09/20/18 15:47 98.6 Intake and Output 09/20/18 09/21/18 18:59 06:59 Intake Total 1200 ml 480 ml Balance 1200 ml 480 ml Intake Oral 1200 ml 480 ml # Voids 3 3 Laboratory Tests 09/21/18 04:55: White Blood Count 11.3H, Red Blood Count 3.54L, Hemoglobin 9.9L, Hematocrit 31.3L, Mean Corpuscular Volume 88, Mean Corpuscular Hemoglobin 28.1, Mean Corpuscular Hemoglobin Concent 31.7L, Red Cell Distribution Width 16.8H, Platelet Count 169, Mean Platelet Volume 7.5, Neutrophils (%) (Auto) 72.9, Lymphocytes (%) (Auto) 18.3L, Monocytes (%) (Auto) 8.4, Eosinophils (%) (Auto) 0.1, Basophils (%) (Auto) 0.3, Sodium Level 139, Potassium Level 4.3, Chloride Level 105, Carbon Dioxide Level 24, Anion Gap 10, Blood Urea Nitrogen 52H, Creatinine 2.2H, Estimat Glomerular Filtration Rate 28.8, Glucose Level 312H, Calcium Level 8.7 09/21/18 05:00: C-Reactive Protein, Quantitative < 0.4 Current Medications Medications (Trade) Dose Ordered Sig/Luciano Route PRN Reason Start Time Stop Time Status Last Admin Dose Admin Acetaminophen (Tylenol) 650 mg Q4H PRN ORAL FEVER 09/19/18 14:15 10/16/18 22:14 09/20/18 06:37 Albuterol Sulfate (Proventil) 2.5 mg Q4HRT HHN 09/19/18 15:00 09/23/18 18:59 09/21/18 11:18 Albuterol/ Ipratropium (Albuterol/ Ipratropium) 3 ml Q4H PRN HHN Shortness of Breath 09/19/18 14:15 09/21/18 22:14 Allopurinol (Allopurinol) 300 mg DAILY ORAL 09/20/18 09:00 10/20/18 08:59 09/21/18 09:25 Aspirin (ASA) 81 mg DAILY ORAL 09/20/18 09:00 10/17/18 08:59 09/21/18 09:25 Buspirone HCl (Buspar) 5 mg THREE TIMES A DAY ORAL 09/19/18 18:00 10/17/18 08:59 09/21/18 13:32 Clonazepam (KlonoPIN) 1 mg BID ORAL 09/19/18 18:00 09/24/18 08:59 09/21/18 09:25 Clonidine HCl (Catapres Tab) 0.1 mg Q6H PRN ORAL for BP 160 syst and higher 09/19/18 18:45 10/18/18 12:44 Dextrose (Dextrose 50%) 25 ml Q30M PRN IV Hypoglycemia 09/19/18 14:15 10/16/18 22:14 Divalproex Sodium (Depakote ER) 500 mg TID ORAL 09/21/18 18:00 10/18/18 20:59 UNV Docusate Sodium (Colace) 100 mg TID ORAL 09/19/18 18:00 10/18/18 17:59 09/21/18 13:32 Doxycycline Monohydrate (Vibramycin) 100 mg Q12HR ORAL 09/19/18 21:00 09/25/18 17:59 09/21/18 09:25 Gabapentin (Neurontin) 300 mg EVERY 12 HOURS ORAL 09/20/18 21:00 10/19/18 17:59 09/21/18 09:25 Heparin Sodium (Porcine) (Heparin 5000 units/ml) 5,000 units EVERY 8 HOURS SUBQ 09/19/18 14:00 10/16/18 22:29 09/21/18 13:34 Hydrocortisone (Solu-CORTEF) 20 mg DAILY IV 09/22/18 09:00 10/20/18 20:59 Insulin Aspart (NovoLOG) BEFORE MEALS AND HS SUBQ 09/19/18 16:30 10/17/18 06:29 09/21/18 12:18 Lorazepam (Ativan 2mg/ml 1ml) 1 mg Q6H PRN IV For Anxiety 09/19/18 14:15 09/24/18 20:14 09/21/18 02:53 Morphine Sulfate (Morphine Sulfate) 2 mg Q4H PRN IVP severe Pain (Pain Scale 7-10) 09/19/18 14:15 09/23/18 22:14 09/21/18 15:12 Nateglinide (Starlix) 60 mg TIAC ORAL 09/21/18 16:30 10/21/18 16:29 Nitroglycerin (Ntg) 0.4 mg Q5M PRN SL Prn Chest Pain 09/19/18 14:00 10/16/18 22:14 09/21/18 05:34 Ondansetron HCl (Zofran) 4 mg Q6H PRN IVP Nausea & Vomiting 09/19/18 16:15 10/16/18 22:14 Pantoprazole (Protonix) 40 mg DAILY ORAL 09/20/18 09:00 10/17/18 08:59 09/21/18 09:23 Polyethylene Glycol (Miralax) 17 gm BEDTIME ORAL 09/19/18 21:00 10/18/18 20:59 09/19/18 20:26 Polyethylene Glycol (Miralax) 17 gm DAILYPRN PRN ORAL Constipation 09/19/18 22:15 10/16/18 22:14 Quetiapine Fumarate (SEROquel) 300 mg BEDTIME ORAL 09/21/18 21:00 10/21/18 20:59 Risperidone (RisperDAL) 1 mg BID ORAL 09/19/18 18:00 10/18/18 17:59 09/21/18 09:25 Temazepam (Restoril) 15 mg HSPRN PRN ORAL Insomnia 09/19/18 22:15 09/23/18 22:14 Trazodone HCl (Desyrel) 100 mg BEDTIME ORAL 09/19/18 21:00 10/17/18 20:59 09/19/18 20:26 Pelon Sabillon MD Sep 21, 2018 15:36
[2018-09-21] MEDS: Nateglinide 60mg tab ORAL SCH (17:08)
[2018-09-21] MEDS: TraZODone 100mg tab ORAL SCH (21:07)
[2018-09-21] MEDS: Miralax 17gm pkt ORAL SCH (21:16)
--- NOTE | 2018-09-21 22:30 | Cardiology Progress Note ---
Assessment/Plan Status: doing well, stable Assessment/Plan ASSESSMENT AND PLAN: 1. Chest pain. The patient was ruled out for myocardial infarction. EKG is nonischemic. We will schedule the patient for echocardiogram and nuclear stress test for further evaluation.--- ECHOCARDIOGRAM Normal LV function Outpatient stress test 2. Hypertension. Amlodipine 10 mg daily. The patient is on p.r.n. clonidine. 3. History of diabetes. 4. History of psychosis. 5. Questionable blood in the stool. Evaluation by GI. 6. Tachycardia d dimer negative 7. Dispo planning Subjective Cardiovascular: Reports: no symptoms Respiratory: Reports: no symptoms Gastrointestinal/Abdominal: Reports: no symptoms Genitourinary: Reports: no symptoms Subjective [employer] no acute events, LVEF normal. NO complaints, vitals stable EKG shows sinus tachycardia, d dimer negative. Objective Last 24 Hour Vital Signs Date Time Temp Pulse Resp B/P (MAP) Pulse Ox O2 Delivery O2 Flow Rate FiO2 09/21/18 21:00 Room Air 09/21/18 20:00 98.6 91 21 119/85 (96) 99 09/21/18 19:56 95 20 99 Room Air 21 09/21/18 19:46 85 20 95 Room Air 21 09/21/18 19:43 85 20 Room Air 21 09/21/18 16:00 97.9 99 19 135/89 (104) 98 09/21/18 15:29 88 18 100 Room Air 21 09/21/18 15:24 36 09/21/18 15:24 83 18 97 Room Air 21 09/21/18 13:53 102 147/95 09/21/18 12:00 97.7 102 19 147/95 (112) 98 09/21/18 11:17 85 16 100 Room Air 21 09/21/18 11:10 78 18 97 Room Air 21 09/21/18 11:10 36 09/21/18 09:00 Room Air 09/21/18 08:00 98.8 110 19 134/81 (98) 99 09/21/18 07:28 81 20 Room Air 21 09/21/18 06:10 21 09/21/18 06:09 94 18 100 Room Air 21 09/21/18 05:55 93 18 98 Room Air 21 09/21/18 05:34 118/68 09/21/18 05:31 99 18 118/68 (85) 99 09/21/18 05:26 104 18 145/82 (103) 96 09/21/18 05:26 145/82 09/21/18 04:00 98.5 79 19 138/63 (88) 98 09/21/18 03:18 93 18 99 Room Air 21 09/21/18 03:18 21 09/21/18 03:09 91 20 98 Room Air 21 09/21/18 00:00 98.0 97 20 140/73 (95) 100 09/20/18 23:30 21 09/20/18 23:30 89 18 100 Room Air 21 09/20/18 23:19 85 20 97 Room Air 21 General Appearance: no apparent distress, alert EENT: PERRL/EOMI, normal ENT inspection, TMs normal Neck: non-tender, normal alignment, supple, normal inspection, no JVD Rhythm: NSR Cardiovascular: normal peripheral pulses, normal rate, regular rhythm Respiratory/Chest: chest wall non-tender, lungs clear, normal breath sounds Abdomen: normal bowel sounds, non tender, soft, no organomegaly, no mass Extremities: normal range of motion, non-tender, normal inspection, no calf tenderness Neurologic: side guider II-XII grossly normal, no motor/sensory deficits Intake and Output 09/20/18 09/21/18 19:00 07:00 Intake Total 1200 ml 480 ml Balance 1200 ml 480 ml Intake Oral 1200 ml 480 ml # Voids 3 3 Laboratory Tests Test 09/21/18 04:55 09/21/18 05:00 White Blood Count 11.3 K/UL (4.8-10.8) H Red Blood Count 3.54 M/UL (4.20-5.40) L Hemoglobin 9.9 G/DL (12.0-16.0) L Hematocrit 31.3 % (37.0-47.0) L Mean Corpuscular Volume 88 FL (80-99) Mean Corpuscular Hemoglobin 28.1 PG (27.0-31.0) Mean Corpuscular Hemoglobin Concent 31.7 G/DL (32.0-36.0) L Red Cell Distribution Width 16.8 % (11.6-14.8) H Platelet Count 169 K/UL (150-450) Mean Platelet Volume 7.5 FL (6.5-10.1) Neutrophils (%) (Auto) 72.9 % (45.0-75.0) Lymphocytes (%) (Auto) 18.3 % (20.0-45.0) L Monocytes (%) (Auto) 8.4 % (1.0-10.0) Eosinophils (%) (Auto) 0.1 % (0.0-3.0) Basophils (%) (Auto) 0.3 % (0.0-2.0) Sodium Level 139 MMOL/L (136-145) Potassium Level 4.3 MMOL/L (3.5-5.1) Chloride Level 105 MMOL/L (98-107) Carbon Dioxide Level 24 MMOL/L (21-32) Anion Gap 10 mmol/L (5-15) Blood Urea Nitrogen 52 mg/dL (7-18) H Creatinine 2.2 MG/DL (0.55-1.30) H Estimat Glomerular Filtration Rate 28.8 mL/min (>60) Glucose Level 312 MG/DL (74-106) H Calcium Level 8.7 MG/DL (8.5-10.1) C-Reactive Protein, Quantitative < 0.4 mg/dL (0.00-0.90) Pelon Smalls MD Sep 21, 2018 22:30
[2018-09-22] VITALS: BP 142/94
[2018-09-22] MEDS: Albuterol ud Inhalation HHN SCH ×5 (03:30→19:24)
[2018-09-22 04:00] VITALS: BP 136/91
[2018-09-22] MEDS: Nateglinide 60mg tab ORAL SCH (06:35)
[2018-09-22] MEDS: Depakote ER 500mg tab ORAL SCH ×2 (06:36→13:43)
[2018-09-22] MEDS: Heparin 5000 units/ml inj SUBQ SCH ×2 (06:37→13:45)
[2018-09-22 06:39] LABS: BASOPHILS % (AUTO) 1.1 % (0.0-2.0); EOSINOPHILS % (AUTO) 0.8 % (0.0-3.0); HEMATOCRIT 33.7 % (37.0-47.0); HEMOGLOBIN 10.8 G/DL (12.0-16.0); LYMPHOCYTES % (AUTO) 36.9 % (20.0-45.0); MEAN CORPUSCULAR VOLUME 89 FL (80-99); MONOCYTES % (AUTO) 12.2 % (1.0-10.0); PLATELET COUNT 178 K/UL (150-450); RED BLOOD COUNT 3.79 M/UL (4.20-5.40); RED CELL DISTRIBUTION WIDTH 16.7 % (11.6-14.8); WHITE BLOOD COUNT 7.7 K/UL (4.8-10.8)
[2018-09-22] MEDS: NovoLOG Insulin Flexpen SUBQ SCH ×3 (06:46→17:15)
[2018-09-22 07:12] LABS: ALANINE AMINOTRANSFERASE 161 U/L (12-78); ALBUMIN 3.1 G/DL (3.4-5.0); ALBUMIN/GLOBULIN RATIO 0.9 (1.0-2.7); ALKALINE PHOSPHATASE 109 U/L (46-116); ANION GAP 9 mmol/L (5-15); ASPARTATE AMINO TRANSFERASE 82 U/L (15-37); BILIRUBIN,TOTAL 0.3 MG/DL (0.2-1.0); BLOOD UREA NITROGEN 50 mg/dL (7-18); CALCIUM 8.5 MG/DL (8.5-10.1); CARBON DIOXIDE 26 MMOL/L (21-32); CHLORIDE 110 MMOL/L (98-107); CREATININE 2.5 MG/DL (0.55-1.30); SODIUM 145 MMOL/L (136-145)
[2018-09-22 07:22] LABS: PHOSPHORUS 3.1 MG/DL (2.5-4.9)
[2018-09-22 08:00] VITALS: BP 152/110
[2018-09-22] MEDS ORDERED: Hydrocortisone 100mg Inj IV SCH (09:00)
[2018-09-22] MEDS ORDERED: BuPROPion XL 150mg tab ORAL SCH (09:30)
[2018-09-22] MEDS: Aspirin Baby 81mg ORAL SCH (09:38)
[2018-09-22] MEDS: BusPIRone 10mg Tab ORAL SCH ×3 (09:38→17:16)
[2018-09-22] MEDS: Docusate 100mg cap ORAL SCH ×3 (09:38→17:16)
[2018-09-22] MEDS: Morphine Sulfate 2mg/ml Inj IVP PRN ×2 (10:24→17:00)
--- NOTE | 2018-09-22 11:04 | GI Progress Note ---
Assessment/Plan Problems: (1) Hepatitis C ICD Codes: B19.20 - Unspecified viral hepatitis C without hepatic coma SNOMED: 87844647 (2) COPD (chronic obstructive pulmonary disease) ICD Codes: J44.9 - Chronic obstructive pulmonary disease, unspecified SNOMED: 35418401 (3) Obesity ICD Codes: E66.9 - Obesity, unspecified SNOMED: 244901382, 537216611 (4) GERD (gastroesophageal reflux disease) ICD Codes: K21.9 - Gastro-esophageal reflux disease without esophagitis SNOMED: 269409138 (5) Abdominal pain ICD Codes: R10.9 - Unspecified abdominal pain SNOMED: 14227705 (6) Anemia ICD Codes: D64.9 - Anemia, unspecified SNOMED: 690119736 (7) Bipolar disorder ICD Codes: F31.9 - Bipolar disorder, unspecified SNOMED: 34070221 Status: stable Status Narrative Discussed with Dr. Winters Assessment/Plan Negative troponin levels Ultrasound reviewed negative for gallstones or dilated ducts okay for DC per GI standpoint Medical management for GERD OB stool r/o GI bleed>>.negative monitor H&H, prn transfusions bowel regime ppi fu labs, hepatitis panel>>positive for hep C trend LFTs Outpatient surgical consult for lap band removal out patient fu for hep c management and treatment The patient was seen and examined at bedside and all new and available data was reviewed in the patients chart. I agree with the above findings, impression and plan. (Patient seen earlier today. Signature stamp does not reflect patient encounter time.). - Melo Winters MD Subjective Subjective Denies any abdominal pain, nausea vomiting or diarrhea States that she wants to go home Objective Last 24 Hour Vital Signs Date Time Temp Pulse Resp B/P (MAP) Pulse Ox O2 Delivery O2 Flow Rate FiO2 09/22/18 09:00 Room Air 09/22/18 08:00 98.3 107 18 152/110 (124) 98 09/22/18 07:43 101 18 100 Room Air 21 09/22/18 07:33 101 18 97 Room Air 21 09/22/18 04:00 98.3 90 19 136/91 (106) 98 09/22/18 03:35 91 20 98 Room Air 21 09/22/18 03:27 92 20 96 Room Air 21 09/22/18 00:00 97.4 96 21 142/94 (110) 98 09/21/18 23:59 93 20 99 Room Air 21 09/21/18 23:52 96 20 96 Room Air 21 09/21/18 21:00 Room Air 09/21/18 20:00 98.6 91 21 119/85 (96) 99 09/21/18 19:56 95 20 99 Room Air 21 09/21/18 19:46 85 20 95 Room Air 21 09/21/18 19:43 85 20 Room Air 21 09/21/18 16:00 97.9 99 19 135/89 (104) 98 09/21/18 15:29 88 18 100 Room Air 21 09/21/18 15:24 36 09/21/18 15:24 83 18 97 Room Air 21 09/21/18 13:53 102 147/95 09/21/18 12:00 97.7 102 19 147/95 (112) 98 09/21/18 11:17 85 16 100 Room Air 09/21/18 11:10 78 18 97 Room Air 21 09/21/18 11:10 36 Intake and Output 09/21/18 09/22/18 19:00 07:00 Intake Total 2300 ml 480 ml Balance 2300 ml 480 ml Intake Oral 2300 ml 480 ml # Voids 4 5 Laboratory Tests Test 09/22/18 05:20 White Blood Count 7.7 K/UL (4.8-10.8) Red Blood Count 3.79 M/UL (4.20-5.40) L Hemoglobin 10.8 G/DL (12.0-16.0) L Hematocrit 33.7 % (37.0-47.0) L Mean Corpuscular Volume 89 FL (80-99) Mean Corpuscular Hemoglobin 28.6 PG (27.0-31.0) Mean Corpuscular Hemoglobin Concent 32.2 G/DL (32.0-36.0) Red Cell Distribution Width 16.7 % (11.6-14.8) H Platelet Count 178 K/UL (150-450) Mean Platelet Volume 7.3 FL (6.5-10.1) Neutrophils (%) (Auto) 49.0 % (45.0-75.0) Lymphocytes (%) (Auto) 36.9 % (20.0-45.0) Monocytes (%) (Auto) 12.2 % (1.0-10.0) H Eosinophils (%) (Auto) 0.8 % (0.0-3.0) Basophils (%) (Auto) 1.1 % (0.0-2.0) Sodium Level 145 MMOL/L (136-145) Potassium Level 5.0 MMOL/L (3.5-5.1) Chloride Level 110 MMOL/L (98-107) H Carbon Dioxide Level 26 MMOL/L (21-32) Anion Gap 9 mmol/L (5-15) Blood Urea Nitrogen 50 mg/dL (7-18) H Creatinine 2.5 MG/DL (0.55-1.30) H Estimat Glomerular Filtration Rate 25.0 mL/min (>60) Glucose Level 200 MG/DL (74-106) #H Uric Acid 6.6 MG/DL (2.6-7.2) Calcium Level 8.5 MG/DL (8.5-10.1) Phosphorus Level 3.1 MG/DL (2.5-4.9) Total Bilirubin 0.3 MG/DL (0.2-1.0) Aspartate Amino Transf (AST/SGOT) 82 U/L (15-37) H Alanine Aminotransferase (ALT/SGPT) 161 U/L (12-78) H Alkaline Phosphatase 109 U/L (46-116) Pro-B-Type Natriuretic Peptide 612 pg/mL (0-125) H Total Protein 6.6 G/DL (6.4-8.2) Albumin 3.1 G/DL (3.4-5.0) L Globulin 3.5 g/dL Albumin/Globulin Ratio 0.9 (1.0-2.7) L Height (Feet): 5 Height (Inches): 4.00 Weight (Pounds): 240 General Appearance: WD/WN, no apparent distress, alert, obese Cardiovascular: normal rate Respiratory/Chest: normal breath sounds, no respiratory distress Abdominal Exam: normal bowel sounds, non tender, soft Extremities: normal range of motion, non-tender Rachael Shukla NP Sep 22, 2018 11:04
--- NOTE | 2018-09-22 11:48 | Cardiac Electrophysiology PN ---
Assessment/Plan Assessment/Plan 1. Chest pain. The patient was ruled out for myocardial infarction. EKG is nonischemic. ECHOCARDIOGRAM Normal LV function Outpatient stress test 2. Hypertension. Amlodipine 10 mg daily. The patient is on p.r.n. clonidine. 3. History of diabetes. 4. History of psychosis. 5. Questionable blood in the stool. Evaluation by GI. 6. Tachycardia d dimer negative 7. Dispo planning Subjective Subjective No CP or SOB. Awaiting placement Objective Last 24 Hour Vital Signs Date Time Temp Pulse Resp B/P (MAP) Pulse Ox O2 Delivery O2 Flow Rate FiO2 09/22/18 11:11 86 16 99 Room Air 21 09/22/18 11:01 98 18 99 Room Air 21 09/22/18 09:00 Room Air 09/22/18 08:00 98.3 107 18 152/110 (124) 98 09/22/18 07:43 101 18 100 Room Air 21 09/22/18 07:33 101 18 97 Room Air 21 09/22/18 04:00 98.3 90 19 136/91 (106) 98 09/22/18 03:35 91 20 98 Room Air 21 09/22/18 03:27 92 20 96 Room Air 21 09/22/18 00:00 97.4 96 21 142/94 (110) 98 09/21/18 23:59 93 20 99 Room Air 21 09/21/18 23:52 96 20 96 Room Air 21 09/21/18 21:00 Room Air 09/21/18 20:00 98.6 91 21 119/85 (96) 99 09/21/18 19:56 95 20 99 Room Air 21 09/21/18 19:46 85 20 95 Room Air 21 09/21/18 19:43 85 20 Room Air 21 09/21/18 16:00 97.9 99 19 135/89 (104) 98 09/21/18 15:29 88 18 100 Room Air 21 09/21/18 15:24 36 09/21/18 15:24 83 18 97 Room Air 21 09/21/18 13:53 102 147/95 09/21/18 12:00 97.7 102 19 147/95 (112) 98 Intake and Output 09/21/18 09/22/18 19:00 07:00 Intake Total 2300 ml 480 ml Balance 2300 ml 480 ml Intake Oral 2300 ml 480 ml # Voids 4 5 Laboratory Tests Test 09/22/18 05:20 White Blood Count 7.7 K/UL (4.8-10.8) Red Blood Count 3.79 M/UL (4.20-5.40) L Hemoglobin 10.8 G/DL (12.0-16.0) L Hematocrit 33.7 % (37.0-47.0) L Mean Corpuscular Volume 89 FL (80-99) Mean Corpuscular Hemoglobin 28.6 PG (27.0-31.0) Mean Corpuscular Hemoglobin Concent 32.2 G/DL (32.0-36.0) Red Cell Distribution Width 16.7 % (11.6-14.8) H Platelet Count 178 K/UL (150-450) Mean Platelet Volume 7.3 FL (6.5-10.1) Neutrophils (%) (Auto) 49.0 % (45.0-75.0) Lymphocytes (%) (Auto) 36.9 % (20.0-45.0) Monocytes (%) (Auto) 12.2 % (1.0-10.0) H Eosinophils (%) (Auto) 0.8 % (0.0-3.0) Basophils (%) (Auto) 1.1 % (0.0-2.0) Sodium Level 145 MMOL/L (136-145) Potassium Level 5.0 MMOL/L (3.5-5.1) Chloride Level 110 MMOL/L (98-107) H Carbon Dioxide Level 26 MMOL/L (21-32) Anion Gap 9 mmol/L (5-15) Blood Urea Nitrogen 50 mg/dL (7-18) H Creatinine 2.5 MG/DL (0.55-1.30) H Estimat Glomerular Filtration Rate 25.0 mL/min (>60) Glucose Level 200 MG/DL (74-106) #H Uric Acid 6.6 MG/DL (2.6-7.2) Calcium Level 8.5 MG/DL (8.5-10.1) Phosphorus Level 3.1 MG/DL (2.5-4.9) Total Bilirubin 0.3 MG/DL (0.2-1.0) Aspartate Amino Transf (AST/SGOT) 82 U/L (15-37) H Alanine Aminotransferase (ALT/SGPT) 161 U/L (12-78) H Alkaline Phosphatase 109 U/L (46-116) Pro-B-Type Natriuretic Peptide 612 pg/mL (0-125) H Total Protein 6.6 G/DL (6.4-8.2) Albumin 3.1 G/DL (3.4-5.0) L Globulin 3.5 g/dL Albumin/Globulin Ratio 0.9 (1.0-2.7) L Objective HEAD AND NECK: Showed no JVD. LUNGS: Clear. CARDIOVASCULAR: Showed regular S1 and S2 with no gallop or murmur. ABDOMEN: Soft and nontender. EXTREMITIES: No pitting edema. Raffaele Huber MD Sep 22, 2018 11:48
--- NOTE | 2018-09-22 11:55 | Nephrology Progress Note ---
Assessment/Plan Problem List: (1) Diabetic nephropathy (2) Obesity (3) COPD (chronic obstructive pulmonary disease) (4) Bipolar disorder (5) Anemia Assessment Renal failure- Likely Diabetic Nephropathy- COPD (chronic obstructive pulmonary disease) Hx of laparoscopic gastric banding DM Anemia ? chronic disease Plan DC solumedrol change to po steroid DC Doxy, levaquin started add allopurinol- add starlix add coreg UA 3 + proteinuria Keep BP and BS in check Urine studies Avoid Nephrotoxics Anemia rios Albumin bolus Subjective ROS Limited/Unobtainable: No Constitutional: Reports: malaise Objective Objective Last 24 Hour Vital Signs Date Time Temp Pulse Resp B/P (MAP) Pulse Ox O2 Delivery O2 Flow Rate FiO2 09/22/18 11:11 86 16 99 Room Air 21 09/22/18 11:01 98 18 99 Room Air 21 09/22/18 09:00 Room Air 09/22/18 08:00 98.3 107 18 152/110 (124) 98 09/22/18 07:43 101 18 100 Room Air 21 09/22/18 07:33 101 18 97 Room Air 21 09/22/18 04:00 98.3 90 19 136/91 (106) 98 09/22/18 03:35 91 20 98 Room Air 21 09/22/18 03:27 92 20 96 Room Air 21 09/22/18 00:00 97.4 96 21 142/94 (110) 98 09/21/18 23:59 93 20 99 Room Air 21 09/21/18 23:52 96 20 96 Room Air 21 09/21/18 21:00 Room Air 09/21/18 20:00 98.6 91 21 119/85 (96) 99 09/21/18 19:56 95 20 99 Room Air 21 09/21/18 19:46 85 20 95 Room Air 21 09/21/18 19:43 85 20 Room Air 21 09/21/18 16:00 97.9 99 19 135/89 (104) 98 09/21/18 15:29 88 18 100 Room Air 21 09/21/18 15:24 36 09/21/18 15:24 83 18 97 Room Air 21 09/21/18 13:53 102 147/95 09/21/18 12:00 97.7 102 19 147/95 (112) 98 Intake and Output 09/21/18 09/22/18 19:00 07:00 Intake Total 2300 ml 480 ml Balance 2300 ml 480 ml Intake Oral 2300 ml 480 ml # Voids 4 5 Laboratory Tests 09/22/18 05:20: White Blood Count 7.7, Red Blood Count 3.79L, Hemoglobin 10.8L, Hematocrit 33.7L , Mean Corpuscular Volume 89, Mean Corpuscular Hemoglobin 28.6, Mean Corpuscular Hemoglobin Concent 32.2, Red Cell Distribution Width 16.7H, Platelet Count 178, Mean Platelet Volume 7.3, Neutrophils (%) (Auto) 49.0, Lymphocytes (%) (Auto) 36.9, Monocytes (%) (Auto) 12.2H, Eosinophils (%) (Auto) 0.8, Basophils (%) (Auto) 1.1, Sodium Level 145, Potassium Level 5.0, Chloride Level 110H, Carbon Dioxide Level 26, Anion Gap 9, Blood Urea Nitrogen 50H, Creatinine 2.5H, Estimat Glomerular Filtration Rate 25.0, Glucose Level 200#H, Uric Acid 6.6, Calcium Level 8.5, Phosphorus Level 3.1, Total Bilirubin 0.3, Aspartate Amino Transf (AST/SGOT) 82H, Alanine Aminotransferase (ALT/SGPT) 161H , Alkaline Phosphatase 109, Pro-B-Type Natriuretic Peptide 612H, Total Protein 6.6, Albumin 3.1L, Globulin 3.5, Albumin/Globulin Ratio 0.9L Height (Feet): 5 Height (Inches): 4.00 Weight (Pounds): 240 General Appearance: no apparent distress Objective no change Michael Cruz MD Sep 22, 2018 11:55
[2018-09-22 12:00] VITALS: BP_SYST 133; BP_SYST 152; BP_DIAS 110; BP_DIAS 86
--- NOTE | 2018-09-22 15:31 | General Progress Note ---
Assessment/Plan Status: stable Assessment/Plan IM PROGRESS NOTE COVERING FOR DR. QUINTANA (1) HTN (hypertension) ICD Codes: I10 - Essential (primary) hypertension SNOMED: 98759157 (2) Chest pain ICD Codes: R07.9 - Chest pain, unspecified SNOMED: 75228890 (3) ACS (acute coronary syndrome) ICD Codes: I24.9 - Acute ischemic heart disease, unspecified SNOMED: 294543262 (4) Diabetes mellitus ICD Codes: E11.9 - Type 2 diabetes mellitus without complications SNOMED: 02777671 (5) Bipolar disorder ICD Codes: F31.9 - Bipolar disorder, unspecified SNOMED: 55046475 Status: stable, progressing RECS: - BP stable. Subjective Date patient seen: Sep 22, 2018 Allergies: Coded Allergies: NO KNOWN ALLERGIES (Verified Allergy, Unknown, 09/17/18) All Systems: reviewed and negative except above Subjective 09/21: calm in room, eating breakfast, labs reviewed, seen by consultants, dc planning 09/22: Pt awake and alert. No acute events. VS stable. Pt in agreement to DC back to [facility]. Objective Last 24 Hour Vital Signs Date Time Temp Pulse Resp B/P (MAP) Pulse Ox O2 Delivery O2 Flow Rate FiO2 09/22/18 12:00 98.8 82 19 133/86 (102) 98 09/22/18 11:11 86 16 99 Room Air 21 09/22/18 11:01 98 18 99 Room Air 21 09/22/18 09:00 Room Air 09/22/18 08:00 98.3 107 18 152/110 (124) 98 09/22/18 07:43 101 18 100 Room Air 21 09/22/18 07:33 101 18 97 Room Air 21 09/22/18 04:00 98.3 90 19 136/91 (106) 98 09/22/18 03:35 91 20 98 Room Air 21 09/22/18 03:27 92 20 96 Room Air 21 09/22/18 00:00 97.4 96 21 142/94 (110) 98 09/21/18 23:59 93 20 99 Room Air 21 09/21/18 23:52 96 20 96 Room Air 21 09/21/18 21:00 Room Air 09/21/18 20:00 98.6 91 21 119/85 (96) 99 09/21/18 19:56 95 20 99 Room Air 21 09/21/18 19:46 85 20 95 Room Air 21 09/21/18 19:43 85 20 Room Air 21 09/21/18 16:00 97.9 99 19 135/89 (104) 98 Intake and Output 09/21/18 09/22/18 19:00 07:00 Intake Total 2300 ml 480 ml Balance 2300 ml 480 ml Intake Oral 2300 ml 480 ml # Voids 4 5 Laboratory Tests 09/22/18 05:20: White Blood Count 7.7, Red Blood Count 3.79L, Hemoglobin 10.8L, Hematocrit 33.7L , Mean Corpuscular Volume 89, Mean Corpuscular Hemoglobin 28.6, Mean Corpuscular Hemoglobin Concent 32.2, Red Cell Distribution Width 16.7H, Platelet Count 178, Mean Platelet Volume 7.3, Neutrophils (%) (Auto) 49.0, Lymphocytes (%) (Auto) 36.9, Monocytes (%) (Auto) 12.2H, Eosinophils (%) (Auto) 0.8, Basophils (%) (Auto) 1.1, Sodium Level 145, Potassium Level 5.0, Chloride Level 110H, Carbon Dioxide Level 26, Anion Gap 9, Blood Urea Nitrogen 50H, Creatinine 2.5H, Estimat Glomerular Filtration Rate 25.0, Glucose Level 200#H, Uric Acid 6.6, Calcium Level 8.5, Phosphorus Level 3.1, Total Bilirubin 0.3, Aspartate Amino Transf (AST/SGOT) 82H, Alanine Aminotransferase (ALT/SGPT) 161H , Alkaline Phosphatase 109, Pro-B-Type Natriuretic Peptide 612H, Total Protein 6.6, Albumin 3.1L, Globulin 3.5, Albumin/Globulin Ratio 0.9L Height (Feet): 5 Height (Inches): 4.00 Weight (Pounds): 240 General Appearance: no apparent distress, alert EENT: PERRL/EOMI Neck: normal alignment Cardiovascular: normal peripheral pulses Respiratory/Chest: no respiratory distress Abdomen: soft Keanu Anton MD Sep 22, 2018 15:31
[2018-09-22 16:00] VITALS: BP 134/81
--- NOTE | 2018-09-22 16:22 | Pulmonology Progress Note ---
Assessment/Plan Assessment/Plan Pulmonary Progress Note Chief Complaint: Chest Pain HPI Patient is a 48-year-old female presented after increased chest discomfort. Patient had gradual onset of symptoms. Patient reports having increased Patient reports having increased cough as well as a subjective fever. She denies any vomiting. She reports having some increased leg swelling. She denies taking diuretics.Pain was sharp in nature she reports having some increased nonproductive cough. She reports prior history of chronic kidney disease. History is limited by patient's poor historian, Improved shortness of breath Allergies: Coded Allergies: NO KNOWN ALLERGIES (Verified Allergy, Unknown, 09/17/18) Past Medical History: DM, HTN, CKD, COPD, previous laparoscopic gastric banding Reviewed Nursing Documentation: PMH: Agreed; PSxH: Agreed Hx Cardiac Problems: Yes - anemia Hx Hypertension: Yes Hx COPD: Yes Hx Diabetes: Yes Hx Cancer: Yes Hx Gastrointestinal Problems: Yes Hx Dialysis: No - chronic kidney disease History Of Psychiatric Problem: Yes Hx Neurological Problems: No Review of Systems All Other Systems: negative except mentioned in HPI Physical Exam Vital Signs Noted Sp02 EP Interpretation: reviewed, normal General Appearance: normal inspection, well appearing, no apparent distress, alert, GCS 15, obese Head: atraumatic ENT: normal ENT inspection, hearing grossly normal, normal voice Neck: normal inspection, full range of motion, supple, no bony tend Respiratory: normal inspection, no respiratory distress, no retraction, wheezing Cardiovascular #1: regular rate, rhythm, no edema Gastrointestinal: normal inspection, normal bowel sounds, non tender, soft, no guarding, no hernia Genitourinary: no CVA tenderness Musculoskeletal: normal inspection, back normal, normal range of motion Neurologic: normal inspection, alert, responsive, speech normal Psychiatric: normal inspection, judgement/insight normal, mood/affect normal Skin: normal inspection, normal color, no rash Impression: Primary Impression: Chest Pain COPD (chronic obstructive pulmonary disease) Hx of laparoscopic gastric banding Diabetes mellitus Plan Serial labs [facility] [employer] medications 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 Dr. Malick Marie was contacted for inpatient management for further evaluation of chest pain. Labs Test 09/16/18 15:05 09/17/18 05:05 D-Dimer 0.19 mg/L FEU (0.00-0.49) Sodium Level 142 MMOL/L (136-145) Potassium Level 4.1 MMOL/L (3.5-5.1) Chloride Level 105 MMOL/L (98-107) Carbon Dioxide Level 24 MMOL/L (21-32) Anion Gap 13 mmol/L (5-15) Blood Urea Nitrogen 28 mg/dL (7-18) Creatinine 1.8 MG/DL (0.55-1.30) Estimat Glomerular Filtration Rate 36.5 mL/min (>60) Glucose Level 140 MG/DL (74-106) Calcium Level 9.1 MG/DL (8.5-10.1) Total Bilirubin 0.4 MG/DL (0.2-1.0) Aspartate Amino Transf (AST/SGOT) 127 U/L (15-37) Alanine Aminotransferase (ALT/SGPT) 197 U/L (12-78) Alkaline Phosphatase 137 U/L (46-116) Total Creatine Kinase 92 U/L (26-308) Creatine Kinase MB < 0.5 NG/ML (0.0-3.6) Creatine Kinase MB Relative Index 0.5 Pro-B-Type Natriuretic Peptide 102 pg/mL (0-125) Total Protein 8.2 G/DL (6.4-8.2) Albumin 3.4 G/DL (3.4-5.0) Globulin 4.8 g/dL Albumin/Globulin Ratio 0.7 (1.0-2.7) Lipase 380 U/L (73-393) Urine Opiates Screen Negative (NEGATIVE) Urine Barbiturates Screen Negative (NEGATIVE) Valproic Acid (Depakene) Level 33 MCG/ML (50-100) Phencyclidine (PCP) Screen Negative (NEGATIVE) Urine Amphetamines Screen Negative (NEGATIVE) Urine Benzodiazepines Screen Negative (NEGATIVE) Urine Cocaine Screen Negative (NEGATIVE) Urine Marijuana (THC) Screen Negative (NEGATIVE) White Blood Count 6.9 K/UL (4.8-10.8) Red Blood Count 4.26 M/UL (4.20-5.40) Hemoglobin 11.6 G/DL (12.0-16.0) Hematocrit 36.4 % (37.0-47.0) Mean Corpuscular Volume 85 FL (80-99) Mean Corpuscular Hemoglobin 27.3 PG (27.0-31.0) Mean Corpuscular Hemoglobin Concent 32.0 G/DL (32.0-36.0) Red Cell Distribution Width 15.4 % (11.6-14.8) Platelet Count 191 K/UL (150-450) Mean Platelet Volume 8.0 FL (6.5-10.1) Neutrophils (%) (Auto) 44.9 % (45.0-75.0) Lymphocytes (%) (Auto) 42.9 % (20.0-45.0) Monocytes (%) (Auto) 8.5 % (1.0-10.0) Eosinophils (%) (Auto) 2.5 % (0.0-3.0) Basophils (%) (Auto) 1.2 % (0.0-2.0) Prothrombin Time 9.9 SEC (9.30-11.50) Prothromb Time International Ratio 0.9 (0.9-1.1) Activated Partial Thromboplast Time 25 SEC (23-33) Troponin I 0.000 ng/mL (0.000-0.056) C-Reactive Protein, Quantitative 0.6 mg/dL (0.00-0.90) Triglycerides Level 128 MG/DL (30-150) Cholesterol Level 128 MG/DL (< 200) LDL Cholesterol 62 mg/dL (<100) HDL Cholesterol 55 MG/DL (40-60) Cholesterol/HDL Ratio 2.3 (3.3-4.4) Thyroid Stimulating Hormone (TSH) 1.414 uiU/mL (0.358-3.740) EKG Diagnostic Results Rate: normal - 92 Rhythm: NSR ST Segments: no acute changes Subjective ROS Limited/Unobtainable: No Allergies: Coded Allergies: NO KNOWN ALLERGIES (Verified Allergy, Unknown, 09/17/18) Objective Last 24 Hour Vital Signs Date Time Temp Pulse Resp B/P (MAP) Pulse Ox O2 Delivery O2 Flow Rate FiO2 09/22/18 15:47 92 18 98 Room Air 21 09/22/18 15:37 92 18 98 Room Air 21 09/22/18 12:00 98.8 82 19 133/86 (102) 98 09/22/18 11:11 86 16 99 Room Air 21 09/22/18 11:01 98 18 99 Room Air 21 09/22/18 09:00 Room Air 09/22/18 08:00 98.3 107 18 152/110 (124) 98 09/22/18 07:43 101 18 100 Room Air 21 09/22/18 07:33 101 18 97 Room Air 21 09/22/18 04:00 98.3 90 19 136/91 (106) 98 09/22/18 03:35 91 20 98 Room Air 21 09/22/18 03:27 92 20 96 Room Air 21 09/22/18 00:00 97.4 96 21 142/94 (110) 98 09/21/18 23:59 93 20 99 Room Air 21 09/21/18 23:52 96 20 96 Room Air 21 09/21/18 21:00 Room Air 09/21/18 20:00 98.6 91 21 119/85 (96) 99 09/21/18 19:56 95 20 99 Room Air 21 09/21/18 19:46 85 20 95 Room Air 21 09/21/18 19:43 85 20 Room Air 21 Intake and Output 09/21/18 09/22/18 19:00 07:00 Intake Total 2300 ml 480 ml Balance 2300 ml 480 ml Intake Oral 2300 ml 480 ml # Voids 4 5 Laboratory Tests 09/22/18 05:20: White Blood Count 7.7, Red Blood Count 3.79L, Hemoglobin 10.8L, Hematocrit 33.7L , Mean Corpuscular Volume 89, Mean Corpuscular Hemoglobin 28.6, Mean Corpuscular Hemoglobin Concent 32.2, Red Cell Distribution Width 16.7H, Platelet Count 178, Mean Platelet Volume 7.3, Neutrophils (%) (Auto) 49.0, Lymphocytes (%) (Auto) 36.9, Monocytes (%) (Auto) 12.2H, Eosinophils (%) (Auto) 0.8, Basophils (%) (Auto) 1.1, Sodium Level 145, Potassium Level 5.0, Chloride Level 110H, Carbon Dioxide Level 26, Anion Gap 9, Blood Urea Nitrogen 50H, Creatinine 2.5H, Estimat Glomerular Filtration Rate 25.0, Glucose Level 200#H, Uric Acid 6.6, Calcium Level 8.5, Phosphorus Level 3.1, Total Bilirubin 0.3, Aspartate Amino Transf (AST/SGOT) 82H, Alanine Aminotransferase (ALT/SGPT) 161H , Alkaline Phosphatase 109, Pro-B-Type Natriuretic Peptide 612H, Total Protein 6.6, Albumin 3.1L, Globulin 3.5, Albumin/Globulin Ratio 0.9L Current Medications Medications (Trade) Dose Ordered Sig/Luciano Route PRN Reason Start Time Stop Time Status Last Admin Dose Admin Acetaminophen (Tylenol) 650 mg Q4H PRN ORAL FEVER 09/19/18 14:15 10/16/18 22:14 09/20/18 06:37 Albuterol Sulfate (Proventil) 2.5 mg Q4HRT HHN 09/19/18 15:00 09/23/18 18:59 09/22/18 15:36 Allopurinol (Allopurinol) 300 mg DAILY ORAL 09/20/18 09:00 10/20/18 08:59 09/22/18 09:38 Aspirin (ASA) 81 mg DAILY ORAL 09/20/18 09:00 10/17/18 08:59 09/22/18 09:38 Bupropion HCl (Wellbutrin XL) 150 mg DAILY ORAL 09/22/18 09:30 10/22/18 09:29 09/22/18 09:38 Buspirone HCl (Buspar) 5 mg THREE TIMES A DAY ORAL 09/19/18 18:00 10/17/18 08:59 09/22/18 13:43 Clonazepam (KlonoPIN) 1 mg BID ORAL 09/19/18 18:00 09/24/18 08:59 09/22/18 09:38 Clonidine HCl (Catapres Tab) 0.1 mg Q6H PRN ORAL for BP 160 syst and higher 09/19/18 18:45 10/18/18 12:44 Dextrose (Dextrose 50%) 25 ml Q30M PRN IV Hypoglycemia 09/19/18 14:15 10/16/18 22:14 Divalproex Sodium (Depakote ER) 500 mg Q8HR ORAL 09/21/18 16:00 10/21/18 15:59 09/22/18 13:43 Docusate Sodium (Colace) 100 mg TID ORAL 09/19/18 18:00 10/18/18 17:59 09/22/18 13:43 Gabapentin (Neurontin) 300 mg EVERY 12 HOURS ORAL 09/20/18 21:00 10/19/18 17:59 09/22/18 09:38 Heparin Sodium (Porcine) (Heparin 5000 units/ml) 5,000 units EVERY 8 HOURS SUBQ 09/19/18 14:00 10/16/18 22:29 09/22/18 13:45 Insulin Aspart (NovoLOG) BEFORE MEALS AND HS SUBQ 09/19/18 16:30 10/17/18 06:29 09/22/18 12:22 Levofloxacin (Levaquin) 250 mg DAILY ORAL 09/23/18 09:00 09/30/18 08:59 Lorazepam (Ativan 2mg/ml 1ml) 1 mg Q6H PRN IV For Anxiety 09/19/18 14:15 09/24/18 20:14 09/21/18 02:53 Morphine Sulfate (Morphine Sulfate) 2 mg Q4H PRN IVP severe Pain (Pain Scale 7-10) 09/19/18 14:15 09/23/18 22:14 09/22/18 10:24 Nateglinide (Starlix) 120 mg TIAC ORAL 09/22/18 16:30 10/21/18 16:29 Nitroglycerin (Ntg) 0.4 mg Q5M PRN SL Prn Chest Pain 09/19/18 14:00 10/16/18 22:14 09/21/18 05:34 Ondansetron HCl (Zofran) 4 mg Q6H PRN IVP Nausea & Vomiting 09/19/18 16:15 10/16/18 22:14 09/21/18 21:15 Pantoprazole (Protonix) 40 mg DAILY ORAL 09/20/18 09:00 10/17/18 08:59 09/22/18 09:38 Polyethylene Glycol (Miralax) 17 gm BEDTIME ORAL 09/19/18 21:00 10/18/18 20:59 09/21/18 21:16 Polyethylene Glycol (Miralax) 17 gm DAILYPRN PRN ORAL Constipation 09/19/18 22:15 10/16/18 22:14 Prednisone (predniSONE) 20 mg DAILY ORAL 09/23/18 09:00 10/23/18 08:59 Quetiapine Fumarate (SEROquel) 300 mg BEDTIME ORAL 09/21/18 21:00 10/21/18 20:59 09/21/18 21:06 Risperidone (RisperDAL) 1 mg BID ORAL 09/19/18 18:00 10/18/18 17:59 09/22/18 09:38 Temazepam (Restoril) 15 mg HSPRN PRN ORAL Insomnia 09/19/18 22:15 09/23/18 22:14 Trazodone HCl (Desyrel) 100 mg BEDTIME ORAL 09/19/18 21:00 10/17/18 20:59 09/21/18 21:07 Pelon Sabillon MD Sep 22, 2018 16:22
[2018-09-22] MEDS ORDERED: ACETAMINOPHEN325 M1 ORAL (17:48)
[2018-09-22] MEDS ORDERED: ALBUTEROL2.5 MG/3 M INH (17:52)
[2018-09-22] MEDS ORDERED: ALLOPURINOL300 M1 ORAL (17:53)
[2018-09-22] MEDS ORDERED: BUSPIRONE HCL5 M2 ORAL (17:55)
[2018-09-22] MEDS ORDERED: BUPROPION XL150 MG ORAL (17:56)
[2018-09-22] MEDS ORDERED: LEVOFLOXACIN250 MG ORAL (18:01)
[2018-09-22] MEDS ORDERED: STARLIX120 MG ORAL (18:03)
[2018-09-22] MEDS ORDERED: PROTONIX40 MG ORAL (18:04)
[2018-09-22] MEDS ORDERED: PROTONIX40 M2 GT (18:04)
[2018-09-22] MEDS ORDERED: MIRALAX17 G2 ORAL (18:06)
[2018-09-22] MEDS ORDERED: PREDNISONE20 M1 PO (18:06)
[2018-09-22] MEDS ORDERED: SEROQUEL300 MG ORAL (18:09)
[2018-09-22] MEDS ORDERED: RISPERIDONE1 MG ORAL (18:10)
[2018-09-22] MEDS ORDERED: TRAZODONE HCL100 MG ORAL (18:11)
[2018-09-22] MEDS ORDERED: RESTORIL15 MG ORAL (18:11)
[2018-09-22] MEDS ORDERED: NOVOLOG100 UNITS1 SQ (18:17)
[2018-09-22 20:00] VITALS: BP 146/85
--- NOTE | 2018-09-22 20:00 | Progress Note ---
DATE: 09/22/2018 SUBJECTIVE: The patient is a 48-year-old female patient. She has chest pain and that is why she is in the hospital, but she also has overlying diagnosis of bipolar 2 disorder. She has extreme mood lability, agitation, mood lability, and decline in cognition below her baseline. That is why she does require daily psychiatric consultation. She does have extreme mood lability and agitation. So, her attending has requested daily psychiatric consultation. MENTAL STATUS EXAMINATION: This is a 48-year-old female patient, appearance disheveled. Attitude, irritable and agitated. Affect is labile. Intellect poor. Mood depressed and anxious. Motor activity, psychomotor agitation. Attention span is poor. Orientation x2. Speech is pressured. Thought process, disorganized and illogical. Insight and judgment is poor. DIAGNOSIS: Schizoaffective bipolar type. PLAN: Plan for this patient is to treat her with Wellbutrin XL 150 mg daily as a new medication, but also continue Depakote 500 mg q.8 h. as a mood stabilizer, Neurontin 300 mg q.12 h. for anxiety, Seroquel 300 mg at bedtime augmentation with mood stabilizer trazodone 100 mg nightly for insomnia, BuSpar 10 three times a day for anxiety, Klonopin 1 mg twice a day for anxiety, Risperdal 1 mg twice a day to reduce agitation and psychotic. Provided 20 minutes of cognitive behavioral therapy to help her identify automatic negative thoughts and help her to convert these negative thoughts to more positive thoughts to reduce depression, anxiety, and suicidality. Chart reviewed and discussed with staff. She is seen and assessed at bedside. Avelino Sarah M.D. DR: Angelika JOB#: [id number] CC:
--- NOTE | 2018-09-23 11:25 | Discharge Summary ---
Discharge Summary Discharge Summary _ DATE OF ADMISSION: 09/16/2018 DATE OF DISCHARGE: 09/22/2018 DISCHARGED BY: Dr. Malick Marie CONSULTANTS: Dr. Avelino Winters [facility] COURSE: Patient is a 48-year-old female, who lives at [facility], presented to [facility] due to increased chest pain and shortness of breath. Chest pain was described to be sharp, substernal, with slight radiation to the left arm. There was no loss of consciousness. No dizziness. No nausea or vomiting. She has medical history significant for bipolar disorder, obesity, hypertension, diabetes, and renal failure. On evaluation at ED, she was febrile, temperature 100.4. Blood work did not show any leukocytosis, hemoglobin and hematocrit were stable. Electrolytes were normal. Creatinine was 1.8, BUN 28. Liver function tests were elevated. Lipase was normal. Bilirubin normal. Initial troponin was negative. EKG showed some normal sinus rhythm with no acute ST to T wave abnormalities. D- dimer was negative. Urine toxicology negative. Influenza screen was negative. She was admitted for evaluation of chest pain, shortness of breath, diabetes, hypertension, renal failure, COPD and bipolar disorder. Cardiac enzymes were monitored. She was seen by cctv technician. Echocardiogram done showed normal left ventricular function. Cardiac troponins were negative. She was ruled out for AZ. She was recommended outpatient stress test. She was continued on amlodipine for high blood pressure. Status was monitored. She was started on Solu-Medrol and was started empirically on doxycycline. Given nebulizer treatment. Liver function tests and alkaline phosphatase were elevated. Patient had GERD anemia. GI was consulted. Renal ultrasound was negative for gallstones or dilated ducts. She was given bowel regimen and proton pump inhibitors. Diet was advanced. Hepatitis screen was positive for hepatitis C. She was recommended need to follow-up for hepatitis C treatment and for outpatient surgical consult for lap band removal. She had previous diagnosis of bipolar disorder and mood had been labile. She typically comes to the hospital and leaves AMA. She gets very agitated. Patient is impulsive and unpredictable. Psychiatric evaluation was done. She was given Depakote 500 mg twice daily and Risperdal 1 mg twice daily to help reduce agitation and stabilize the mood. She was given Neurontin for anxiety and Seroquel for augmentation with mood stabilizers. She was given trazodone for insomnia. Was given Buspar and Klonopin. Kidney function was monitored. Patient has renal failure, likely from diabetic nephropathy. There was 3+ proteinuria. Doxycycline was discontinued and was given Levaquin. Uric acid was 11. She was eventually started on allopurinol. Glucose was monitored. She was placed on NovoLog sliding scale. Hemoglobin A1c 7.2 she was eventually started on Starlix. Steroid was tapered to p.o. She was breathing better and was saturating well on room air. She was eventually cleared for discharge back to intermediate. FINAL DIAGNOSES: Acute COPD exacerbation Chest pain, ruled out for AZ, chest pain possibly secondary to COPD History of laparoscopic gastric banding Diabetes mellitus out of control Bipolar disorder Diabetic nephropathy Obesity Anemia Tachycardia GERD Hepatitis C Schizoaffective disorder bipolar type DISPOSITION: Patient was discharged to a SNF. DISCHARGE MEDICATIONS: Refer to Discharge Medication List. I have been assigned to dictate discharge summary on this account, and I was not involved in the patient's management. Sandra Jackson NP Sep 23, 2018 11:25
--- NOTE | 2018-09-23 17:01 | Diagnostic Imaging Report ---
APPROVED REPORT CPT Code: 80435 Present Symptoms Comments: Chest pain BILATERAL: Imaging reveals a patent deep venous system bilaterally. There is no evidence of thrombus within the femoral, popliteal or tibial segments. The greater saphenous veins are also within normal limits. Doppler indicates normal spontaneous flow within these segments.
[2018-09-23] MEDS ORDERED: DEPAKOTE250 MG PO (22:00)
[2018-09-23] MEDS ORDERED: QUETIAPINE FUMA25 MG ORAL (22:00)
== END 2018-09-22 21:00 | DRG 191 ==
LOC: EDBD 14:30 → EMR 17:02 → 2E 17:05 → EDBEDREQ 17:37 → 2E 09-17 21:11 → 3E 09-19 14:11
DX: J44.1 Chronic obstructive pulmonary disease with (acute) exacerbation (principal); Z68.41 Body mass index [BMI] 40.0-44.9, adult; R07.9 Chest pain, unspecified; Z98.84 Bariatric surgery status; E11.65 Type 2 diabetes mellitus with hyperglycemia; E11.21 Type 2 diabetes mellitus with diabetic nephropathy; E66.9 Obesity, unspecified; D64.9 Anemia, unspecified; R00.0 Tachycardia, unspecified; K21.9 Gastro-esophageal reflux disease without esophagitis; B19.20 Unspecified viral hepatitis C without hepatic coma; F25.0 Schizoaffective disorder, bipolar type; I12.9 Hypertensive chronic kidney disease with stage 1 through stage 4 chronic kidney disease, or unspecified chronic kidney disease; E11.22 Type 2 diabetes mellitus with diabetic chronic kidney disease; N18.9 Chronic kidney disease, unspecified; Z79.82 Long term (current) use of aspirin
CPT/HCPCS: 36415; 71045; 76700; 80048; 80053; 80061; 80076; 80164; 80307; 81001; 81050; 82270; 82550; 82553; 82575; 82607; 82728; 82746; 82962; 83036; 83540; 83550; 83690; 83735; 83880; 84100; 84156; 84300; 84443; 84484; 84550; 85025; 85379; 85610; 85730; 86140; 86705; 86709; 86710; 86803; 87040; 87081; 87181; 87340; 87522; 93005; 93306; 93970; 94640; 94664; 94760; 97803; 99285; J1815; J2405; J7620

== ENCOUNTER 2018-09-23 22:01 | Emergency (ER) | payer MEDICARE, MEDICAID ==
[~2018-09-23] VITALS: Ht 170.2 cm; Wt 90.7 kg
[~2018-09-23 22:01] MED LIST changes: +ACETAMINOPHEN325 M1 ORAL; +ALBUTEROL2.5 MG/3 M INH; +ALLOPURINOL300 M1 ORAL; +ASPIRIN81 MG ORAL; +BENZTROPINE ME0.5 MG PO; +BUPROPION XL150 MG ORAL; +BUSPAR10 MG ORAL; +BUSPIRONE HCL5 M2 ORAL; +CYCLOBENZAPRINE10 MG ORAL; +DEPAKOTE250 MG PO; +FERROUS SULFAT325 MG ORAL; +HALOPERIDOL1 MG ORAL; +LEVOFLOXACIN250 MG ORAL; +METFORMIN HCL500 M1 ORAL; +MIRALAX17 G2 ORAL; +NOVOLOG100 UNITS1 SQ; +PREDNISONE20 M1 PO; +PROTONIX40 M2 GT; +PROTONIX40 MG ORAL; +QUETIAPINE FUMA25 MG ORAL; +RESTORIL15 MG ORAL; +RISPERIDONE1 MG ORAL; +SEROQUEL300 MG ORAL; +STARLIX120 MG ORAL; +VENTOLIN HFA18 GM INH
[2018-09-23 22:05] VITALS: BP 123/81
--- NOTE | 2018-09-23 22:11 | Emergency Room Report ---
History of Present Illness General Chief Complaint: Chest Pain Source: Patient, Medical Record, EMS Present Illness HPI Is a 48-year-old female with psychiatric Ian history and also history of diabetes and previous CVA. She presents with chief complaint of chest pain. This occur an ache issue for her. She get persistent chest pain and was recently admitted here and workup was negative. She was discharged to a care home but has been complaining of chest pain so was sent here. She said that oral medication is not helping her. She wanted IV pain medication. EMS gave her aspirin and nitroglycerin without any relief. Pain is to the left chest going to her left arm. No fever or chills. No nausea no vomiting. No diaphoresis. No shortness of breath. Nothing made it better. Nothing made it worse. Pain is 8 out of 10. Allergies: Coded Allergies: HALOPERIDOL (Unverified Allergy, Unknown, 09/23/18) NO KNOWN ALLERGIES (Verified Allergy, Unknown, 09/17/18) Patient History Past Medical History: see triage record, old chart reviewed, DM, HTN, CVA/TIA, psych hx Past Surgical History: other Pertinent Family History: none Last Menstrual Period: unable to obtain. Immunizations: other Reviewed Nursing Documentation: PMH: Agreed; PSxH: Agreed Nursing Documentation-PMH Hx Cardiac Problems: Yes - STROKE Hx Hypertension: Yes Hx COPD: Yes Hx Diabetes: Yes Hx Cancer: No Hx Gastrointestinal Problems: No Hx Dialysis: No - chronic kidney disease History Of Psychiatric Problem: Yes Hx Neurological Problems: No Hx Seizures: Yes Review of Systems Eye: Denies: eye pain, blurred vision ENT: Denies: ear pain, nose congestion, throat swelling Respiratory: Denies: cough, shortness of breath Cardiovascular: Reports: chest pain; Denies: palpitations Gastrointestinal: Denies: abdominal pain, diarrhea, nausea, vomiting Musculoskeletal: Denies: back pain, joint pain Skin: Denies: rash Neurological: Denies: headache, numbness Endocrine: Denies: increased thirst, increased urine Hematologic/Lymphatic: Denies: easy bruising All Other Systems: negative except mentioned in HPI Physical Exam Vital Signs Date Time Temp Pulse Resp B/P (MAP) Pulse Ox O2 Delivery O2 Flow Rate FiO2 09/23/18 21:52 98.2 110 16 150/90 vitals with high blood pressure Sp02 EP Interpretation: reviewed, normal General Appearance: well appearing, no apparent distress, alert, obese Head: normocephalic, atraumatic Eyes: bilateral eye PERRL, bilateral eye EOMI ENT: hearing grossly normal, normal pharynx Neck: full range of motion, supple, no meningismus Respiratory: chest non-tender, lungs clear, normal breath sounds Cardiovascular #1: regular rate, rhythm, no murmur Gastrointestinal: normal bowel sounds, non tender, no mass, no organomegaly, no bruit, non-distended Musculoskeletal: back normal, normal range of motion Neurologic: alert, oriented x3 Psychiatric: mood/affect normal Skin: warm/dry Medical Decision Making Diagnostic Impression: Primary Impression: Chest pain Qualified Codes: R07.9 - Chest pain, unspecified Additional Impression: Chronic pain Qualified Codes: G89.4 - Chronic pain syndrome ER Course Patient has chronic chest pain. No evidence of ACS, PE, dissection. She is laying currently on the stretcher playing Candy crush on her iPad. She is walking around without any problem. We'll discharge back to care home. EKG Diagnostic Results Rate: normal Rhythm: NSR ST Segments: no acute changes Rhythm Strip Diag. Results Rhythm Strip Time: 22:21 EP Interpretation: yes Rate: 92 Rhythm: NSR, no PVC's, no ectopy Last Vital Signs Date Time Temp Pulse Resp B/P (MAP) Pulse Ox O2 Delivery O2 Flow Rate FiO2 09/23/18 21:52 98.2 110 16 150/90 Status: improved Disposition: [facility] SNF Condition: Stable Patient Instructions: Nonspecific Chest Pain Additional Instructions: Follow-up with your doctor in 7 days. Return if symptom worsen. Continue with your pain medication regimen. Amarjit Shukla MD Sep 23, 2018 22:11
[2018-09-23 23:02] LABS: ANION GAP 9 mmol/L (5-15); BLOOD UREA NITROGEN 49 mg/dL (7-18); CALCIUM 9.1 MG/DL (8.5-10.1); CARBON DIOXIDE 28 MMOL/L (21-32); CHLORIDE 107 MMOL/L (98-107); POTASSIUM 4.2 MMOL/L (3.5-5.1); SODIUM 144 MMOL/L (136-145)
[2018-09-23 23:04] LABS: BASOPHILS % (AUTO) 1.4 % (0.0-2.0); EOSINOPHILS % (AUTO) 1.2 % (0.0-3.0); HEMATOCRIT 32.7 % (37.0-47.0); HEMOGLOBIN 10.6 G/DL (12.0-16.0); LYMPHOCYTES % (AUTO) 28.1 % (20.0-45.0); MEAN CORPUSCULAR VOLUME 87 FL (80-99); MONOCYTES % (AUTO) 8.5 % (1.0-10.0); NEUTROPHILS % (AUTO) 60.8 % (45.0-75.0); PLATELET COUNT 186 K/UL (150-450); RED BLOOD COUNT 3.77 M/UL (4.20-5.40); RED CELL DISTRIBUTION WIDTH 16.6 % (11.6-14.8); WHITE BLOOD COUNT 9.3 K/UL (4.8-10.8)
[2018-09-23 23:17] LABS: CKMB 1.4 NG/ML (0.0-3.6); CREATINE KINASE 92 U/L (26-308)
[2018-09-23 23:47] VITALS: BP 102/71
[2018-09-24 00:30] VITALS: BP 115/73
--- NOTE | 2018-09-24 11:14 | Diagnostic Imaging Report ---
Indication: Chest pain Technique: One view of the chest Comparison: 09/16/2018 Findings: Lungs and pleural spaces are clear. Heart size is normal. No significant interim change Impression: No acute process
== END 2018-09-24 00:30 ==
LOC: EDBD 22:01 → EMR 22:30
DX: R07.9 Chest pain, unspecified (principal); G89.4 Chronic pain syndrome; E11.9 Type 2 diabetes mellitus without complications; Z86.73 Personal history of transient ischemic attack (TIA), and cerebral infarction without residual deficits; Z88.8 Allergy status to other drugs, medicaments and biological substances; I10 Essential (primary) hypertension; J44.9 Chronic obstructive pulmonary disease, unspecified; I12.9 Hypertensive chronic kidney disease with stage 1 through stage 4 chronic kidney disease, or unspecified chronic kidney disease; E11.22 Type 2 diabetes mellitus with diabetic chronic kidney disease; N18.9 Chronic kidney disease, unspecified; E66.9 Obesity, unspecified; Z68.31 Body mass index [BMI] 31.0-31.9, adult
CPT/HCPCS: 36415; 71045; 80048; 82550; 82553; 84484; 85025; 93005; 99284

== ENCOUNTER 2018-10-06 01:34 | Emergency (ER) | payer MEDICARE, MEDICAID ==
[~2018-10-06] VITALS: Ht 162.6 cm; Wt 117.9 kg
--- NOTE | 2018-10-06 02:00 | NUR ---
ED Nurse Note: RECIEVED PT FROM SNF WITH C/O INTERMITTENT CP AT 10/10 SINCE 5PM, TP IS AWAKE, ALERT AND ORIENTED X 4, PT IS SMILING AND CONVERSING PERSONALLY WITH STAFF, APPEARS VERY COMFORTABLE, PT STATES INTERMITTENT CP WHICH RADIATES TO LEFT ARM, NECK AND BACK AREA, PT IMMEDIATELY GOWNED AND PLCED ON CARDIAC MONITORING, WILL START IV LINE AND RESUME CARE ORDERED.
[2018-10-06 02:30] VITALS: BP 117/74
[2018-10-06 03:14] LABS: APPEARANCE,URINE CLEAR; BASOPHILS % (AUTO) 0.9 % (0.0-2.0); BILIRUBIN, URINE NEGATIVE (NEGATIVE); COLOR,URINE PALE YELLOW; EOSINOPHILS % (AUTO) 1.3 % (0.0-3.0); GLUCOSE, URINE (UA) NEGATIVE (NEGATIVE); HEMATOCRIT 30.6 % (37.0-47.0); HEMOGLOBIN 9.7 G/DL (12.0-16.0); KETONES,URINE NEGATIVE (NEGATIVE); LEUKOCYTE ESTERASE ,URINE 1+ (NEGATIVE); LYMPHOCYTES % (AUTO) 31.4 % (20.0-45.0); MEAN CORPUSCULAR VOLUME 88 FL (80-99); MONOCYTES % (AUTO) 11.1 % (1.0-10.0); NEUTROPHILS % (AUTO) 55.3 % (45.0-75.0); NITRITE,URINE NEGATIVE (NEGATIVE); PH,URINE 6.5 (4.5-8.0); PLATELET COUNT 188 K/UL (150-450); PROTEIN,URINE 3+ (NEGATIVE); RED BLOOD COUNT 3.47 M/UL (4.20-5.40); RED CELL DISTRIBUTION WIDTH 17.5 % (11.6-14.8); UROBILINOGEN,URINE NORMAL MG/DL (0.0-1.0); WHITE BLOOD COUNT 9.4 K/UL (4.8-10.8)
[2018-10-06 03:26] LABS: ANION GAP 6 mmol/L (5-15); BLOOD UREA NITROGEN 40 mg/dL (7-18); CALCIUM 8.2 MG/DL (8.5-10.1); CARBON DIOXIDE 29 MMOL/L (21-32); CHLORIDE 109 MMOL/L (98-107); CREATININE 2.1 MG/DL (0.55-1.30); POTASSIUM 3.9 MMOL/L (3.5-5.1); SODIUM 144 MMOL/L (136-145)
[2018-10-06 03:39] LABS: ALANINE AMINOTRANSFERASE 95 U/L (12-78); ALBUMIN 2.7 G/DL (3.4-5.0); ALBUMIN/GLOBULIN RATIO 0.8 (1.0-2.7); ALKALINE PHOSPHATASE 120 U/L (46-116); ASPARTATE AMINO TRANSFERASE 46 U/L (15-37); BILIRUBIN,TOTAL 0.2 MG/DL (0.2-1.0); CKMB 1.6 NG/ML (0.0-3.6); CREATINE KINASE 111 U/L (26-308)
[2018-10-06 04:00] VITALS: BP 108/66
--- NOTE | 2018-10-06 04:00 | NUR ---
ED Nurse Note: Pt sleeping, arouses easily to verbal stimuli, remains on cardiac monitoring, iv site patent, no acute changes or increased distress, will continue to closely monitor, pt is being d/c back to care facility, will continue while waiting for ambulance transport after 6am.
--- NOTE | 2018-10-06 05:35 | NUR ---
ED Nurse Note: Pt being preapred for discharge back to snf facility, placed call to lovely holliday rn and gave verbal report alsong with d/c instructions, pt has no prescription and no meds given, pt is awake and alert and continues to deny chest pain or any pain, waiting for ambulance arrival.
[2018-10-06 05:45] VITALS: BP 119/69
--- NOTE | 2018-10-06 05:50 | NUR ---
ED Nurse Note: [facility] ambulance rig#[id number] has arrived for pt transport, report given to zhou yeung rn, pt is awake, alert and oriented x 4, pt ambulated to bathroom with steady gait and no cp or any pain, pt given f/u info, after care instructions and re-verbalizes s/s to monitor for, nad noted during pt transpot via gurney via [facility] transport.
[2018-10-06 05:59] VITALS: BP 119/69
--- NOTE | 2018-10-06 06:43 | Emergency Room Report ---
History of Present Illness General Chief Complaint: Chest Pain Source: Patient Present Illness HPI 48-year-old female presents ED complaining of chest pain 1 day. Coming from halfway facility. Patient states this pain is chronic. Sharp, midsternal, 5 out of 10, nonradiating. Denies shortness of breath. Denies cough. Denies fevers or chills. No other aggravating relieving factors. Denies any other associated symptoms Allergies: Coded Allergies: NO KNOWN ALLERGIES (Verified Allergy, Unknown, 09/17/18) Patient History Past Medical History: DM, HTN, COPD, GERD, CVA/TIA, seizures, psych hx Past Surgical History: none Pertinent Family History: none Social History: Denies: smoking, alcohol use, drug use Last Menstrual Period: 2014 Now: No Immunizations: UTD Reviewed Nursing Documentation: PMH: Agreed; PSxH: Agreed Nursing Documentation-PMH Hx Cardiac Problems: Yes - STROKE Hx Hypertension: Yes Hx COPD: Yes Hx Diabetes: Yes - type 2 Hx Cancer: No Hx Gastrointestinal Problems: Yes - Gerd, gout Hx Dialysis: No - chronic kidney disease History Of Psychiatric Problem: Yes - schizophrenia, bipolar Hx Neurological Problems: No Hx Seizures: Yes Review of Systems All Other Systems: negative except mentioned in HPI Physical Exam Vital Signs Date Time Temp Pulse Resp B/P (MAP) Pulse Ox O2 Delivery O2 Flow Rate FiO2 10/06/18 01:45 98.4 89 16 151/90 97 Nasal Cannula 3.0 Sp02 EP Interpretation: reviewed, normal General Appearance: no apparent distress, alert, GCS 15, non-toxic Head: normocephalic, atraumatic Eyes: bilateral eye normal inspection, bilateral eye PERRL ENT: hearing grossly normal, normal pharynx, no angioedema, normal voice Neck: full range of motion, supple/symm/no masses Respiratory: chest non-tender, lungs clear, normal breath sounds, speaking full sentences Cardiovascular #1: regular rate, rhythm, no edema Cardiovascular #2: 2+ carotid (R), 2+ carotid (L), 2+ radial (R), 2+ radial (L) , 2+ dorsalis pedis (R), 2+ dorsalis pedis (L) Gastrointestinal: normal bowel sounds, non tender, soft, non-distended, no guarding, no rebound Rectal: deferred Genitourinary: normal inspection, no CVA tenderness Musculoskeletal: back normal, gait/station normal, normal range of motion, non- tender Neurologic: alert, oriented x3, responsive, motor strength/tone normal, sensory intact, speech normal Psychiatric: judgement/insight normal, memory normal, mood/affect normal, no suicidal/homicidal ideation Reflexes: 3+ bicep (R), 3+ bicep (L), 3+ tricep (R), 3+ tricep (L), 3+ knee (R) , 3+ knee (L) Skin: normal color, no rash, warm/dry, well hydrated Lymphatic: no adenopathy Medical Decision Making Diagnostic Impression: Primary Impression: Chest pain Qualified Codes: R07.9 - Chest pain, unspecified ER Course Hospital Course 48-year-old F presents ED complaining of chest pain Differential diagnoses include: Rib fracture, FL/unstable angina, contusion, muscle strain Clinical course Patient placed on stretcher. After initial history and physical I ordered labs , EKG, chest x-ray. labs reviewed- all electrolytes normal, troponins negative, no leukocytosis, hemoglobin/hematocrit stable EKG - NSR, no acute ischemic changes interpreted by me Chest x-ray-no cardiomegaly, no rib fracture, no pneumothorax, no acute process Patient has been here multiple times for chest pain. Patient was admitted recently and workup was negative. Seen by cardiology and determined that the pain was likely musculoskeletal. Patient was seen last month for chest pain and workup was also negative and subsequently discharged I believe this pain is chronic. I do not believe patient is experiencing an acute cardiac event. I believe patient be safely discharged back to halfway facility. Discussed with PMD Dr Marie and he agrees I. I feel this is a highly complex case requiring extensive working including EKG/Rhythm strip, Xray/CT/US, Blood/urine lab work, repeat exams while in ED, and administration of strong opiates/narcotics for pain control, admission to hospital or close patient follow up. Diagnosis - chest pain Stable and discharged to SNF. Instructed to followup with PMD. Return to ED if symptoms recur or worsen Labs Test 10/06/18 02:40 White Blood Count 9.4 K/UL (4.8-10.8) Red Blood Count 3.47 M/UL (4.20-5.40) Hemoglobin 9.7 G/DL (12.0-16.0) Hematocrit 30.6 % (37.0-47.0) Mean Corpuscular Volume 88 FL (80-99) Mean Corpuscular Hemoglobin 28.0 PG (27.0-31.0) Mean Corpuscular Hemoglobin Concent 31.8 G/DL (32.0-36.0) Red Cell Distribution Width 17.5 % (11.6-14.8) Platelet Count 188 K/UL (150-450) Mean Platelet Volume 6.8 FL (6.5-10.1) Neutrophils (%) (Auto) 55.3 % (45.0-75.0) Lymphocytes (%) (Auto) 31.4 % (20.0-45.0) Monocytes (%) (Auto) 11.1 % (1.0-10.0) Eosinophils (%) (Auto) 1.3 % (0.0-3.0) Basophils (%) (Auto) 0.9 % (0.0-2.0) Urine Color Pale yellow Urine Appearance Clear Urine pH 6.5 (4.5-8.0) Urine Specific [place] 1.010 (1.005-1.035) Urine Protein 3+ (NEGATIVE) Urine Glucose (UA) Negative (NEGATIVE) Urine Ketones Negative (NEGATIVE) Urine Blood Negative (NEGATIVE) Urine Nitrite Negative (NEGATIVE) Urine Bilirubin Negative (NEGATIVE) Urine Urobilinogen Normal MG/DL (0.0-1.0) Urine Leukocyte Esterase 1+ (NEGATIVE) Urine RBC 0-2 /HPF (0 - 2) Urine WBC 2-4 /HPF (0 - 2) Urine Squamous Epithelial Cells Few /LPF (NONE/OCC) Urine Bacteria Few /HPF (NONE) Sodium Level 144 MMOL/L (136-145) Potassium Level 3.9 MMOL/L (3.5-5.1) Chloride Level 109 MMOL/L (98-107) Carbon Dioxide Level 29 MMOL/L (21-32) Anion Gap 6 mmol/L (5-15) Blood Urea Nitrogen 40 mg/dL (7-18) Creatinine 2.1 MG/DL (0.55-1.30) Estimat Glomerular Filtration Rate 30.5 mL/min (>60) Glucose Level 148 MG/DL (74-106) Calcium Level 8.2 MG/DL (8.5-10.1) Total Bilirubin 0.2 MG/DL (0.2-1.0) Aspartate Amino Transf (AST/SGOT) 46 U/L (15-37) Alanine Aminotransferase (ALT/SGPT) 95 U/L (12-78) Alkaline Phosphatase 120 U/L (46-116) Total Creatine Kinase 111 U/L (26-308) Creatine Kinase MB 1.6 NG/ML (0.0-3.6) Creatine Kinase MB Relative Index 1.4 Troponin I 0.000 ng/mL (0.000-0.056) Pro-B-Type Natriuretic Peptide 141 pg/mL (0-125) Total Protein 6.1 G/DL (6.4-8.2) Albumin 2.7 G/DL (3.4-5.0) Globulin 3.4 g/dL Albumin/Globulin Ratio 0.8 (1.0-2.7) EKG Diagnostic Results Rate: normal Rhythm: NSR ST Segments: no acute changes ASA given to the pt in ED: No Rhythm Strip Diag. Results EP Interpretation: yes Rhythm: NSR, no PVC's, no ectopy Chest X-Ray Diagnostic Results Chest X-Ray Diagnostic Results : Chest X-Ray Ordered: Yes # of Views/Limited/Complete: 1 View Indication: Chest Pain EP Interpretation: Yes Interpretation: no consolidation, no effusion, no pneumothorax, no acute cardiopulmonary disease Impression: No acute disease Electronically Signed by: Electronically signed by Rikki Springer MD Last Vital Signs Date Time Temp Pulse Resp B/P (MAP) Pulse Ox O2 Delivery O2 Flow Rate FiO2 10/06/18 05:59 98.4 72 16 119/69 98 Nasal Cannula 3.0 Status: improved Disposition: XFER SNF Condition: Stable Referrals: Malick Marie DO (PCP) Patient Instructions: Nonspecific Chest Pain Rikki Springer MD Oct 06, 2018 06:43
--- NOTE | 2018-10-06 12:13 | Diagnostic Imaging Report ---
Indication: Chest pain Technique: One view of the chest Comparison: 09/23/2018 Findings: Lungs and pleural spaces are clear. Heart size is normal. No significant change Impression: No acute process
--- NOTE | 2018-10-06 15:59 | Cardiology Report ---
APPROVED REPORT EKG Measurement Heart [id number] Normal sinus rhythm Normal ECG
== END 2018-10-06 06:01 ==
LOC: EDBD 01:34 → EDUNIT# 01:34 → EMR 02:02
DX: R07.9 Chest pain, unspecified (principal); I10 Essential (primary) hypertension; J44.9 Chronic obstructive pulmonary disease, unspecified; E11.9 Type 2 diabetes mellitus without complications; K21.9 Gastro-esophageal reflux disease without esophagitis; F20.9 Schizophrenia, unspecified; F31.9 Bipolar disorder, unspecified; Z86.73 Personal history of transient ischemic attack (TIA), and cerebral infarction without residual deficits
CPT/HCPCS: 36415; 71045; 80053; 81003; 82550; 82553; 83880; 84484; 85025; 93005; 99284

== ENCOUNTER 2018-10-22 22:24 | Emergency (ER) | payer MEDICARE, MEDICAID ==
[~2018-10-22] VITALS: Ht 162.6 cm; Wt 113.4 kg
[2018-10-22 22:29] VITALS: BP 121/80
--- NOTE | 2018-10-22 22:30 | NUR ---
ED Nurse Note: Patient presents with complaints of chest and abdominal pain x 1 day. 04/06. patient is from [facility].
[2018-10-22] MEDS ORDERED: NORVASC5 MG ORAL (22:41)
[2018-10-22] MEDS ORDERED: DEPAKOTE250 MG PO (22:41)
[2018-10-22] MEDS ORDERED: ALLOPURINOL300 M1 ORAL (22:41)
[2018-10-22] MEDS ORDERED: RISPERDAL1 MG PO (22:41)
[2018-10-22] MEDS ORDERED: KLONOPIN1 MG ORAL (22:41)
[2018-10-22] MEDS ORDERED: METOPROLOL SUCC50 MG ORAL (22:41)
[2018-10-22] MEDS ORDERED: METFORMIN HCL500 M1 ORAL (22:41)
[2018-10-22] MEDS ORDERED: BUSPAR10 MG ORAL (22:41)
[2018-10-22] MEDS ORDERED: Morphine Sulfate 4mg/ml Inj (IV USE ONLY) IVP ONE (23:00)
--- NOTE | 2018-10-22 23:11 | NUR ---
ED Nurse Note: patient is resting comfortably, no s/s of acute distress. patient tolerated pain medication well.
--- NOTE | 2018-10-22 23:15 | Emergency Room Report ---
History of Present Illness General Chief Complaint: Pain Source: Patient, Medical Record Present Illness HPI Patient presents with complaints of body ache and chest pain reports that the pain came on several hours ago Denies any shortness of breath she was at rest when this came on denies any vomiting or diarrhea denies any fevers or chills Pain lasted for several minutes Denies any pleurisy Patient has had recent hospitalization with cardiac workup as well denies any recent fall or trauma Allergies: Coded Allergies: NO KNOWN ALLERGIES (Verified Allergy, Unknown, 09/17/18) Patient History Past Medical History: see triage record Pertinent Family History: none Reviewed Nursing Documentation: PMH: Agreed; PSxH: Agreed Nursing Documentation-PMH Hx Cardiac Problems: Yes - STROKE Hx Hypertension: Yes Hx COPD: Yes Hx Diabetes: Yes - type 2 Hx Cancer: No Hx Gastrointestinal Problems: Yes - Gerd, gout Hx Dialysis: No - chronic kidney disease Hx Neurological Problems: No Hx Seizures: Yes Review of Systems All Other Systems: negative except mentioned in HPI Physical Exam Vital Signs Date Time Temp Pulse Resp B/P (MAP) Pulse Ox O2 Delivery O2 Flow Rate FiO2 10/22/18 22:27 98.1 82 16 138/88 98 Room Air Sp02 EP Interpretation: reviewed, normal General Appearance: well appearing, no apparent distress Head: normocephalic, atraumatic Eyes: bilateral eye PERRL, bilateral eye EOMI ENT: hearing grossly normal, normal pharynx, TMs + canals normal, uvula midline Neck: full range of motion, supple, no meningismus, no bony tend Respiratory: lungs clear, normal breath sounds, no rhonchi, no respiratory distress, no retraction, no accessory muscle use Cardiovascular #1: normal peripheral pulses, regular rate, rhythm, no edema, no gallop, no JVD, no murmur Gastrointestinal: normal bowel sounds, non tender, soft, no mass, no organomegaly, non-distended, no guarding, no hernia, no pulsatile mass, no rebound Genitourinary: no CVA tenderness Musculoskeletal: normal inspection Neurologic: oriented x3, responsive, media reporter III-XII nml as tested, motor strength/ tone normal, sensory intact Psychiatric: mood/affect normal Skin: normal color, no rash, warm/dry, palpation normal Lymphatic: normal inspection, no adenopathy Medical Decision Making Diagnostic Impression: Primary Impression: Chest pain ER Course Patient is a fairly complex patient with multiple differential to consideration including but not limited to cardiac cardiopulmonary and vascular emergencies Patient's EKG is normal Patient's history is reviewed there was recent presentation on October 06 and 2 visits prior to that All with cardiac workups fairly extensive and on admission including echocardiogram Patient's EKG today shows similar findings to previous Does not appear to be consistent with cardiac pathology patient was given nitroglycerin prior to presentation to the ER However the nitroglycerin did not do much for her pain she was provided with morphine here I did contact the nursing facility as well patient is medically stable And likely will require improved pain management at nursing facility EKG Diagnostic Results Rate: normal Rhythm: NSR ST Segments: no acute changes Rhythm Strip Diag. Results EP Interpretation: yes Rate: 65 Rhythm: NSR, no PVC's, no ectopy Last Vital Signs Date Time Temp Pulse Resp B/P (MAP) Pulse Ox O2 Delivery O2 Flow Rate FiO2 10/22/18 22:29 98.1 76 13 121/80 96 Room Air Status: improved Disposition: [facility] SNF Condition: Improved Referrals: Malick Marie DO (PCP) Additional Instructions: Patient is provided with the discharge instructions notified to follow up with primary doctor in the next 2-3 days otherwise return to the er with any worsening symptoms. Please note that this report is being documented using [email or web address] technology. This can lead to erroneous entry secondary to incorrect interpretation by the dictating instrument. Toney Ramirez DO Oct 22, 2018 23:15
--- NOTE | 2018-10-22 23:33 | NUR ---
ED Nurse Note: Patient cleared for transport back to [facility]. Report given to both EMT and Gaby RN at [facility] prior tp transport. patient is a&ox4, no s/s of acute distress, reports a pain level of 1. IV was removed and patient ID and was remoed prior to transport.
[2018-10-22 23:35] VITALS: BP 121/80
== END 2018-10-22 23:37 ==
LOC: EDUNIT# 22:24 → EDBD 22:24 → EMR 22:46
DX: R07.9 Chest pain, unspecified (principal); M79.10 Myalgia, unspecified site; I10 Essential (primary) hypertension; E11.9 Type 2 diabetes mellitus without complications; J44.9 Chronic obstructive pulmonary disease, unspecified; Z86.73 Personal history of transient ischemic attack (TIA), and cerebral infarction without residual deficits
CPT/HCPCS: 96374; 96375; 99284; J2270; J2405

== ENCOUNTER 2019-03-18 05:45 | Emergency (ER) | payer MEDICARE, MEDICAID ==
[~2019-03-18] VITALS: Ht 162.6 cm; Wt 101.6 kg
[~2019-03-18 05:45] MED LIST changes: +METOPROLOL SUCC50 MG ORAL; +NORVASC5 MG ORAL; +RISPERDAL1 MG PO
[2019-03-18] MEDS ORDERED: METFORMIN HCL500 M1 ORAL (05:55)
--- NOTE | 2019-03-18 06:06 | NUR ---
ED Nurse Note: Patient presents with onset of chest pain post cocaine use. Patient was BIBA from a laundry mat. Patient claims that she is not homeless and is moving in with her fiance. Vital sgns are stable.
[2019-03-18 06:08] VITALS: BP 138/104
--- NOTE | 2019-03-18 06:08 | Emergency Room Report ---
History of Present Illness General Chief Complaint: Chest Pain Source: Patient, Medical Record Present Illness HPI This is a 48-year-old female with a history of anxiety, hypertension and chronic chest pain. She presents with chief complaint of chest pain. She was sleeping at a laundromat and was asked to leave and then she is complained of chest pain. Onset for several hours do not now. She is been here numerous times for chest pain. She was just discharged from [facility] a couple days ago for the same thing. EMS gave her aspirin and nitroglycerin. Patient complained of 10 out of 10 pain. She just point her chest is area pain. No nausea no vomiting. No fever chills. Used cocaine yesterday. Nothing made it better. Nothing made it worse. No exertional component. No diaphoresis. Allergies: Coded Allergies: NO KNOWN ALLERGIES (Verified Allergy, Unknown, 09/17/18) Patient History Past Medical History: see triage record, old chart reviewed, HTN, CVA/TIA, psych hx Past Surgical History: other Pertinent Family History: none Social History: Reports: smoking, drug use Now: No : 3 Para: 1 Immunizations: other Reviewed Nursing Documentation: PMH: Agreed; PSxH: Agreed Nursing Documentation-PMH Hx Cardiac Problems: Yes - STROKE Hx Hypertension: Yes Hx COPD: Yes Hx Diabetes: Yes - type 2 Hx Cancer: No Hx Gastrointestinal Problems: Yes - Gerd, gout Hx Dialysis: No - chronic kidney disease History Of Psychiatric Problem: Yes - ANXIETY, BIPOLAR Hx Neurological Problems: No Hx Seizures: Yes Review of Systems Eye: Denies: eye pain, blurred vision ENT: Denies: ear pain, nose congestion, throat swelling Respiratory: Denies: cough, shortness of breath Cardiovascular: Reports: chest pain; Denies: palpitations Gastrointestinal: Denies: abdominal pain, diarrhea, nausea, vomiting Musculoskeletal: Denies: back pain, joint pain Skin: Denies: rash Neurological: Denies: headache, numbness Endocrine: Denies: increased thirst, increased urine Hematologic/Lymphatic: Denies: easy bruising All Other Systems: negative except mentioned in HPI Physical Exam Vital Signs Date Time Temp Pulse Resp B/P (MAP) Pulse Ox O2 Delivery O2 Flow Rate FiO2 03/18/19 05:45 98.8 93 18 138/104 (115) 99 Room Air Vitals unremarkable Sp02 EP Interpretation: reviewed, normal General Appearance: well appearing, no apparent distress, alert Head: normocephalic, atraumatic Eyes: bilateral eye PERRL, bilateral eye EOMI ENT: hearing grossly normal, normal pharynx Neck: full range of motion, supple, no meningismus Respiratory: chest non-tender, lungs clear, normal breath sounds Cardiovascular #1: regular rate, rhythm, no murmur Gastrointestinal: normal bowel sounds, non tender, no mass, no organomegaly, no bruit, non-distended Musculoskeletal: back normal, gait/station normal, normal range of motion Psychiatric: mood/affect normal Skin: warm/dry Medical Decision Making Diagnostic Impression: Primary Impression: Chest pain Qualified Codes: R07.9 - Chest pain, unspecified Additional Impression: Cocaine abuse ER Course Patient with chest pain complaint. This is a chronic issue. No evidence of ACS , PE, dissection. EKG normal. If troponin is negative, will discharge home. EKG Diagnostic Results Rate: normal Rhythm: NSR ST Segments: no acute changes Rhythm Strip Diag. Results EP Interpretation: yes Rate: 75 Rhythm: NSR, no PVC's, no ectopy Last Vital Signs Date Time Temp Pulse Resp B/P (MAP) Pulse Ox O2 Delivery O2 Flow Rate FiO2 03/18/19 05:45 98.8 93 18 138/104 (115) 99 Room Air Status: improved Disposition: HOME, SELF-CARE Condition: Stable Patient Instructions: Nonspecific Chest Pain Additional Instructions: Stop using drugs. Follow-up with your doctor in 7 days. Follow-up with rehab. Return if worse. Amarjit Shukla MD Mar 18, 2019 06:08
--- NOTE | 2019-03-18 06:54 | NUR ---
ED Nurse Note: Patient cleared for discharge, verbalized impartiality to discharge instructions. Patient ID band removed, IV removed. Patient departed with all belongings.
[2019-03-18 06:56] VITALS: BP 138/104
--- NOTE | 2019-03-19 19:38 | Cardiology Report ---
APPROVED REPORT EKG Measurement Heart [id number] Normal sinus rhythm Normal ECG
== END 2019-03-18 06:56 | disposition home or self-care (01) ==
LOC: EDBD 05:45 → EMR 06:26
DX: R07.9 Chest pain, unspecified (principal); F14.10 Cocaine abuse, uncomplicated; F41.9 Anxiety disorder, unspecified; F31.9 Bipolar disorder, unspecified; K21.9 Gastro-esophageal reflux disease without esophagitis; M10.9 Gout, unspecified; E11.9 Type 2 diabetes mellitus without complications; Z86.73 Personal history of transient ischemic attack (TIA), and cerebral infarction without residual deficits; I10 Essential (primary) hypertension; F17.200 Nicotine dependence, unspecified, uncomplicated
CPT/HCPCS: 82962; 84484; 93005; 99283

== ENCOUNTER 2019-03-19 01:29 | Emergency (ER) | payer MEDICARE, MEDICAID ==
[~2019-03-19] VITALS: Ht 162.6 cm; Wt 101.6 kg
[2019-03-19 01:36] VITALS: BP 153/81
--- NOTE | 2019-03-19 01:36 | NUR ---
ED Nurse Note: Pt was brought in ED from street by Ambulance, c/o left Ankle pain 9/10 for one month. Pt denied any injury. Pt is A/O X 4. Vital signs stable at this time, waiting for orders.
--- NOTE | 2019-03-19 01:55 | Emergency Room Report ---
History of Present Illness General Chief Complaint: Pain Source: Patient, Medical Record Present Illness HPI Patient presents with complaints of left ankle pain Reports that she twisted her ankle coming off the bus yesterday denies any chest pain or shortness of breath denies any back or flank pain Denies any other Head injury denies any focal weakness Pain is worse with bearing weight Allergies: Coded Allergies: NO KNOWN ALLERGIES (Verified Allergy, Unknown, 09/17/18) Patient History Past Medical History: see triage record Pertinent Family History: none : 3 Para: 1 Reviewed Nursing Documentation: PMH: Agreed; PSxH: Agreed Nursing Documentation-PMH Past Medical History: No History, Except For Hx Cardiac Problems: Yes - STROKE Hx Hypertension: Yes Hx COPD: Yes Hx Diabetes: Yes - type 2 Hx Cancer: No Hx Gastrointestinal Problems: Yes - Gerd, gout Hx Dialysis: No - chronic kidney disease Hx Neurological Problems: No Hx Seizures: Yes Review of Systems All Other Systems: negative except mentioned in HPI Physical Exam Vital Signs Date Time Temp Pulse Resp B/P (MAP) Pulse Ox O2 Delivery O2 Flow Rate FiO2 03/19/19 01:29 98.2 75 16 155/82 (106) 98 Room Air Sp02 EP Interpretation: reviewed, normal General Appearance: well appearing, no apparent distress Head: normocephalic, atraumatic ENT: normal pharynx Neck: supple Respiratory: lungs clear, normal breath sounds Cardiovascular #1: regular rate, rhythm Gastrointestinal: non tender, soft Musculoskeletal: swelling - Left ankle Neurologic: alert, oriented x3, responsive Skin: other - As above Lymphatic: no adenopathy Medical Decision Making Diagnostic Impression: Primary Impression: Ankle sprain ER Course Given the history and exam x-rays imaging is obtained Patient later on now reports that this injury occurred about 6 months ago nevertheless the x-ray imaging does show some Questionable changes in the mortise Patient refusing splint and request Otis wrap this was provided given that is fairly late at nighttime patient was allowed to rest until morning when the bus service starts and otherwise medically stable for close outpatient follow-up Other X-Ray Diagnostic Results Other X-Ray Diagnostic Results : X-Ray ordered: Left ankle # of Views/Limited Vs Complete: 3 View Indication: Pain EP Interpretation: Yes Interpretation: no dislocation, other - Soft tissue swelling, question widening of the mortise cannot rule out fracture Impression: Other - Soft tissue swelling cannot rule out acute fracture Electronically Signed by: Toney Ramirez DO Last Vital Signs Date Time Temp Pulse Resp B/P (MAP) Pulse Ox O2 Delivery O2 Flow Rate FiO2 03/19/19 01:29 98.2 75 16 155/82 (106) 98 Room Air Status: improved Disposition: HOME, SELF-CARE Condition: Improved Additional Instructions: Patient is provided with the discharge instructions notified to follow up with primary doctor in the next 2-3 days otherwise return to the er with any worsening symptoms. Please note that this report is being documented using [employer] technology. This can lead to erroneous entry secondary to incorrect interpretation by the dictating instrument. Toney Ramirez DO Mar 19, 2019 01:55
--- NOTE | 2019-03-19 02:36 | NUR ---
ED Nurse Note: X-ray done at bed side.
--- NOTE | 2019-03-19 02:36 | Diagnostic Imaging Report ---
EXAM: XR Left Ankle Complete, 3 or More Views CLINICAL HISTORY: TRAUMA TECHNIQUE: Frontal, lateral and oblique views of the left ankle. COMPARISON: 07/20/18 FINDINGS: Bones/joints: Irregular contour to the distal fibula. The possibility of an acute fracture cannot be totally excluded there appears be soft tissue swelling base of the fifth metatarsal is intact. Soft tissues: Unremarkable. IMPRESSION: There appears be some soft tissue swelling lateral malleolus. There is subtle irregularity of contour of this may be due to positioning the possibility of a fracture cannot be totally excluded
--- NOTE | 2019-03-19 03:05 | NUR ---
ED Nurse Note: Assisted Pt went to bathroom.
--- NOTE | 2019-03-19 03:10 | NUR ---
ED Nurse Note: Provided a cup of orange juice, a bottle of milk and a cup of water.
--- NOTE | 2019-03-19 03:15 | NUR ---
ED Nurse Note: Pt went to sleep, no c/o any discomfort at this time, will continue to monitor.
[2019-03-19 05:30] VITALS: BP 148/82
--- NOTE | 2019-03-19 05:30 | NUR ---
Homeless Discharge: Patient is being discharged from medical care. Awake, alert and oriented x4. After care instructions, including referral to community resources were given. Patient verbalized understanding of After care instructions. Patient does not request medications, equipment or placement at this time. Patient signed patient consent in the medical record for patient destination upon discharge. All medical devices such as ID band was removed. Patient ambulated out with steady gait and with all personal belongings.
== END 2019-03-19 05:30 | disposition home or self-care (01) ==
LOC: EDBD 01:29 → EMR 01:39
DX: S93.402A Sprain of unspecified ligament of left ankle, initial encounter (principal); E11.22 Type 2 diabetes mellitus with diabetic chronic kidney disease; I12.9 Hypertensive chronic kidney disease with stage 1 through stage 4 chronic kidney disease, or unspecified chronic kidney disease; N18.9 Chronic kidney disease, unspecified; K21.9 Gastro-esophageal reflux disease without esophagitis; J44.9 Chronic obstructive pulmonary disease, unspecified; M10.9 Gout, unspecified; Z86.73 Personal history of transient ischemic attack (TIA), and cerebral infarction without residual deficits; X50.1XXA Overexertion from prolonged static or awkward postures, initial encounter; Y92.811 Bus as the place of occurrence of the external cause
CPT/HCPCS: 99283

== ENCOUNTER 2019-05-27 01:06 | Emergency (ER) | payer MEDICAID, MEDICARE ==
[~2019-05-27] VITALS: Ht 162.6 cm; Wt 97.5 kg
[2019-05-27 01:13] VITALS: BP 130/98
--- NOTE | 2019-05-27 01:13 | NUR ---
ED Nurse Note: Pt vivi DIEZ 68 via rylee C/O chest pain 2 for the last 2 months. pt is alert x4. ambulatory. VSS
--- NOTE | 2019-05-27 01:40 | Emergency Room Report ---
History of Present Illness General Chief Complaint: Chest Pain Source: Patient Present Illness HPI Is a 49-year-old female with multiple medical problems including bipolar. She presents with chief complaint of chest pain. She is has chronic chest pain is been ongoing for years. She is been here numerous times for the same thing. She was just discharged from [facility] in [place]. [place] chest [place]. She says she been on the bus all day. She is homeless and goes to different hospital with the same complaint. EMS gave her aspirin and nitro without any relief. Pain is epigastric and mid sternum. No radiation. Nothing made it better. Nothing made it worse. Pain is 10 out of 10. No nausea no vomiting. No fever chills. Allergies: Coded Allergies: HALOPERIDOL (Verified Allergy, Unknown, 05/27/19) NO KNOWN ALLERGIES (Verified Allergy, Unknown, 09/17/18) Patient History Past Medical History: see triage record, old chart reviewed, DM, HTN, psych hx Past Surgical History: none Pertinent Family History: none Social History: Denies: smoking Now: No Immunizations: other Reviewed Nursing Documentation: PMH: Agreed; PSxH: Agreed Nursing Documentation-PMH Hx Cardiac Problems: Yes Hx Hypertension: Yes Hx Asthma: Yes Hx COPD: Yes Hx Diabetes: Yes Hx Cancer: No Hx Gastrointestinal Problems: Yes - Gerd, gout Hx Dialysis: No - chronic kidney disease History Of Psychiatric Problem: Yes Hx Neurological Problems: No Hx Cerebrovascular Accident: Yes Hx Seizures: Yes Review of Systems Eye: Denies: eye pain, blurred vision ENT: Denies: ear pain, nose congestion, throat swelling Respiratory: Denies: cough, shortness of breath Cardiovascular: Reports: chest pain; Denies: palpitations Gastrointestinal: Denies: abdominal pain, diarrhea, nausea, vomiting Musculoskeletal: Denies: back pain, joint pain Skin: Denies: rash Neurological: Denies: headache, numbness Endocrine: Denies: increased thirst, increased urine Hematologic/Lymphatic: Denies: easy bruising All Other Systems: negative except mentioned in HPI Physical Exam Vital Signs Date Time Temp Pulse Resp B/P (MAP) Pulse Ox O2 Delivery O2 Flow Rate FiO2 05/27/19 01:07 98.8 105 18 128/98 (108) 98 Room Air Vitals unremarkable Sp02 EP Interpretation: reviewed, normal General Appearance: well appearing, no apparent distress, alert Head: normocephalic, atraumatic Eyes: bilateral eye PERRL, bilateral eye EOMI ENT: hearing grossly normal, normal pharynx Neck: full range of motion, supple, no meningismus Respiratory: chest non-tender, lungs clear, normal breath sounds Cardiovascular #1: regular rate, rhythm, no murmur Gastrointestinal: normal bowel sounds, non tender, no mass, no organomegaly, no bruit, non-distended Musculoskeletal: back normal, gait/station normal, normal range of motion Psychiatric: mood/affect normal Medical Decision Making Diagnostic Impression: Primary Impression: Chest pain Qualified Codes: R07.9 - Chest pain, unspecified ER Course Patient with chronic chest pain. No evidence of ACS, PE, dissection. This is chronic in nature. No acute process. She says she is want a place to sleep. She does not want to go to care home. She said that she pulled be heading back to [place] in the morning. EKG Diagnostic Results Rate: normal Rhythm: NSR ST Segments: no acute changes Rhythm Strip Diag. Results EP Interpretation: yes Rate: 92 Rhythm: NSR, no PVC's, no ectopy Last Vital Signs Date Time Temp Pulse Resp B/P (MAP) Pulse Ox O2 Delivery O2 Flow Rate FiO2 05/27/19 01:13 98.8 95 16 130/98 98 Room Air Status: improved Disposition: HOME, SELF-CARE Condition: Stable Patient Instructions: Nonspecific Chest Pain Additional Instructions: Follow-up with in 7 days. Return if symptoms worsen. Amarjit Shukla MD May 27, 2019 01:40
--- NOTE | 2019-05-27 02:32 | NUR ---
ED Nurse Note: Allred and water were provided.
--- NOTE | 2019-05-27 03:33 | NUR ---
ED Nurse Note: Report given to LUIS MIGUEL Corbett
[2019-05-27 03:34] VITALS: BP 128/90
--- NOTE | 2019-05-27 03:35 | NUR ---
ED Nurse Note: received report from Salbador Bullard and assumed care, pt currently sleeping no sx distress noted, will cont monitor.
[2019-05-27 06:44] VITALS: BP 124/86
--- NOTE | 2019-05-27 06:44 | NUR ---
ED Nurse Note: PT cleared to be d/c per ERMD, pt discharge and aftercare instruction w/ list of shelters and mental health clinic provided, pt declined transportation, pt reports she has a lot of money but she chooses to be homeless. pt has no active plan at this time, pt advised to follow up with pcp for continuity of care and advised to stop drinking alcohol. pt vss. ambulatory w/ steady gait, iv d/c and id band removed, left w/ all belongings.
[2019-05-27] MEDS ORDERED: DEPAKOTE250 MG PO (08:27)
[2019-05-27] MEDS ORDERED: TRAZODONE HCL150 MG ORAL (08:27)
[2019-05-27] MEDS ORDERED: QUETIAPINE FUMA25 MG ORAL (08:27)
[2019-05-27] MEDS ORDERED: LANTUS SOL100 UNIT/1 SUBQ (08:27)
--- NOTE | 2019-05-27 16:33 | Cardiology Report ---
APPROVED REPORT EKG Measurement Heart [id number] Normal sinus rhythm Normal ECG
--- NOTE | 2019-05-27 16:34 | NUR ---
HOMELESS COORDINATOR HC spoke with patient and patient is alert and oriented. Patient states she would like placement in a board and care. HC explained to patient that she needs income for that type of placement. Patient states she has income, over $2,000 a month. Patient states she would like to speak to her psychiatrist to retrieve her money. Patient was unable to reach psychiatrist after calling a few times. Patient was given a sandwich and water. Patient decided to leave on foot with no bus tokens. HC provided Placement resources and mental health resources.
== END 2019-05-27 06:44 | disposition home or self-care (01) ==
LOC: EDUNIT# 01:06 → EDBD 01:06 → EMR 01:16
DX: R07.9 Chest pain, unspecified (principal); I10 Essential (primary) hypertension; J44.9 Chronic obstructive pulmonary disease, unspecified; Z86.73 Personal history of transient ischemic attack (TIA), and cerebral infarction without residual deficits
CPT/HCPCS: 84484; 93005; 99283

== ENCOUNTER 2019-05-27 08:20 | Emergency (ER) | payer MEDICARE ==
[~2019-05-27] VITALS: Ht 162.6 cm; Wt 97.5 kg
[2019-05-27] MEDS ORDERED: TRAZODONE HCL150 MG ORAL (08:27)
[2019-05-27] MEDS ORDERED: QUETIAPINE FUMA25 MG ORAL (08:27)
[2019-05-27] MEDS ORDERED: LANTUS SOL100 UNIT/1 SUBQ (08:27)
[2019-05-27] MEDS ORDERED: DEPAKOTE250 MG PO (08:27)
[2019-05-27 08:33] VITALS: BP 172/118
--- NOTE | 2019-05-27 08:37 | NUR ---
ED Nurse Note: pt was brought in by ambulance from [facility] c/o of chest pain started 2 hours ago, pt stated the chest pain might be coming form the cough and bronchitis, pt stated she has suicidal thoughts and has no intention or any plan, pt has history bipolar and schizo, pt able to answer all questions accordingly. pt stated she is here earlier and [place] go to the airport. vss. will continue to monitor.
--- NOTE | 2019-05-27 09:23 | Emergency Room Report ---
History of Present Illness General Chief Complaint: Chest Pain Source: Patient, Medical Record, EMS Present Illness HPI 49-year-old female presents ED for evaluation. Brought in by EMS for chest pain. Found out restaurant. Patient has history of chronic chest pain. [place] [facility] and subsequently discharged in the morning. Had EKG and troponin which were negative. Patient states that chest pain is not new for her. Dull, 5 out of 10, nonradiating. States she is homeless. Denies drug use. No other aggravating relieving factors. Denies any other associated symptoms Allergies: Coded Allergies: HALOPERIDOL (Verified Allergy, Unknown, 05/27/19) Patient History Past Medical History: DM, HTN, asthma, COPD, seizures, psych hx Now: No Immunizations: UTD Reviewed Nursing Documentation: PMH: Agreed; PSxH: Agreed Nursing Documentation-PMH Past Medical History: No History, Except For Hx Cardiac Problems: Yes Hx Hypertension: Yes Hx Asthma: Yes Hx COPD: Yes Hx Diabetes: Yes Hx Cancer: No Hx Gastrointestinal Problems: Yes - Gerd, gout Hx Dialysis: No - chronic kidney disease History Of Psychiatric Problem: Yes - schizoprenia, bipolar Hx Neurological Problems: No Hx Cerebrovascular Accident: Yes Hx Seizures: Yes Review of Systems All Other Systems: negative except mentioned in HPI Physical Exam Vital Signs Date Time Temp Pulse Resp B/P (MAP) Pulse Ox O2 Delivery O2 Flow Rate FiO2 05/27/19 08:20 98.4 96 16 172/118 (136) 99 Room Air Sp02 EP Interpretation: reviewed, normal General Appearance: no apparent distress, alert, GCS 15, non-toxic Head: normocephalic, atraumatic Eyes: bilateral eye normal inspection, bilateral eye PERRL ENT: hearing grossly normal, normal pharynx, no angioedema, normal voice Neck: full range of motion, supple/symm/no masses Respiratory: chest non-tender, lungs clear, normal breath sounds, speaking full sentences Cardiovascular #1: regular rate, rhythm, no edema Cardiovascular #2: 2+ carotid (R), 2+ carotid (L), 2+ radial (R), 2+ radial (L) , 2+ dorsalis pedis (R), 2+ dorsalis pedis (L) Gastrointestinal: normal bowel sounds, non tender, soft, non-distended, no guarding, no rebound Rectal: deferred Genitourinary: normal inspection, no CVA tenderness Musculoskeletal: back normal, gait/station normal, normal range of motion, non- tender Neurologic: alert, oriented x3, responsive, motor strength/tone normal, sensory intact, speech normal Psychiatric: judgement/insight normal, memory normal, mood/affect normal, no suicidal/homicidal ideation Reflexes: 3+ bicep (R), 3+ bicep (L), 3+ tricep (R), 3+ tricep (L), 3+ knee (R) , 3+ knee (L) Lymphatic: no adenopathy Medical Decision Making Homeless Attestation I, The treating physician Dr. Springer, have assessed and agrees that patient is medically stable for discharge to an outpatient disposition. Diagnostic Impression: Primary Impression: Chest pain Qualified Codes: R07.9 - Chest pain, unspecified Additional Impression: Bipolar disorder Qualified Codes: F31.9 - Bipolar disorder, unspecified ER Course Hospital Course 49-year-old F presents ED complaining of chest pain Differential diagnoses include: Rib fracture, PR/unstable angina, contusion, muscle strain Clinical course Patient placed on stretcher. After initial history, exam reveals middle-aged female in no acute distress. There is some reproducible midsternal pain. Lungs clear. I reviewed EMR. Patient was seen here last night for similar chest pain. Has documented history of chronic chest pain. Homeless. Had troponin and EKG which were unremarkable. Was allowed to sleep here was discharged in the morning which jail referrals. EKG - NSR, no acute ischemic changes interpreted by me Patient states that she was not able to get to the jail as planned. Denies SI or HI. Denies hearing voices. I do not believe the patient is a danger to self or others. I waited by mental health social worker. Agrees that patient is a danger to self or others. Will provide assistance in helping patient get jail placement. Safe for discharge for close outpatient follow-up homeless checklist completed. Will provide PMD and mental health referrals I. I feel this is a highly complex case requiring extensive working including EKG/Rhythm strip, Xray/CT/US, Blood/urine lab work, repeat exams while in ED, and administration of strong opiates/narcotics for pain control, admission to hospital or close patient follow up. Diagnosis - chest pain, bipolar disorder Stable and discharged to home. Instructed to followup with PMD. Return to ED if symptoms recur or worsen EKG Diagnostic Results Rate: normal Rhythm: NSR ST Segments: no acute changes ASA given to the pt in ED: No Rhythm Strip Diag. Results EP Interpretation: yes Rhythm: NSR, no PVC's, no ectopy Last Vital Signs Date Time Temp Pulse Resp B/P (MAP) Pulse Ox O2 Delivery O2 Flow Rate FiO2 05/27/19 08:33 96 16 Room Air 05/27/19 08:33 98.4 172/118 99 Status: improved Disposition: HOME, SELF-CARE Condition: Stable Referrals: NOT CHOSEN IPA/,REFERRING (PCP) Rikki Springer MD May 27, 2019 09:23
[2019-05-27 11:00] VITALS: BP 138/80
--- NOTE | 2019-05-27 11:00 | NUR ---
ED Nurse Note: pt has no complain of pain, pt asked for sandwich and provided. will continue to monitor.
[2019-05-27 11:20] VITALS: BP 138/80
--- NOTE | 2019-05-27 11:20 | NUR ---
Homeless Discharge: Patient is being discharged from medical care. Awake, alert and oriented x4. After care instructions, including referral to community resources were given. Patient verbalized understanding of After care instructions; at this time patient does not request medications, equipment or placement. Patient signed patient consent in the medical record for patient destination upon discharge. All medical devices such as IV and ID band were removed. Patient ambulated out with all personal belongings with steady gait.
== END 2019-05-27 11:20 | disposition home or self-care (01) ==
LOC: EDBD 08:20 → EMR 08:40
DX: R07.9 Chest pain, unspecified (principal); I10 Essential (primary) hypertension; J44.9 Chronic obstructive pulmonary disease, unspecified; E11.9 Type 2 diabetes mellitus without complications; K21.9 Gastro-esophageal reflux disease without esophagitis; M10.9 Gout, unspecified; F31.9 Bipolar disorder, unspecified; F20.9 Schizophrenia, unspecified
CPT/HCPCS: 93005; 99283

== ENCOUNTER 2019-06-27 13:25 | Emergency (ER) | payer MEDICARE ==
[~2019-06-27] VITALS: Ht 162.6 cm; Wt 96.2 kg
[~2019-06-27 13:25] MED LIST changes: +LANTUS SOL100 UNIT/1 SUBQ; +TRAZODONE HCL150 MG ORAL
--- NOTE | 2019-06-27 13:26 | NUR ---
ED Nurse Note: Patient on [facility] in [facility]. Complains of pain to the bilateral feet and lower back and legs. States the pain started a few days ago. States she has the pain everyday and usually takes norco. [place] last taken one week ago. Maris has a history of bipoar disorder and schizoaffective disorder. Pain score 9. Urine sample requested.
[2019-06-27 13:34] VITALS: BP 129/88
[2019-06-27] MEDS ORDERED: NORVASC2.5 MG ORAL (13:40)
[2019-06-27] MEDS ORDERED: TEGRETOL200 MG PO (13:40)
--- NOTE | 2019-06-27 13:43 | NUR ---
ED Nurse Note: PA with patient.
--- NOTE | 2019-06-27 14:11 | NUR ---
ED Nurse Note: EKG and urine obtained. Patient provided with water and sandwich and juice
--- NOTE | 2019-06-27 14:50 | Diagnostic Imaging Report ---
Indication: Chest pain Technique: One view of the chest Comparison: 10/06/2018 Findings: Lungs and pleural spaces are clear. Heart size is normal. No significant interim change Impression: No acute process
[2019-06-27 15:04] LABS: APPEARANCE,URINE CLEAR; BILIRUBIN, URINE NEGATIVE (NEGATIVE); COLOR,URINE PALE YELLOW; GLUCOSE, URINE (UA) NEGATIVE (NEGATIVE); KETONES,URINE NEGATIVE (NEGATIVE); LEUKOCYTE ESTERASE ,URINE NEGATIVE (NEGATIVE); NITRITE,URINE NEGATIVE (NEGATIVE); PH,URINE 6 (4.5-8.0); PROTEIN,URINE 3+ (NEGATIVE); UROBILINOGEN,URINE NORMAL MG/DL (0.0-1.0)
[2019-06-27 15:11] LABS: BASOPHILS % (AUTO) 1.1 % (0.0-2.0); HEMATOCRIT 32.7 % (37.0-47.0); HEMOGLOBIN 10.7 G/DL (12.0-16.0); LYMPHOCYTES % (AUTO) 28.6 % (20.0-45.0); MEAN CORPUSCULAR VOLUME 89 FL (80-99); MONOCYTES % (AUTO) 9.9 % (1.0-10.0); NEUTROPHILS % (AUTO) 59.3 % (45.0-75.0); PLATELET COUNT 314 K/UL (150-450); RED BLOOD COUNT 3.68 M/UL (4.20-5.40); RED CELL DISTRIBUTION WIDTH 13.2 % (11.6-14.8); WHITE BLOOD COUNT 9.9 K/UL (4.8-10.8)
[2019-06-27 15:23] LABS: ANION GAP 6 mmol/L (5-15); BLOOD UREA NITROGEN 29 mg/dL (7-18); CALCIUM 8.6 MG/DL (8.5-10.1); CARBON DIOXIDE 29 MMOL/L (21-32); CHLORIDE 107 MMOL/L (98-107); CREATININE 1.9 MG/DL (0.55-1.30); SODIUM 142 MMOL/L (136-145)
[2019-06-27 15:26] LABS: ALANINE AMINOTRANSFERASE 41 U/L (12-78); ALBUMIN/GLOBULIN RATIO 0.6 (1.0-2.7); ALKALINE PHOSPHATASE 121 U/L (46-116); ASPARTATE AMINO TRANSFERASE 25 U/L (15-37); BILIRUBIN,TOTAL 0.2 MG/DL (0.2-1.0)
[2019-06-27] MEDS ORDERED: Acetaminophen 500mg (ES) tab ORAL ONE ×2 (16:39→16:45)
--- NOTE | 2019-06-27 16:41 | NUR ---
ED Nurse Note: Patient has returned from CT.
[2019-06-27 16:43] VITALS: BP 129/91
--- NOTE | 2019-06-27 17:38 | Diagnostic Imaging Report ---
Indication: Abdominal pain Technique: Spiral acquisitions obtained through the abdomen and pelvis. No oral contrast utilized, per emergency room physician request No IV contrast utilized, per referring physician request.. Multiplanar reconstructions were generated. Total dose length product 1710 mGycm. CTDIvol(s) 33 mGy. Dose reduction achieved using automated exposure control Comparison: None Findings: There is a Lap Band in place. This appears to be appropriately positioned. No abnormality of the tubing or reservoir demonstrated. Lack of IV contrast limits assessment of the GI tract. The appendix is normal. There is colonic diverticulosis. No evidence of diverticulitis. No small bowel distention. No free or loculated intraperitoneal gas or fluid is evident. Lack of IV contrast limits assessment of solid organs. The gallbladder is nondistended. No biliary ductal dilatation. The liver, pancreas, spleen, right adrenal are unremarkable. Left adrenal demonstrates hyperplasia and multiple low-attenuation nodules. The kidneys are grossly unremarkable. No renal or ureteral calculi, hydronephrosis, or hydroureter. No pelvic mass or adenopathy. Uterus and ovaries appear unremarkable. The bladder is unremarkable. Spinal fusion hardware is noted bridging L4-S1. This results streak artifact which may obscure pathology. The remainder of the bones are unremarkable. The included lung bases are clear. Impression: Limited assessment of the GI tract, due to lack of enteric contrast administration No definite acute abnormality Lap Band in good position Adenomatous hyperplasia of the left adrenal Evidence of prior spinal fusion surgery The CT scanner at [facility] is accredited by the [employer] and the scans are performed using protocols designed to limit radiation exposure to as low as reasonably achievable to attain images of sufficient resolution adequate for diagnostic evaluation.
--- NOTE | 2019-06-27 17:48 | Emergency Room Report ---
History of Present Illness General Chief Complaint: Pain Source: EMS Present Illness HPI 49-year-old female with history of bipolar disorder, diabetes, hypertension, fibromyalgia here complaining of a chest pain history today without radiation. Patient is sitting comfortably, denying headache and dizziness. Patient reports that she has not taken her psych medication for the past 3 days. Denies impulsivity, grandiosity, suicidal and homicidal ideation. Patient is aware which medication she is taking and also has been following with a psychiatrist. Patient reports that she has history of chronic kidney disease however has not seen a specialist in 3 years. Patient denies drinking alcohol and tobacco smoke. Vital signs are within normal limits. Patient denies fever and chills. Denies urinary frequency, and other associated symptoms. Patient appears to be homeless Allergies: Coded Allergies: HALOPERIDOL (Verified Allergy, Unknown, 05/27/19) Patient History Past Medical History: see triage record, psych hx Past Surgical History: unable to obtain Pertinent Family History: none Now: No Immunizations: UTD Reviewed Nursing Documentation: PMH: Agreed; PSxH: Agreed Nursing Documentation-PMH Hx Cardiac Problems: Yes Hx Hypertension: Yes Hx Asthma: Yes Hx COPD: Yes Hx Diabetes: Yes Hx Cancer: No Hx Gastrointestinal Problems: Yes - Gerd, gout Hx Dialysis: No - chronic kidney disease Hx Neurological Problems: No Hx Cerebrovascular Accident: Yes Hx Seizures: Yes Review of Systems All Other Systems: negative except mentioned in HPI Physical Exam Vital Signs Date Time Temp Pulse Resp B/P (MAP) Pulse Ox O2 Delivery O2 Flow Rate FiO2 06/27/19 13:24 98.1 86 16 132/78 (96) 99 Room Air Sp02 EP Interpretation: reviewed, normal General Appearance: no apparent distress, alert, GCS 15, non-toxic Head: normocephalic, atraumatic Eyes: bilateral eye normal inspection, bilateral eye PERRL ENT: hearing grossly normal, normal pharynx, no angioedema, normal voice Neck: full range of motion, supple/symm/no masses Respiratory: chest non-tender, lungs clear, normal breath sounds, no wheezing, speaking full sentences Cardiovascular #1: regular rate, rhythm, no edema, no murmur Gastrointestinal: normal bowel sounds, non tender, soft, non-distended, no guarding, no rebound Rectal: deferred Genitourinary: normal inspection, no CVA tenderness Musculoskeletal: back normal, gait/station normal, normal range of motion, non- tender, no calf tenderness Neurologic: alert, oriented x3, responsive, motor strength/tone normal, sensory intact, speech normal Psychiatric: judgement/insight normal, memory normal, mood/affect normal, no suicidal/homicidal ideation Skin: no rash, normal color Lymphatic: no adenopathy Medical Decision Making PA Attestation All my diagnosis and treatment plans were reviewed ad discussed with my supervising physician Dr. Xiao Diagnostic Impression: Primary Impression: Adenomatous endometrial hyperplasia Additional Impressions: Chest pain Bipolar disorder ER Course 49-year-old female with history of bipolar disorder, diabetes, hypertension, fibromyalgia here complaining of a chest pain history today without radiation. Patient is sitting comfortably, denying headache and dizziness. Patient reports that she has not taken her psych medication for the past 3 days. Denies impulsivity, grandiosity, suicidal and homicidal ideation. Patient is aware which medication she is taking and also has been following with a psychiatrist. Patient reports that she has history of chronic kidney disease however has not seen a specialist in 3 years. Patient denies drinking alcohol and tobacco smoke. Vital signs are within normal limits. Patient denies fever and chills. Denies urinary frequency, and other associated symptoms. Patient appears to be homeless Ddx considered but are not limited to: [place], Angina, COPD, GERD, CKD exacerbation , anxiety, bipolar disorder uncontrolled, controlled bipolar disorder Vital signs: are WNL, pt. is afebrile H&PE are most consistent with bipolar disorder, chest pain unspecified, adenomatous endometrial hyperplasia ORDERS: EKG, Chest XR, cardiac labs(troponin, CBC, CMP). Depakote, Seroquel, tylenol ED INTERVENTIONS: tylenol, NS bolus, DISCHARGE: At this time pt. is stable for d/c to home. Will provide printed patient care instructions, and any necessary prescriptions. Care plan and follow up instructions have been discussed with the patient prior to discharge.pt reports she has metformin, insulin, and amlodipine and compliant. does not request refill. Advised patient to follow-up with psychiatrist as well as establishing new primary care for referral to bulb filler. If worsening symptoms return to the emergency room. 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 Interpretation: no consolidation, no effusion, no pneumothorax Impression: No acute disease Electronically Signed by: Kierra Lawson PA-C CT/MRI/US Diagnostic Results CT/MRI/US Diagnostic Results : Imaging Test Ordered: Abdominal pelvic CT no contrast Impression Within normal limits Last Vital Signs Date Time Temp Pulse Resp B/P (MAP) Pulse Ox O2 Delivery O2 Flow Rate FiO2 06/27/19 16:43 98.8 72 16 129/91 96 Room Air Disposition: HOME, SELF-CARE Condition: Stable Scripts Acetaminophen* (TYLENOL EXTRA STRENGTH*) 500 Mg Tablet 500 MG ORAL Q8H PRN for Prn Headache/Temp > 101, #30 TAB 0 Refills Prov: Kierra Kovacs 06/27/19 Quetiapine Fumarate* (SEROQUEL*) 25 Mg Tablet 25 MG ORAL DAILY for 10 Days, #10 TAB Prov: Kierra Kovacs 06/27/19 Divalproex Sodium* (DEPAKOTE*) 250 Mg Tablet.dr 250 MG PO Q12HR for 10 Days, #20 TAB Prov: Kierra Kovacs 06/27/19 Referrals: NOT CHOSEN IPA/,REFERRING (PCP) Patient Instructions: Bipolar Disorder, Nonspecific Chest Pain Additional Instructions: Take medication as directed follow-up with your primary care provider for referral to aquatics specialist for further investigation of the hyperplasia of your adnexa. Kierra Kovacs Jun 27, 2019 17:48
[2019-06-27] MEDS ORDERED: DEPAKOTE250 MG PO (17:51)
[2019-06-27] MEDS ORDERED: QUETIAPINE FUMA25 MG ORAL (17:51)
[2019-06-27] MEDS ORDERED: TYLENOL EXTRA500 MG ORAL (17:55)
--- NOTE | 2019-06-27 18:45 | NUR ---
ER DISCHARGE NOTE: Patient is cleared to be discharged per ERMD, pt is aox4, on room air, with stable vital signs. pt was given dc and prescription instructions, pt was able to verbalize understanding, pt id band and iv site removed without complications. pt is able to ambulate with steady gait. pt took all belongings. Patient provided with meal pre discharge. Derrick provided with details of assisted in [place]. Mini cog completed. Entered into homeless log.
== END 2019-06-27 18:45 | disposition home or self-care (01) ==
LOC: EDBD 13:25 → EMR 13:55
DX: N85.00 Endometrial hyperplasia, unspecified (principal); R07.9 Chest pain, unspecified; F31.9 Bipolar disorder, unspecified; J44.9 Chronic obstructive pulmonary disease, unspecified; K21.9 Gastro-esophageal reflux disease without esophagitis; Z86.73 Personal history of transient ischemic attack (TIA), and cerebral infarction without residual deficits; M79.7 Fibromyalgia; E11.22 Type 2 diabetes mellitus with diabetic chronic kidney disease; I12.9 Hypertensive chronic kidney disease with stage 1 through stage 4 chronic kidney disease, or unspecified chronic kidney disease; N18.9 Chronic kidney disease, unspecified; Z88.8 Allergy status to other drugs, medicaments and biological substances
CPT/HCPCS: 36415; 71045; 74176; 80053; 80307; 81001; 81025; 84484; 85025; 93005; 99284

== ENCOUNTER 2019-07-28 21:50 | Emergency (ER) | payer MEDICARE, MEDICAID ==
[~2019-07-28] VITALS: Ht 170.2 cm; Wt 104.3 kg
[2019-07-28 22:15] VITALS: BP 134/76
--- NOTE | 2019-07-28 22:15 | NUR ---
ED Nurse Note: Patient [facility]IBA fromstreet due to behavioral complains, states hearing voises. AAO x4, VESS at this time.
--- NOTE | 2019-07-28 22:55 | Emergency Room Report ---
History of Present Illness General Chief Complaint: Behavioral Complaint Source: Patient, Medical Record Present Illness HPI Is a 49-year-old female with psych history and multiple medical problem. She has been here multiple times for different complaint. She was just discharged here for dizziness. She went to the bus stop and call 911. She was brought back. She had chief complaint of hearing voices. This is a chronic problem for her. EMS that she has suicidal thoughts but none to me. She says she wants a place to lie down. Denies any other complaint. No particular plan. Allergies: Coded Allergies: HALOPERIDOL (Verified Allergy, Unknown, 05/27/19) Patient History Past Medical History: see triage record, old chart reviewed, DM, HTN, psych hx Past Surgical History: none Pertinent Family History: none Social History: Denies: smoking Now: No Immunizations: other Reviewed Nursing Documentation: PMH: Agreed; PSxH: Agreed Nursing Documentation-PMH Past Medical History: No History, Except For Hx Cardiac Problems: Yes Hx Hypertension: Yes Hx Asthma: Yes Hx COPD: Yes Hx Diabetes: Yes Hx Cancer: No Hx Gastrointestinal Problems: Yes - Gerd, gout Hx Dialysis: No - chronic kidney disease Hx Neurological Problems: No Hx Cerebrovascular Accident: Yes Hx Seizures: Yes Review of Systems Eye: Denies: eye pain, blurred vision ENT: Denies: ear pain, nose congestion, throat swelling Respiratory: Denies: cough, shortness of breath Cardiovascular: Denies: chest pain, palpitations Gastrointestinal: Denies: abdominal pain, diarrhea, nausea, vomiting Musculoskeletal: Denies: back pain, joint pain Skin: Denies: rash Neurological: Denies: headache, numbness Endocrine: Denies: increased thirst, increased urine Hematologic/Lymphatic: Denies: easy bruising All Other Systems: negative except mentioned in HPI Physical Exam Vital Signs Date Time Temp Pulse Resp B/P (MAP) Pulse Ox O2 Delivery O2 Flow Rate FiO2 07/28/19 21:53 98.8 78 19 134/76 (95) 98 Room Air Vitals normal Sp02 EP Interpretation: reviewed, normal General Appearance: well appearing, no apparent distress, alert Head: normocephalic, atraumatic Eyes: bilateral eye PERRL, bilateral eye EOMI ENT: hearing grossly normal, normal pharynx Neck: full range of motion, supple, no meningismus Respiratory: chest non-tender, lungs clear, normal breath sounds Cardiovascular #1: regular rate, rhythm, no murmur Gastrointestinal: normal bowel sounds, non tender, no mass, no organomegaly, no bruit, non-distended Musculoskeletal: back normal, gait/station normal, normal range of motion Psychiatric: mood/affect normal Medical Decision Making Diagnostic Impression: Primary Impression: Psychosis Qualified Codes: F29 - Unspecified psychosis not due to a substance or known physiological condition ER Course Patient presents with psychosis. She says she felt better now. When she found out that we do not have a bed for her to lay down, she says she wants to leave. I see no need for for further work-up. She denies any drugs or alcohol. Will discharge home. Last Vital Signs Date Time Temp Pulse Resp B/P (MAP) Pulse Ox O2 Delivery O2 Flow Rate FiO2 07/28/19 21:53 98.8 78 19 134/76 (95) 98 Room Air Status: improved Disposition: HOME, SELF-CARE Condition: Stable Amarjit Shukla MD Jul 28, 2019 22:55
--- NOTE | 2019-07-28 23:05 | NUR ---
ED Nurse Note: Patient left without signing DC papers.
== END 2019-07-29 03:00 | disposition home or self-care (01) ==
LOC: EDBD 21:50 → EMR 07-29 02:53
DX: F29 Unspecified psychosis not due to a substance or known physiological condition (principal); I10 Essential (primary) hypertension; E11.9 Type 2 diabetes mellitus without complications; J44.9 Chronic obstructive pulmonary disease, unspecified; K21.9 Gastro-esophageal reflux disease without esophagitis; Z86.73 Personal history of transient ischemic attack (TIA), and cerebral infarction without residual deficits; Z88.8 Allergy status to other drugs, medicaments and biological substances
CPT/HCPCS: 99283

== ENCOUNTER → 2019-07-28 | Emergency (ER) | payer MEDICARE, MEDICAID ==
[~2019-07-28] VITALS: Ht 165.1 cm; Wt 74.8 kg
[~2019-07-28] MED LIST changes: +NORVASC2.5 MG ORAL; +TEGRETOL200 MG PO
--- NOTE | 2019-07-28 18:06 | NUR ---
ED Nurse Note: Pt BIB [address]/t dizziness x 2 hrs. Pt aox4, on room air saturating 100%, no distress. Denies N/V/diarrhea. Placed on hospital gown, cont. fire pilot, and pulse ox. NSR on monitor. Denies pain/discomfort.
[2019-07-28 18:09] VITALS: BP 169/95
--- NOTE | 2019-07-28 18:35 | NUR ---
ED Nurse Note: xray at bedside
--- NOTE | 2019-07-28 18:49 | NUR ---
ED Nurse Note: Blood collected and sent to lab.
[2019-07-28 18:58] LABS: BASOPHILS % (AUTO) 1.7 % (0.0-2.0); EOSINOPHILS % (AUTO) 2.1 % (0.0-3.0); HEMATOCRIT 28.1 % (37.0-47.0); HEMOGLOBIN 9.5 G/DL (12.0-16.0); LYMPHOCYTES % (AUTO) 36.7 % (20.0-45.0); MEAN CORPUSCULAR VOLUME 85 FL (80-99); NEUTROPHILS % (AUTO) 49.5 % (45.0-75.0); PLATELET COUNT 268 K/UL (150-450); RED BLOOD COUNT 3.31 M/UL (4.20-5.40); RED CELL DISTRIBUTION WIDTH 12.6 % (11.6-14.8); WHITE BLOOD COUNT 9.8 K/UL (4.8-10.8)
--- NOTE | 2019-07-28 19:00 | NUR ---
ED Nurse Note: ERMD at bedside
[2019-07-28 19:08] LABS: ANION GAP 12 mmol/L (5-15); BLOOD UREA NITROGEN 37 mg/dL (7-18); CALCIUM 9.1 MG/DL (8.5-10.1); CARBON DIOXIDE 25 MMOL/L (21-32); CHLORIDE 107 MMOL/L (98-107); CREATININE 1.9 MG/DL (0.55-1.30); POTASSIUM 4.5 MMOL/L (3.5-5.1); SODIUM 144 MMOL/L (136-145)
--- NOTE | 2019-07-28 19:09 | Emergency Room Report ---
History of Present Illness General Chief Complaint: Dizziness Source: Patient, Medical Record Present Illness HPI Disclaimer: Please note that this report is being documented using [employer] technology. This can lead to erroneous entry secondary to incorrect interpretation by the dictating instrument. HPI: 49-year-old female with a history of bipolar disorder, CKD not on dialysis , fibromyalgia, chronic chest pain presenting for chest pain and dizziness. Says symptoms began approximately 3 hours ago. She notes a sharp and a pressure over the mid chest that does not radiate. Mild shortness of breath but no cough or fever. States she has had this chest pain multiple times in the past. She also states that she has some flank pain from her chronic kidney disease which is unchanged and is been present for several years. States she is being worked up for a "kidney stent" but she cannot elucidate why. Denies loss of consciousness, syncope, vertigo. Denies smoking or drug use or alcohol use. Patient is been seen in the emergency department with similar complaints in the past. She states she is homeless and that she needs help getting to transitional housing. She is requesting something to eat. On my evaluation of the patient she was found to be resting comfortably and sleeping in the bed but when awoken states she is complaining of 10/10 chest pain. There are no alleviating or aggravating symptoms. PMH: Fibromyalgia, bipolar disorder, chronic kidney disease PSH: Reports kidney procedures Allergies: Haloperidol allergy Social Hx: Denies drug, alcohol use Allergies: Coded Allergies: HALOPERIDOL (Verified Allergy, Unknown, 05/27/19) Nursing Documentation-PMH Hx Cardiac Problems: Yes Hx Hypertension: Yes Hx Asthma: Yes Hx COPD: Yes Hx Diabetes: Yes Hx Cancer: No Hx Gastrointestinal Problems: Yes - Gerd, gout Hx Dialysis: No - chronic kidney disease Hx Neurological Problems: No Hx Cerebrovascular Accident: Yes Hx Seizures: Yes Review of Systems All Other Systems: negative except mentioned in HPI Physical Exam Vital Signs Date Time Temp Pulse Resp B/P (MAP) Pulse Ox O2 Delivery O2 Flow Rate FiO2 07/28/19 17:55 99.0 86 16 145/90 (108) 98 Room Air General: Awake and alert, no acute distress HEENT: NC/AT. EOMI. Cardiovascular: RRR. S1 and S2 normal. No murmur appreciated Resp: Normal work of breathing. No cough, wheezing or crackles appreciated Abdomen: Abdomen is soft, nondistended. Nontender Skin: Intact. No abrasions, laceration or rash over the exposed skin MSK: Normal tone and bulk. Moving all extremities. No obvious deformity. Neuro: Awake and alert. Mentating appropriately. Back/Spine: No CVA tenderness on percussion Medical Decision Making Homeless Attestation Patient is safe for outpatient follow-up. Diagnostic Impression: Primary Impression: Chest pain ER Course 49-year-old female with history of bipolar disorder, CKD and fibromyalgia presents for evaluation of chest pain. She has been in this emergency department and others with similar complaints in the past. She appears to be resting comfortably at this time and arrives with stable vital signs. Will start a broad metabolic, infectious and cardiac work-up. EKG on arrival is reassuring. Patient is asking for something to eat and help with housing as she is homeless. Disposition dependent on lab work and imaging results. Laboratory Tests Test 07/28/19 18:43 White Blood Count 9.8 K/UL (4.8-10.8) Red Blood Count 3.31 M/UL (4.20-5.40) L Hemoglobin 9.5 G/DL (12.0-16.0) L Hematocrit 28.1 % (37.0-47.0) L Mean Corpuscular Volume 85 FL (80-99) Mean Corpuscular Hemoglobin 28.9 PG (27.0-31.0) Mean Corpuscular Hemoglobin Concent 33.9 G/DL (32.0-36.0) Red Cell Distribution Width 12.6 % (11.6-14.8) Platelet Count 268 K/UL (150-450) Mean Platelet Volume 6.5 FL (6.5-10.1) Neutrophils (%) (Auto) 49.5 % (45.0-75.0) Lymphocytes (%) (Auto) 36.7 % (20.0-45.0) Monocytes (%) (Auto) 10.0 % (1.0-10.0) Eosinophils (%) (Auto) 2.1 % (0.0-3.0) Basophils (%) (Auto) 1.7 % (0.0-2.0) Sodium Level 144 MMOL/L (136-145) Potassium Level 4.5 MMOL/L (3.5-5.1) Chloride Level 107 MMOL/L (98-107) Carbon Dioxide Level 25 MMOL/L (21-32) Anion Gap 12 mmol/L (5-15) Blood Urea Nitrogen 37 mg/dL (7-18) H Creatinine 1.9 MG/DL (0.55-1.30) H Estimate Glomerular Filtration Rate 34.1 mL/min (>60) Glucose Level 109 MG/DL (74-106) H Calcium Level 9.1 MG/DL (8.5-10.1) Total Bilirubin 0.2 MG/DL (0.2-1.0) Aspartate Amino Transferase (AST) 24 U/L (15-37) Alanine Aminotransferase (ALT) 39 U/L (12-78) Alkaline Phosphatase 99 U/L (46-116) Troponin I 0.000 ng/mL (0.000-0.056) Total Protein 7.1 G/DL (6.4-8.2) Albumin 3.0 G/DL (3.4-5.0) L Globulin 4.1 g/dL Albumin/Globulin Ratio 0.7 (1.0-2.7) L EKG Diagnostic Results EKG Time: 18:45 Rate: normal Rhythm: NSR ST Segments: no acute changes Other Impression Physical exam, normal axis, normal intervals, no ST segment changes. Rhythm Strip Diag. Results Rhythm Strip Time: 18:45 EP Interpretation: yes Rate: 80s Rhythm: NSR, no PVC's, no ectopy Chest X-Ray Diagnostic Results Chest X-Ray Diagnostic Results : Chest X-Ray Ordered: Yes # of Views/Limited/Complete: 1 View Indication: Chest Pain EP Interpretation: Yes Interpretation: no consolidation, no effusion, no pneumothorax Impression: No acute disease Reevaluation Time: 21:00 Last Vital Signs Date Time Temp Pulse Resp B/P (MAP) Pulse Ox O2 Delivery O2 Flow Rate FiO2 07/28/19 18:09 99.0 86 16 169/95 98 Room Air Reevaluation Impression EKG, chest x-ray and labs are unremarkable. Vital signs been stable in the emergency department during her entire visit. She is given something to eat and will be referred to outpatient services for medical follow-up as well as help with social work and housing. Patient stable for outpatient follow-up. We discussed reasons to return to the emergency department. She understands and agrees with the treatment plan. Disposition: HOME, SELF-CARE Condition: Stable Alex,Glynn MD Jul 28, 2019 19:09
[2019-07-28 19:12] LABS: ALANINE AMINOTRANSFERASE 39 U/L (12-78); ALBUMIN/GLOBULIN RATIO 0.7 (1.0-2.7); ALKALINE PHOSPHATASE 99 U/L (46-116); ASPARTATE AMINO TRANSFERASE 24 U/L (15-37); BILIRUBIN,TOTAL 0.2 MG/DL (0.2-1.0)
[2019-07-28 19:22] VITALS: BP 125/81
--- NOTE | 2019-07-28 19:37 | NUR ---
HAND-OFF: Report given to LUIS MIGUEL Corbett.
--- NOTE | 2019-07-29 14:05 | Diagnostic Imaging Report ---
Indication: Shortness of breath Technique: One view of the chest Comparison: 06/27/2019 Findings: Lungs and pleural spaces are clear. Heart size is normal. No significant interim change Impression: No acute process
--- NOTE | 2019-07-30 12:48 | Cardiology Report ---
APPROVED REPORT EKG Measurement Heart [id number] Normal sinus rhythm Normal ECG
== END | disposition home or self-care (01) ==
LOC: EDUNIT# 17:40 → EDBD 17:54 → EMR 18:26
DX: R07.9 Chest pain, unspecified (principal); J44.9 Chronic obstructive pulmonary disease, unspecified; K21.9 Gastro-esophageal reflux disease without esophagitis; Z86.73 Personal history of transient ischemic attack (TIA), and cerebral infarction without residual deficits; Z88.8 Allergy status to other drugs, medicaments and biological substances; F31.9 Bipolar disorder, unspecified; M79.7 Fibromyalgia; E11.22 Type 2 diabetes mellitus with diabetic chronic kidney disease; I12.9 Hypertensive chronic kidney disease with stage 1 through stage 4 chronic kidney disease, or unspecified chronic kidney disease; N18.9 Chronic kidney disease, unspecified
CPT/HCPCS: 36415; 71045; 80053; 84484; 85025; 93005; 99284